=== PATIENT | male | born 1950 | race Caucasian/White ===

== ENCOUNTER 2017-06-20 15:04 | Inpatient (IN) | payer OTHER ==
[~2017-06-20] VITALS: Ht 175.3 cm; Wt 92.9 kg
[~2017-06-20 15:04] MED LIST: APR25 PO; COLC0.6T54 PO; LEVO50TA6 PO; MULT-589 PO; SLWMEC PO; WARF7.5T PO
[2017-06-20] MEDS ORDERED: ONDANSETRON INJ 2 MG/ML 2 ML VIAL IV STA (15:35)
[2017-06-20] MEDS ORDERED: SODIUM CHLORIDE 0.9% 1000ML 1,000 ML IV STA (15:35)
[2017-06-20] MEDS ORDERED: LORAZEPAM 2 MG/ML 1 ML VIAL IV STA ×3 (15:37→18:39)
[2017-06-20] MEDS ORDERED: THIAMINE HCL 100 MG/ML 2 ML VIAL IV STA (15:37)
[2017-06-20] MEDS ORDERED: APR25 PO (15:51)
[2017-06-20] MEDS ORDERED: MULT-845 PO (15:51)
[2017-06-20] MEDS ORDERED: WARF-246 PO ×2 (15:51)
[2017-06-20] MEDS ORDERED: LISI-461 PO (15:51)
[2017-06-20] MEDS ORDERED: LEVO75TA5 PO (15:51)
[2017-06-20] MEDS ORDERED: MAGN64TA4 PO (15:51)
[2017-06-20 15:53] LABS: BASO % 0.6 %; BASO ABS # 0.03 K/uL (0-0.2); COMPLETE YES; EOS % 0.2 %; HEMATOCRIT 43.1 % (42-52); IG% 0.2 %; LYMPH ABS # 1.63 K/uL (1.2-3.4); MEAN CELL VOLUME 97.3 fL (80-100); MEAN CORPUSCULAR HEMOGLOBIN 33.2 pg (25-34); MEAN CORPUSCULAR HGB CONC 34.1 g/dl (32-36); MEAN PLATELET VOLUME 10.3 fL (7.4-10.4); MONO % 14.4 %; NEUT % 50.6 %; PLATELET COUNT 156 K/uL (130-400); RED BLOOD COUNT 4.43 M/uL (4.7-6.1)
[2017-06-20 16:01] LABS: INR 2.4 (0.9-1.1); PARTIAL THROMBOPLASTIN RATIO 1.3; PROTHROMBIN TIME (PATIENT) 26.5 SECONDS (9.0-12.0)
[2017-06-20 16:09] LABS: BUN/CREATININE RATIO 6.9 (10-20); CALCIUM 9.5 mg/dl (8.5-10.1); CREATININE 1.6 mg/dl (0.60-1.40); POTASSIUM 3.2 mmol/L (3.5-5.1)
[2017-06-20 16:14] LABS: CKMB/CK RATIO 1.8 (0-3.0)
[2017-06-20] MEDS ORDERED: THIAMINE HCL INJ 100 MG in SYRINGE 9 ML IV ONE (16:15)
[2017-06-20] MEDS ORDERED: ATOR-26 PO (16:29)
[2017-06-20] MEDS ORDERED: THIA1TAB11 PO (16:29)
[2017-06-20] MEDS ORDERED: OMEG10007 PO (16:32)
[2017-06-20 17:33] LABS: MANUAL MICROSCOPIC REQUIRED? NO; REVIEW REQ? NO; URINE APPEARANCE CLEAR (CLEAR); URINE BILIRUBIN NEG (NEG); URINE COLOR YELLOW; URINE NITRITE NEG (NEG); URINE SPECIFIC GRAVITY 1.013 (1.000-1.030); UROBILINOGEN NEG (NEG)
--- NOTE | 2017-06-20 17:34 | DIAGNOSTIC IMAGING REPORT ---
ABDOMEN 2VIEW W/PA CHEST RTN CLINICAL HISTORY: ABDOMINAL PAIN/GI pain COMPARISON STUDY: 03/31/2016 FINDINGS: Lungs are clear. No evidence for cardiac enlargement. Diaphragms smooth. Mild nonobstructive ileus. No evidence of bowel distention. Aortic and iliac stents are in position. IMPRESSION: 1. Negative chest. 2. Mild nonobstructive ileus. The above report was generated using voice recognition software. It may contain grammatical, syntax or spelling errors. Electronically signed by: Garett Cabrera M.D. 06/20/2017 5:32 PM Dictated Date/Time: 06/20/2017 5:31 PM
[2017-06-20] MEDS ORDERED: PANT1TAB48 PO (17:39)
[2017-06-20] MEDS ORDERED: TADA20TA PO (18:08)
--- NOTE | 2017-06-20 18:14 | EMERGENCY ROOM VISIT NOTE ---
History Report prepared by Mireille: Krysten Shepard Under the Supervision of: Dr. Blayne Velasquez D.O. First contact with patient: 15:23 Chief Complaint: RESPIRATORY PROBLEMS Stated Complaint: HARD TIME BREATHING, ELEVATED BP Nursing Triage Summary: "Difficulty breathing x2 days. My blood pressure is quite high. I drink a quart of wine a day ". N/V/D yesterday. History of Present Illness The patient is a 66 year old male who presents to the Emergency Room with complaints of an episode of respiratory problems starting today. The patient states that yesterday afternoon he was vomiting. He report he went to bed early. He states he woke up today and was still nauseous and had diarrhea. He reports that he took a shower and then checked his blood pressure. He reports that it was very high. He states that he is having difficulty breathing. He reports that he went to his and asked her to come to the ED. The patient states that his blood pressure normally fluctuates and he takes his medication for it when he remembers. He complains of some hematochezia. The patient denies chest pain, abdominal pain, and being around anyone who is sick. He notes that he has had 2 PEs in the past and that he normally is a heavy drinker, but hasn' t had much to drink. Source of History: patient Onset: today Position: other (global) Quality: other (global) Timing: other (episode) Associated Symptoms: + SOB, + nausea, + vomiting, + hematochezia, + diarrhea , No chest pain, No abdominal pain Note: The patient denies being around anyone who is sick. Review of Systems See HPI for pertinent positives & negatives. A total of 10 systems reviewed and were otherwise negative. Past Medical & Surgical Medical Problems: (1) A-fib (2) ALEXIS (acute kidney injury) (3) Bradycardia (4) CAD (coronary artery disease) (5) CKD (chronic kidney disease) stage 3, GFR 30-59 ml/min (6) Dyslipidemia (7) GERD (gastroesophageal reflux disease) (8) History of cardioversion (9) HTN (hypertension) (10) Hypotension (11) Hypothyroidism (12) PE (pulmonary embolism) Surgical Problems: (1) History of inguinal hernia repair (2) Hx of CABG (3) S/P aneurysm repair (4) S/P femoral-popliteal bypass surgery Family History Diabetes mellitus FH: cancer FH: lung disease FHx: heart disease Hypertension Social History Smoking Status: Never Smoker Alcohol Use: heavy Drug Use: none Marital Status: Occupation Status: employed Current/Historical Medications Scheduled Allopurinol (Zyloprim), 200 MG PO QPM Atorvastatin (Lipitor), 80 MG PO DAILY Clopidogrel Bisulfate (Clopidogrel), 75 MG PO QAM Escitalopram (Lexapro), 10 MG PO QPM Fish Oil ([place]-3), 1 CAP PO BID Hydralazine Hcl (Apresoline), 25 MG PO TID Levothyroxine Sodium (Levothyroxine Sodium), 75 MCG PO DAILY Lisinopril (Zestril), 10 MG PO DAILY Magnesium Chloride (Mag64), 535 MG PO QPM Multiple Vitamins W/ Minerals (Centrum Silver Adult 50+), 1 TAB PO QPM Pantoprazole (Protonix), 40 MG PO DAILY Pregabalin (Lyrica), 75 MG PO BID Thiamine Mononitrate (Vitamin B1), 100 MG PO DAILY Warfarin Sodium (Warfarin Sodium), 5 MG PO 5XWK Warfarin Sodium (Warfarin Sodium), 7.5 MG PO 2XWK Scheduled PRN Fluticasone Propionate (Nasal) (Flonase Allergy Relief), 2 SPRAYS NIALL DAILY PRN for Allergy Symptoms Hydrocodone/Acetaminophen 5MG/325MG (Grant 5MG/325MG), 1 TAB PO BID PRN for Mild Pain Tadalafil (Cialis), 20 MG PO UD PRN for intercourse Allergies Coded Allergies: No Known Allergies (Unverified , 04/07/12) Physical Exam Vital Signs Date Time Temp Pulse Resp B/P (MAP) Pulse Ox O2 Delivery O2 Flow Rate FiO2 06/20/17 19:00 89 21 170/98 95 Room Air 06/20/17 19:00 87 16 187/106 96 Room Air 06/20/17 18:04 90 16 175/93 96 Room Air 06/20/17 17:19 84 16 193/121 95 Room Air 06/20/17 16:16 94 20 202/120 97 Room Air 06/20/17 15:52 83 16 198/126 97 Room Air 06/20/17 15:32 95 06/20/17 15:12 97 Room Air 06/20/17 15:12 36.9 93 24 187/91 97 Room Air Physical Exam GENERAL: Patient is awake, alert, and did not appear to be in pain, but appears to be mildly anxious. EYES: The conjunctivae are clear. The pupils are round and reactive. EARS, NOSE, MOUTH AND THROAT: The nose is without any evidence of any deformity. Mucous membranes are moist tongue is midline NECK: The neck is nontender and supple. RESPIRATORY: Normal respiratory effort is noted there is no evidence of wheezing rhonchi or rales CARDIOVASCULAR: Regular rate and rhythm noted there no murmurs rubs or gallops normal S1 normal S2 GASTROINTESTINAL: The abdomen is soft. Bowel sounds are present in all quadrants. Abdomen is nontender MUSCULOSKELETAL/EXTREMITIES: There is no evidence of gross deformity full range of motion is noted in the hips and shoulders SKIN: There is no obvious evidence of any rash. There are no petechiae, pallor or cyanosis noted. NEUROLOGIC: Patient is awake alert and oriented x3. Medical Decision & Procedures ER Provider Diagnostic Interpretation: Radiology results as stated below per my review and radiologist interpretation: ABDOMEN 2VIEW W/PA CHEST RTN CLINICAL HISTORY: ABDOMINAL PAIN/GI pain COMPARISON STUDY: 03/31/2016 FINDINGS: Lungs are clear. No evidence for cardiac enlargement. Diaphragms smooth. Mild nonobstructive ileus. No evidence of bowel distention. Aortic and iliac stents are in position. IMPRESSION: 1. Negative chest. 2. Mild nonobstructive ileus. The above report was generated using voice recognition software. It may contain grammatical, syntax or spelling errors. Electronically signed by: Garett Cabrera M.D. 06/20/2017 5:32 PM Dictated Date/Time: 06/20/2017 5:31 PM Laboratory Results 06/20/17 15:35 Red Blood Count 4.43, Mean Corpuscular Volume 97.3, Mean Corpuscular Hemoglobin 33.2, Mean Corpuscular Hemoglobin Concent 34.1, Mean Platelet Volume 10.3, Neutrophils (%) (Auto) 50.6, Lymphocytes (%) (Auto) 34.0, Monocytes (%) (Auto) 14.4, Eosinophils (%) (Auto) 0.2, Basophils (%) (Auto) 0.6, Neutrophils # (Auto ) 2.43, Lymphocytes # (Auto) 1.63, Monocytes # (Auto) 0.69, Eosinophils # (Auto ) 0.01, Basophils # (Auto) 0.03 06/20/17 15:35 Test 06/20/17 15:35 06/20/17 17:20 White Blood Count 4.80 K/uL (4.8-10.8) Red Blood Count 4.43 M/uL (4.7-6.1) Hemoglobin 14.7 g/dL (14.0-18.0) Hematocrit 43.1 % (42-52) Mean Corpuscular Volume 97.3 fL (80-100) Mean Corpuscular Hemoglobin 33.2 pg (25-34) Mean Corpuscular Hemoglobin Concent 34.1 g/dl (32-36) Platelet Count 156 K/uL (130-400) Mean Platelet Volume 10.3 fL (7.4-10.4) Neutrophils (%) (Auto) 50.6 % Lymphocytes (%) (Auto) 34.0 % Monocytes (%) (Auto) 14.4 % Eosinophils (%) (Auto) 0.2 % Basophils (%) (Auto) 0.6 % Neutrophils # (Auto) 2.43 K/uL (1.4-6.5) Lymphocytes # (Auto) 1.63 K/uL (1.2-3.4) Monocytes # (Auto) 0.69 K/uL (0.11-0.59) Eosinophils # (Auto) 0.01 K/uL (0-0.5) Basophils # (Auto) 0.03 K/uL (0-0.2) RDW Standard Deviation 48.7 fL (36.4-46.3) RDW Coefficient of Variation 13.6 % (11.5-14.5) Immature Granulocyte % (Auto) 0.2 % Immature Granulocyte # (Auto) 0.01 K/uL (0.00-0.02) Prothrombin Time 26.5 SECONDS (9.0-12.0) Prothromb Time International Ratio 2.4 (0.9-1.1) Activated Partial Thromboplast Time 33.4 SECONDS (21.0-31.0) Partial Thromboplastin Ratio 1.3 Anion Gap 12.0 mmol/L (3-11) Est Creatinine Clear Calc Drug Dose 58.4 ml/min Estimated GFR () 50.9 Estimated GFR (Non- 43.9 BUN/Creatinine Ratio 6.9 (10-20) Calcium Level 9.5 mg/dl (8.5-10.1) Total Bilirubin 1.3 mg/dl (0.2-1) Direct Bilirubin 0.4 mg/dl (0-0.2) Aspartate Amino Transf (AST/SGOT) 156 U/L (15-37) Alanine Aminotransferase (ALT/SGPT) 95 U/L (12-78) Alkaline Phosphatase 78 U/L (45-117) Total Creatine Kinase 687 U/L (39-308) Creatine Kinase MB 12.3 ng/ml (0.5-3.6) Creatine Kinase MB Ratio 1.8 (0-3.0) Troponin I 0.040 ng/ml (0-0.045) Total Protein 8.3 gm/dl (6.4-8.2) Albumin 3.9 gm/dl (3.4-5.0) Lipase 395 U/L (73-393) Urine Color YELLOW Urine Appearance CLEAR (CLEAR) Urine pH 7.0 (4.5-7.5) Urine Specific [place] 1.013 (1.000-1.030) Urine Protein 1+ (NEG) Urine Glucose (UA) NEG (NEG) Urine Ketones NEG (NEG) Urine Occult Blood NEG (NEG) Urine Nitrite NEG (NEG) Urine Bilirubin NEG (NEG) Urine Urobilinogen NEG (NEG) Urine Leukocyte Esterase NEG (NEG) Urine WBC (Auto) 1-5 /hpf (0-5) Urine RBC (Auto) 0-4 /hpf (0-4) Urine Hyaline Casts (Auto) 0 /lpf (0-5) Urine Epithelial Cells (Auto) 5-10 /lpf (0-5) Urine Bacteria (Auto) NEG (NEG) Laboratory results per my review. Medications Administered Medications (Trade) Dose Ordered Sig/Brooke Route Start Time Stop Time Status Last Admin Dose Admin Sodium Chloride 1,000 ml @ 999 mls/hr Q1H1M STAT IV 06/20/17 15:35 06/20/17 16:35 DC 06/20/17 15:49 999 MLS/HR Ondansetron HCl (Zofran Inj) 4 mg NOW STAT IV 06/20/17 15:35 06/20/17 15:37 DC 06/20/17 15:48 4 MG Lorazepam (Ativan Inj) 0.5 mg NOW STAT IV 06/20/17 15:37 06/20/17 15:38 DC 06/20/17 15:49 0.5 MG Thiamine HCl 100 mg/Syringe 10 ml @ 2 mls/min NOW ONCE IV 06/20/17 16:15 06/20/17 16:19 DC 06/20/17 16:13 2 MLS/MIN Lorazepam (Ativan Inj) 1 mg NOW STAT IV 06/20/17 17:26 06/20/17 17:27 DC 06/20/17 17:36 1 MG Lorazepam (Ativan Inj) 1 mg NOW STAT IV 06/20/17 18:39 06/20/17 18:40 DC 06/20/17 19:00 1 MG ECG Indication: vomiting Rate (beats per minute): 85 Rhythm: atrial fibrillation Findings: other (no acute ST abnormalities, LVH suggested by voltage criteria) ED Course 1533: The patient was evaluated in room B4B. A complete history and physical examination were performed. 1535: Ordered Zofran Inj 4 mg IV, NSS 1000 ml @ 999 mls/hr IV. 1537: Ordered Ativan Inj 0.5 mg IV. 1615: Ordered Thiamine HCl 100 mg/Syringe 10 ml @ 2 mls/min IV. 1726: Ordered Ativan 1 mg IV. 1803: I reevaluated the patient and he is feeling much better. 1810: I discussed the patient's case with Dr. [place]. He would like case management to see the patient before he admits. 1838: I discussed the patient's case with Dr. [place]. The patient will be evaluated for further management. 1839: Ordered Ativan Inj 1 mg IV. Medical Decision Etiologies such as gastroenteritis, food borne illness, infections, appendicitis , diverticulitis, inflammatory bowel disease, obstruction, GI bleed, biliary pathology, as well as others were entertained. Nursing notes reviewed. The patient is a 66-year-old male who presented to emergency department because he was not feeling well. The patient has a history of chronic alcohol use. His blood pressure was very elevated. It sounds as though he is not compliant with medications and he was drinking earlier today. He does have a history of alcohol withdrawal past. I'm very concerned the patient may have a, Grace did course at this time. I discussed the patient's laboratory and radiographic studies with him. Because of his symptoms I also discussed his case with the on- call [facility] hospitalist. They've agreed to evaluate the patient in the emergency apartment for further management and disposition. At this time the patient does want to go to rehabilitation. I'm very concerned because his history though. Medication Reconcilliation Current Medication List: was personally reviewed by me Blood Pressure Screening Patient's blood pressure: Elevated blood pressure Blood pressure disposition: Elevated BP felt to be situational Consults Time Called: 1806 Consulting Physician: Dr. Montana Returned Call: [phone] I discussed the patient's case with Dr. [place]. He would like case management to see the patient before he admits. Additional Consults: Time Called: 1834 Consulted Physician: Dr. Montana Returned Call: [phone] Additional Comments: I discussed the patient's case with Dr. [place]. The patient will be evaluated for further management. Impression Primary Impression: HTN (hypertension) Additional Impressions: Alcohol abuse Alcoholic hepatitis Alcohol withdrawal Scribe Attestation The scribe's documentation has been prepared under my direction and personally reviewed by me in its entirety. I confirm that the note above accurately reflects all work, treatment, procedures, and medical decision making performed by me. Departure Information Dispostion Being Evaluated By Hospitalist Referrals Emeka Piper, D.ODonovan (PCP) Patient Instructions My [facility] Problem Qualifiers Primary Impression: HTN (hypertension) Hypertension type: unspecified Qualified Codes: I10 - Essential (primary) hypertension Additional Impressions: Alcohol withdrawal Complication of substance-induced condition: with unspecified complication Qualified Codes: F10.239 - Alcohol dependence with withdrawal, unspecified
--- NOTE | 2017-06-20 19:23 | History and Physical ---
History & Physical Date & Time of Service: Jun 20, 2017 at 19:23 . Chief Complaint: nausea, vomiting, shortness of breath . Primary Care Physician: Emeka Piper D.ODonovan . History of Present Illness Source: patient, family, clinic records, hospital records 66 YO male followed by Dr. Emeka Piper for Family Medicine. History of coronary artery disease (s/p CABG), chronic atrial fibrillation, hypertension, recurrent pulmonary emboli, and other problems noted below. He has been drinking regularly for the past several years, typically 1 quart of wine and 4-5 mixed drinks / day. Last alcohol consumption was about 24 hours prior to admission. Experiencing nausea and vomiting for past few days. Symptoms worsened with consumption of alcohol. Denies abdominal pain or hematemesis. Stools have been loose. Noted some hematochezia this morning. (Has had intermittent hematochezia for some time. Colonoscopy 2010 did not show any pathology.) No sick contacts. Did not consume any alcohol this morning because of his GI symptoms. Alcohol consumption as noted above. Takes warfarin and clopidogrel. No aspirin, NSAID's. No known history of portal hypertension. This afternoon he felt dyspneic. No chest pain, palpitations, edema, fever, cough. He checked his blood pressure at home and found it to be 190/108. Came to ED for evaluation. BP's noted to be markedly elevated with systolic BP as high as 202 and diastolic BP as high as 126. Received IV lorazepam with improvement of his symptoms and BP. . Past Medical/Surgical History Chronic and Resolved Medical Problems: (1) Alcohol abuse Status: Chronic (2) Anticoagulated on warfarin Status: Chronic (3) Atrial fibrillation Status: Chronic (4) CAD (coronary artery disease) Status: Chronic (5) CKD (chronic kidney disease) stage 3, GFR 30-59 ml/min Status: Chronic (6) Diabetic neuropathy Status: Chronic (7) Dyslipidemia Status: Chronic (8) GERD (gastroesophageal reflux disease) Status: Chronic (9) History of bradycardia Permanent Comment: carvedilol discontinued Status: Chronic (10) History of cardioversion Status: Chronic (11) History of pulmonary embolism Permanent Comment: 2 episodes, chronic warfarin therapy Status: Chronic (12) History of ventricular tachycardia Status: Chronic (13) HTN (hypertension) Status: Chronic (14) Hypothyroidism Status: Chronic (15) Sleep apnea Status: Chronic Surgical Problems: (1) History of inguinal hernia repair Status: Chronic (2) Hx of CABG Status: Chronic (3) S/P aneurysm repair Permanent Comment: AAA Status: Chronic (4) S/P femoral-popliteal bypass surgery Status: Chronic . Family History FATHER Cancer MOTHER Coronary artery disease SISTER Hypertension Social History Smoking Status: Never Smoker Alcohol Use: heavy (1 quart wine / day + 4-5 mixed drinks / day) Drug Use: none Marital Status: Housing status: lives with family Occupational Status: employed Immunizations History of Influenza Vaccine: Yes History of Tetanus Vaccine?: Unknown History of Pneumococcal: Yes History of Hepatitis B Vaccine: Unknown Allergies Coded Allergies: No Known Allergies (Unverified , 04/07/12) Home Medications Scheduled Allopurinol (Zyloprim), 200 MG PO QPM Atorvastatin (Lipitor), 80 MG PO DAILY Clopidogrel Bisulfate (Clopidogrel), 75 MG PO QAM Escitalopram Oxalate (Lexapro), 20 MG PO HS Fish Oil ([place]-3), 1 CAP PO BID Hydralazine Hcl (Apresoline), 25 MG PO TID Levothyroxine Sodium (Levothyroxine Sodium), 75 MCG PO DAILY Lisinopril (Zestril), 10 MG PO DAILY Magnesium Chloride (Mag64), 535 MG PO QPM Multiple Vitamins W/ Minerals (Centrum Silver Adult 50+), 1 TAB PO QPM Pantoprazole (Protonix), 40 MG PO DAILY Pregabalin (Lyrica), 75 MG PO BID Thiamine Mononitrate (Vitamin B1), 100 MG PO DAILY Warfarin Sodium (Warfarin Sodium), 5 MG PO 5XWK Warfarin Sodium (Warfarin Sodium), 7.5 MG PO 2XWK Scheduled PRN Fluticasone Propionate (Nasal) (Flonase Allergy Relief), 2 SPRAYS [place] DAILY PRN for Allergy Symptoms Hydrocodone/Acetaminophen 5MG/325MG ([place] 5MG/325MG), 1 TAB PO BID PRN for Mild Pain Tadalafil (Cialis), 20 MG PO UD PRN for intercourse Review of Systems Constitutional: No fever, No weight loss Eyes: No worsening of vision, No diplopia ENT: + nasal symptoms, No sore throat Respiratory: + problem reported (as noted above in HPI) Cardiovascular: + problem reported (as noted above in HPI) Abdomen: + problem reported (as noted above in HPI) Musculoskeletal: + joint pain Genitourinary - Male: No hematuria, No dysuria Neurologic: + numbness/tingling (lower extremities) Psychiatric: + depression symptoms, + anxiety Endocrine: No excessive thirst, No excessive urination Hematologic / Lymphatic: + abnormal bleeding/bruising, No swollen lymph nodes Integumentary: No rash, No new/changing skin lesions Physical Exam Vital Signs Date Time Temp Pulse Resp B/P (MAP) Pulse Ox O2 Delivery O2 Flow Rate FiO2 06/20/17 19:00 89 21 170/98 95 Room Air 06/20/17 19:00 87 16 187/106 96 Room Air 06/20/17 18:04 90 16 175/93 96 Room Air 06/20/17 17:19 84 16 193/121 95 Room Air 06/20/17 16:16 94 20 202/120 97 Room Air 06/20/17 15:52 83 16 198/126 97 Room Air 06/20/17 15:32 95 06/20/17 15:12 97 Room Air 06/20/17 15:12 36.9 93 24 187/91 97 Room Air General Appearance: WD/WN, + mild distress Head: normocephalic, atraumatic Eyes: normal inspection, PERRL, EOMI, sclerae normal (conjunctivae pink) ENT: normal ENT inspection, hearing grossly normal, pharynx normal Neck: supple, no adenopathy, thyroid normal, no JVD, trachea midline Respiratory/Chest: lungs clear, no respiratory distress, no accessory muscle use Cardiovascular: no edema, no gallop, no JVD, no murmur, normal peripheral pulses, + irregularly irregular Abdomen/GI: normal bowel sounds, non tender, soft, no organomegaly (exam limited due to obesity), no pulsatile mass Extremities/Musculoskelatal: normal inspection, no calf tenderness, normal capillary refill, no pedal edema 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 (PERRL, EOMI, no facial palsy, no dysarthria), oriented x 3, + pertinent finding (motor upper and lower extremities 5/5 bilat; decreased sensation both feet; patellar DTR's 1/2 bilat; plantar reflexes downgoing; resting tremor of hands) Skin: normal color, warm/dry, no rash Lymphatic: no adenopathy (cervical / axillary) Diagnostics Laboratory Results Results Past 24 Hours Test 06/20/17 15:35 06/20/17 17:20 Range/Units White Blood Count 4.80 4.8-10.8 K/uL Red Blood Count 4.43 4.7-6.1 M/uL Hemoglobin 14.7 14.0-18.0 g/dL Hematocrit 43.1 42-52 % Mean Corpuscular Volume 97.3 80-100 fL Mean Corpuscular Hemoglobin 33.2 25-34 pg Mean Corpuscular Hemoglobin Concent 34.1 32-36 g/dl Platelet Count 156 130-400 K/uL Mean Platelet Volume 10.3 7.4-10.4 fL Neutrophils (%) (Auto) 50.6 % Lymphocytes (%) (Auto) 34.0 % Monocytes (%) (Auto) 14.4 % Eosinophils (%) (Auto) 0.2 % Basophils (%) (Auto) 0.6 % Neutrophils # (Auto) 2.43 1.4-6.5 K/uL Lymphocytes # (Auto) 1.63 1.2-3.4 K/uL Monocytes # (Auto) 0.69 0.11-0.59 K/uL Eosinophils # (Auto) 0.01 0-0.5 K/uL Basophils # (Auto) 0.03 0-0.2 K/uL RDW Standard Deviation 48.7 36.4-46.3 fL RDW Coefficient of Variation 13.6 11.5-14.5 % Immature Granulocyte % (Auto) 0.2 % Immature Granulocyte # (Auto) 0.01 0.00-0.02 K/uL Prothrombin Time 26.5 9.0-12.0 SECONDS Prothromb Time International Ratio 2.4 0.9-1.1 Activated Partial Thromboplast Time 33.4 21.0-31.0 SECONDS Partial Thromboplastin Ratio 1.3 Sodium Level 136 136-145 mmol/L Potassium Level 3.2 3.5-5.1 mmol/L Chloride Level 102 98-107 mmol/L Carbon Dioxide Level 22 21-32 mmol/L Anion Gap 12.0 3-11 mmol/L Blood Urea Nitrogen 11 7-18 mg/dl Creatinine 1.60 0.60-1.40 mg/dl Est Creatinine Clear Calc Drug Dose 58.4 ml/min Estimated GFR () 50.9 Estimated GFR (Non- 43.9 BUN/Creatinine Ratio 6.9 10-20 Random Glucose 113 70-99 mg/dl Calcium Level 9.5 8.5-10.1 mg/dl Total Bilirubin 1.3 0.2-1 mg/dl Direct Bilirubin 0.4 0-0.2 mg/dl Aspartate Amino Transf (AST/SGOT) 156 15-37 U/L Alanine Aminotransferase (ALT/SGPT) 95 12-78 U/L Alkaline Phosphatase 78 45-117 U/L Total Creatine Kinase 687 39-308 U/L Creatine Kinase MB 12.3 0.5-3.6 ng/ml Creatine Kinase MB Ratio 1.8 0-3.0 Troponin I 0.040 0-0.045 ng/ml Total Protein 8.3 6.4-8.2 gm/dl Albumin 3.9 3.4-5.0 gm/dl Lipase 395 73-393 U/L Urine Color YELLOW Urine Appearance CLEAR CLEAR Urine pH 7.0 4.5-7.5 Urine Specific [place] 1.013 1.000-1.030 Urine Protein 1+ NEG Urine Glucose (UA) NEG NEG Urine Ketones NEG NEG Urine Occult Blood NEG NEG Urine Nitrite NEG NEG Urine Bilirubin NEG NEG Urine Urobilinogen NEG NEG Urine Leukocyte Esterase NEG NEG Urine WBC (Auto) 1-5 0-5 /hpf Urine RBC (Auto) 0-4 0-4 /hpf Urine Hyaline Casts (Auto) 0 0-5 /lpf Urine Epithelial Cells (Auto) 5-10 0-5 /lpf Urine Bacteria (Auto) NEG NEG Diagnostic Radiology ABDOMEN 2VIEW W/PA CHEST RTN FINDINGS: Lungs are clear. No evidence for cardiac enlargement. Diaphragms smooth. Mild nonobstructive ileus. No evidence of bowel distention. Aortic and iliac stents are in position. IMPRESSION: 1. Negative chest. 2. Mild nonobstructive ileus. The above report was generated using voice recognition software. It may contain grammatical, syntax or spelling errors. Electronically signed by: Garett Cabrera M.D. 06/20/2017 5:32 PM Dictated Date/Time: 06/20/2017 5:31 PM . Impression Assessment and Plan HYPERTENSIVE URGENCY Systolic BP as high as 202, diastolic BP as high as 126 in ED. Hypertensive urgency probably primarily due to alcohol withdrawal. BP's improved with administration of lorazepam in ED. History of bradycardia in the past on beta jerald. Increase hydralazine to 50 mg TID. Increase lisinopril to 10 mg BID. IV enalapril PRN for elevated BP's. Management of alcohol withdrawal as discussed below. Follow and titrate Rx. DYSPNEA Patient complains of dyspnea. RR in ED 16-24. O2 sats 95-97% on RA. Lung exam clear. No infiltrates, effusions, CHF on chest x-ray. History of pulmonary emboli, but INR therapeutic at 2.5. Dyspnea could be secondary to hypertensive urgency or perhaps secondary to anxiety from alcohol withdrawal. Follow symptoms, exam, O2 sats. ALCOHOL WITHDRAWAL / ALCOHOLISM Has been drinking heavily / regularly for last 6 years. Heavy drinking triggered by financial difficulties at that time. Continues to drink because he enjoys it and it helps control his neuropathic pain. Currently drinking a quart of wine a day and 4-5 mixed drinks a day. Last alcohol consumption about 24 hours prior to admission. Experiencing elevated blood pressures, tremors, anxiety. Patient willing to try abstention. Gabapentin-based alcohol withdrawal protocol ordered. Thiamine / folate / MVI. NAUSEA / VOMITING Probably related to alcohol consumption. Could have gastritis / PUD. LFT's elevated as noted below, lipase slightly elevated. Avoid gastric irritants. Increase pantoprazole to BID (IV x 2 doses, then PO if better). Consult GI. ELEVATED LFT'S LFT's - total bilirubin 1.3, direct bilirubin 0.4, AST 156, ALT 95, alk phos 78. Probable due to alcohol abuse. Check liver US. Follow LFT's. Consult GI. HEMATOCHEZIA Patient reports intermittent mild rectal bleeding, last occurrence this morning. H/H stable. Hemodynamically stable. Taking warfarin for chronic AF and history recurrent pulmonary emboli. Taking clopidogrel for CAD, s/p CABG. Also using fish oil supplements. Colonoscopy performed 04/08/11 for routine screening was unremarkable; f/u in 10 years recommended. Follow H/H. Continue warfarin and clopidogrel with caution. Degree of antiplatelet effects of omega-3 fatty acids debatable, but prudent to stop fish oil. Consult GI. CORONARY ARTERY DISEASE History of coronary artery disease, s/p CABG. No anginal symptoms. EKG pending. Total CPK 687, CPK-MB 12, troponin 0.040. Check serial cardiac markers. Beta jerald stopped in past due to bradycardia. Hold statin due to elevated LFT's. Continue antiplatelet therapy with clopidogrel with caution. CHRONIC ATRIAL FIBRILLATION Rate controlled. Continue warfarin with caution. Warfarin preferred over DOAC's in this case due to potential need for reversal. HISTORY PULMONARY EMBOLISM History of pulmonary embolism x 2. Continue warfarin with caution. Warfarin preferred over DOAC's in this case due to potential need for reversal. CKD III Baseline creatinine around 1.5. Creatinine today 1.6. Maintain adequate volume status. Avoid potential nephrotoxins when able. Follow. HYPOKALEMIA Serum K = 3.2. IV repletion. Follow. HYPOMAGNESEMIA History of hypomagnesemia on magnesium chloride. Check Mg with next labs. Continue replacement. Follow. GOUT Quiescent. Continue allopurinol. HYPOTHYROIDISM Check TSH. Continue levothyroxine. PERIPHERAL NEUROPATHY Very symptomatic pain and paresthesiae of lower extremities. Evaluated in the past, details not available. Hold pregabalin while receiving gabapentin for alcohol withdrawal, then resume and titrate Rx. Continue analgesics PRN with caution- will change from hydrocodone / acetaminophen to oxycodone in light of hepatic disease. DEPRESSION Continue escitalopram. VTE PROPHYLAXIS Continue warfarin with caution. RESUSCITATION STATUS Discussed with patient and his . He has a living will. He would like resuscitation attempted in the event of a cardiopulmonary arrest if there is a reasonable chance of a meaningful recovery, but does not want prolonged extraordinary measures if prognosis is poor. Therefore, code status = "Level 1" (full resuscitation). DISPOSITION Admit to Telemetry Unit. Discharge disposition to be determined. Family Medicine follow-up with Dr. Emeka Piper. . VTE Prophylaxis VTE Risk Assessment Done? Y/N: Yes Risk Level: Moderate Given or contraindicated: Warfarin (Coumadin)
[2017-06-20 19:36] VITALS: BMI 30.0
[2017-06-20 19:42] VITALS: Ht 175.3 cm; Wt 92.9 kg
[2017-06-20] MEDS ORDERED: ESCI10TA17 PO (19:50)
[2017-06-20] MEDS ORDERED: FLUT0.15 NAE (19:50)
[2017-06-20] MEDS ORDERED: HYDR-5688 PO (19:50)
[2017-06-20] MEDS ORDERED: PREG1CAP28 PO (19:50)
[2017-06-20] MEDS ORDERED: ALLO100T PO (20:03)
[2017-06-20] MEDS ORDERED: PLV75 PO (20:04)
[2017-06-20] MEDS ORDERED: ESCI1TAB10 PO (20:16)
[2017-06-20] MEDS ORDERED: HYDROmorphone INJ 1 MG/ML SYR IV PRN (20:30)
[2017-06-20] MEDS ORDERED: HydrALAZINE HCL 20 MG/ML VIAL IV. PRN (20:30)
[2017-06-20] MEDS ORDERED: CLONIDINE HCL 0.1 MG TAB PO PRN (20:30)
[2017-06-20] MEDS ORDERED: MULTI-VITAMIN INFUSION INJ 10 ML, THIAMINE HCL INJ 100 MG, FoLIC ACID INJ 1 MG, POTASSI... IV ONE ×5 (20:33)
[2017-06-20 20:34] VITALS: BP 179/95; PULSE 82; TEMP 37; O2SAT 94
[2017-06-20] MEDS ORDERED: LORAZEPAM 1 MG TAB PO PRN (20:45)
[2017-06-20] MEDS ORDERED: GABAPENTIN 600 MG TAB PO STA (21:10)
[2017-06-20] MEDS ORDERED: LISINOPRIL 10 MG TAB PO ONE (21:55)
[2017-06-20] MEDS ORDERED: PANTOprazole INJ 40 MG in SYRINGE 0 ML IV ONE (22:00)
[2017-06-20] MEDS ORDERED: ENALAPRILAT IV 1.25 MG in DEXTROSE 5% 25ML 25 ML IV PRN (22:00)
[2017-06-20] MEDS: ALLOPURINOL 100 MG TAB PO SCH (22:20)
[2017-06-20] MEDS: ESCITALOPRAM OXALATE 20 MG TAB PO SCH (22:21)
[2017-06-20] MEDS: CEROVITE ADV FORMULA TAB PO SCH (22:21)
[2017-06-20] MEDS: MAGNESIUM CHLORIDE 64MG DELAYED REL TAB PO SCH (22:21)
[2017-06-20 23:00] VITALS: BP 188/106; PULSE 92; TEMP 37; O2SAT 94
[2017-06-20] MEDS: LORAZEPAM 2 MG/ML 1 ML VIAL IV PRN (23:48)
[2017-06-21] VITALS (10 sets, daily range): BP systolic 125–174; BP diastolic 62–96; PULSE 68–106; TEMP 36.8–37.3; O2SAT 95–97
[2017-06-21 00:09] LABS: CKMB/CK RATIO 1.8 (0-3.0); MAGNESIUM 1.7 mg/dl (1.8-2.4)
[2017-06-21] MEDS ORDERED: INFLUENZA ADMINISTRATION CHARGE ONE (00:45)
[2017-06-21] MEDS ORDERED: INFLUENZA VACCINE HIGH DOSE 65+ 0.5 ML SYR IM. ONE (00:45)
[2017-06-21] MEDS: GABAPENTIN 600MG Q6H DOSE PO SCH ×2 (04:27→08:01)
[2017-06-21] MEDS: LEVOTHYROXINE 75 MCG TAB PO SCH (04:27)
[2017-06-21 07:03] LABS: HEMATOCRIT 36.6 % (42-52); MEAN CELL VOLUME 101.1 fL (80-100); MEAN CORPUSCULAR HEMOGLOBIN 33.7 pg (25-34); MEAN CORPUSCULAR HGB CONC 33.3 g/dl (32-36); MEAN PLATELET VOLUME 9.8 fL (7.4-10.4); PLATELET COUNT 108 K/uL (130-400); RED BLOOD COUNT 3.62 M/uL (4.7-6.1); WHITE BLOOD COUNT 3.19 K/uL (4.8-10.8)
[2017-06-21 07:13] LABS: PROTHROMBIN TIME (PATIENT) 22.4 SECONDS (9.0-12.0)
[2017-06-21 07:36] LABS: BUN/CREATININE RATIO 7.9 (10-20); CALCIUM 8.2 mg/dl (8.5-10.1); CREATININE 1.4 mg/dl (0.60-1.40); MAGNESIUM 1.8 mg/dl (1.8-2.4); POTASSIUM 4.1 mmol/L (3.5-5.1)
[2017-06-21 07:43] LABS: ALB/GLOB RATIO 0.9 (0.9-2); CHOLESTEROL/HDL RATIO 5.2; CKMB/CK RATIO 1.8 (0-3.0); THYROID STIMULATING HORMONE 3.03 uIu/ml (0.300-4.500)
[2017-06-21] MEDS: THIAMINE HCL INJ 100 MG in SYRINGE 9 ML IV SCH (08:01)
[2017-06-21] MEDS: LISINOPRIL 10 MG TAB PO SCH ×2 (08:02→20:41)
[2017-06-21] MEDS: OXYCODONE HCL IR 5 MG TAB (IMMEDIATE RELEASE) PO PRN ×2 (08:21→17:41)
--- NOTE | 2017-06-21 08:53 | Cardiology Consultation ---
Cardiology Consultation Date of Consultation: Jun 21, 2017 Requesting Physician: Dr. Pollock Attending Manager System: Dr. Cardozo (Carmina Iniguez PA-C) History of Present Illness Patient is a 66 year old male who follows with [facility], Dr. Uribe, for history of paroxysmal atrial fibrillation/flutter last cardioversion in 2013, on chronic anticoagulation, history of PE and pulmonary hypertension with underlying lung disease, EFRAÍN, history of non obstructive CAD in 2010 and 2013, history of peripheral vascular disease, history of bradycardia not on beta jerald or antiarrhythmic therapy, hypertension with history of medication non compliance, and long history of alcohol abuse. Patient admitted to [facility] for nausea, vomiting, and hypertensive urgency in the setting of chronic alcohol abuse. Reports drinking heavily over the last few weeks/months including at least wine, and 4-5 drinks daily. He denies recent or recurrent chest pain. He admits to chronic dyspnea, unchanged. He had some mild SOB upon admission, but this resolved. One troponin reading at 0.07 on admission and cardiology consult requested. EKG without ischemic changes. Mild ALEXIS also noted. Elevated LFT's noted. Statin on hold. Hydralazine and lisinopril doses were increased on admission as well. GI consulted due to questionable GI bleed and elevated LFT's. At time of consult, patient resting comfortably. BP trending down. No headaches or vision changes. No chest pain. SOB resolved and at baseline. Notes chronic LE pain, unchanged. No orthopnea, PND or edema. No palpitations or dizziness. No overt tremors noted. (Carmina Iniguez, CANDE) Past Medical/Surgical History Problem List: Medical Problems: (1) Alcohol abuse (2) Anticoagulated on warfarin (3) Atrial fibrillation (4) CAD (coronary artery disease) (5) CKD (chronic kidney disease) stage 3, GFR 30-59 ml/min (6) Diabetic neuropathy (7) Dyslipidemia (8) GERD (gastroesophageal reflux disease) (9) History of bradycardia (10) History of cardioversion (11) History of pulmonary embolism (12) History of ventricular tachycardia (13) HTN (hypertension) (14) Hypothyroidism (15) Sleep apnea Surgical Problems: (1) History of inguinal hernia repair (2) Hx of CABG (3) S/P aneurysm repair (4) S/P femoral-popliteal bypass surgery Detailed problem list: as reviewed by outpatient cardiology office notes with Dr. Uribe, dated 02/19/17: 1. Multifactorial shortness of breath, Perhaps in part related to mild pulmonary hypertension with possible substrate 's including chronic thromboembolic pulmonary hypertension, hypoxemia from underlying lung disease, left ventricular diastolic dysfunction- improved on low-dose diuretic 2. CAD, negative nuclear stress test, 12/29/11,01/2014, cardiac catheterization , 02/2014 non obstructive CAD 3. Atrial flutter, back in sinus rhythm since direct current cardioversion January 4. Pulmonary embolism x 2 in 2006 and 2011 5. s/p transcatheter embolization of the right internal iliac artery (12 mm Amplatzer II vascular plug x2) and repair of ectatic abdominal aorta and right common iliac artery aneurysm with [employer] Zenith aortic stent graft 10/2012, Dr Ritter 6. S/P [id number] femoral artery to femoral artery bypass graft with 8 mm externally supported ePTFE by Dr. Ritter on 11/13/2013 for management of occluded right endograft limb with acute onset of RLE claudication in late 03/2013. Reporting marked improvement in RLE claudication. 7. Stable seromas present to bilateral groins, L>R, no s/s of infection. 8. Dyslipidemia, elevated triglycerides, improved 9. liver disease, hepatic cirrhosis dx 11/2014. 10. Hospitalization 2016 , transient bradycardia, acute kidney insufficiency (Carmina Iniguez PA-C) Family History Cancer FATHER Coronary artery disease MOTHER Hypertension SISTER (Carmina Iniguez PA-C) Cancer FATHER Coronary artery disease MOTHER Hypertension SISTER (Cullen Cardozo DO) Social History Smoking Status: Never Smoker Alcohol Use: heavy (1 quart wine / day + 4-5 mixed drinks / day) Drug Use: none Marital Status: Housing Status: lives with family Occupation: employed (Carmina Iniguez PA-C) Review Of Systems General: The patient denies weight change, night sweats, fever, chills. Head: The patient denies headache and prior head trauma. Cardiovascular: The patient denies chest pain or chest discomfort, dyspnea on exertion, palpitations, PND, orthopnea, edema, spontaneous shortness of breath, syncope and near syncope. Pulmonary: The patient denies cough, wheeze, pleurisy, hemoptysis, sputum, and excessive snoring. Gastrointestinal: The patient denies nausea, vomiting, diarrhea, constipation, bloating, hematemesis, hematochezia, and abdominal pain. Skin: The patient denies diaphoresis and rash. Musculoskeletal: The patient denies joint pain, joint swelling, myalgia, back pain, neck pain and prior injuries. Neurological: The patient denies prior stroke and seizures (Carmina Iniguez PA-C) Allergies Coded Allergies: No Known Allergies (Unverified , 04/07/12) Medications Reported Home Medications Medications Dose Route/Sig Max Daily Dose Days Date Category Dose Instructions Lexapro (Escitalopram Oxalate) 20 Mg Tab 20 Mg PO HS 06/20/17 Reported Centrum Silver Adult 50+ (Multiple Vitamins W/ Minerals) 1 Tab Tab 1 Tab PO QPM 06/20/17 Reported Mag64 (Magnesium Chloride) 535 Mg Tab 535 Mg PO QPM 06/20/17 Reported Apresoline (Hydralazine Hcl) 25 Mg Tab 25 Mg PO TID 06/20/17 Reported Zestril (Lisinopril) 10 Mg Tab 10 Mg PO DAILY 06/20/17 Reported Warfarin Sodium 5 Mg Tab 7.5 Mg PO 2XWK 06/20/17 Reported TAKE 7.5 MG EVERY WEDNESDAY AND WEDNESDAY OR OTHERWISE DIRECTED TO TAKE BY ANTICOAGULATION CLINIC/MD Warfarin Sodium 5 Mg Tab 5 Mg PO 5XWK 06/20/17 Reported TAKE 5 MG EVERY WEDNESDAY,WEDNESDAY,WEDNESDAY,WEDNESDAY AND WEDNESDAY OR OTHERWISE DIRECTED TO TAKE BY ANTICOAGULATION CLINIC/MD Levothyroxine Sodium 75 Mcg Tab 75 Mcg PO DAILY 06/20/17 Reported TAKE THIS MEDICATION 30 MINUTES BEFORE BREAKFAST OR ANY OTHER MEDICATIONS Cialis (Tadalafil) 20 Mg Tab 20 Mg PO UD PRN 03/31/16 Reported Anthon-3 (Fish Oil) 1 Ea Cap 1 Cap PO BID 03/31/16 Reported Vitamin B1 (Thiamine Mononitrate) 100 Mg Tab 100 Mg PO DAILY 03/31/16 Reported Lipitor (Atorvastatin Calcium) 80 Mg Tab 80 Mg PO DAILY 03/31/16 Reported Zyloprim (Allopurinol) 100 Mg Tab 200 Mg PO QPM 02/26/16 Reported Flonase Allergy Relief (Fluticasone Propionate (Nasal)) 50 Mcg/Act Spr 2 Sprays NIALL DAILY PRN 02/26/16 Reported Lyrica (Pregabalin) 75 Mg Cap 75 Mg PO BID 02/26/16 Reported [place] 5MG/325MG (Acetaminophen/Hydrocodone Bitart) Tab 1 Tab PO BID PRN 02/26/16 Reported Clopidogrel (Clopidogrel Bisulfate) 75 Mg Tab 75 Mg PO QAM 11/30/14 Reported Protonix (Pantoprazole) 40 Mg Tab 40 Mg PO DAILY 02/05/14 Reported (Carmina Iniguez PA-C) Physical Exam Vital Signs (Last 8hrs): Last 8 Hrs Date Time Temp Pulse Resp B/P (MAP) Pulse Ox O2 Delivery O2 Flow Rate FiO2 06/21/17 07:31 36.8 81 19 167/91 (116) 96 Room Air 06/21/17 04:00 Room Air 06/21/17 04:00 36.8 72 16 149/84 (105) 97 Room Air 06/21/17 02:00 106 125/62 (83) General Appearance: Alert and Oriented x3. NAD. Head: Normocephalic Atraumatic. Eyes: PERRLA, EOMI, conjunctiva and sclera clear Neck: Supple. No carotid bruits noted. No JVD. No HJD. Respiratory: Breath sounds clear to auscultation bilaterally. No w/r/r. Cardiovascular: Reg rate and rhythm. S1 and S2 noted. No murmurs, rubs, gallops. PMI non displace. Abdomen: Normal bowel sounds, soft nontender. no abdominal bruits. Extremities: No edema, no clubbing or cyanosis. distal pulses 2/4 bilaterally. Neuro: No focal deficits. Psychiatric: Normal affect. (Carmina Iniguez PA-C) Data Last 24 Hours Test 06/20/17 15:32 06/20/17 15:35 06/20/17 17:20 06/20/17 23:25 Hepatitis C Antibody Screen NEG White Blood Count 4.80 K/uL Red Blood Count 4.43 M/uL Hemoglobin 14.7 g/dL Hematocrit 43.1 % Mean Corpuscular Volume 97.3 fL Mean Corpuscular Hemoglobin 33.2 pg Mean Corpuscular Hemoglobin Concent 34.1 g/dl Platelet Count 156 K/uL Mean Platelet Volume 10.3 fL Neutrophils (%) (Auto) 50.6 % Lymphocytes (%) (Auto) 34.0 % Monocytes (%) (Auto) 14.4 % Eosinophils (%) (Auto) 0.2 % Basophils (%) (Auto) 0.6 % Neutrophils # (Auto) 2.43 K/uL Lymphocytes # (Auto) 1.63 K/uL Monocytes # (Auto) 0.69 K/uL Eosinophils # (Auto) 0.01 K/uL Basophils # (Auto) 0.03 K/uL RDW Standard Deviation 48.7 fL RDW Coefficient of Variation 13.6 % Immature Granulocyte % (Auto) 0.2 % Immature Granulocyte # (Auto) 0.01 K/uL Prothrombin Time 26.5 SECONDS Prothromb Time International Ratio 2.4 Activated Partial Thromboplast Time 33.4 SECONDS Partial Thromboplastin Ratio 1.3 Sodium Level 136 mmol/L Potassium Level 3.2 mmol/L Chloride Level 102 mmol/L Carbon Dioxide Level 22 mmol/L Anion Gap 12.0 mmol/L Blood Urea Nitrogen 11 mg/dl Creatinine 1.60 mg/dl Est Creatinine Clear Calc Drug Dose 58.4 ml/min Estimated GFR () 50.9 Estimated GFR (Non- 43.9 BUN/Creatinine Ratio 6.9 Random Glucose 113 mg/dl Calcium Level 9.5 mg/dl Total Bilirubin 1.3 mg/dl Direct Bilirubin 0.4 mg/dl Aspartate Amino Transf (AST/SGOT) 156 U/L Alanine Aminotransferase (ALT/SGPT) 95 U/L Alkaline Phosphatase 78 U/L Total Creatine Kinase 687 U/L 521 U/L Creatine Kinase MB 12.3 ng/ml 9.5 ng/ml Creatine Kinase MB Ratio 1.8 1.8 Troponin I 0.040 ng/ml 0.070 ng/ml Total Protein 8.3 gm/dl Albumin 3.9 gm/dl Lipase 395 U/L Urine Color YELLOW Urine Appearance CLEAR Urine pH 7.0 Urine Specific [place] 1.013 Urine Protein 1+ Urine Glucose (UA) NEG Urine Ketones NEG Urine Occult Blood NEG Urine Nitrite NEG Urine Bilirubin NEG Urine Urobilinogen NEG Urine Leukocyte Esterase NEG Urine WBC (Auto) 1-5 /hpf Urine RBC (Auto) 0-4 /hpf Urine Hyaline Casts (Auto) 0 /lpf Urine Epithelial Cells (Auto) 5-10 /lpf Urine Bacteria (Auto) NEG Magnesium Level 1.7 mg/dl Test 06/21/17 06:47 White Blood Count 3.19 K/uL Red Blood Count 3.62 M/uL Hemoglobin 12.2 g/dL Hematocrit 36.6 % Mean Corpuscular Volume 101.1 fL Mean Corpuscular Hemoglobin 33.7 pg Mean Corpuscular Hemoglobin Concent 33.3 g/dl RDW Standard Deviation 51.7 fL RDW Coefficient of Variation 14.0 % Platelet Count 108 K/uL Mean Platelet Volume 9.8 fL Prothrombin Time 22.4 SECONDS Prothromb Time International Ratio 2.0 Sodium Level 142 mmol/L Potassium Level 4.1 mmol/L Chloride Level 111 mmol/L Carbon Dioxide Level 26 mmol/L Anion Gap 5.0 mmol/L Blood Urea Nitrogen 11 mg/dl Creatinine 1.40 mg/dl Est Creatinine Clear Calc Drug Dose 57.5 ml/min Estimated GFR () 59.8 Estimated GFR (Non- 51.6 BUN/Creatinine Ratio 7.9 Random Glucose 105 mg/dl Calcium Level 8.2 mg/dl Magnesium Level 1.8 mg/dl Total Bilirubin 1.1 mg/dl Aspartate Amino Transf (AST/SGOT) 115 U/L Alanine Aminotransferase (ALT/SGPT) 69 U/L Alkaline Phosphatase 59 U/L Total Creatine Kinase 460 U/L Creatine Kinase MB 8.5 ng/ml Creatine Kinase MB Ratio 1.8 Troponin I 0.044 ng/ml Total Protein 6.4 gm/dl Albumin 3.1 gm/dl Globulin 3.3 gm/dl Albumin/Globulin Ratio 0.9 Triglycerides Level 408 mg/dl Cholesterol Level 198 mg/dl HDL Cholesterol 38 mg/dl LDL Cholesterol, Calculated mg/dl VLDL Cholesterol, Calculated mg/dl Cholesterol/HDL Ratio 5.2 Lipase 260 U/L Thyroid Stimulating Hormone (TSH) 3.030 uIu/ml Imaging: chest/abdominal xray - 1. Negative chest. 2. Mild nonobstructive ileus EKG: NSR with 1st degree AV block No significant changes from prior. Telemetry reviewed: NSR with [facility] PAC. Possible episode of paroxysmal afib, last evening, rate controlled. Prior data: Echocardiogram reviewed from March 2016 at [facility]: Normal LV function, borderline LVH, EF 55-60% moderate aortic sclerosis without stenosis, moderate TR Elevated RV systolic pressures 40-50mmHG (Carmina Iniguez, JINAC) Assessment & Plan 1. Hypertensive urgency, in setting of acute alcohol withdrawal. -Lisinopril and hydralazine doses increased on admission -BP trending down -monitor and titrate as needed. -not currently on beta jerald due to chart history of bradycardia. 2. Minimal troponin elevation, multifactorial in setting of hypertensive urgency , ALEXIS -not indicative of ACS -EKG without ischemic changes -update 2D echo 3. History of paroxysmal atrial fibrillation, currently in NSR -on chronic anticoagulation therapy for afib as well as history of PE 4. History of peripheral vascular disease s/p fem pop bypass -on Plavix, ASA, statin (held on admission due to elevated LFT's) 5. Elevated LFT's in the setting of chronic alcohol -statin now on hold 6. Questionable GI bleed -stable Hbg -continue Coumadin and Plavix for now, unless gross bleeding noted -GI consulted Case to be discussed with Dr. Cardozo. Will follow. (Carmina Iniguez, CANDE) Cardiology attending physician: Patient seen and examined at the bedside. He appears comfortable. No tremor noted. Denies chest pain or shortness of breath. Reports coming to the hospital due to nausea as well as dyspnea. He was found to be hypertensive and treated with intravenous lorazepam for alcohol withdrawal. Complex cardio vascular history listed above. Patient admits to heavy alcohol use over the past few weeks. States he has been an alcoholic for the majority of his adult life. Notes a period of sobriety lasting almost 15 years, however, when he moved to [place] he suffered a nervous breakdown and began drinking again. This was approximate 7 years ago. Lisinopril titrated to 10 mg twice daily and hydralazine increased to 50 mg 3 times daily today. Blood pressure has improved. Denies dyspnea or chest pain currently. No dysrhythmias on telemetry which demonstrates sinus rhythm and occasional PACs. PE: hypertensive, otherwise VSS. GEN: NAD, AAO x3. Heart: Regular with occasional ectopy. Normal S1S2. no murmur. Lungs: Clear bilateral without rales , rhonchi, or wheeze. Ext: No edema. A/P: Agree with above CANDE history, physical exam, assessment and plan. Oral antihypertensive medications have been titrated. Blood pressure improving. I will review repeat resting 2-D transthoracic echo when available. Treatment of alcohol withdrawal as per internal medicine. Mildly elevated troponins do not represent acute coronary syndrome. Await GI evaluation for reported history of hematochezia. Patient hemoglobin remains stable with no signs/symptoms of ongoing blood loss currently. Other cardiovascular medications will be continued as listed above. We will continue to follow during hospitalization. Henry Cardozo DO, FACC (Cullen Cardozo, DO)
[2017-06-21] MEDS ORDERED: PANTOprazole INJ 40 MG in SYRINGE 0 ML IV ONE (09:00)
[2017-06-21] MEDS ORDERED: LISINOPRIL 10 MG TAB PO SCH (09:00)
[2017-06-21] MEDS ORDERED: CLOPIDOGREL BISULFATE 75 MG TAB PO SCH (09:00)
--- NOTE | 2017-06-21 12:26 | Gastrointestinal Consultation ---
Gastrointestinal Consultation Date of Consultation: Jun 21, 2017 Attending Physician: Gonzalo Huntley Consulting Physician: Nupur Alston Reason for Consultation: ETOH liver disease, rectal bleeding History of Present Illness Patient is a 66 year old male who presented to ED w c/o n/v, SOB. He has PMHx of CAD, s/p CABG, Afib, HTN, PEs, also heavy ETOH use of 1 quart of wine w 4 mixed drinks a day. He had previously quit ETOH for 20 yrs, attended AA meetings , counseling. However recently had financial problems, second time going to file [employer] and he started drinking again. Admitted that n/v, worse w ETOH consumption. He denies any abd pain. He noticed bright red rectal bleeding for a few months now - 3x a week, not with every BM. Denies any constipation or straining though feels he may have hemorrhoids. He is on Warfarin and Plavix for hx of PEs. Upon evaluation, he was noted to be hypertensive: 200s/120s. Last ETOH consumption 24 hr prior to admission. Given IVF w multivitamins, Lorazepam, Lisinopril, now BP 150s/70s. Labs showed H/H / though may be diluted since IVFs yesterday. PT/INR 22/2. CMP showed elevated LFTs: Tbili 1.3, AST 156, ALT 95, AP 78, Lipase 395. CK 600s. Chest and abd u/s showed negative chest but mild non obstructing ileus. Past Medical/Surgical History Medical Problems: (1) Alcohol abuse Status: Chronic (2) Alcohol withdrawal Status: Acute (3) Alcoholic hepatitis Status: Acute (4) HTN (hypertension) Status: Chronic (5) Symptomatic bradycardia Status: Acute Past Medical History: See above Past Surgical History: CABG, inguinal hernia repair, Aneurysm repair, femoral/popliteal bypass Family History Cancer FATHER Coronary artery disease MOTHER Hypertension SISTER Social History Smoking Status: Never Smoker Alcohol Use: heavy Drug Use: none Marital Status: Occupation Status: employed Allergies Coded Allergies: No Known Allergies (Unverified , 04/07/12) Current Medications Home Meds and Scripts Medications Dose Route/Sig Max Daily Dose Days Date Category Dose Instructions Lexapro (Escitalopram Oxalate) 20 Mg Tab 20 Mg PO HS 06/20/17 Reported Centrum Silver Adult 50+ (Multiple Vitamins W/ Minerals) 1 Tab Tab 1 Tab PO QPM 06/20/17 Reported Mag64 (Magnesium Chloride) 535 Mg Tab 535 Mg PO QPM 06/20/17 Reported Apresoline (Hydralazine Hcl) 25 Mg Tab 25 Mg PO TID 06/20/17 Reported Zestril (Lisinopril) 10 Mg Tab 10 Mg PO DAILY 06/20/17 Reported Warfarin Sodium 5 Mg Tab 7.5 Mg PO 2XWK 06/20/17 Reported TAKE 7.5 MG EVERY WEDNESDAY AND WEDNESDAY OR OTHERWISE DIRECTED TO TAKE BY ANTICOAGULATION CLINIC/MD Warfarin Sodium 5 Mg Tab 5 Mg PO 5XWK 06/20/17 Reported TAKE 5 MG EVERY WEDNESDAY,WEDNESDAY,WEDNESDAY,WEDNESDAY AND WEDNESDAY OR OTHERWISE DIRECTED TO TAKE BY ANTICOAGULATION CLINIC/MD Levothyroxine Sodium 75 Mcg Tab 75 Mcg PO DAILY 06/20/17 Reported TAKE THIS MEDICATION 30 MINUTES BEFORE BREAKFAST OR ANY OTHER MEDICATIONS Cialis (Tadalafil) 20 Mg Tab 20 Mg PO UD PRN 03/31/16 Reported [place]-3 (Fish Oil) 1 Ea Cap 1 Cap PO BID 03/31/16 Reported Vitamin B1 (Thiamine Mononitrate) 100 Mg Tab 100 Mg PO DAILY 03/31/16 Reported Lipitor (Atorvastatin Calcium) 80 Mg Tab 80 Mg PO DAILY 03/31/16 Reported Zyloprim (Allopurinol) 100 Mg Tab 200 Mg PO QPM 02/26/16 Reported Flonase Allergy Relief (Fluticasone Propionate (Nasal)) 50 Mcg/Act Spr 2 Sprays NIALL DAILY PRN 02/26/16 Reported Lyrica (Pregabalin) 75 Mg Cap 75 Mg PO BID 02/26/16 Reported [place] 5MG/325MG (Acetaminophen/Hydrocodone Bitart) Tab 1 Tab PO BID PRN 02/26/16 Reported Clopidogrel (Clopidogrel Bisulfate) 75 Mg Tab 75 Mg PO QAM 11/30/14 Reported Protonix (Pantoprazole) 40 Mg Tab 40 Mg PO DAILY 02/05/14 Reported Review of Systems Constitutional: No fever, No chills Respiratory: No cough, No shortness of breath Cardiac: No chest pain Abdomen: + see HPI, + nausea, + vomiting, + GI bleeding, No pain Skin: No rash, No itch, No jaundice Physical Exam Date Time Temp Pulse Resp B/P (MAP) Pulse Ox O2 Delivery O2 Flow Rate FiO2 06/21/17 11:22 36.8 68 18 158/79 (105) 96 Room Air 06/21/17 08:00 Room Air 06/21/17 07:31 36.8 81 19 167/91 (116) 96 Room Air 06/21/17 04:00 Room Air 06/21/17 04:00 36.8 72 16 149/84 (105) 97 Room Air 06/21/17 02:00 106 125/62 (83) 06/21/17 00:03 174/96 (122) 06/21/17 00:03 Room Air 06/20/17 23:00 37.0 92 18 188/106 (133) 94 Room Air 06/20/17 20:34 37.0 82 18 179/95 (123) 94 Room Air 06/20/17 20:02 89 20 169/95 96 Room Air 06/20/17 19:42 Room Air 06/20/17 19:31 98 06/20/17 19:00 89 21 170/98 95 Room Air 06/20/17 19:00 87 16 187/106 96 Room Air 06/20/17 18:04 90 16 175/93 96 Room Air 06/20/17 17:19 84 16 193/121 95 Room Air 06/20/17 16:16 94 20 202/120 97 Room Air 06/20/17 15:52 83 16 198/126 97 Room Air 06/20/17 15:32 95 06/20/17 15:12 97 Room Air 06/20/17 15:12 36.9 93 24 187/91 97 Room Air General Appearance: WD/WN, no apparent distress, + obese Eyes: normal inspection, PERRL, EOMI Neck: supple, no JVD, trachea midline Respiratory/Chest: normal breath sounds, no respiratory distress, no accessory muscle use Cardiovascular: regular rate, rhythm, no gallop, no murmur Abdomen: normal bowel sounds, non tender, soft Extremities: normal inspection, no pedal edema, no calf tenderness Neurologic/Psych: alert, normal mood/affect, oriented x 3, + pertinent finding (hand tremors, no asterixis) Skin: normal color, no jaundice, no rash Laboratory Results Last 24 Hours Test 06/20/17 15:32 06/20/17 15:35 06/20/17 17:20 06/20/17 23:25 Hepatitis C Antibody Screen NEG White Blood Count 4.80 K/uL Red Blood Count 4.43 M/uL Hemoglobin 14.7 g/dL Hematocrit 43.1 % Mean Corpuscular Volume 97.3 fL Mean Corpuscular Hemoglobin 33.2 pg Mean Corpuscular Hemoglobin Concent 34.1 g/dl Platelet Count 156 K/uL Mean Platelet Volume 10.3 fL Neutrophils (%) (Auto) 50.6 % Lymphocytes (%) (Auto) 34.0 % Monocytes (%) (Auto) 14.4 % Eosinophils (%) (Auto) 0.2 % Basophils (%) (Auto) 0.6 % Neutrophils # (Auto) 2.43 K/uL Lymphocytes # (Auto) 1.63 K/uL Monocytes # (Auto) 0.69 K/uL Eosinophils # (Auto) 0.01 K/uL Basophils # (Auto) 0.03 K/uL RDW Standard Deviation 48.7 fL RDW Coefficient of Variation 13.6 % Immature Granulocyte % (Auto) 0.2 % Immature Granulocyte # (Auto) 0.01 K/uL Prothrombin Time 26.5 SECONDS Prothromb Time International Ratio 2.4 Activated Partial Thromboplast Time 33.4 SECONDS Partial Thromboplastin Ratio 1.3 Sodium Level 136 mmol/L Potassium Level 3.2 mmol/L Chloride Level 102 mmol/L Carbon Dioxide Level 22 mmol/L Anion Gap 12.0 mmol/L Blood Urea Nitrogen 11 mg/dl Creatinine 1.60 mg/dl Est Creatinine Clear Calc Drug Dose 58.4 ml/min Estimated GFR () 50.9 Estimated GFR (Non- 43.9 BUN/Creatinine Ratio 6.9 Random Glucose 113 mg/dl Calcium Level 9.5 mg/dl Total Bilirubin 1.3 mg/dl Direct Bilirubin 0.4 mg/dl Aspartate Amino Transf (AST/SGOT) 156 U/L Alanine Aminotransferase (ALT/SGPT) 95 U/L Alkaline Phosphatase 78 U/L Total Creatine Kinase 687 U/L 521 U/L Creatine Kinase MB 12.3 ng/ml 9.5 ng/ml Creatine Kinase MB Ratio 1.8 1.8 Troponin I 0.040 ng/ml 0.070 ng/ml Total Protein 8.3 gm/dl Albumin 3.9 gm/dl Lipase 395 U/L Urine Color YELLOW Urine Appearance CLEAR Urine pH 7.0 Urine Specific [place] 1.013 Urine Protein 1+ Urine Glucose (UA) NEG Urine Ketones NEG Urine Occult Blood NEG Urine Nitrite NEG Urine Bilirubin NEG Urine Urobilinogen NEG Urine Leukocyte Esterase NEG Urine WBC (Auto) 1-5 /hpf Urine RBC (Auto) 0-4 /hpf Urine Hyaline Casts (Auto) 0 /lpf Urine Epithelial Cells (Auto) 5-10 /lpf Urine Bacteria (Auto) NEG Magnesium Level 1.7 mg/dl Test 06/21/17 06:47 White Blood Count 3.19 K/uL Red Blood Count 3.62 M/uL Hemoglobin 12.2 g/dL Hematocrit 36.6 % Mean Corpuscular Volume 101.1 fL Mean Corpuscular Hemoglobin 33.7 pg Mean Corpuscular Hemoglobin Concent 33.3 g/dl RDW Standard Deviation 51.7 fL RDW Coefficient of Variation 14.0 % Platelet Count 108 K/uL Mean Platelet Volume 9.8 fL Prothrombin Time 22.4 SECONDS Prothromb Time International Ratio 2.0 Sodium Level 142 mmol/L Potassium Level 4.1 mmol/L Chloride Level 111 mmol/L Carbon Dioxide Level 26 mmol/L Anion Gap 5.0 mmol/L Blood Urea Nitrogen 11 mg/dl Creatinine 1.40 mg/dl Est Creatinine Clear Calc Drug Dose 57.5 ml/min Estimated GFR () 59.8 Estimated GFR (Non- 51.6 BUN/Creatinine Ratio 7.9 Random Glucose 105 mg/dl Calcium Level 8.2 mg/dl Magnesium Level 1.8 mg/dl Total Bilirubin 1.1 mg/dl Aspartate Amino Transf (AST/SGOT) 115 U/L Alanine Aminotransferase (ALT/SGPT) 69 U/L Alkaline Phosphatase 59 U/L Total Creatine Kinase 460 U/L Creatine Kinase MB 8.5 ng/ml Creatine Kinase MB Ratio 1.8 Troponin I 0.044 ng/ml Total Protein 6.4 gm/dl Albumin 3.1 gm/dl Globulin 3.3 gm/dl Albumin/Globulin Ratio 0.9 Triglycerides Level 408 mg/dl Cholesterol Level 198 mg/dl HDL Cholesterol 38 mg/dl LDL Cholesterol, Calculated mg/dl VLDL Cholesterol, Calculated mg/dl Cholesterol/HDL Ratio 5.2 Lipase 260 U/L Thyroid Stimulating Hormone (TSH) 3.030 uIu/ml Impression Patient is a 66 year old male w ETOH abuse, presented w Hypertensive emergency, likely ETOH withdrawal; also n/v, rectal bleeding, LFTs noted to be elevated. Plan - DT protocol - Monitor H/H, coags, renal function, LFTs - Protonix 40mg BID - Liver u/s - Was going to perform rectal exam to r/o hemorrhoids; pt was about to have BM, will examine later. 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 - ETOH cessation, recommend patient case coordinator to provide ETOH cessation programs/ information. Attg addendum: I interviewed and examined pt, reviewed chart and labs. Pt is 66 yo alcoholic male admit with n/v, also abnl LFT's with AST > ALT His last prior LFT's last year were normal. He has mild chronic thrombocytopenia. Outpt CT in January did not show any evidence of cirrhosis. Assume that n/v is related to alcohol use. His bili is only mildly increased - defer steroids. Counselled pt regarding need for EtoH cessation. No need EGD - would consider two weeks of empiric oral PPI. Would ask primary service to consider liver uls. He has a mild ileus on exam and imaging - recheck KUB today , dulcolax suppository, full liquids today and adv as tolerated. Will sign off, but Please reconsult if needed.
[2017-06-21] MEDS ORDERED: SODIUM CHLORIDE 0.9% 1000ML 250 ML IV PRN (13:53)
[2017-06-21] MEDS ORDERED: ATROPINE SULFATE 0.1 MG/ML 5ML SYR IV PRN (14:00)
[2017-06-21] MEDS ORDERED: BISACODYL 10 MG SUPP PR ONE (14:00)
[2017-06-21] MEDS ORDERED: ACETAMINOPHEN 325 MG TAB PO PRN (14:00)
[2017-06-21] MEDS ORDERED: ONDANSETRON INJ 2 MG/ML 2 ML VIAL IV PRN (14:00)
[2017-06-21] MEDS ORDERED: NURSING VERBAL MED ORDER ONE ×2 (14:30→21:45)
[2017-06-21] MEDS: WARFARIN SOD 5 MG TAB PO SCH (15:57)
--- NOTE | 2017-06-21 16:21 | ECHOCARDIOGRAM REPORT ---
*NOTICE TO RECEIVING [employer] AGENCY This information is strictly Confidential and protected under [place] law. [place] law prohibits you from making any further disclosure of this information unless further disclosure is expressly permitted by the written consent of the person to whom it pertains or is authorized by law. A general authorization for the release of medical or other information is not sufficient for this purpose. Hospital accepts no responsibility if the information is made available to any other person, INCLUDING THE PATIENT. Interpretation Summary * Name: MICHELLE SHAY Study Date: 06/21/2017 02:30 PM BP: 158/79 mmHg * Patient Location: C.2T\S\S240\S\2 HR: 68 * : 1950 (M/d/yyy) Gender: Male Height: 69 in * Age: 66 yrs Ethnicity: [place] Weight: 203 lb * Ordering Physician: Carmina Iniguez * Referring Physician: Self, Referred * Performed By: Vangie Morrow RDCS * * Reason For Study: HTN URGENCY, HX OF CAD * BSA: 2.1 m2 * The study was technically adequate. * Compared to prior study, changes are noted. * -- Conclusions -- * Ejection Fraction = 60-65%. * There is normal left ventricular wall thickness. * The left ventricular wall motion is normal. * There is trace mitral regurgitation. * There is mild tricuspid regurgitation. * Doppler findings do not suggest pulmonary hypertension. * Aortic valve sclerosis mild, without significant aortic valvular stenosis. Procedure Details * A complete two-dimensional transthoracic echocardiogram was performed (2D, M-mode, Doppler and color flow Doppler). Left Ventricle * The left ventricle is normal in size. * There is no thrombus. * There is normal left ventricular wall thickness. * Ejection Fraction = 60-65%. * Left ventricular systolic function is normal. * The left ventricular wall motion is normal. Right Ventricle * The right ventricle is normal size. * The right ventricular systolic function is normal as assessed by tricuspid annular plane systolic excursion (TAPSE) (normal >1.5 cm). Atria * The left atrial size is normal. * Right atrial size is normal. * There is no evidence of atrial septal defect, but resolution does not allow assessment for a patent foramen ovale. Mitral Valve * The mitral valve is normal. * There is no mitral valve stenosis. * There is trace mitral regurgitation. Tricuspid Valve * The tricuspid valve is normal. * There is no tricuspid stenosis. * There is mild tricuspid regurgitation. * Doppler findings do not suggest pulmonary hypertension. Aortic Valve * The aortic valve is trileaflet. * Aortic valve sclerosis mild, without significant aortic valvular stenosis. * Aortic stenosis is absent. * There is no significant aortic regurgitation. Pulmonic Valve * The pulmonary valve is inadequately visualized, but the Doppler data is adequate for interpretation. * There is no pulmonic valvular stenosis. * Trace pulmonic valvular regurgitation. Great Vessels * The aortic root and proximal ascending aorta are normal sized. Pericardium/Pleural * There is no pericardial effusion. Great Vessels * IVC poorly visualized. Left Ventricular Diastolic Function * Grade I diastolic dysfunction, (abnormal relaxation pattern). MMode 2D Measurements and Calculations IVSd 1.2 cm IVSs 1.5 cm LVIDd 4.3 cm LVIDs 2.6 cm LVPWd 1.0 cm LVPWs 1.6 cm IVS/LVPW 1.2 FS 38.4 % EDV(Teich) 82.6 ml ESV(Teich) 25.6 ml EF(Teich) 69.0 % EDV(cubed) 79.0 ml ESV(cubed) 18.4 ml EF(cubed) 76.7 % % IVS thick 24.5 % % LVPW thick 51.7 % LV mass(C)d 162.9 grams LV mass(C)dI 78.4 grams/m\S\2 LV mass(C)s 136.5 grams LV mass(C)sI 65.7 grams/m\S\2 SV(Teich) 57.0 ml SI(Teich) 27.4 ml/m\S\2 SV(cubed) 60.5 ml SI(cubed) 29.1 ml/m\S\2 Ao root diam 3.5 cm Ao root area 9.5 cm\S\2 LA dimension 3.4 cm LA/Ao 0.97 LVAd ap4 33.4 cm\S\2 LVLd ap4 8.1 cm EDV(MOD-sp4) 113.0 ml EDV(sp4-el) 116.7 ml LVAs ap4 19.3 cm\S\2 LVLs ap4 7.1 cm ESV(MOD-sp4) 47.7 ml ESV(sp4-el) 44.8 ml EF(MOD-sp4) 57.8 % EF(sp4-el) 61.6 % LVAd ap2 30.1 cm\S\2 LVLd ap2 8.5 cm EDV(MOD-sp2) 90.2 ml EDV(sp2-el) 91.0 ml LVAs ap2 17.5 cm\S\2 LVLs ap2 7.6 cm ESV(MOD-sp2) 38.4 ml ESV(sp2-el) 34.2 ml EF(MOD-sp2) 57.4 % EF(sp2-el) 62.4 % LVLd %diff 4.1 % EDV(MOD-bp) 100.9 ml LVLs %diff 6.5 % ESV(MOD-bp) 44.1 ml EF(MOD-bp) 56.3 % SV(MOD-sp4) 65.3 ml SI(MOD-sp4) 31.4 ml/m\S\2 SV(MOD-sp2) 51.8 ml SI(MOD-sp2) 24.9 ml/m\S\2 SV(MOD-bp) 56.8 ml SI(MOD-bp) 27.3 ml/m\S\2 SV(sp4-el) 71.9 ml SI(sp4-el) 34.6 ml/m\S\2 SV(sp2-el) 56.8 ml SI(sp2-el) 27.3 ml/m\S\2 Doppler Measurements and Calculations MV E max alexey 87.8 cm/sec MV A max alexey 85.4 cm/sec MV E/A 1.0 MV dec time 0.24 sec Ao V2 max 143.9 cm/sec Ao max PG 8.3 mmHg Ao max PG (full) 3.2 mmHg LV V1 max PG 5.1 mmHg LV V1 max 113.0 cm/sec TR max alexey 232.6 cm/sec
--- NOTE | 2017-06-21 16:21 | DIAGNOSTIC IMAGING REPORT ---
KUB CLINICAL HISTORY: abd distension COMPARISON STUDY: 06/20/2017 FINDINGS: There is an aortoiliac stent graft similar in appearance to the preceding study. There are no transition zones to indicate bowel obstruction. There is gas in the colon measuring a maximum of 8 cm uncorrected for magnification of the transverse level. Several vertebral body compression deformities are visualized. These were present on the preceding study. IMPRESSION: No conventional radiographic evidence of bowel obstruction. Electronically signed by: Marvin Puentes M.D. 06/21/2017 4:20 PM Dictated Date/Time: 06/21/2017 4:18 PM
--- NOTE | 2017-06-21 16:37 | DIAGNOSTIC IMAGING REPORT ---
(LIVER) ABDOMEN LIMITED CLINICAL HISTORY: elevated LFTs, hx of ETOH abuse abnormal liver function TECHNIQUE: Ultrasound COMPARISON STUDY: None FINDINGS: Fatty infiltration of the liver. Normal caliber bile ducts. Common bile duct 6 mm. Normal gallbladder. Pancreas and right kidney unremarkable. Right kidney is negative for hydronephrosis. IMPRESSION: Fatty infiltration of liver. Otherwise negative study The above report was generated using voice recognition software. It may contain grammatical, syntax or spelling errors. Electronically signed by: Garett Cabrera M.D. 06/21/2017 4:35 PM Dictated Date/Time: 06/21/2017 4:34 PM
[2017-06-21] MEDS: GABAPENTIN 600MG Q8H DOSE PO SCH (18:22)
[2017-06-21] MEDS: CEROVITE ADV FORMULA TAB PO SCH (20:40)
[2017-06-21] MEDS: PANTOprazole SOD 40 MG TAB PO SCH (20:40)
[2017-06-21] MEDS: ESCITALOPRAM OXALATE 20 MG TAB PO SCH (20:40)
[2017-06-21] MEDS: ALLOPURINOL 100 MG TAB PO SCH (20:42)
[2017-06-21] MEDS: MAGNESIUM CHLORIDE 64MG DELAYED REL TAB PO SCH (20:42)
[2017-06-21] MEDS: LORAZEPAM 2 MG TAB PO PRN (20:45)
--- NOTE | 2017-06-21 21:01 | Progress Note ---
Internal Med Progress Note Date of Service: Jun 21, 2017. Provider Documentation: SUBJECTIVE: patient denies shortness of breath or chest pain or abdominal pain. continues to have chronic lower extremity neuropathy pain but no acute discomfort OBJECTIVE: General Appearance: NAD Head: normocephalic, atraumatic Eyes: normal inspection, EOMI, sclerae normal ENT: normal ENT inspection, hearing grossly normal, pharynx normal Neck: supple, no adenopathy, thyroid normal, no JVD, trachea midline Respiratory/Chest: lungs clear, no respiratory distress, no accessory muscle use Cardiovascular: no edema, no gallop, no JVD, no murmur, normal peripheral pulses, + irregularly irregular Abdomen/GI: normal bowel sounds, non tender, soft Extremities/Musculoskelatal: normal inspection, no calf tenderness, normal capillary refill, no pedal edema Neurologic/Psych: alert and oriented, no hand tremors, no tongue fasciculations Skin: normal color, warm/dry, no rash ASSESSMENT & PLAN: Assessment and Plan HYPERTENSIVE URGENCY Systolic BP as high as 202, diastolic BP as high as 126 in ED; Hypertensive urgency probably primarily due to alcohol withdrawal. BP's improved with administration of lorazepam in ED. HTN improving, continue with lisinopril, hydralazine History of bradycardia in the past on beta jerald. Left Ventricular Diastolic Function * Grade I diastolic dysfunction, (abnormal relaxation pattern). ALCOHOL WITHDRAWAL / ALCOHOLISM Has been drinking heavily / regularly for last 6 years. Heavy drinking triggered by financial difficulties at that time. Continues to drink because he enjoys it and it helps control his neuropathic pain. Currently drinking a quart of wine a day and 4-5 mixed drinks a day. Last alcohol consumption about 24 hours prior to admission. Experiencing elevated blood pressures, tremors, anxiety. Patient willing to try abstention. Gabapentin-based alcohol withdrawal protocol ordered. Thiamine / folate / MVI. DYSPNEA resolving NAUSEA / VOMITING Probably related to alcohol consumption. GI consulted: no acute interventions ELEVATED LFT'S trend LFTs Probable due to alcohol abuse. Fatty infiltration of liver. Otherwise negative study GI consulted: no acute interventions HEMATOCHEZIA Patient reports intermittent mild rectal bleeding, last occurrence this morning. H/H stable. Hemodynamically stable. Taking warfarin for chronic AF and history recurrent pulmonary emboli. Taking clopidogrel for CAD, s/p CABG. Continue warfarin and clopidogrel with caution. Also using fish oil supplements. Degree of antiplatelet effects of omega-3 fatty acids debatable, but prudent to stop fish oil. Colonoscopy performed 04/08/11 for routine screening was unremarkable; f/u in 10 years recommended. Follow H/H. GI consulted: no acute interventions CORONARY ARTERY DISEASE History of coronary artery disease, s/p CABG. No anginal symptoms. Troponins downtrending Beta jerald stopped in past due to bradycardia. Hold statin due to elevated LFT's. Continue antiplatelet therapy with clopidogrel with caution. CHRONIC ATRIAL FIBRILLATION Rate controlled. Continue warfarin with caution. Warfarin preferred over DOAC's in this case due to potential need for reversal. HISTORY PULMONARY EMBOLISM History of pulmonary embolism x 2. Continue warfarin with caution. Warfarin preferred over DOAC's in this case due to potential need for reversal. CKD III Baseline creatinine around 1.5. Maintain adequate volume status. Avoid potential nephrotoxins when able. HYPOKALEMIA resolved HYPOMAGNESEMIA History of hypomagnesemia on magnesium chloride, replete GOUT Continue allopurinol. HYPOTHYROIDISM Continue levothyroxine. PERIPHERAL NEUROPATHY Very symptomatic pain and paresthesiae of lower extremities. Evaluated in the past, details not available. Hold pregabalin while receiving gabapentin for alcohol withdrawal, then resume and titrate Rx. Continue analgesics PRN with caution- will change from hydrocodone / acetaminophen to oxycodone in light of hepatic disease. DEPRESSION Continue escitalopram. VTE PROPHYLAXIS Continue warfarin with caution. RESUSCITATION STATUS as per patient's admitting attending physician patient has a living will and would like resuscitation attempted in the event of a cardiopulmonary arrest if there is a reasonable chance of a meaningful recovery, but does not want prolonged extraordinary measures if prognosis is poor. Therefore, code status = "Level 1" (full resuscitation). DISPOSITION on Telemetry Unit. discharge likely when blood pressure stable and when low risk for withdrawals from ETOH Family Medicine follow-up with Dr. Emeka Piper. . Vital Signs: Date Time Temp Pulse Resp B/P (MAP) Pulse Ox O2 Delivery O2 Flow Rate FiO2 06/21/17 20:00 96 Room Air 06/21/17 19:08 37.3 93 18 156/79 (104) 95 Room Air 06/21/17 16:00 96 Room Air 06/21/17 15:12 36.8 83 19 131/77 (95) 96 Room Air 06/21/17 12:00 Room Air 06/21/17 11:22 36.8 68 18 158/79 (105) 96 Room Air 06/21/17 08:00 Room Air 06/21/17 07:31 36.8 81 19 167/91 (116) 96 Room Air 06/21/17 04:00 Room Air 06/21/17 04:00 36.8 72 16 149/84 (105) 97 Room Air 06/21/17 02:00 106 125/62 (83) 06/21/17 00:03 174/96 (122) 06/21/17 00:03 Room Air 06/20/17 23:00 37.0 92 18 188/106 (133) 94 Room Air Lab Results: Results Past 24 Hours Test 06/20/17 23:25 06/21/17 06:47 Range/Units Magnesium Level 1.7 1.8 1.8-2.4 mg/dl Total Creatine Kinase 521 460 39-308 U/L Creatine Kinase MB 9.5 8.5 0.5-3.6 ng/ml Creatine Kinase MB Ratio 1.8 1.8 0-3.0 Troponin I 0.070 0.044 0-0.045 ng/ml White Blood Count 3.19 4.8-10.8 K/uL Red Blood Count 3.62 4.7-6.1 M/uL Hemoglobin 12.2 14.0-18.0 g/dL Hematocrit 36.6 42-52 % Mean Corpuscular Volume 101.1 80-100 fL Mean Corpuscular Hemoglobin 33.7 25-34 pg Mean Corpuscular Hemoglobin Concent 33.3 32-36 g/dl RDW Standard Deviation 51.7 36.4-46.3 fL RDW Coefficient of Variation 14.0 11.5-14.5 % Platelet Count 108 130-400 K/uL Mean Platelet Volume 9.8 7.4-10.4 fL Prothrombin Time 22.4 9.0-12.0 SECONDS Prothromb Time International Ratio 2.0 0.9-1.1 Sodium Level 142 136-145 mmol/L Potassium Level 4.1 3.5-5.1 mmol/L Chloride Level 111 98-107 mmol/L Carbon Dioxide Level 26 21-32 mmol/L Anion Gap 5.0 3-11 mmol/L Blood Urea Nitrogen 11 7-18 mg/dl Creatinine 1.40 0.60-1.40 mg/dl Est Creatinine Clear Calc Drug Dose 57.5 ml/min Estimated GFR () 59.8 Estimated GFR (Non- 51.6 BUN/Creatinine Ratio 7.9 10-20 Random Glucose 105 70-99 mg/dl Calcium Level 8.2 8.5-10.1 mg/dl Total Bilirubin 1.1 0.2-1 mg/dl Aspartate Amino Transf (AST/SGOT) 115 15-37 U/L Alanine Aminotransferase (ALT/SGPT) 69 12-78 U/L Alkaline Phosphatase 59 45-117 U/L C-Reactive Protein < 0.29 0-0.29 mg/dl Total Protein 6.4 6.4-8.2 gm/dl Albumin 3.1 3.4-5.0 gm/dl Globulin 3.3 2.5-4.0 gm/dl Albumin/Globulin Ratio 0.9 0.9-2 Triglycerides Level 408 0-150 mg/dl Cholesterol Level 198 0-200 mg/dl HDL Cholesterol 38 mg/dl LDL Cholesterol, Calculated mg/dl VLDL Cholesterol, Calculated mg/dl Cholesterol/HDL Ratio 5.2 Lipase 260 73-393 U/L Thyroid Stimulating Hormone (TSH) 3.030 0.300-4.500 uIu/ml
[2017-06-21] MEDS: MAGNESIUM SULFATE 1GM / D5W 1 GM in PREMIXED IN D5W 100 ML IV SCH ×2 (21:30→21:36)
[2017-06-22] VITALS (10 sets, daily range): BP systolic 129–179; BP diastolic 75–98; PULSE 72–100; TEMP 36.5–37; O2SAT 94–97
[2017-06-22] MEDS: OXYCODONE HCL IR 5 MG TAB (IMMEDIATE RELEASE) PO PRN ×3 (00:01→21:15)
[2017-06-22] MEDS: GABAPENTIN 600MG Q8H DOSE PO SCH ×2 (02:09→13:48)
[2017-06-22] MEDS: LEVOTHYROXINE 75 MCG TAB PO SCH (05:42)
[2017-06-22 07:41] LABS: BASO % 0.3 %; BASO ABS # 0.01 K/uL (0-0.2); COMPLETE YES; EOS % 2.8 %; HEMATOCRIT 36.4 % (42-52); IG% 0.3 %; LYMPH % 30.2 %; LYMPH ABS # 1.09 K/uL (1.2-3.4); MEAN CELL VOLUME 103.4 fL (80-100); MEAN CORPUSCULAR HEMOGLOBIN 33.5 pg (25-34); MEAN CORPUSCULAR HGB CONC 32.4 g/dl (32-36); MEAN PLATELET VOLUME 10.2 fL (7.4-10.4); MONO % 12.5 %; NEUT % 53.9 %; PLATELET COUNT 105 K/uL (130-400); RED BLOOD COUNT 3.52 M/uL (4.7-6.1); WHITE BLOOD COUNT 3.61 K/uL (4.8-10.8)
[2017-06-22] MEDS: CLOPIDOGREL BISULFATE 75 MG TAB PO SCH (07:43)
[2017-06-22] MEDS: THIAMINE HCL INJ 100 MG in SYRINGE 9 ML IV SCH (07:43)
[2017-06-22] MEDS: PANTOprazole SOD 40 MG TAB PO SCH ×2 (07:43→21:17)
[2017-06-22] MEDS: LISINOPRIL 10 MG TAB PO SCH ×2 (07:44→21:15)
[2017-06-22 07:47] LABS: INR 1.7 (0.9-1.1); PROTHROMBIN TIME (PATIENT) 18.7 SECONDS (9.0-12.0)
[2017-06-22 08:14] LABS: BUN/CREATININE RATIO 7.2 (10-20); CALCIUM 8.7 mg/dl (8.5-10.1); CREATININE 1.4 mg/dl (0.60-1.40); MAGNESIUM 2.2 mg/dl (1.8-2.4); POTASSIUM 3.8 mmol/L (3.5-5.1)
[2017-06-22 08:16] LABS: ALB/GLOB RATIO 0.9 (0.9-2)
[2017-06-22] MEDS: LORAZEPAM 2 MG/ML 1 ML VIAL IV PRN (08:51)
--- NOTE | 2017-06-22 10:15 | Cardiology Follow-Up ---
Subjective General Date of Service: Jun 22, 2017. Chief Complaint: HTN; Alcohol withdrawal Pt evaluation today including: conversation w/ patient, physical exam, chart review, lab review, review of studies, review of inpatient medication list History of Present Illness Patient feeling ok this AM. Primary complaint is "pins and needles" in feet, which is chronic issue. Denies chest pain or SOB. No headaches. Tremors noted. No palpitations or dizziness Allergies Coded Allergies: No Known Allergies (Unverified , 04/07/12) Social History Smoking Status: Never Smoker Hx Tobacco Use In Past Year?: No Hx Alcohol Use - Type And Amou: Yes ("a quart of wine a day") Hx Substance Use - Type And Am: No Problem List Medical Problems: (1) Alcohol abuse Status: Chronic (2) Alcohol withdrawal Status: Acute (3) Alcoholic hepatitis Status: Acute (4) HTN (hypertension) Status: Chronic (5) Symptomatic bradycardia Status: Acute Review of Systems Respiratory: No cough, No sputum, No wheezing, No shortness of breath, No dyspnea at rest, No hemoptysis Cardiac: No chest pain, No orthopnea, No PND, No edema, No palpitations Physical Exam Vital Signs Last Vital Signs Documentation Date Time Temp Pulse Resp B/P (MAP) Pulse Ox O2 Delivery O2 Flow Rate FiO2 06/22/17 08:00 96 Room Air 06/22/17 07:44 36.8 72 19 179/98 (125) Physical Exam Constitutional: General Apperance: overweight Level of Distress: NAD, chronically ill Ambulation: ambulating normally Psychiatric: Mental Status: active & alert Orientation: to time, to place, to person Head: normocephalic Eyes: Pupils: PERRLA Neck: supple Lungs: Respiratory effort: no dyspnea Auscultation: no wheezing, no rales/crackles Cardiovascular: Heart Auscultation: RRR, normal S1, normal S2, II/ ELI Abdomen: Bowel Sounds: normal Inspection & Palpation: soft, non-distended Extremities: no edema Additional Comments: Resting tremors noted b/l hands Assessment and Plan Assessment and Plan 1. Hypertensive urgency, in setting of acute alcohol withdrawal. -Lisinopril and hydralazine doses increased on admission -BP still elevated overnight and this AM. Likely related to withdrawal symptoms. -not currently on beta jerald due to chart history of bradycardia. -consider titration of lisinopril further if remains elevated after AM meds 2. Minimal troponin elevation, multifactorial in setting of hypertensive urgency , ALEXIS -not indicative of ACS -EKG without ischemic changes -echo reviewed: Normal LV function -- Conclusions -- Ejection Fraction = 60-65%. There is normal left ventricular wall thickness. The left ventricular wall motion is normal. There is trace mitral regurgitation. There is mild tricuspid regurgitation. Doppler findings do not suggest pulmonary hypertension. Aortic valve sclerosis mild, without significant aortic valvular stenosis. 3. History of paroxysmal atrial fibrillation, currently in NSR -on chronic anticoagulation therapy for afib as well as history of PE -no beta jerald given history of bradycardia on beta jerald 4. History of peripheral vascular disease s/p fem pop bypass -on Plavix, ASA, statin (held on admission due to elevated LFT's) 5. Elevated LFT's in the setting of chronic alcohol -statin now on hold 6. Questionable GI bleed -stable Hbg -continue Coumadin and Plavix for now, unless gross bleeding noted -GI consulted 7. history of Moderate non obstructive CAD. (PLEASE NOTE - PATIENT HAS NO HISTORY OF CABG - THIS WAS REMOVED OFF HIS PROBLEM LIST. Admission H/P is incorrect) -on plavix (due to history of PVD) -statin on hold due to elevated LFTs -no beta jerald due to bradycardia Case discussed with Dr. Cardozo. Cardiology attending physician: Patient seen and examined at the bedside. Patient notes mild upper extremity tremor today. Blood pressures improved however remain elevated. Denies chest discomfort or shortness of breath. No events on telemetry. Offers no complaints this time. PE: hypertensive, otherwise VSS. GEN: NAD, AAO x3. Heart: Regular with occasional ectopy. Normal S1S2. no murmur. Lungs: Clear bilateral without rales , rhonchi, or wheeze. Ext: No edema. A/P: Agree with above PA-C history, physical exam, assessment and plan. Elevated blood pressure likely related to ETOH withdrawal. Will continue to monitor blood pressure. Consider titration of lisinopril prior to discharge if BP remains elevated. Henry Cardozo DO, [facility] Laboratory Results Last 24 Hours Test 06/22/17 07:10 White Blood Count 3.61 K/uL Red Blood Count 3.52 M/uL Hemoglobin 11.8 g/dL Hematocrit 36.4 % Mean Corpuscular Volume 103.4 fL Mean Corpuscular Hemoglobin 33.5 pg Mean Corpuscular Hemoglobin Concent 32.4 g/dl Platelet Count 105 K/uL Mean Platelet Volume 10.2 fL Neutrophils (%) (Auto) 53.9 % Lymphocytes (%) (Auto) 30.2 % Monocytes (%) (Auto) 12.5 % Eosinophils (%) (Auto) 2.8 % Basophils (%) (Auto) 0.3 % Neutrophils # (Auto) 1.95 K/uL Lymphocytes # (Auto) 1.09 K/uL Monocytes # (Auto) 0.45 K/uL Eosinophils # (Auto) 0.10 K/uL Basophils # (Auto) 0.01 K/uL RDW Standard Deviation 53.5 fL RDW Coefficient of Variation 14.2 % Immature Granulocyte % (Auto) 0.3 % Immature Granulocyte # (Auto) 0.01 K/uL Prothrombin Time 18.7 SECONDS Prothromb Time International Ratio 1.7 Sodium Level 142 mmol/L Potassium Level 3.8 mmol/L Chloride Level 110 mmol/L Carbon Dioxide Level 25 mmol/L Anion Gap 7.0 mmol/L Blood Urea Nitrogen 10 mg/dl Creatinine 1.40 mg/dl Est Creatinine Clear Calc Drug Dose 58.1 ml/min Estimated GFR () 59.8 Estimated GFR (Non- 51.6 BUN/Creatinine Ratio 7.2 Random Glucose 99 mg/dl Calcium Level 8.7 mg/dl Magnesium Level 2.2 mg/dl Total Bilirubin 1.0 mg/dl Aspartate Amino Transf (AST/SGOT) 105 U/L Alanine Aminotransferase (ALT/SGPT) 68 U/L Alkaline Phosphatase 56 U/L Total Protein 6.8 gm/dl Albumin 3.3 gm/dl Globulin 3.5 gm/dl Albumin/Globulin Ratio 0.9
[2017-06-22] MEDS ORDERED: ANUSOL SUPP 1 EA PR PRN (10:30)
--- NOTE | 2017-06-22 14:37 | Progress Note ---
Medicine Progress Note Date & Time of Visit: Jun 22, 2017 at 14:05. Subjective Pt was seen and examined Sitting in chair comfortable with no distress Pt said that he feels fine Denies any hallucination and psychosis Pt said that he quits drinking for 20 yrs He said that he is going to a lot now that is the reason he is drinking a lot of alcohol Denies any chest pain, palpitation, dizziness and SOB Objective Last 8 Hrs Date Time Temp Pulse Resp B/P (MAP) Pulse Ox O2 Delivery O2 Flow Rate FiO2 06/22/17 12:00 100 06/22/17 12:00 96 Room Air 06/22/17 10:58 36.7 73 20 152/87 (108) 94 Room Air 06/22/17 08:00 96 Room Air 06/22/17 07:44 36.8 72 19 179/98 (125) 96 Room Air Physical Exam: General- No acute distress Head- atraumatic Eyes- PERRL, EOMI ENT- oropharynx clear Neck- no JVD Lungs- clear to auscultation Heart- regular rhythm; no murmur Abdomen- normal bowel sounds, soft Extremities-no calf tenderness; + mild tremors Neuro- alert, oriented x 3; PERRL, EOMI; no facial palsy; Skin- warm & dry Laboratory Results: Last 24 Hours Test 06/22/17 07:10 White Blood Count 3.61 K/uL Red Blood Count 3.52 M/uL Hemoglobin 11.8 g/dL Hematocrit 36.4 % Mean Corpuscular Volume 103.4 fL Mean Corpuscular Hemoglobin 33.5 pg Mean Corpuscular Hemoglobin Concent 32.4 g/dl Platelet Count 105 K/uL Mean Platelet Volume 10.2 fL Neutrophils (%) (Auto) 53.9 % Lymphocytes (%) (Auto) 30.2 % Monocytes (%) (Auto) 12.5 % Eosinophils (%) (Auto) 2.8 % Basophils (%) (Auto) 0.3 % Neutrophils # (Auto) 1.95 K/uL Lymphocytes # (Auto) 1.09 K/uL Monocytes # (Auto) 0.45 K/uL Eosinophils # (Auto) 0.10 K/uL Basophils # (Auto) 0.01 K/uL RDW Standard Deviation 53.5 fL RDW Coefficient of Variation 14.2 % Immature Granulocyte % (Auto) 0.3 % Immature Granulocyte # (Auto) 0.01 K/uL Prothrombin Time 18.7 SECONDS Prothromb Time International Ratio 1.7 Sodium Level 142 mmol/L Potassium Level 3.8 mmol/L Chloride Level 110 mmol/L Carbon Dioxide Level 25 mmol/L Anion Gap 7.0 mmol/L Blood Urea Nitrogen 10 mg/dl Creatinine 1.40 mg/dl Est Creatinine Clear Calc Drug Dose 58.1 ml/min Estimated GFR () 59.8 Estimated GFR (Non- 51.6 BUN/Creatinine Ratio 7.2 Random Glucose 99 mg/dl Calcium Level 8.7 mg/dl Magnesium Level 2.2 mg/dl Total Bilirubin 1.0 mg/dl Aspartate Amino Transf (AST/SGOT) 105 U/L Alanine Aminotransferase (ALT/SGPT) 68 U/L Alkaline Phosphatase 56 U/L Total Protein 6.8 gm/dl Albumin 3.3 gm/dl Globulin 3.5 gm/dl Albumin/Globulin Ratio 0.9 Assessment & Plan HYPERTENSIVE URGENCY BP on admission was 202/126 in the ED Probably primarily due to alcohol withdrawal. BP improving continue with lisinopril, hydralazine Will increase lisinopril. ALCOHOL ABUSE ALCOHOL WITHDRAWAL Heavy drinking due to financial problems Currently drinking a quart of wine a day and 4-5 mixed drinks a day. Last alcohol consumption about 2 days ago Patient is willing to try abstention because it is affected his marriage Gabapentin-based alcohol withdrawal protocol ordered. Thiamine / folate / MVI. DYSPNEA resolving NAUSEA / VOMITING Probably related to alcohol consumption. GI consulted: no acute interventions No need EGD - would consider two weeks of empiric oral PPI as per GI Tolerated clear liquid diet will advanced as tolerated ELEVATED LFT'S Probable due to alcohol abuse. U/S liver showed Fatty infiltration of liver. Liver enzymes trending down GI consulted on board HEMATOCHEZIA Patient reports intermittent mild rectal bleeding Last Colonoscopy performed 04/08/11 for routine screening was unremarkable; f/u in 10 years recommended. hgb stable On warfarin, clopidogrel Also using fish oil supplements. Degree of antiplatelet effects of omega-3 fatty acids debatable, but prudent to stop fish oil. Continue monitor H/H. CORONARY ARTERY DISEASE History of coronary artery disease, s/p CABG. No anginal symptoms. Continue plavix statin on hold due to elevated LFT Elevated Troponin Statin on hold due to elevated LFT's. Continue antiplatelet therapy with clopidogrel with caution. Echo showed * Ejection Fraction = 60-65%. * There is normal left ventricular wall thickness. * The left ventricular wall motion is normal. * There is trace mitral regurgitation. * There is mild tricuspid regurgitation. * Doppler findings do not suggest pulmonary hypertension. * Aortic valve sclerosis mild, without significant aortic valvular stenosis. CHRONIC ATRIAL FIBRILLATION Rate controlled. Continue warfarin Will monitor closely for GI bleed HISTORY PULMONARY EMBOLISM History of pulmonary embolism x 2. On coumadin CKD III Baseline creatinine around 1.5. Maintain adequate volume status. Avoid potential nephrotoxins when able. HYPOKALEMIA resolved HYPOMAGNESEMIA Stable GOUT Continue allopurinol. HYPOTHYROIDISM Continue levothyroxine. PERIPHERAL NEUROPATHY Very symptomatic pain and paresthesiae of lower extremities. Evaluated in the past, details not available. Hold pregabalin while receiving gabapentin for alcohol withdrawal, then resume and titrate Rx. Continue analgesics PRN with caution- will change from hydrocodone / acetaminophen to oxycodone in light of hepatic disease. DEPRESSION Continue escitalopram. DVT PROPHYLAXIS Continue warfarin with caution. RESUSCITATION STATUS FULL CODE. DISPOSITION on Telemetry Unit. Possible discharge tomorrow if BP control and show no signs of withdraw. Current Inpatient Medications: Current Inpatient Medications Medications (Trade) Dose Ordered Sig/Brooke Route Start Time Stop Time Status Last Admin Dose Admin Allopurinol (Zyloprim Tab) 200 mg QPM PO 06/20/17 21:00 07/20/17 20:59 06/21/17 20:42 200 MG Escitalopram Oxalate (Lexapro Tab) 20 mg HS PO 06/20/17 21:00 07/20/17 20:59 06/21/17 20:40 20 MG Levothyroxine Sodium (Synthroid Tab) 75 mcg DAILYBB PO 06/21/17 06:00 07/21/17 05:59 06/22/17 05:42 75 MCG Magnesium Chloride (Slow-Mag Tab) 512 mg QPM PO 06/20/17 21:00 07/20/17 20:59 06/21/17 20:42 512 MG Multivitamins/ Minerals (Multivitamin W/ Minerals Tab) 1 tab QPM PO 06/20/17 21:00 07/20/17 20:59 06/21/17 20:40 1 TAB Warfarin Sodium (Coumadin Tab) 5 mg DAILY@1600 PO 06/21/17 16:00 07/21/17 15:59 06/21/17 15:57 5 MG Pantoprazole Sodium (Protonix Tab) 40 mg BID PO 06/21/17 21:00 07/21/17 20:59 06/22/17 07:43 40 MG Hydralazine HCl (Apresoline Tab) 50 mg TID PO 06/20/17 21:00 07/20/17 20:59 06/22/17 13:49 50 MG Oxycodone HCl (Roxicodone Immediate Rel Tab) 5 mg Q4H PRN PO 06/20/17 20:30 07/04/17 20:29 06/22/17 07:47 5 MG Hydromorphone HCl (Dilaudid Inj) 1 mg Q4H PRN IV 06/20/17 20:30 07/04/17 20:29 06/20/17 22:35 1 MG Lorazepam (Ativan Tab) 2 mg HS PRN PO 06/20/17 20:45 07/20/17 20:44 06/21/17 20:45 2 MG Lorazepam (Ativan Tab) PRN Dosing -Active Protocol UD PRN PO 06/20/17 20:45 07/20/17 20:44 Lorazepam (Ativan Inj) PRN Dosing -Active Protocol Q1H PRN IV 06/20/17 20:45 07/20/17 20:44 06/22/17 08:51 2 MG Gabapentin (Neurontin Tab) 600 mg Q12H PO 06/22/17 22:00 06/23/17 10:01 Gabapentin (Neurontin Tab) 600 mg Q24H PO 06/24/17 10:00 06/24/17 10:01 Enalaprilat 1.25 mg/Dextrose 26 ml @ 100 mls/hr Q6H PRN IV 06/20/17 22:00 07/20/17 21:59 06/20/17 23:59 100 MLS/HR Lisinopril (Zestril Tab) 10 mg BID PO 06/21/17 09:00 07/21/17 08:59 06/22/17 07:44 10 MG Thiamine HCl 100 mg/Syringe 10 ml @ 2 mls/min QAM IV 06/21/17 09:00 07/21/17 08:59 06/22/17 07:43 2 MLS/MIN Folic Acid (Folvite Tab) 1 mg QAM PO 06/21/17 09:00 07/21/17 08:59 06/22/17 07:44 1 MG Clopidogrel Bisulfate (plAVix TAB) 75 mg QAM PO 06/22/17 09:00 07/22/17 08:59 06/22/17 07:43 75 MG Hard Fat/ Phenylephrine (Anusol Supp) 1 ea HS PRN [place] 06/22/17 10:30 07/22/17 10:29
[2017-06-22] MEDS: WARFARIN SOD 5 MG TAB PO SCH (15:41)
[2017-06-22] MEDS: MAGNESIUM CHLORIDE 64MG DELAYED REL TAB PO SCH (21:15)
[2017-06-22] MEDS: GABAPENTIN 600MG Q12H DOSE PO SCH (21:16)
[2017-06-22] MEDS: CEROVITE ADV FORMULA TAB PO SCH (21:16)
[2017-06-22] MEDS: ALLOPURINOL 100 MG TAB PO SCH (21:16)
[2017-06-22] MEDS: ESCITALOPRAM OXALATE 20 MG TAB PO SCH (21:16)
[2017-06-23] VITALS (8 sets, daily range): BP systolic 114–175; BP diastolic 72–105; PULSE 74–107; TEMP 36.8–37.3; O2SAT 94–97
[2017-06-23] MEDS: OXYCODONE HCL IR 5 MG TAB (IMMEDIATE RELEASE) PO PRN ×2 (01:38→05:47)
[2017-06-23] MEDS: LORAZEPAM 2 MG TAB PO PRN ×2 (01:38→20:43)
[2017-06-23] MEDS: LEVOTHYROXINE 75 MCG TAB PO SCH (05:44)
[2017-06-23] MEDS: PANTOprazole SOD 40 MG TAB PO SCH ×2 (07:46→20:44)
[2017-06-23] MEDS: GABAPENTIN 600MG Q12H DOSE PO SCH (07:47)
[2017-06-23] MEDS: LISINOPRIL 10 MG TAB PO SCH (07:47)
[2017-06-23] MEDS: CLOPIDOGREL BISULFATE 75 MG TAB PO SCH (07:47)
[2017-06-23] MEDS: LORAZEPAM 2 MG/ML 1 ML VIAL IV PRN ×3 (07:50→17:58)
[2017-06-23 08:12] LABS: HEMATOCRIT 35.9 % (42-52); MEAN CORPUSCULAR HEMOGLOBIN 34.1 pg (25-34); MEAN CORPUSCULAR HGB CONC 33.4 g/dl (32-36); RED BLOOD COUNT 3.52 M/uL (4.7-6.1); WHITE BLOOD COUNT 3.13 K/uL (4.8-10.8)
[2017-06-23 08:21] LABS: INR 1.5 (0.9-1.1); PROTHROMBIN TIME (PATIENT) 15.9 SECONDS (9.0-12.0)
[2017-06-23 08:33] LABS: MEAN PLATELET VOLUME 10.7 fL (7.4-10.4); PLATELET COUNT 97 K/uL (130-400)
[2017-06-23 08:34] LABS: PLT ESTIMATE DECREASED
[2017-06-23 08:39] LABS: BUN/CREATININE RATIO 7.9 (10-20); CREATININE 1.4 mg/dl (0.60-1.40); POTASSIUM 3.9 mmol/L (3.5-5.1)
[2017-06-23 08:42] LABS: ALB/GLOB RATIO 0.9 (0.9-2)
[2017-06-23] MEDS: THIAMINE HCL INJ 100 MG in SYRINGE 9 ML IV SCH (09:13)
[2017-06-23] MEDS ORDERED: LISINOPRIL 10 MG TAB PO SCH ×2 (10:15→21:00)
--- NOTE | 2017-06-23 13:08 | Cardiology Follow-Up ---
Subjective General Date of Service: Jun 23, 2017. Chief Complaint: HTN; Alcohol withdrawal Pt evaluation today including: conversation w/ patient, physical exam, chart review, lab review, review of studies, review of inpatient medication list History of Present Illness The patient is a 66 year old male seen in follow-up. Repeat blood pressure readings improved after titration of lisinopril. Patient reports lower extremity weakness and feeling unsteady on his feet. States he has experienced similar symptoms when quitting alcohol in the past. Brief periods of tachycardia noted on telemetry which may represent sinus rhythm with frequent PACs versus short runs of atrial fibrillation. Patient denies chest pain or shortness of breath. Offers no other complaints this time. Allergies Coded Allergies: No Known Allergies (Unverified , 04/07/12) Social History Smoking Status: Never Smoker Hx Tobacco Use In Past Year?: No Hx Alcohol Use - Type And Amou: Yes ("a quart of wine a day") Hx Substance Use - Type And Am: No Problem List Medical Problems: (1) Alcohol abuse Status: Chronic (2) Alcohol withdrawal Status: Acute (3) Alcoholic hepatitis Status: Acute (4) HTN (hypertension) Status: Chronic (5) Symptomatic bradycardia Status: Acute Review of Systems Respiratory: No cough, No sputum, No wheezing, No shortness of breath, No dyspnea on exertion, No dyspnea at rest, No hemoptysis Cardiac: No chest pain, No orthopnea, No PND, No edema, No claudication, No palpitations Physical Exam Vital Signs Last Vital Signs Documentation Date Time Temp Pulse Resp B/P (MAP) Pulse Ox O2 Delivery O2 Flow Rate FiO2 06/23/17 12:00 96 Room Air 06/23/17 11:39 37.3 107 18 114/76 (89) Physical Exam Constitutional: General Apperance: overweight Level of Distress: NAD, chronically ill Ambulation: ambulating normally Psychiatric: Mental Status: active & alert Orientation: to time, to place, to person Head: normocephalic Eyes: Pupils: PERRLA Neck: supple Lungs: Respiratory effort: no dyspnea Auscultation: no wheezing, no rales/crackles Cardiovascular: Heart Auscultation: RRR, normal S1, normal S2, II/ ELI Abdomen: Bowel Sounds: normal Inspection & Palpation: soft, non-distended Extremities: no edema Neurologic: Gait & Station: pertinent finding (fine resting tremor) Cranial Nerves: grossly intact Assessment and Plan Assessment and Plan 1. 66-year-old patient admitted with hypertensive urgency in the setting of alcohol withdrawal. -Blood pressure improving with titration of lisinopril and hydralazine 2. Minimal troponin elevation not indicative of ACS -Secondary to acute kidney injury and hypertensive urgency 3. History of paroxysmal atrial fibrillation, currently in NSR / ST with PAC's -Chronically anticoagulated for history of atrial fibrillation and PE -Possible brief recurrent salvos of paroxysmal atrial fibrillation versus sinus rhythm with frequent PACs noted on telemetry -Patient has not been treated with beta jerald in the past due to history of bradycardia 4. History of peripheral vascular disease s/p fem pop bypass -on Plavix, ASA, statin (held on admission due to elevated LFT's) 5. History of moderate nonobstructive coronary artery -statin on hold due to elevated LFTs Plan/recommendations: Repeat 12-lead ECG. Continue current cardiovascular medications as listed above. Restart statin therapy prior to discharge. Coumadin will be dosed for goal INR of 2.0-3.0. Lisinopril titrated to 20 mg in AM and 10mg in the evening. Cautiously add low dose metoprolol 12.5mg BID. Will continue to follow blood pressure closely. Consider physical therapy evaluation for gait instability. Laboratory Results Last 24 Hours Test 06/23/17 07:39 White Blood Count 3.13 K/uL Red Blood Count 3.52 M/uL Hemoglobin 12.0 g/dL Hematocrit 35.9 % Mean Corpuscular Volume 102.0 fL Mean Corpuscular Hemoglobin 34.1 pg Mean Corpuscular Hemoglobin Concent 33.4 g/dl RDW Standard Deviation 52.3 fL RDW Coefficient of Variation 14.1 % Platelet Count 97 K/uL Mean Platelet Volume 10.7 fL Platelet Estimate DECREASED Prothrombin Time 15.9 SECONDS Prothromb Time International Ratio 1.5 Sodium Level 141 mmol/L Potassium Level 3.9 mmol/L Chloride Level 110 mmol/L Carbon Dioxide Level 23 mmol/L Anion Gap 8.0 mmol/L Blood Urea Nitrogen 11 mg/dl Creatinine 1.40 mg/dl Est Creatinine Clear Calc Drug Dose 58.0 ml/min Estimated GFR () 59.8 Estimated GFR (Non- 51.6 BUN/Creatinine Ratio 7.9 Random Glucose 95 mg/dl Calcium Level 9.0 mg/dl Magnesium Level 2.0 mg/dl Total Bilirubin 0.8 mg/dl Aspartate Amino Transf (AST/SGOT) 99 U/L Alanine Aminotransferase (ALT/SGPT) 67 U/L Alkaline Phosphatase 56 U/L Total Protein 7.0 gm/dl Albumin 3.3 gm/dl Globulin 3.7 gm/dl Albumin/Globulin Ratio 0.9
--- NOTE | 2017-06-23 13:40 | Progress Note ---
Medicine Progress Note Date & Time of Visit: Jun 23, 2017 at 13:26. Subjective Pt was seen and examined Lying in bed with no distress Pt said that he feels fine He had an accident today with his bowel Denies any chest pain, palpitation, dizziness and SOB Objective Last 8 Hrs Date Time Temp Pulse Resp B/P (MAP) Pulse Ox O2 Delivery O2 Flow Rate FiO2 06/23/17 12:00 96 Room Air 06/23/17 11:39 37.3 107 18 114/76 (89) 96 Room Air 06/23/17 08:00 96 Room Air 06/23/17 07:52 36.9 86 18 175/105 (128) 94 Room Air Physical Exam: General- No acute distress Head- atraumatic Eyes- PERRL, EOMI, +mild nystagmus ENT- oropharynx clear Neck- no JVD Lungs- clear to auscultation Heart- regular rhythm; no murmur Abdomen- normal bowel sounds, soft Extremities-no calf tenderness; + mild tremors Neuro- alert, oriented x 3; PERRL, EOMI; no facial palsy; Skin- warm & dry Laboratory Results: Last 24 Hours Test 06/23/17 07:39 White Blood Count 3.13 K/uL Red Blood Count 3.52 M/uL Hemoglobin 12.0 g/dL Hematocrit 35.9 % Mean Corpuscular Volume 102.0 fL Mean Corpuscular Hemoglobin 34.1 pg Mean Corpuscular Hemoglobin Concent 33.4 g/dl RDW Standard Deviation 52.3 fL RDW Coefficient of Variation 14.1 % Platelet Count 97 K/uL Mean Platelet Volume 10.7 fL Platelet Estimate DECREASED Prothrombin Time 15.9 SECONDS Prothromb Time International Ratio 1.5 Sodium Level 141 mmol/L Potassium Level 3.9 mmol/L Chloride Level 110 mmol/L Carbon Dioxide Level 23 mmol/L Anion Gap 8.0 mmol/L Blood Urea Nitrogen 11 mg/dl Creatinine 1.40 mg/dl Est Creatinine Clear Calc Drug Dose 58.0 ml/min Estimated GFR () 59.8 Estimated GFR (Non- 51.6 BUN/Creatinine Ratio 7.9 Random Glucose 95 mg/dl Calcium Level 9.0 mg/dl Magnesium Level 2.0 mg/dl Total Bilirubin 0.8 mg/dl Aspartate Amino Transf (AST/SGOT) 99 U/L Alanine Aminotransferase (ALT/SGPT) 67 U/L Alkaline Phosphatase 56 U/L Total Protein 7.0 gm/dl Albumin 3.3 gm/dl Globulin 3.7 gm/dl Albumin/Globulin Ratio 0.9 Assessment & Plan HYPERTENSIVE URGENCY BP on admission was 202/126 in the ED Probably primarily due to alcohol withdrawal. continue hydralazine Lisinopril titrate to 20mg BID Continue monitor BP ALCOHOL ABUSE ALCOHOL WITHDRAWAL Heavy drinking due to financial problems Currently drinking a quart of wine a day and 4-5 mixed drinks a day. Last alcohol consumption about 3 days ago Patient is willing to try abstention because it is affected his marriage He does not want to go to rehab H went to rehab in the past and do not think it helped him much Gabapentin-based alcohol withdrawal protocol ordered. Thiamine / folate / MVI. PT/OT eval DYSPNEA resolving NAUSEA / VOMITING Probably related to alcohol consumption. GI consulted: no acute interventions No need EGD - would consider two weeks of empiric oral PPI as per GI Tolerated clear liquid diet Resolved ELEVATED LFT'S Probable due to alcohol abuse. U/S liver showed Fatty infiltration of liver. Liver enzymes trending down GI consulted on board Stable HEMATOCHEZIA Patient reports intermittent mild rectal bleeding Last Colonoscopy performed 04/08/11 for routine screening was unremarkable; f/u in 10 years recommended. hgb stable On warfarin, clopidogrel Also using fish oil supplements. Degree of antiplatelet effects of omega-3 fatty acids debatable, but prudent to stop fish oil. Continue monitor H/H. CORONARY ARTERY DISEASE History of coronary artery disease, s/p CABG. No anginal symptoms. Continue plavix statin on hold due to elevated LFT Will restart statin on discharge Elevated Troponin Statin on hold due to elevated LFT's. Continue antiplatelet therapy with clopidogrel with caution. Cardiology on board Echo showed * Ejection Fraction = 60-65%. * There is normal left ventricular wall thickness. * The left ventricular wall motion is normal. * There is trace mitral regurgitation. * There is mild tricuspid regurgitation. * Doppler findings do not suggest pulmonary hypertension. * Aortic valve sclerosis mild, without significant aortic valvular stenosis. CHRONIC ATRIAL FIBRILLATION Rate controlled. Continue warfarin INR 1.5 continue monitor PT/INR Will monitor closely for GI bleed HISTORY PULMONARY EMBOLISM History of pulmonary embolism x 2. On coumadin CKD III Baseline creatinine around 1.5. Creatine 1.4 Maintain adequate volume status. Avoid potential nephrotoxins when able. stable HYPOKALEMIA resolved HYPOMAGNESEMIA Stable GOUT Continue allopurinol. HYPOTHYROIDISM Continue levothyroxine. PERIPHERAL NEUROPATHY Very symptomatic pain and paresthesiae of lower extremities. Evaluated in the past, details not available. Hold pregabalin while receiving gabapentin for alcohol withdrawal, then resume and titrate Rx. Continue analgesics PRN with caution- will change from hydrocodone / acetaminophen to oxycodone in light of hepatic disease. DEPRESSION Continue escitalopram. DVT PROPHYLAXIS Continue warfarin with caution. RESUSCITATION STATUS DNR ( pt brought his living will. Pt wants his code status to change to DNR) DISPOSITION on Telemetry Unit. Possible discharge tomorrow if BP control and show no signs of withdraw. Consultants: Cardio Gastro Current Inpatient Medications: Current Inpatient Medications Medications (Trade) Dose Ordered Sig/Brooke Route Start Time Stop Time Status Last Admin Dose Admin Allopurinol (Zyloprim Tab) 200 mg QPM PO 06/20/17 21:00 07/20/17 20:59 06/22/17 21:16 200 MG Escitalopram Oxalate (Lexapro Tab) 20 mg HS PO 06/20/17 21:00 07/20/17 20:59 06/22/17 21:16 20 MG Levothyroxine Sodium (Synthroid Tab) 75 mcg DAILYBB PO 06/21/17 06:00 07/21/17 05:59 06/23/17 05:44 75 MCG Magnesium Chloride (Slow-Mag Tab) 512 mg QPM PO 06/20/17 21:00 07/20/17 20:59 06/22/17 21:15 512 MG Multivitamins/ Minerals (Multivitamin W/ Minerals Tab) 1 tab QPM PO 06/20/17 21:00 07/20/17 20:59 06/22/17 21:16 1 TAB Warfarin Sodium (Coumadin Tab) 5 mg DAILY@1600 PO 06/21/17 16:00 07/21/17 15:59 06/22/17 15:41 5 MG Pantoprazole Sodium (Protonix Tab) 40 mg BID PO 06/21/17 21:00 07/21/17 20:59 06/23/17 07:46 40 MG Hydralazine HCl (Apresoline Tab) 50 mg TID PO 06/20/17 21:00 07/20/17 20:59 06/23/17 07:46 50 MG Oxycodone HCl (Roxicodone Immediate Rel Tab) 5 mg Q4H PRN PO 06/20/17 20:30 07/04/17 20:29 06/23/17 05:47 5 MG Hydromorphone HCl (Dilaudid Inj) 1 mg Q4H PRN IV 06/20/17 20:30 07/04/17 20:29 06/20/17 22:35 1 MG Lorazepam (Ativan Tab) 2 mg HS PRN PO 06/20/17 20:45 07/20/17 20:44 06/23/17 01:38 2 MG Lorazepam (Ativan Tab) PRN Dosing -Active Protocol UD PRN PO 06/20/17 20:45 07/20/17 20:44 Lorazepam (Ativan Inj) PRN Dosing -Active Protocol Q1H PRN IV 06/20/17 20:45 07/20/17 20:44 06/23/17 10:55 2 MG Gabapentin (Neurontin Tab) 600 mg Q24H PO 06/24/17 10:00 06/24/17 10:01 Enalaprilat 1.25 mg/Dextrose 26 ml @ 100 mls/hr Q6H PRN IV 06/20/17 22:00 07/20/17 21:59 06/20/17 23:59 100 MLS/HR Thiamine HCl 100 mg/Syringe 10 ml @ 2 mls/min QAM IV 06/21/17 09:00 07/21/17 08:59 06/23/17 09:13 2 MLS/MIN Folic Acid (Folvite Tab) 1 mg QAM PO 06/21/17 09:00 07/21/17 08:59 06/23/17 07:47 1 MG Clopidogrel Bisulfate (plAVix TAB) 75 mg QAM PO 06/22/17 09:00 07/22/17 08:59 06/23/17 07:47 75 MG Hard Fat/ Phenylephrine (Anusol Supp) 1 ea HS PRN [place] 06/22/17 10:30 07/22/17 10:29 Lisinopril (Zestril Tab) 20 mg BID PO 06/23/17 21:00 07/23/17 20:59
[2017-06-23] MEDS: WARFARIN SOD 5 MG TAB PO SCH (16:09)
[2017-06-23] MEDS: CEROVITE ADV FORMULA TAB PO SCH (20:43)
[2017-06-23] MEDS: ALLOPURINOL 100 MG TAB PO SCH (20:44)
[2017-06-23] MEDS: ESCITALOPRAM OXALATE 20 MG TAB PO SCH (20:44)
[2017-06-23] MEDS: MAGNESIUM CHLORIDE 64MG DELAYED REL TAB PO SCH (20:45)
[2017-06-23] MEDS: METOPROLOL TARTRATE 25 MG TAB PO SCH (20:46)
[2017-06-23] MEDS ORDERED: LISINOPRIL 20 MG TAB PO SCH (21:00)
[2017-06-24] VITALS (9 sets, daily range): BP systolic 150–183; BP diastolic 82–111; PULSE 64–77; TEMP 36.5–37.1; O2SAT 95–97
[2017-06-24] MEDS: LEVOTHYROXINE 75 MCG TAB PO SCH (05:25)
[2017-06-24 07:18] LABS: HEMATOCRIT 35.4 % (42-52); MEAN CELL VOLUME 101.7 fL (80-100); MEAN CORPUSCULAR HEMOGLOBIN 34.8 pg (25-34); MEAN CORPUSCULAR HGB CONC 34.2 g/dl (32-36); RED BLOOD COUNT 3.48 M/uL (4.7-6.1); WHITE BLOOD COUNT 3.98 K/uL (4.8-10.8)
[2017-06-24 07:20] LABS: MEAN PLATELET VOLUME 10.6 fL (7.4-10.4); PLATELET COUNT 96 K/uL (130-400)
[2017-06-24 07:31] LABS: INR 1.3 (0.9-1.1); PROTHROMBIN TIME (PATIENT) 13.6 SECONDS (9.0-12.0)
[2017-06-24 07:49] LABS: BUN/CREATININE RATIO 9.6 (10-20); CALCIUM 9.1 mg/dl (8.5-10.1); CREATININE 1.4 mg/dl (0.60-1.40); MAGNESIUM 1.9 mg/dl (1.8-2.4); POTASSIUM 3.9 mmol/L (3.5-5.1)
[2017-06-24 07:52] LABS: ALB/GLOB RATIO 0.9 (0.9-2)
[2017-06-24] MEDS ORDERED: LISINOPRIL 20 MG TAB PO SCH ×2 (09:00→21:00)
[2017-06-24] MEDS: THIAMINE HCL INJ 100 MG in SYRINGE 9 ML IV SCH (09:11)
[2017-06-24] MEDS: METOPROLOL TARTRATE 25 MG TAB PO SCH ×2 (09:11→18:24)
[2017-06-24] MEDS: CLOPIDOGREL BISULFATE 75 MG TAB PO SCH (09:13)
[2017-06-24] MEDS: PANTOprazole SOD 40 MG TAB PO SCH (09:13)
[2017-06-24] MEDS ORDERED: GABAPENTIN 600MG Q24H DOSE PO SCH (10:00)
--- NOTE | 2017-06-24 11:00 | Progress Note ---
Medicine Progress Note Date & Time of Visit: Jun 24, 2017 at 10:46. Subjective Pt was seen and examined Sitting in chair with no distress Pt said that he feels fine He denies any hallucination and psychosis Pt refuses to go to rehab for alcohol abuse Yesterday i had a quick meeting with patient and his OK to let him come back home if he agrees to go to counseling for his alcohol problem Pt said that he will go to counseling and he will quit drinking in other to save his marriage denies any chest pain, palpitation, dizziness and sob Objective Last 8 Hrs Date Time Temp Pulse Resp B/P (MAP) Pulse Ox O2 Delivery O2 Flow Rate FiO2 06/24/17 08:00 Room Air 06/24/17 08:00 37.1 74 18 162/86 (111) 95 Room Air 06/24/17 05:26 150/87 (108) 06/24/17 04:20 36.9 73 18 174/109 (130) 97 Room Air 06/24/17 04:00 Room Air 06/24/17 03:55 36.9 71 20 181/111 (134) 97 Room Air 174/109 (130) Physical Exam: General- No acute distress Head- atraumatic Eyes- PERRL, EOMI, +mild nystagmus ENT- oropharynx clear Neck- no JVD Lungs- clear to auscultation Heart- regular rhythm; Abdomen- normal bowel sounds, soft Extremities-no calf tenderness; + mild tremors Neuro- alert, oriented x 3; PERRL, EOMI; no facial palsy; Skin- warm & dry Laboratory Results: Last 24 Hours Test 06/24/17 06:46 White Blood Count 3.98 K/uL Red Blood Count 3.48 M/uL Hemoglobin 12.1 g/dL Hematocrit 35.4 % Mean Corpuscular Volume 101.7 fL Mean Corpuscular Hemoglobin 34.8 pg Mean Corpuscular Hemoglobin Concent 34.2 g/dl RDW Standard Deviation 52.3 fL RDW Coefficient of Variation 14.1 % Platelet Count 96 K/uL Mean Platelet Volume 10.6 fL Nucleated RBC Absolute Count (auto) 0.03 K/uL Nucleated Red Blood Cells % 0.7 % Prothrombin Time 13.6 SECONDS Prothromb Time International Ratio 1.3 Sodium Level 141 mmol/L Potassium Level 3.9 mmol/L Chloride Level 109 mmol/L Carbon Dioxide Level 24 mmol/L Anion Gap 8.0 mmol/L Blood Urea Nitrogen 14 mg/dl Creatinine 1.40 mg/dl Est Creatinine Clear Calc Drug Dose 57.6 ml/min Estimated GFR () 59.8 Estimated GFR (Non- 51.6 BUN/Creatinine Ratio 9.6 Random Glucose 90 mg/dl Calcium Level 9.1 mg/dl Magnesium Level 1.9 mg/dl Total Bilirubin 0.9 mg/dl Aspartate Amino Transf (AST/SGOT) 73 U/L Alanine Aminotransferase (ALT/SGPT) 60 U/L Alkaline Phosphatase 52 U/L Total Protein 7.0 gm/dl Albumin 3.3 gm/dl Globulin 3.7 gm/dl Albumin/Globulin Ratio 0.9 Assessment & Plan HYPERTENSIVE URGENCY BP on admission was 202/126 in the ED Probably primarily due to alcohol withdrawal. continue hydralazine Continue lisinopril 20mg BID Continue monitor BP ALCOHOL ABUSE ALCOHOL WITHDRAWAL Heavy drinking due to financial problems Currently drinking a quart of wine a day and 4-5 mixed drinks a day. Last alcohol consumption about 3 days ago Patient is willing to try abstention because it is affected his marriage He does not want to go to rehab H went to rehab in the past and do not think it helped him much Gabapentin-based alcohol withdrawal protocol ordered. Thiamine / folate / MVI. PT/OT eval No signs of DT Refused to go to rehab for inpatient or outpatient treatment for alcohol Agreed to quit drinking and planning to do counseling to help him with his alcohol problems DYSPNEA resolving NAUSEA / VOMITING Probably related to alcohol consumption. GI consulted: no acute interventions No need EGD - would consider two weeks of empiric oral PPI as per GI Tolerated clear liquid diet Resolved ELEVATED LFT'S Probable due to alcohol abuse. U/S liver showed Fatty infiltration of liver. Liver enzymes continue trending down GI consulted on board Stable HEMATOCHEZIA Patient reports intermittent mild rectal bleeding Last Colonoscopy performed 04/08/11 for routine screening was unremarkable; f/u in 10 years recommended. hgb stable On warfarin, clopidogrel Also using fish oil supplements. Degree of antiplatelet effects of omega-3 fatty acids debatable, but prudent to stop fish oil. Continue monitor H/H. CORONARY ARTERY DISEASE History of coronary artery disease, s/p CABG. No anginal symptoms. Continue plavix statin on hold due to elevated LFT Will restart statin on discharge Elevated Troponin Statin on hold due to elevated LFT's. Continue antiplatelet therapy with clopidogrel with caution. Asymptomatic Cardiology on board Echo showed * Ejection Fraction = 60-65%. * There is normal left ventricular wall thickness. * The left ventricular wall motion is normal. * There is trace mitral regurgitation. * There is mild tricuspid regurgitation. * Doppler findings do not suggest pulmonary hypertension. * Aortic valve sclerosis mild, without significant aortic valvular stenosis. CHRONIC ATRIAL FIBRILLATION Rate controlled. INR 1.3 today Will give coumadin 7.5 mg today continue monitor PT/INR Will monitor closely for GI bleed HISTORY PULMONARY EMBOLISM History of pulmonary embolism x 2. On coumadin CKD III Baseline creatinine around 1.5. Creatine 1.4 Maintain adequate volume status. Avoid potential nephrotoxins when able. stable HYPOKALEMIA resolved HYPOMAGNESEMIA Stable GOUT Continue allopurinol. HYPOTHYROIDISM Continue levothyroxine. PERIPHERAL NEUROPATHY Very symptomatic pain and paresthesiae of lower extremities. Evaluated in the past, details not available. Hold pregabalin while receiving gabapentin for alcohol withdrawal, then resume and titrate Rx. Continue analgesics PRN with caution- will change from hydrocodone / acetaminophen to oxycodone in light of hepatic disease. DEPRESSION Continue escitalopram. DVT PROPHYLAXIS Continue warfarin with caution. RESUSCITATION STATUS DNR ( pt brought his living will. Pt wants his code status to change to DNR) DISPOSITION on Telemetry Unit. Will discharge home today Consultants: Cardio Gastro Current Inpatient Medications: Current Inpatient Medications Medications (Trade) Dose Ordered Sig/Brooke Route Start Time Stop Time Status Last Admin Dose Admin Allopurinol (Zyloprim Tab) 200 mg QPM PO 06/20/17 21:00 07/20/17 20:59 06/23/17 20:44 200 MG Escitalopram Oxalate (Lexapro Tab) 20 mg HS PO 06/20/17 21:00 07/20/17 20:59 06/23/17 20:44 20 MG Levothyroxine Sodium (Synthroid Tab) 75 mcg DAILYBB PO 06/21/17 06:00 07/21/17 05:59 06/23/17 05:44 75 MCG Magnesium Chloride (Slow-Mag Tab) 512 mg QPM PO 06/20/17 21:00 07/20/17 20:59 06/23/17 20:45 512 MG Multivitamins/ Minerals (Multivitamin W/ Minerals Tab) 1 tab QPM PO 06/20/17 21:00 07/20/17 20:59 06/23/17 20:43 1 TAB Pantoprazole Sodium (Protonix Tab) 40 mg BID PO 06/21/17 21:00 07/21/17 20:59 06/24/17 09:13 40 MG Hydralazine HCl (Apresoline Tab) 50 mg TID PO 06/20/17 21:00 07/20/17 20:59 06/24/17 09:13 50 MG Oxycodone HCl (Roxicodone Immediate Rel Tab) 5 mg Q4H PRN PO 06/20/17 20:30 07/04/17 20:29 06/23/17 05:47 5 MG Hydromorphone HCl (Dilaudid Inj) 1 mg Q4H PRN IV 06/20/17 20:30 07/04/17 20:29 06/20/17 22:35 1 MG Lorazepam (Ativan Tab) 2 mg HS PRN PO 06/20/17 20:45 07/20/17 20:44 06/23/17 20:43 2 MG Lorazepam (Ativan Tab) PRN Dosing -Active Protocol UD PRN PO 06/20/17 20:45 07/20/17 20:44 Lorazepam (Ativan Inj) PRN Dosing -Active Protocol Q1H PRN IV 06/20/17 20:45 07/20/17 20:44 06/23/17 17:58 2 MG Enalaprilat 1.25 mg/Dextrose 26 ml @ 100 mls/hr Q6H PRN IV 06/20/17 22:00 07/20/17 21:59 06/20/17 23:59 100 MLS/HR Thiamine HCl 100 mg/Syringe 10 ml @ 2 mls/min QAM IV 06/21/17 09:00 07/21/17 08:59 06/24/17 09:11 2 MLS/MIN Folic Acid (Folvite Tab) 1 mg QAM PO 06/21/17 09:00 07/21/17 08:59 06/24/17 09:13 1 MG Clopidogrel Bisulfate (plAVix TAB) 75 mg QAM PO 06/22/17 09:00 07/22/17 08:59 06/24/17 09:13 75 MG Hard Fat/ Phenylephrine (Anusol Supp) 1 ea HS PRN [place] 06/22/17 10:30 07/22/17 10:29 Lisinopril (Zestril Tab) 20 mg QAM PO 06/24/17 09:00 07/24/17 08:59 06/24/17 09:13 20 MG Lisinopril (Zestril Tab) 10 mg QPM PO 06/23/17 21:00 07/23/17 20:59 06/23/17 20:44 10 MG Metoprolol Tartrate (Lopressor Tab) 12.5 mg BID PO 06/23/17 21:00 07/23/17 20:59 06/24/17 09:11 12.5 MG Warfarin Sodium (Coumadin Tab) 7.5 mg DAILY@1600 PO 06/24/17 16:00 07/21/17 15:59
[2017-06-24] MEDS: LORAZEPAM 2 MG/ML 1 ML VIAL IV PRN (13:19)
[2017-06-24] MEDS ORDERED: HydrALAZINE HCL 20 MG/ML VIAL IV. ONE (16:00)
[2017-06-24] MEDS ORDERED: WARFARIN SOD 5 MG TAB PO SCH (16:00)
[2017-06-24] MEDS ORDERED: LPR25 PO (16:04)
[2017-06-24] MEDS ORDERED: LSN20 PO (16:04)
[2017-06-24] MEDS ORDERED: APR50 PO (16:04)
--- NOTE | 2017-06-24 16:19 | Discharge Instructions ---
Discharge Instructions Date of Service Jun 24, 2017. Admission Reason for Admission: Hypertensive Urgency Discharge Discharge Diagnosis / Problem: Hypertensive urgency, Alcohol abuse, Elevated liver enzymes Discharge Goals Goal(s): Decrease discomfort, Improve function, Improve disease control Activity Recommendations Activity Limitations: resume your previous activity (as tolerated) . Instructions / Follow-Up Instructions / Follow-Up Follow up with your primary care provider Dr. Piper on 06/30 @ 10:55 Follow up with the Coumadin clinic (Coumadin clinic will call you) take your next dose Coumadin tomorrow Monitor Blood pressure and your heart rate Bring blood pressure log to your next appointment with your physician Follow a low salt diet Follow with counseling for the alcohol cessation fall precaution Current Hospital Diet Patient's current hospital diet: AHA Diet (Heart Healthy), Low Sodium Diet (2gm Na) Discharge Diet Recommended Diet: AHA Diet (Heart Healthy), Low Sodium Diet (2gm Na) Pending Studies Studies pending at discharge: no Laboratory Results Lipid Panel Test 06/21/17 06:47 Range/Units Triglycerides Level 408 H 0-150 mg/dl Cholesterol Level 198 0-200 mg/dl HDL Cholesterol 38 mg/dl Cholesterol/HDL Ratio 5.2 LDL Cholesterol, Calculated mg/dl Medical Emergencies . Who to Call and When: Medical Emergencies: If at any time you feel your situation is an emergency, please call 911 immediately. . Non-Emergent Contact Non-Emergency issues call your: Primary Care Provider Call Non-Emergent contact if: you have any medication questions . . "Provider Documentation" section prepared by Alexis Vieyra. . VTE Core Measure Inpt VTE Proph given/why not?: Warfarin (Coumadin)
--- NOTE | 2017-06-29 00:26 | Discharge Summary ---
Discharge Summary Date of Service Jun 28, 2017. Discharge Summary Admission Date: Jun 20, 2017 at 19:22 Discharge Date: Jun 24, 2017 Discharge Disposition: Home Principal Diagnosis: HYPERTENSIVE URGENCY Secondary Diagnoses/Problems: ALCOHOL ABUSE ALCOHOL WITHDRAWAL DYSPNEA NAUSEA / VOMITING Elevated LFT HEMATOCHEZIA CAD Elevated troponin CKD III Hypothyroidism Hypokalemia Hypomagnesemia HISTORY PULMONARY EMBOLISM Depression Gout Peripheral Neuropathy CHRONIC ATRIAL FIBRILLATION Procedures: KUB CLINICAL HISTORY: abd distension COMPARISON STUDY: 06/20/2017 FINDINGS: There is an aortoiliac stent graft similar in appearance to the preceding study. There are no transition zones to indicate bowel obstruction. There is gas in the colon measuring a maximum of 8 cm uncorrected for magnification of the transverse level. Several vertebral body compression deformities are visualized. These were present on the preceding study. IMPRESSION: No conventional radiographic evidence of bowel obstruction. Electronically signed by: Marvin Puentes M.D. 06/21/2017 4:20 PM Dictated Date/Time: 06/21/2017 4:18 PM (LIVER) ABDOMEN LIMITED CLINICAL HISTORY: elevated LFTs, hx of ETOH abuse abnormal liver function TECHNIQUE: Ultrasound COMPARISON STUDY: None FINDINGS: Fatty infiltration of the liver. Normal caliber bile ducts. Common bile duct 6 mm. Normal gallbladder. Pancreas and right kidney unremarkable. Right kidney is negative for hydronephrosis. IMPRESSION: Fatty infiltration of liver. Otherwise negative study The above report was generated using voice recognition software. It may contain grammatical, syntax or spelling errors. Electronically signed by: Garett Cabrera M.D. 06/21/2017 4:35 PM Dictated Date/Time: 06/21/2017 4:34 PM (LIVER) ABDOMEN LIMITED CLINICAL HISTORY: elevated LFTs, hx of ETOH abuse abnormal liver function TECHNIQUE: Ultrasound COMPARISON STUDY: None FINDINGS: Fatty infiltration of the liver. Normal caliber bile ducts. Common bile duct 6 mm. Normal gallbladder. Pancreas and right kidney unremarkable. Right kidney is negative for hydronephrosis. IMPRESSION: Fatty infiltration of liver. Otherwise negative study The above report was generated using voice recognition software. It may contain grammatical, syntax or spelling errors. Electronically signed by: Garett Cabrera M.D. 06/21/2017 4:35 PM Dictated Date/Time: 06/21/2017 4:34 PM [~ rep ct add3]] ABDOMEN 2VIEW W/PA CHEST RTN CLINICAL HISTORY: ABDOMINAL PAIN/GI pain COMPARISON STUDY: 03/31/2016 FINDINGS: Lungs are clear. No evidence for cardiac enlargement. Diaphragms smooth. Mild nonobstructive ileus. No evidence of bowel distention. Aortic and iliac stents are in position. IMPRESSION: 1. Negative chest. 2. Mild nonobstructive ileus. The above report was generated using voice recognition software. It may contain grammatical, syntax or spelling errors. Electronically signed by: Garett Cabrera M.D. 06/20/2017 5:32 PM Dictated Date/Time: 06/20/2017 5:31 PM ECHO Interpretation Summary * Name: MICHELLE SHAY Study Date: 06/21/2017 02:30 PM BP: 158/79 mmHg * Patient Location: .2T\\S\\S240\\S\\2 HR: 68 * : 1950 (M/d/yyyy) Gender: Male Height: 69 in * Age: 66 yrs Ethnicity: MD Weight: 203 lb * Ordering Physician: Carmina Iniguez * Referring Physician: Self, Referred * Performed By: Vangie Morrow RDCS * * Reason For Study: HTN URGENCY, HX OF CAD * BSA: 2.1 m2 * The study was technically adequate. * Compared to prior study, changes are noted. * -- Conclusions -- * Ejection Fraction = 60-65%. * There is normal left ventricular wall thickness. * The left ventricular wall motion is normal. * There is trace mitral regurgitation. * There is mild tricuspid regurgitation. * Doppler findings do not suggest pulmonary hypertension. * Aortic valve sclerosis mild, without significant aortic valvular stenosis. Procedure Details * A complete two-dimensional transthoracic echocardiogram was performed (2D, M- mode, Doppler and color flow Doppler). Left Ventricle * The left ventricle is normal in size. * There is no thrombus. * There is normal left ventricular wall thickness. * Ejection Fraction = 60-65%. * Left ventricular systolic function is normal. * The left ventricular wall motion is normal. Right Ventricle * The right ventricle is normal size. * The right ventricular systolic function is normal as assessed by tricuspid annular plane systolic excursion (TAPSE) (normal >1.5 cm). Atria * The left atrial size is normal. * Right atrial size is normal. * There is no evidence of atrial septal defect, but resolution does not allow assessment for a patent foramen ovale. Mitral Valve * The mitral valve is normal. * There is no mitral valve stenosis. * There is trace mitral regurgitation. Tricuspid Valve * The tricuspid valve is normal. * There is no tricuspid stenosis. * There is mild tricuspid regurgitation. * Doppler findings do not suggest pulmonary hypertension. Aortic Valve * The aortic valve is trileaflet. * Aortic valve sclerosis mild, without significant aortic valvular stenosis. * Aortic stenosis is absent. * There is no significant aortic regurgitation. Pulmonic Valve * The pulmonary valve is inadequately visualized, but the Doppler data is adequate for interpretation. * There is no pulmonic valvular stenosis. * Trace pulmonic valvular regurgitation. Great Vessels * The aortic root and proximal ascending aorta are normal sized. Pericardium/Pleural * There is no pericardial effusion. Great Vessels * IVC poorly visualized. Left Ventricular Diastolic Function * Grade I diastolic dysfunction, (abnormal relaxation pattern). Consultations: Cardio Gastro Medication Reconciliation New Medications: Hydralazine HCl (Hydralazine HCl) 50 Mg Tab 50 MG PO TID for 30 Days, #90 TAB Lisinopril (Lisinopril) 20 Mg Tab 20 MG PO BID for 30 Days, #60 TAB Metoprolol Tartrate (Lopressor) 25 Mg Tab 12.5 MG PO BID for 30 Days, #30 TAB Continued Medications: Allopurinol (Zyloprim) 100 Mg Tab 200 MG PO QPM Atorvastatin (Lipitor) 80 Mg Tab 80 MG PO DAILY, TAB Clopidogrel Bisulfate (Clopidogrel) 75 Mg Tab 75 MG PO QAM Escitalopram Oxalate (Lexapro) 20 Mg Tab 20 MG PO HS, TAB Fish Oil (Excello-3) 1 Ea Cap 1 CAP PO BID Fluticasone Propionate (Nasal) (Flonase Allergy Relief) 50 Mcg/Act Spr 2 SPRAYS NIALL DAILY PRN for Allergy Symptoms Hydrocodone/Acetaminophen 5MG/325MG ([place] 5MG/325MG) Tab 1 TAB PO BID PRN for Mild Pain Levothyroxine Sodium (Levothyroxine Sodium) 75 Mcg Tab 75 MCG PO DAILY, TAB TAKE THIS MEDICATION 30 MINUTES BEFORE BREAKFAST OR ANY OTHER MEDICATIONS Magnesium Chloride (Mag64) 535 Mg Tab 535 MG PO QPM Multiple Vitamins W/ Minerals (Centrum Silver Adult 50+) 1 Tab Tab 1 TAB PO QPM Pantoprazole (Protonix) 40 Mg Tab 40 MG PO DAILY Pregabalin (Lyrica) 75 Mg Cap 75 MG PO BID Tadalafil (Cialis) 20 Mg Tab 20 MG PO UD PRN for intercourse, TAB Thiamine Mononitrate (Vitamin B1) 100 Mg Tab 100 MG PO DAILY Warfarin Sodium (Warfarin Sodium) 5 Mg Tab 5 MG PO 5XWK, TAB TAKE 5 MG EVERY WEDNESDAY,WEDNESDAY,WEDNESDAY,WEDNESDAY AND WEDNESDAY OR OTHERWISE DIRECTED TO TAKE BY ANTICOAGULATION CLINIC/MD Warfarin Sodium (Warfarin Sodium) 5 Mg Tab 7.5 MG PO 2XWK, TAB TAKE 7.5 MG EVERY WEDNESDAY AND WEDNESDAY OR OTHERWISE DIRECTED TO TAKE BY ANTICOAGULATION CLINIC/MD Discontinued Medications: Hydralazine Hcl (Apresoline) 25 Mg Tab 25 MG PO TID, TAB Lisinopril (Zestril) 10 Mg Tab 10 MG PO DAILY, TAB Admission Information HPI (per Admitting provider): 66 YO male followed by Dr. Emeka Piper for Family Medicine. History of coronary artery disease (s/p CABG), chronic atrial fibrillation, hypertension, recurrent pulmonary emboli, and other problems noted below. He has been drinking regularly for the past several years, typically 1 quart of wine and 4-5 mixed drinks / day. Last alcohol consumption was about 24 hours prior to admission. Experiencing nausea and vomiting for past few days. Symptoms worsened with consumption of alcohol. Denies abdominal pain or hematemesis. Stools have been loose. Noted some hematochezia this morning. (Has had intermittent hematochezia for some time. Colonoscopy 2010 did not show any pathology.) No sick contacts. Did not consume any alcohol this morning because of his GI symptoms. Alcohol consumption as noted above. Takes warfarin and clopidogrel. No aspirin, NSAID's. No known history of portal hypertension. This afternoon he felt dyspneic. No chest pain, palpitations, edema, fever, cough. He checked his blood pressure at home and found it to be 190/108. Came to ED for evaluation. BP's noted to be markedly elevated with systolic BP as high as 202 and diastolic BP as high as 126. Received IV lorazepam with improvement of his symptoms and BP. . Physical Exam (per Admitting): General Appearance: WD/WN, + mild distress Head: normocephalic, atraumatic Eyes: normal inspection, PERRL, EOMI, sclerae normal (conjunctivae pink) ENT: normal ENT inspection, hearing grossly normal, pharynx normal Neck: supple, no adenopathy, thyroid normal, no JVD, trachea midline Respiratory/Chest: lungs clear, no respiratory distress, no accessory muscle use Cardiovascular: no edema, no gallop, no JVD, no murmur, normal peripheral pulses, + irregularly irregular Abdomen/GI: normal bowel sounds, non tender, soft, no organomegaly (exam limited due to obesity), no pulsatile mass Extremities/Musculoskelatal: normal inspection, no calf tenderness, normal capillary refill, no pedal edema Neurologic/Psych: rice drier II-XII nml as tested (PERRL, EOMI, no facial palsy, no dysarthria), oriented x 3, + pertinent finding (motor upper and lower extremities 5/5 bilat; decreased sensation both feet; patellar DTR's 1/2 bilat; plantar reflexes downgoing; resting tremor of hands) Skin: normal color, warm/dry, no rash Lymphatic: no adenopathy (cervical / axillary) Hospital Course HYPERTENSIVE URGENCY BP on admission was 202/126 in the ED Probably primarily due to alcohol withdrawal. continue hydralazine Continue lisinopril 20mg BID Continue monitor BP ALCOHOL ABUSE ALCOHOL WITHDRAWAL Heavy drinking due to financial problems Currently drinking a quart of wine a day and 4-5 mixed drinks a day. Last alcohol consumption about 3 days ago Patient is willing to try abstention because it is affected his marriage He does not want to go to rehab H went to rehab in the past and do not think it helped him much Gabapentin-based alcohol withdrawal protocol ordered. Thiamine / folate / MVI. PT/OT eval No signs of DT Refused to go to rehab for inpatient or outpatient treatment for alcohol Agreed to quit drinking and planning to do counseling to help him with his alcohol problems DYSPNEA resolving NAUSEA / VOMITING Probably related to alcohol consumption. GI consulted: no acute interventions No need EGD - would consider two weeks of empiric oral PPI as per GI Tolerated clear liquid diet Resolved ELEVATED LFT'S Probable due to alcohol abuse. U/S liver showed Fatty infiltration of liver. Liver enzymes continue trending down GI consulted on board Stable HEMATOCHEZIA Patient reports intermittent mild rectal bleeding Last Colonoscopy performed 04/08/11 for routine screening was unremarkable; f/u in 10 years recommended. hgb stable On warfarin, clopidogrel Also using fish oil supplements. Degree of antiplatelet effects of omega-3 fatty acids debatable, but prudent to stop fish oil. Continue monitor H/H. CORONARY ARTERY DISEASE History of coronary artery disease, s/p CABG. No anginal symptoms. Continue plavix statin on hold due to elevated LFT Will restart statin on discharge Elevated Troponin Statin on hold due to elevated LFT's. Continue antiplatelet therapy with clopidogrel with caution. Asymptomatic Cardiology on board Echo showed * Ejection Fraction = 60-65%. * There is normal left ventricular wall thickness. * The left ventricular wall motion is normal. * There is trace mitral regurgitation. * There is mild tricuspid regurgitation. * Doppler findings do not suggest pulmonary hypertension. * Aortic valve sclerosis mild, without significant aortic valvular stenosis. CHRONIC ATRIAL FIBRILLATION Rate controlled. INR 1.3 today Will give coumadin 7.5 mg today continue monitor PT/INR Will monitor closely for GI bleed HISTORY PULMONARY EMBOLISM History of pulmonary embolism x 2. On coumadin CKD III Baseline creatinine around 1.5. Creatine 1.4 Maintain adequate volume status. Avoid potential nephrotoxins when able. stable HYPOKALEMIA resolved HYPOMAGNESEMIA Stable GOUT Continue allopurinol. HYPOTHYROIDISM Continue levothyroxine. PERIPHERAL NEUROPATHY Very symptomatic pain and paresthesiae of lower extremities. Evaluated in the past, details not available. Hold pregabalin while receiving gabapentin for alcohol withdrawal, then resume and titrate Rx. Continue analgesics PRN with caution- will change from hydrocodone / acetaminophen to oxycodone in light of hepatic disease. DEPRESSION Continue escitalopram. DVT PROPHYLAXIS Continue warfarin with caution. RESUSCITATION STATUS DNR ( pt brought his living will. Pt wants his code status to change to DNR) DISPOSITION on Telemetry Unit. Will discharge home today Total time spent on discharge = 35 minutes This includes examination of the patient, discharge planning, medication reconciliation, and communication with other providers. Discharge Instructions Discharge Instructions Date of Service Jun 24, 2017. Admission Reason for Admission: Hypertensive Urgency Discharge Discharge Diagnosis / Problem: Hypertensive urgency, Alcohol abuse, Elevated liver enzymes Discharge Goals Goal(s): Decrease discomfort, Improve function, Improve disease control Activity Recommendations Activity Limitations: resume your previous activity (as tolerated) . Instructions / Follow-Up Instructions / Follow-Up Follow up with your primary care provider Dr. Piper on 06/30 @ 10:55 Follow up with the Coumadin clinic (Coumadin clinic will call you) take your next dose Coumadin tomorrow Monitor Blood pressure and your heart rate Bring blood pressure log to your next appointment with your physician Follow a low salt diet Follow with counseling for the alcohol cessation fall precaution Current Hospital Diet Patient's current hospital diet: AHA Diet (Heart Healthy), Low Sodium Diet (2gm Na) Discharge Diet Recommended Diet: AHA Diet (Heart Healthy), Low Sodium Diet (2gm Na) Pending Studies Studies pending at discharge: no Laboratory Results Lipid Panel Test 06/21/17 06:47 Range/Units Triglycerides Level 408 H 0-150 mg/dl Cholesterol Level 198 0-200 mg/dl HDL Cholesterol 38 mg/dl Cholesterol/HDL Ratio 5.2 LDL Cholesterol, Calculated mg/dl Medical Emergencies . Who to Call and When: Medical Emergencies: If at any time you feel your situation is an emergency, please call 911 immediately. . Non-Emergent Contact Non-Emergency issues call your: Primary Care Provider Call Non-Emergent contact if: you have any medication questions . . "Provider Documentation" section prepared by Alexis Vieyra. . VTE Core Measure Inpt VTE Proph given/why not?: Warfarin (Coumadin) Additional Copies To Emeka Piper D.O.
== END 2017-06-24 18:30 | disposition home or self-care (01) | DRG 305 ==
LOC: C.EDB 15:07 → C.2T 19:22 → ENRESERV 19:39
PROVIDERS: ADMIT Hospitalist; ATTEND Internal Medicine
DX: I16.0 Hypertensive urgency (principal); F10.239 Alcohol dependence with withdrawal, unspecified; K92.1 Melena; N17.9 Acute kidney failure, unspecified; I12.9 Hypertensive chronic kidney disease with stage 1 through stage 4 chronic kidney disease, or unspecified chronic kidney disease; K70.10 Alcoholic hepatitis without ascites; I25.10 Atherosclerotic heart disease of native coronary artery without angina pectoris; I48.2 Chronic atrial fibrillation; F10.20 Alcohol dependence, uncomplicated; R94.5 Abnormal results of liver function studies; N18.3 Chronic kidney disease, stage 3 (moderate); E87.6 Hypokalemia; E83.42 Hypomagnesemia; M10.9 Gout, unspecified; E03.9 Hypothyroidism, unspecified; G62.9 Polyneuropathy, unspecified; F32.9 Major depressive disorder, single episode, unspecified; Z83.3 Family history of diabetes mellitus; Z86.711 Personal history of pulmonary embolism; Z79.01 Long term (current) use of anticoagulants

== ENCOUNTER → 2017-11-08 | Day surgery (SDC) | payer OTHER ==
[2017-11-03 11:23] VITALS: Ht 175.3 cm; Wt 100.0 kg
[~2017-11-08] VITALS: Ht 175.3 cm; Wt 100.0 kg
[~2017-11-08] MED LIST changes: +500ML BSS 0.3ML EPI 1:1000PF IRRIG ONE; +ACETAMINOPHEN 325 MG TAB PO PRN; +ALLO100T PO; +AMVISC PLUS 0.8ML SYRINGE INT OCU ONE; -APR25 PO; +ATOR-26 PO; +ATROPINE SULFATE 0.1 MG/ML 5ML SYR IV PRN; +BRIMONIDINE TART 0.2% OP SOLN PER DROP CHARGE ONE; +BSS FLUSH ONE; -COLC0.6T54 PO; +ENDOCOAT 0.85ML SYRINGE INT OCU ONE; +ESCI1TAB10 PO; +EpHEDrine SULFATE INJ 50 MG/ML AMP IV PRN; +EpINEphrine INJ 1MG/ML AMP 1 MG/ML AMP ONE; +FURO-85 PO; +HYDR-4717 PO; +LACTATED RINGER'S 1000ML 500 ML IV SCH; -LEVO50TA6 PO; +LEVO75TA5 PO; +LIDOCAINE 4% OP SOLN DROP CHARGE ONE; +LIDOCAINE 4% OP SOLN DROP CHARGE OPL SCH; +LIDOCAINE HCL 1% MPF 2 ML VIAL ONE; +LISI20TA3 PO; +MAGN64TA4 PO; +METO25TA56 PO; +MIDAZOLAM HCL 1 MG/ML 2ML VIAL ONE; +MIX: 3ML BSS AND 1ML EPI(PF) TOP ONE; +MOXIFLOXACIN OPH SOLN PER DROP CHARGE ONE; -MULT-589 PO; +MULT-845 PO; +OMEG10007 PO; +OXYC1TAB3 PO; +PANT1TAB3 PO; +PLV75 PO; +POVIDONE-IODINE OP SOLN 30 ML BTL ONE; +PREG1CAP28 PO; +PROPARACAINE 0.5% OP SOLN PER DROP CHARGE OPL SCH; -SLWMEC PO; +TADA20TA PO; +THIA1TAB11 PO; +TOBRAMYCIN/DEXAMETHASONE OPH OINT PER APPLN CHARGE ONE; +WARF-284 PO; -WARF7.5T PO
[2017-11-08] MEDS: PHENYLEPHRINE HCL 2.5% OP SOLN PER DROP CHARGE OPL SCH ×2 (09:18→09:23)
[2017-11-08] MEDS: TROPICAMIDE 1% OP SOLN PER DROP CHARGE OPL SCH ×2 (09:19→09:24)
[2017-11-08] MEDS: CYCLOPENTOLATE HCL 1% OP SOLN PER DROP CHARGE OPL SCH ×2 (09:20→09:25)
[2017-11-08] MEDS: KETOROLAC 0.5% OP SOLN PER DROP CHARGE OPL SCH ×2 (09:21→09:26)
--- NOTE | 2017-11-08 09:21 | History & Physical Bridge - SC ---
H&P Re-Evaluation Bridge Note: I have examined the patient, reviewed the History & Physical and in the interval since the performance of the History & Physical I have noted the following changes of clinical significance: No changes noted
[2017-11-08] MEDS: MOXIFLOXACIN OPH SOLN PER DROP CHARGE OPL SCH ×2 (09:22→09:34)
--- NOTE | 2017-11-08 10:17 | [facility] Operative Report ---
Operative Report Operative Date Nov 08, 2017. Pre-Operative Diagnosis Left eye cataract Post-Operative Diagnosis Same as preop Procedure(s) Performed Left Cataract Phacoemulsification With Intraocular Lens Implant Surgeon Dr. Lowe Track Car Operator Surgeon(s) None Estimated Blood Loss 0 mL Findings cataract left eye Fluids see anesthesia record Specimens None Drains None Anesthesia Type MAC Complication(s) none Disposition no Recovery Room / PACU Indications decreased vision left eye Description of Procedure After informed consent was obtained in the holding area the patient was wheeled back to the operating room where cardiac monitoring leads and oxygen by nasal cannula was administered by Anesthesia. Gentle IV sedation was given, and the patient's left eye was prepped and draped in usual sterile fashion. A wire lid speculum was placed into the left eye and the operating microscope was swung into position. Using 0.12 forceps and a Supersharp blade a paracentesis port was made 2 o'clock hours away from the 3 o'clock position of the patient's left eye. 1% non-preserved Lidocaine was then injected into the anterior chamber for anesthesia. Flomax mix was injected into the eye to aid with pupillary dilation. A 2.0 mm keratotome blade was then used to make a shelved clear corneal incision at the 3 o'clock position of the left eye. Amvisc was injected into the anterior chamber and a cystotome and Utrata forceps were used to perform a curvilinear capsulorrhexis. BSS on a hydrodissection cannula was used to hydrodissect the lens nucleus away from the capsular bag. The phacoemulsification handpiece was then used in a stop and chop fashion to remove the lens nucleus. The irrigation and aspiration handpiece was then used to remove the residual cortical material. Amvisc was injected into the capsular bag and anterior chamber and a [employer]ch [employer] Lomb MX60 16.5 Diopter intraocular lens was injected into the capsular bag. Irrigation and aspiration handpiece was used to remove the residual viscoelastic material. The wounds were hydrated and noted to be watertight. The wire lid speculum was removed from the eye. Vigamox, Brimonidine, and TobraDex ointment were placed on the eye and it was shielded. It should be noted that EndoCoat was used extensively during the case to protect the cornea endothelium. DISPOSITION: The patient tolerated the procedure well and was wheeled to the post anesthesia care unit in stable condition. I attest to the content of the Intraoperative Record and any orders documented therein. Any exceptions are noted below. I attest to the content of the Intraoperative Record and any orders documented therein. Any exceptions are noted below.
--- NOTE | 2017-11-08 10:18 | Discharge Instructions-SurgCtr ---
Discharge Instructions Date of Service Nov 08, 2017. Visit Reason for Visit: Cataract Left Eye Discharge Discharge Diagnosis / Problem: cataract left eye Discharge Goals Goal(s): Improve function Activity Recommendations Activity Limitations: per Instructions/Follow-up section Lifting Limitations: no more than 5 pounds Anesthesia . Post Anesthesia Instructions: If you have had General Anesthesia or IV Sedation: * Do not drive today. * Resume driving when surgeon permits. * Do not make important decisions or sign legal documents today. * Call surgeon for: 1. Temperature elevations greater than 101 degrees F. 2. Uncontrollable pain. 3. Excessive bleeding. 4. Persistent nausea and vomiting. 5. Medication intolerance (nausea, vomiting or rash). * For nausea and vomiting use only clear liquids such as: tea, soda, bouillon until nausea subsides, then gradually increase diet as tolerated. * If you have any concerns or questions, call your surgeon's office. If physician is unavailable and it is an emergency, call 911 or go to the nearest emergency room. . Instructions / Follow-Up Instructions / Follow-Up ACTIVITY RECOMMENDATIONS: * Light activities * You may walk outside, read, watch television. * Mild irritation and blurred vision are common for the first few days, redness around the white part of the eye is common. MEDICATIONS: Resume previous medications unless instructed otherwise by your surgeon. Eye drops (today and tomorrow): Gatifloxacin - one drop in operative eye every 2 hours while awake Prednisolone 1% - one drop in operative eye every 2 hours while awake Ketorolac - one drop in operative eye every 2 hours while awake SPECIAL CARE INSTRUCTIONS: * If any problems or concerns, please call Dr. Lowe's office at . * Keep plastic shield taped over eye to sleep at night. * Keep plastic shield taped over eye except to administer eye drops. * Keep plastic shield on until office visit the following day. FOLLOW UP VISIT: Follow-up with Dr. Lowe in the [place] office as scheduled. If not already scheduled, please call the office at . Diet Recommendations Home Diet: resume previous diet Procedures Procedures Performed: Left Cataract Phacoemulsification With Intraocular Lens Implant Pending Studies Studies pending at discharge: no Medical Emergencies . Who to Call and When: Medical Emergencies: If at any time you feel your situation is an emergency, please call 911 immediately. . Non-Emergent Contact Non-Emergency issues call your: Card Brusher . . "Provider Documentation" section prepared by Castro Lowe. .
[2017-11-08 10:19] VITALS: TEMP 36.4
--- NOTE | 2017-11-08 10:43 | Anesthesia Progress Nt - [facility] ---
Anesthesia Post Op Note Date & Time Nov 08, 2017 at 10:43 Vital Signs Pain Intensity: 0 Vital Signs Past 12 Hours Date Time Temp Pulse Resp B/P (MAP) Pulse Ox O2 Delivery O2 Flow Rate FiO2 11/08/17 10:19 36.4 56 16 127/76 (93) 97 Room Air 11/08/17 09:10 36.4 55 18 127/76 (93) 98 Room Air Notes Mental Status: alert / awake / arousable, participated in evaluation Pt Amnestic to Procedure: Yes Nausea / Vomiting: adequately controlled Pain: adequately controlled Airway Patency, RR, SpO2: stable & adequate BP & HR: stable & adequate Hydration State: stable & adequate Anesthetic Complications: no major complications apparent
[2017-11-08 10:45] VITALS: BP 111/75; PULSE 51; O2SAT 100
== END | disposition home or self-care (01) ==
LOC: X.SURG 08:29
PROVIDERS: ATTEND Ophthalmology
DX: H26.9 Unspecified cataract (principal); I10 Essential (primary) hypertension; I48.91 Unspecified atrial fibrillation; M10.9 Gout, unspecified; Z79.01 Long term (current) use of anticoagulants; Z98.890 Other specified postprocedural states; Z86.711 Personal history of pulmonary embolism

== ENCOUNTER 2018-04-21 07:10 | Emergency (ER) | payer OTHER ==
[~2018-04-21] VITALS: Ht 175.3 cm; Wt 100.8 kg
[~2018-04-21 07:10] MED LIST changes: -500ML BSS 0.3ML EPI 1:1000PF IRRIG ONE; -ACETAMINOPHEN 325 MG TAB PO PRN; -ALLO100T PO; -AMVISC PLUS 0.8ML SYRINGE INT OCU ONE; -ATOR-26 PO; -ATROPINE SULFATE 0.1 MG/ML 5ML SYR IV PRN; -BRIMONIDINE TART 0.2% OP SOLN PER DROP CHARGE ONE; -BSS FLUSH ONE; -ENDOCOAT 0.85ML SYRINGE INT OCU ONE; -ESCI1TAB10 PO; -EpHEDrine SULFATE INJ 50 MG/ML AMP IV PRN; -EpINEphrine INJ 1MG/ML AMP 1 MG/ML AMP ONE; -FURO-85 PO; -HYDR-4717 PO; -LACTATED RINGER'S 1000ML 500 ML IV SCH; -LEVO75TA5 PO; -LIDOCAINE 4% OP SOLN DROP CHARGE ONE; -LIDOCAINE 4% OP SOLN DROP CHARGE OPL SCH; -LIDOCAINE HCL 1% MPF 2 ML VIAL ONE; -LISI20TA3 PO; -METO25TA56 PO; -MIDAZOLAM HCL 1 MG/ML 2ML VIAL ONE; -MIX: 3ML BSS AND 1ML EPI(PF) TOP ONE; -MOXIFLOXACIN OPH SOLN PER DROP CHARGE ONE; -MULT-845 PO; +OXYC-737 PO; -OXYC1TAB3 PO; -PANT1TAB3 PO; -PLV75 PO; -POVIDONE-IODINE OP SOLN 30 ML BTL ONE; -PROPARACAINE 0.5% OP SOLN PER DROP CHARGE OPL SCH; -THIA1TAB11 PO; -TOBRAMYCIN/DEXAMETHASONE OPH OINT PER APPLN CHARGE ONE; -WARF-284 PO
[2018-04-21 07:16] VITALS: TEMP 36.8; Ht 175.3 cm; Wt 100.8 kg
[2018-04-21] MEDS ORDERED: TRANEXAMIC ACID INJ 1,000 MG in SODIUM CHLORIDE 0.9% 100ML 100 ML TOP STA (07:36)
[2018-04-21 07:53] LABS: INR 2.7 (0.9-1.1)
[2018-04-21] MEDS ORDERED: SENN1TAB77 PO (08:01)
[2018-04-21] MEDS ORDERED: DOCU-94 PO (08:01)
[2018-04-21] MEDS ORDERED: OMEG-128 PO (08:35)
[2018-04-21] MEDS ORDERED: MAGNTAB PO (08:35)
[2018-04-21] MEDS ORDERED: OXYC1CAP5 PO (08:35)
[2018-04-21] MEDS ORDERED: WARF5TAB7 PO (08:35)
[2018-04-21] MEDS ORDERED: PREG100C PO (08:35)
--- NOTE | 2018-04-21 09:33 | DIAGNOSTIC IMAGING REPORT ---
L VENOUS DOPPLER UPR EXT UNIL HISTORY: Pain. Edema. Pt has swelling to left forearm COMPARISON STUDY: None. FINDINGS: The internal jugular vein is patent. There is normal flow within the subclavian vein. There is normal flow and compressibility within the left axillary, basilic, brachial, radial, ulnar, and visualized cephalic veins. Soft tissue evaluation of the nodular density of the left forearm shows a nonspecific complex subcutaneous nodule measuring 3 x 2 x 1 cm. This potentially is a hematoma although follow-up to resolution is suggested. IMPRESSION: 1. No evidence for deep venous thrombosis. 2. Complex subcutaneous nodular density left forearm possibly related to a simple hematoma. 3. Follow-up at a later date is recommended to ensure complete resolution. The above report was generated using voice recognition software. It may contain grammatical, syntax or spelling errors. Electronically signed by: Garett Cabrera M.D. 04/21/2018 9:31 AM Dictated Date/Time: 04/21/2018 9:29 AM
[2018-04-21 09:47] VITALS: BP 177/96; PULSE 62; O2SAT 96
--- NOTE | 2018-04-21 10:37 | EMERGENCY ROOM VISIT NOTE ---
History Report prepared by Mireille: Kayla Nunez Under the Supervision of: Dr. Felton Anders M.D. First contact with patient: 07:22 Chief Complaint: OTHER COMPLAINT Stated Complaint: BLEEDING FROM SURGICAL SITE-COUMADIN USER History of Present Illness The patient is a 67 year old male who presents to the Emergency Room with complaints of persistent bleeding starting earlier today. The patient was straining to have a bowel movement when he started bleeding from his surgery site. He did not bleed a large amount, but is having persistent bleeding. He is not having any pain. He had Mohs surgery 1 week ago. He is on Coumadin. His INR was checked prior to the surgery and found to be normal. Source of History: patient Onset: earlier today Position: other (face) Quality: other (bleeding) Timing: other (persistent) Note: Patient denies having pain. Review of Systems See HPI for pertinent positives & negatives. A total of 10 systems reviewed and were otherwise negative. Past Medical & Surgical Medical Problems: (1) Alcohol abuse (2) Anticoagulated on warfarin (3) Atrial fibrillation (4) CAD (coronary artery disease) (5) CKD (chronic kidney disease) stage 3, GFR 30-59 ml/min (6) Diabetic neuropathy (7) Dyslipidemia (8) GERD (gastroesophageal reflux disease) (9) History of bradycardia (10) History of cardioversion (11) History of pulmonary embolism (12) History of ventricular tachycardia (13) HTN (hypertension) (14) Hypothyroidism (15) Sleep apnea Surgical Problems: (1) History of inguinal hernia repair (2) S/P aneurysm repair (3) S/P femoral-popliteal bypass surgery Family History Cancer FATHER Coronary artery disease MOTHER Hypertension SISTER Social History Smoking Status: Never Smoker Alcohol Use: heavy Drug Use: none Marital Status: Housing Status: lives with significant other Occupation Status: retired Current/Historical Medications Scheduled Allopurinol (Zyloprim), 200 MG PO QPM Atorvastatin (Lipitor), 80 MG PO NOON Clopidogrel Bisulfate (Clopidogrel), 75 MG PO QAM Docusate Sodium (Colace), 1 CAP PO BID Escitalopram Oxalate (Lexapro), 20 MG PO HS Furosemide (Lasix), 20 MG PO BID Hydralazine Hcl (Apresoline), 50 MG PO TID Levothyroxine Sodium (Levothyroxine Sodium), 75 MCG PO QAM Lisinopril (Prinivil), 20 MG PO QAM Magnesium Chloride (Mag-Sr Plus Calcium), 535 MG PO DAILY Metoprolol Tartrate (Lopressor) (Lopressor), 12.5 MG PO BID Multiple Vitamins W/ Minerals (Centrum Silver Adult 50+), 1 TAB PO QPM [place]-3 Fatty Acids (Fish Oil [place]-3 1000 mg), 1 CAP PO BID Pantoprazole (Protonix), 40 MG PO NOON Pregabalin (Lyrica), 100 MG PO BID Sennosides (Senokot), 8.6 MG PO HS Thiamine Mononitrate (Vitamin B1), 100 MG PO DAILY Warfarin Sod (Jantoven), 5 MG PO DAILY Warfarin Sodium (Warfarin Sodium), 7.5 MG PO UD Scheduled PRN Oxycodone Hcl (Oxycodone Hcl), 5 MG PO DAILY PRN for Pain Allergies Coded Allergies: No Known Allergies (Unverified , 04/21/18) Physical Exam Vital Signs Date Time Temp Pulse Resp B/P (MAP) Pulse Ox O2 Delivery O2 Flow Rate FiO2 04/21/18 09:47 62 20 177/96 96 Room Air 04/21/18 07:16 36.8 60 18 157/89 97 Room Air Physical Exam GENERAL: Awake, alert, well-appearing, in no acute distress HENT: Bandage in place, soaked in blood, upon removal clot in place, Xeroform dressing in place, all bleeding appears to be in control. Oropharynx unremarkable. EYES: Normal conjunctiva. Sclera non-icteric. NECK: Supple. No nuchal rigidity. FROM. No JVD. RESPIRATORY: Clear to auscultation. CARDIAC: Regular rate, normal rhythm. Extremities warm and well perfused. Pulses equal. ABDOMEN: Soft, non-distended. No tenderness to palpation. No rebound or guarding. No masses. RECTAL: Deferred. MUSCULOSKELETAL: Chest examination reveals no tenderness. The back is symmetrical on inspection without obvious abnormality. There is no CVA tenderness to palpation. No joint edema. Quarter sized fluid collection to the left forearm. LOWER EXTREMITIES: Calves are equal size bilaterally and non-tender. No edema. No discoloration. NEURO: Normal sensorium. No sensory or motor deficits noted. SKIN: No rash or jaundice noted. Medical Decision & Procedures ER Provider Diagnostic Interpretation: Radiology results as stated below per my review and radiologist interpretation: L VENOUS DOPPLER UPR EXT UNIL HISTORY: Pain. Edema. Pt has swelling to left forearm COMPARISON STUDY: None. FINDINGS: The internal jugular vein is patent. There is normal flow within the subclavian vein. There is normal flow and compressibility within the left axillary, basilic, brachial, radial, ulnar, and visualized cephalic veins. Soft tissue evaluation of the nodular density of the left forearm shows a nonspecific complex subcutaneous nodule measuring 3 x 2 x 1 cm. This potentially is a hematoma although follow-up to resolution is suggested. IMPRESSION: 1. No evidence for deep venous thrombosis. 2. Complex subcutaneous nodular density left forearm possibly related to a simple hematoma. 3. Follow-up at a later date is recommended to ensure complete resolution. The above report was generated using voice recognition software. It may contain grammatical, syntax or spelling errors. Electronically signed by: Garett Cabrera M.D. 04/21/2018 9:31 AM Dictated Date/Time: 04/21/2018 9:29 AM Laboratory Results Test 04/21/18 07:30 Prothrombin Time 27.4 SECONDS (9.0-12.0) Prothromb Time International Ratio 2.7 (0.9-1.1) Labs reviewed by ED physician. ED Course 0723: Past medical records reviewed. The patient was evaluated in room A11B. A complete history and physical examination was performed. 0754: I reevaluated the patient. Xeroform dressing was not disturbed. The patient has an appointment with his doctor later today. He reports that he has been taking oxycodone without a stool softener. 0956: Upon reexamination the patient is resting comfortably. I discussed results and treatment plan with the patient. He verbalizes agreement and understanding. The patient is ready for discharge. Medical Decision This is a 67-year-old male who presents the emergency department complaining of bleeding from a facial wound. Upon arrival to the emergency department the bleeding has stopped. The patient does have a dressing in place. Using shared medical decision making with both the patient and his we decided not to touch the dressing and to let the wound heal. He remained hemodynamically stable while in the emergency department. In addition to this the patient is also complaining of a lump to his left forearm area. The patient was sent for an ultrasound of this area which is showing a hematoma. The patient does have a follow-up with his surgeon later this afternoon and I believe he can be safely discharged to their care. Patient's INR was found to be therapeutic. Medication Reconcilliation Current Medication List: was personally reviewed by me Blood Pressure Screening Patient's blood pressure: Elevated blood pressure Blood pressure disposition: Referred to PCP Impression Primary Impression: Bleeding from wound Scribe Attestation The scribe's documentation has been prepared under my direction and personally reviewed by me in its entirety. I confirm that the note above accurately reflects all work, treatment, procedures, and medical decision making performed by me. Departure Information Dispostion Home / Self-Care Prescriptions Docusate Sodium (COLACE) 100 Mg Cap 1 CAP PO BID for 30 Days, #60 CAP Prov: Felton Anders MD 04/21/18 Sennosides (SENOKOT) 8.6 Mg Tab 8.6 MG PO HS for 30 Days, #30 TAB Prov: Felton Anders MD 04/21/18 Referrals Emeka Piper, D.ODonovan (PCP) Forms HOME CARE DOCUMENTATION FORM, IMPORTANT VISIT INFORMATION, WORK / SCHOOL INSTRUCTIONS Patient Instructions ED Wound Check Post Op Bleeding, My [facility] Additional Instructions INR= 2.7 Keep appointments as previously scheduled You have been examined and treated today on an emergency basis only. This is not a substitute for, or an effort to provide, complete comprehensive medical care. It is impossible to recognize and treat all injuries or illnesses in a single emergency department visit. It is therefore important that you follow up closely with Dr Piper. Call as soon as possible for an appointment. Thank you for your time and consideration. I look forward to speaking with you again soon. Please don't hesitate to call us if you have any questions.
[2018-04-21] MEDS ORDERED: HYDR-4717 PO (11:22)
[2018-04-21] MEDS ORDERED: FURO-85 PO (11:22)
[2018-04-21] MEDS ORDERED: LISI20TA3 PO (11:22)
[2018-04-21] MEDS ORDERED: WARF-284 PO (11:22)
[2018-04-21] MEDS ORDERED: METO25TA56 PO (11:22)
[2018-04-21] MEDS ORDERED: MULT-845 PO (15:51)
[2018-04-21] MEDS ORDERED: LEVO75TA5 PO (15:51)
[2018-04-21] MEDS ORDERED: ATOR-26 PO (16:29)
[2018-04-21] MEDS ORDERED: THIA1TAB11 PO (16:29)
[2018-04-21] MEDS ORDERED: PANT1TAB3 PO (17:39)
[2018-04-21] MEDS ORDERED: ALLO100T PO (20:03)
[2018-04-21] MEDS ORDERED: PLV75 PO (20:04)
[2018-04-21] MEDS ORDERED: ESCI1TAB10 PO (20:16)
== END 2018-04-21 10:00 | disposition home or self-care (01) ==
LOC: C.EDB 07:11 → C.EDA 10:00
DX: L76.22 Postprocedural hemorrhage of skin and subcutaneous tissue following other procedure (principal); I48.91 Unspecified atrial fibrillation; N18.3 Chronic kidney disease, stage 3 (moderate); E78.5 Hyperlipidemia, unspecified; K21.9 Gastro-esophageal reflux disease without esophagitis; E11.9 Type 2 diabetes mellitus without complications; I12.9 Hypertensive chronic kidney disease with stage 1 through stage 4 chronic kidney disease, or unspecified chronic kidney disease; E03.9 Hypothyroidism, unspecified; G47.30 Sleep apnea, unspecified; Z79.01 Long term (current) use of anticoagulants; Z79.899 Other long term (current) drug therapy

== ENCOUNTER 2019-01-28 08:57 | Inpatient (IN) ==
--- OUTSIDE RECORDS SUMMARY | 2019-01-28 08:59 | External Medical Summary | Continuity of Care Document ---
:1950 Author Name Otoniel Engel, Provider Address Unavailable Unavailable , Care Team Providers Name Role Phone Puneet Blackwell PA-C Unavailable [email or web address] VIRGILIO Unavailable Unavailable Problems Dyslipidemia (272.4) (E78.5) Snoring (786.09) (R06.83) Periods Of Not Breathing While Asleep (Sleep Apnea) (780.57) Hypertension (401.9) (I10) Hypothyroidism (244.9) (E03.9) Coronary artery disease (414.00) (I25.10) Shortness of breath (786.05) (R06.02) Peripheral vascular disease (443.9) (I73.9) Palpitations (785.1) (R00.2) Esophageal reflux (530.81) (K21.9) Chest pain (786.50) (R07.9) Atrial fibrillation (427.31) (I48.91) Allergies and Adverse Reactions No Known Drug Allergies (Allergy) Medications Nizoral 2 % External Shampoo; apply bid as directed Refills: 0 Colchicine 0.6 MG Oral Tablet; TAKE 1 TABLET DAILY DIRECT ED. Refills: 0 Warfarin Sodium 5 MG Oral Tablet; USE DIRECTED Quantity: 50 Refills: 6 Lanoxin 125 MCG Oral Tablet; TAKE 1 TABLET DAILY. Quantity: 30 Refills: 5 Metoprolol Tartrate 50 MG Oral Tablet; TAKE 1 TABLET EVERY 1 2 HOURS DAILY. Quantity: 60 Refills: 5 Fenofibrate 160 MG Oral Tablet Refills: 0 Protonix 40 MG Oral Tablet Delayed Release; TAKE 1 TABLET BY MOUTH EVERY DAY Refills: 0 Crestor 40 MG Oral Tablet; TAKE 1 TABLET DAILY. Refills: 0 PA Vitamin E 400 UNIT Oral Capsule; TAKE 1 CAPSULE Daily Refills: 0 Neurontin 300 MG Oral Capsule; TAKE 1 CAPSULE AT BEDTIME Refills: 0 Plavix 75 MG Oral Tablet; TAKE 1 TABLET DAILY. Quantity: 30 Refills: 5 Synthroid 50 MCG Oral Tablet; TAKE 1 TABLET DAILY DIRECTE D. Refills: 0 [place]-3 1000 MG Oral Capsule; TAKE 1 CAPSULE DAILY. Refills: 0 Vitamin D 1000 UNIT CAPS; TAKE 1 CAPSULE Daily Refills: 0 Multi-Vitamin Daily Oral Tablet; TAKE 1 TABLET DAILY. Refills: 0 Vitamin B-12 2500 MCG Sublingual Tablet Sublingual; PLACE TA BLET Daily Refills: 0 Cialis 20 MG Oral Tablet; TAKE DIRECTED. Refills: 0 Ultram 50 MG Oral Tablet; TAKE ONE OR TW O TABLETS BY MOUTH EVERY SIX HOURS NEEDED FOR PAIN Refills: 0 Flomax 0.4 MG Oral Capsule; TAKE 1 CAPSULE Daily Quantity: 30 Refills: 5 Procedures History of Bypass Graft Using Vein: Axillary-femoral Status: Completed Immunizations Influenza On: 2012 Family History Unknown Family Member Family history of Cancer Status: Active Comments: Famil y History Family history of Heart Disease (V17.49) Status: Active Comments: Family History Family history of Hypertension (V17.49) Status: Active Comments: Family History Family history of Diabetes Mellitus (V18.0) Status: Active Comments: Family History Family history of Pulmonary Disease Status: Active Comm ents: Family History Social History - Smoking Status Never smoker Plan of Treatment Planned Observations Planned Goals not documented Results No Known Results Results not documented
--- NOTE | 2019-01-28 09:10 | CT Scan Report ---
CT OF THE HEAD WITHOUT CONTRAST CLINICAL HISTORY: Stroke evaluation COMPARISON STUDY: Head CT February 26, 2016. CT DOSE: 823.12 mGy.cm TECHNIQUE: Helical axial images of the head were obtained without IV contrast. Automated exposure con trol was utilized for the study. A dose lowering technique was utilized adhering to the principles o f ALARA. FINDINGS: No acute intracranial hemorrhage, midline shift or mass effect is present. Ventricular syst em is stable. The basilar cisterns are patent. There are no extra-axial collections. There are no fin dings to suggest acute dural sinus thrombosis or acute territorial infarct. There are no significant calvarial abnormalities. IMPRESSION: No acute intracranial findings. Electronically signed by: Spencer Rocha M.D. 01/28/2019 9:09 AM
[2019-01-28] MEDS ORDERED: SODIUM CHLORIDE 0.9% 1000ML 500 ML IV ONE (09:12)
[2019-01-28] MEDS ORDERED: ACETAMINOPHEN 325 MG TAB PO STA (09:14)
[2019-01-28] MEDS ORDERED: PIPERACILLIN/TAZOBACTAM 4.5 GM/120 ML BAG IV ONE (09:14)
[2019-01-28] MEDS ORDERED: PIPERACILL/TAZOBAC CONSULT ACTIVE PRN (09:14)
[2019-01-28 09:29] LABS: Basophils # (auto) 0.02 K/uL (0-0.2); Basophils % (auto) 0.2 %; Eosinophils # (auto) 0.01 K/uL (0-0.5); Eosinophils % (auto) 0.1 %; Hematocrit (blood only) 38.4 % (42-52); Hemoglobin 13.2 g/dL (14.0-18.0); Immature Granulocytes # (auto) 0.03 K/uL (0.00-0.02); Immature Granulocytes % (auto) 0.2 %; Lymphocytes % (auto) 3.8 %; Mean Corpuscular Hgb Conc 34.4 g/dL (32-36); Mean Platelet Volume 10.8 fL (7.4-10.4); Monocytes # (auto) 0.55 K/uL (0.11-0.59); Monocytes % (auto) 4.2 %; Neutrophils # (auto) 12.06 K/uL (1.4-6.5); Neutrophils % (auto) 91.5 %; Platelet Count 131 K/uL (130-400); RDW Coefficient of Variation 14.3 % (11.5-14.5); RDW Standard Deviation 50.7 fL (36.4-46.3); Red Blood Count 3.92 M/uL (4.7-6.1); White Blood Count 13.17 K/uL (4.8-10.8)
[2019-01-28 09:40] LABS: INR 2.1 (0.9-1.1); Partial Thromboplastin Time 27.4 Seconds (21.0-31.0); Prothrombin Time 20.3 Seconds (9.0-12.0)
--- NOTE | 2019-01-28 09:41 | XRay Report ---
XR chest 1V portable CLINICAL HISTORY: fever COMPARISON STUDY: Chest radiograph June 20, 2017. FINDINGS: There is no pneumothorax. There is minimal right lower lung opacity. Left lung is clear. Th ere is no evidence for pulmonary edema. There is a possible small right pleural effusion. Cardiac siz e is at the upper limits of normal. IMPRESSION: Mild right lower lung opacity which favors atelectasis although consolidation could appe ar similar. Radiographic follow-up is recommended. Possible small right pleural effusion. Electronically signed by: Spencer Rocha M.D. 01/28/2019 9:40 AM
[2019-01-28 09:44] LABS: Alanine Aminotransferase 42 U/L (12-78); Albumin Level 3.6 gm/dl (3.4-5.0); Aspartate Aminotransferase 46 U/L (15-37); BUN Creatinine Ratio 17.3 (10-20); Blood Urea Nitrogen 60 mg/dl (7-18); Calcium 9.2 mg/dl (8.5-10.1); Carbon Dioxide 24 mmol/L (21-32); Chloride 105 mmol/L (98-107); Est GFR (African American) 19.8; Est GFR (Non-African American) 17.1; Glucose 89 mg/dl (70-99); Magnesium 1.7 mg/dl (1.8-2.4); Sodium 139 mmol/L (136-145)
[2019-01-28 09:50] LABS: Appearance Urine Clear (Clear); Bilirubin Urine Negative (Negative); Blood Urine Negative (Negative); Color Urine Yellow; Glucose Urine UA Negative (Negative); Ketones Urine Trace (Negative); Leukocyte Esterase Urine Negative (Negative); Nitrite Urine Negative (Negative); Protein Urine Negative (Negative); Specific Gravity Urine 1.017 (1.000-1.030); Urobilinogen Urine Negative (Negative)
[2019-01-28 10:00] LABS: Albumin Globulin Ratio 0.9 (0.9-2); Alkaline Phosphatase 55 U/L (45-117); Bilirubin,Total 0.9 mg/dl (0.2-1); Total Protein 7.6 gm/dl (6.4-8.2); Troponin I 0.068 ng/ml (0-0.045)
[2019-01-28] MEDS ORDERED: MULTI-VITAMIN INFUSION 10 ML, THIAMINE HCL 100 MG, FOLIC ACID 1 MG in SODIUM CHLORIDE 0... IV SCH ×2 (10:15→20:00)
[2019-01-28 10:53] LABS: Influenza A virus by PCR Neg for Influ A (Neg); Influenza B virus by PCR Neg for Influ B (Neg)
--- NOTE | 2019-01-28 11:21 | Emergency Department Note ---
Entered by Zahra Wilson acting as a scribe for Marcus Morales MD History of Present Illness General Chief complaint: Stroke/CVA Symptoms Source: patient, family () and EMS History of Present Illness Onset (ago): hour(s) (0430 this morning) Location: head Pain Consistency: + other (episode) Quality: + other (stroke-like symptoms) Associated symptoms: + denies other symptoms (urinary symptoms), + weakness (left arm) and + other (slurred speech (resolved)); no chest pain, no headaches and no nausea/vomiting The patient is a 68 year old male that is presenting to the Emergency Room with complaints of stroke-like symptoms that occurred this morning around 0430. The patients family report that the patient was last seen normal around 0430 when he was walking to the bathroom. His states that she found the patient shivering on the bathroom floor. His notes that the patient had left arm weakness and slurred speech, which is different from the patients baseline state. Upon arrival to the Emergency Room, the patients symptoms appear to have mostly resolved. 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 The patient denies any vomiting, chest pain, headaches, or urinary symptoms. His notes that the patient has pain in his legs and arms at baseline. His reports that the patient is in the early stages of heart disease and takes Coumadin. The patient has a fever of 102F in the Emergency Room. EMS reports that the patient was answering questions on route. The patient notes that he has a history of alcoholism. Home Medications Home Medications Medication Instructions Recorded Confirmed Type allopurinol 200 mg PO DAILY 01/28/19 01/28/19 History atorvastatin 80 mg PO DAILY 01/28/19 01/28/19 History clopidogrel 75 mg PO DAILY 01/28/19 01/28/19 History duloxetine 40 mg PO DAILY 01/28/19 01/28/19 History furosemide 20 mg PO BID 01/28/19 01/28/19 History hydralazine 50 mg PO TID 01/28/19 01/28/19 History levothyroxine 75 mcg PO DAILY 01/28/19 01/28/19 History lisinopril 20 mg PO DAILY 01/28/19 01/28/19 History metoprolol succinate 12.5 mg PO BID 01/28/19 01/28/19 History multivit with [id number] 1 cap PO DAILY 01/28/19 01/28/19 History [Men's Daily] omega [id number] oil [Fish Oil] 1 cap PO DAILY 01/28/19 01/28/19 History oxycodone 5 mg PO DAILY PRN 01/28/19 01/28/19 History pantoprazole 40 mg PO DAILY 01/28/19 01/28/19 History pregabalin [Lyrica] 100 mg PO TID 01/28/19 01/28/19 History warfarin 5 mg PO SUTUTHSA@1600 01/28/19 01/28/19 History warfarin [Jantoven] 7.5 mg PO MOWEFR@1600 01/28/19 01/28/19 History Allergies Allergy/AdvReac Type Severity Reaction Status Date / Time No Known Allergies Allergy Unverified 01/28/19 10:24 Past Med/Surg History Medical History CKD (chronic kidney disease) stage 3, GFR 30-59 ml/min (Chronic) Hypothyroidism (Chronic) GERD (gastroesophageal reflux disease) (Chronic) HTN (hypertension) (Chronic) Dyslipidemia (Chronic) CAD (coronary artery disease) (Chronic) History of cardioversion (Chronic) Hypertensive urgency (Acute) History of pulmonary embolism (Chronic) "2 episodes, chronic warfarin therapy" Atrial fibrillation (Chronic) History of ventricular tachycardia (Chronic) Anticoagulated on warfarin (Chronic) Diabetic neuropathy (Chronic) Sleep apnea (Chronic) History of bradycardia (Chronic) "carvedilol discontinued" Bleeding from wound (Acute) Abnormal gait ETOH abuse Obesity Surgical History S/P aneurysm repair (Chronic) "AAA" History of inguinal hernia repair (Chronic) S/P femoral-popliteal bypass surgery (Chronic) Family History Other Family history non-contributory Social History Preferred Language: Urdu Communication Ability: Effective Transportation Supervisor Required: Yes Beliefs That Will Affect Care: None marital status: Current Living Situation: Spouse current occupational status: retired Other Information That Helps Us Care for You: No Feels Safe at Home: Yes Smoking Status: Never smoker Do You Dip or Chew Tobacco: No Second Hand Exposure: No Tobacco Cessation Education Requested by Patient: No Hx Alcohol Use: Yes Alcohol type: hard liquor Hx Substance Use: Yes substance use type: does not use Substance Use Type Other:: >20-30 years ago Review of Systems See HPI for pertinent positives & negatives. and A total of 10 systems reviewed and were otherwise negative Physical Exam Vital Signs Vital Signs - 24 hr 01/28/19 09:00 01/28/19 09:09 01/28/19 09:23 Temperature 39.2 C H Temperature Source Oral Sepsis Recent Fever Within 48 Hours Yes Sepsis New/Unexplained Change in Mental Status Yes Sepsis Action Taken by Nursing Physician Notified Pulse Rate 100 H 108 H 97 H Pulse Rate [Left] Pulse Rate from SpO2 Sensor 106 H 96 H Pulse Rhythm [Left] Pulse Strength [Left] Respiratory Rate 21 Respiratory Effort / Characteristics Spontaneous Respiratory Depth Respiratory Pattern Blood Pressure 151/108 H 147/130 H Blood Pressure [Left Arm] Blood Pressure Mean 122 135 Blood Pressure Mean [Left Arm] Blood Pressure Position Sitting Blood Pressure Position [Left Arm] Pulse Oximetry 98 94 94 Oxygen Delivery Method Nasal Cannula Oxygen Flow Rate 2 01/28/19 09:30 01/28/19 09:40 01/28/19 09:44 Temperature Temperature Source Sepsis Recent Fever Within 48 Hours Sepsis New/Unexplained Change in Mental Status Sepsis Action Taken by Nursing Pulse Rate 102 H 99 H 90 Pulse Rate [Left] Pulse Rate from SpO2 Sensor 106 H 100 H 94 H Pulse Rhythm [Left] Pulse Strength [Left] Respiratory Rate Respiratory Effort / Characteristics Respiratory Depth Respiratory Pattern Blood Pressure 151/87 H Blood Pressure [Left Arm] Blood Pressure Mean 108 Blood Pressure Mean [Left Arm] Blood Pressure Position Blood Pressure Position [Left Arm] Pulse Oximetry 94 94 90 Oxygen Delivery Method Oxygen Flow Rate 01/28/19 09:50 01/28/19 10:00 01/28/19 10:10 Temperature Temperature Source Sepsis Recent Fever Within 48 Hours Sepsis New/Unexplained Change in Mental Status Sepsis Action Taken by Nursing Pulse Rate 105 H 93 H 97 H Pulse Rate [Left] Pulse Rate from SpO2 Sensor 103 H 97 H 94 H Pulse Rhythm [Left] Pulse Strength [Left] Respiratory Rate Respiratory Effort / Characteristics Respiratory Depth Respiratory Pattern Blood Pressure Blood Pressure [Left Arm] Blood Pressure Mean Blood Pressure Mean [Left Arm] Blood Pressure Position Blood Pressure Position [Left Arm] Pulse Oximetry 98 98 99 Oxygen Delivery Method Oxygen Flow Rate 01/28/19 10:12 01/28/19 10:13 01/28/19 10:20 Temperature Temperature Source Sepsis Recent Fever Within 48 Hours Sepsis New/Unexplained Change in Mental Status Sepsis Action Taken by Nursing Pulse Rate 97 H 94 H Pulse Rate [Left] 91 H Pulse Rate from SpO2 Sensor 97 H 91 H Pulse Rhythm [Left] Pulse Strength [Left] Respiratory Rate 20 Respiratory Effort / Characteristics Spontaneous Respiratory Depth Respiratory Pattern Blood Pressure 116/61 Blood Pressure [Left Arm] 116/61 Blood Pressure Mean 79 Blood Pressure Mean [Left Arm] 79 Blood Pressure Position Blood Pressure Position [Left Arm] Lying Pulse Oximetry 98 98 98 Oxygen Delivery Method Nasal Cannula Oxygen Flow Rate 2 01/28/19 10:23 01/28/19 10:30 01/28/19 10:31 Temperature 37.9 C H Temperature Source Oral Sepsis Recent Fever Within 48 Hours Sepsis New/Unexplained Change in Mental Status Sepsis Action Taken by Nursing Pulse Rate 105 H 98 H Pulse Rate [Left] Pulse Rate from SpO2 Sensor 100 H 94 H Pulse Rhythm [Left] Pulse Strength [Left] Respiratory Rate Respiratory Effort / Characteristics Respiratory Depth Respiratory Pattern Blood Pressure 114/56 L Blood Pressure [Left Arm] Blood Pressure Mean 75 Blood Pressure Mean [Left Arm] Blood Pressure Position Blood Pressure Position [Left Arm] Pulse Oximetry 98 93 Oxygen Delivery Method Oxygen Flow Rate 01/28/19 10:40 01/28/19 10:45 01/28/19 11:00 Temperature 38.2 C H Temperature Source Oral Sepsis Recent Fever Within 48 Hours Sepsis New/Unexplained Change in Mental Status Sepsis Action Taken by Nursing Pulse Rate 92 H 91 H Pulse Rate [Left] Pulse Rate from SpO2 Sensor 95 H Pulse Rhythm [Left] Pulse Strength [Left] Respiratory Rate Respiratory Effort / Characteristics Respiratory Depth Respiratory Pattern Blood Pressure Blood Pressure [Left Arm] Blood Pressure Mean Blood Pressure Mean [Left Arm] Blood Pressure Position Blood Pressure Position [Left Arm] Pulse Oximetry 97 Oxygen Delivery Method Oxygen Flow Rate 01/28/19 11:03 01/28/19 11:15 01/28/19 11:19 Temperature Temperature Source Sepsis Recent Fever Within 48 Hours Sepsis New/Unexplained Change in Mental Status Sepsis Action Taken by Nursing Pulse Rate 96 H 96 H 89 Pulse Rate [Left] Pulse Rate from SpO2 Sensor 95 H 90 Pulse Rhythm [Left] Pulse Strength [Left] Respiratory Rate Respiratory Effort / Characteristics Respiratory Depth Respiratory Pattern Blood Pressure 104/59 L Blood Pressure [Left Arm] Blood Pressure Mean 74 Blood Pressure Mean [Left Arm] Blood Pressure Position Blood Pressure Position [Left Arm] Pulse Oximetry 98 97 Oxygen Delivery Method Oxygen Flow Rate 01/28/19 11:30 01/28/19 11:31 01/28/19 11:32 Temperature Temperature Source Sepsis Recent Fever Within 48 Hours Sepsis New/Unexplained Change in Mental Status Sepsis Action Taken by Nursing Pulse Rate 89 84 87 Pulse Rate [Left] Pulse Rate from SpO2 Sensor 88 88 90 Pulse Rhythm [Left] Pulse Strength [Left] Respiratory Rate Respiratory Effort / Characteristics Respiratory Depth Respiratory Pattern Blood Pressure 102/59 L Blood Pressure [Left Arm] Blood Pressure Mean 73 Blood Pressure Mean [Left Arm] Blood Pressure Position Blood Pressure Position [Left Arm] Pulse Oximetry 96 97 97 Oxygen Delivery Method Oxygen Flow Rate 01/28/19 11:45 01/28/19 12:00 01/28/19 12:01 Temperature Temperature Source Sepsis Recent Fever Within 48 Hours Sepsis New/Unexplained Change in Mental Status Sepsis Action Taken by Nursing Pulse Rate 84 82 81 Pulse Rate [Left] Pulse Rate from SpO2 Sensor 84 89 83 Pulse Rhythm [Left] Pulse Strength [Left] Respiratory Rate Respiratory Effort / Characteristics Respiratory Depth Respiratory Pattern Blood Pressure 104/62 Blood Pressure [Left Arm] Blood Pressure Mean 76 Blood Pressure Mean [Left Arm] Blood Pressure Position Blood Pressure Position [Left Arm] Pulse Oximetry 96 97 96 Oxygen Delivery Method Nasal Cannula Oxygen Flow Rate 2 01/28/19 12:57 Temperature 36.7 C Temperature Source Oral Sepsis Recent Fever Within 48 Hours Sepsis New/Unexplained Change in Mental Status Sepsis Action Taken by Nursing Pulse Rate Pulse Rate [Left] 89 Pulse Rate from SpO2 Sensor Pulse Rhythm [Left] Irregular Pulse Strength [Left] Normal Respiratory Rate 20 Respiratory Effort / Characteristics Non-Labored Respiratory Depth Normal Respiratory Pattern Regular Blood Pressure Blood Pressure [Left Arm] 100/63 Blood Pressure Mean Blood Pressure Mean [Left Arm] 75 Blood Pressure Position Blood Pressure Position [Left Arm] Lying Pulse Oximetry 96 Oxygen Delivery Method Nasal Cannula Oxygen Flow Rate 2 General: Non-ill appearing older male in no acute distress. Eyes are open. Answers most questions but seems slow to respond. HEENT: Normal cephalic atraumatic. Pupils are equal round and reactive to light. Extraocular movements are intact. Oropharynx is pink with moist mucous membranes. No swelling of the mouth lips or tongue. Neck: Supple with a midline trachea. No meningeal signs or stiffness, no JVD or bruits. No Stridor. Chest: Clear to auscultation bilaterally. No wheezes or rhonchi. No increased work of breathing. Heart: regular rate and rhythm. Abdomen: Soft nontender, nondistended without rebound guarding or rigidity. Extremities: No cyanosis clubbing or edema. No calf tenderness or asymmetry Spine/Back. Non tender to palpation. No CVA tenderness Skin: Good turgor without rashes. Neurologic exam: Cranial nerves two through 12 are intact. Motor and sensation are intact and symmetrical throughout. No focal deficits. No slurred speech. Course 0855: After speaking with EMS, I placed the patient on stroke alert prior to arrival to the Emergency Room due to his symptoms. I alerted Dr. Kovacs, [facility], who will wait on CT and clinical results before evaluated the patient. 0900:The patient was evaluated in room A01. A complete history and physical examination was performed. 0928: Upon reevaluation, the patient appears stable with IV fluids and IV antibiotics. I updated the patient on his current imaging results. 1000: I discussed the patient's case with Dr. Montana, [facility], who will evaluate the patient for further management and care. 1020: Upon reevaluation, the patient is resting comfortably. I discussed laboratory and radiographic results with the patient. He verbalized agreement of the treatment plan. The patient will be evaluated for further management and care. Consultations Consultation #1: I alerted Dr. Kovacs, [facility], who will wait on CT and clinical results before evaluated the patient. Time: 08:55 Consultation #2: I discussed the patient's case with Dr. Montana, [facility], who will evaluate the patient for further management and care. Time: 10:00 Administered Medications Atorvastatin Calcium (Lipitor) 80 mg PO DAILY [facility] Stop: 02/27/19 11:14 Last Admin: 01/28/19 13:42 Dose: 80 mg Documented by: [id number] Clopidogrel Bisulfate (Plavix) 75 mg PO DAILY [facility] Stop: 02/27/19 11:14 Last Admin: 01/28/19 13:43 Dose: 75 mg Documented by: [id number] Duloxetine HCl (Cymbalta) 40 mg PO DAILY [facility] Stop: 02/27/19 11:14 Last Admin: 01/28/19 13:42 Dose: 40 mg Documented by: [id number] Hydralazine HCl (Apresoline) 50 mg PO TID [facility] Stop: 02/27/19 13:59 Last Admin: 01/28/19 13:52 Dose: Not Given Documented by: [id number] Sodium Chloride (Nss 1000ml) 1,000 mls @ 150 mls/hr IV .Q6H40M [facility] Stop: 01/29/19 02:19 Last Admin: 01/28/19 13:51 Dose: 150 mls/hr Documented by: [id number] Piperacillin Sod/Tazobactam (Sod 3.375 gm/ Dextrose) 115 mls @ 28.75 mls/hr IV Q8H [facility]; Protocol Stop: 01/30/19 13:59 Last Admin: 01/28/19 13:45 Dose: 28.8 mls/hr Documented by: [id number] Levothyroxine Sodium (Synthroid) 75 mcg PO DAILYBB [facility] Stop: 02/27/19 11:14 Last Admin: 01/28/19 13:43 Dose: 75 mcg Documented by: [id number] Metoprolol Succinate (Toprol Xl) 12.5 mg PO BID [facility] Stop: 02/27/19 11:29 Last Admin: 01/28/19 13:43 Dose: 12.5 mg Documented by: [id number] Pantoprazole Sodium (Protonix) 40 mg PO DAILY [facility] Stop: 02/27/19 11:29 Last Admin: 01/28/19 13:43 Dose: 40 mg Documented by: [id number] Pregabalin (Lyrica) 100 mg PO TID [facility] Stop: 02/27/19 13:59 Last Admin: 01/28/19 13:52 Dose: 100 mg Documented by: [id number] Discontinued Medications Acetaminophen (Tylenol) 650 mg PO NOW [facility] Stop: 01/28/19 09:15 Last Admin: 01/28/19 09:18 Dose: 650 mg Documented by: [id number] Piperacillin Sod/Tazobactam Sod (Zosyn) 4.5 gm in 120 mls @ 240 mls/hr IV NOW ONE Stop: 01/28/19 09:43 Last Infusion: 01/28/19 10:07 Dose: 0 mls/hr Documented by: [id number] Admin: 01/28/19 09:19 Dose: 240 mls/hr Documented by: [id number] Sodium Chloride (Nss 1000ml) 500 mls @ 999 mls/hr IV .Q31M ONE Stop: 01/28/19 09:42 Last Infusion: 01/28/19 10:07 Dose: 0 mls/hr Documented by: [id number] Admin: 01/28/19 09:19 Dose: 999 mls/hr Documented by: [id number] Multivitamins 10 ml/ Thiamine HCl 100 mg/ Folic Acid 1 mg/Sodium Chloride 1,011.2 mls @ 1,011.2 mls/hr IV .Q1H [facility] Stop: 01/28/19 11:14 Last Infusion: 01/28/19 13:58 Dose: 0 mls/hr Documented by: [id number] Admin: 01/28/19 10:20 Dose: 1,011.2 mls/hr Documented by: [id number] Medical Decision Making Differential Diagnosis Differential Diagnosis: Etiologies such as sepsis, stroke, TIA, UTI, intracranial hemorrhage, cardiac disease, electrolytes or metabolic abnormalities, alcohol use as well as others were entertained. Medical Records Attestation: I reviewed the patient's medical records. Home Medications Current Medication List: was personally reviewed by me Laboratory Data Attestation: I reviewed the patient's lab results. Result diagrams: 01/28/19 09:09 01/28/19 09:09 Lab Results 01/28/19 01/28/19 01/28/19 Range/Units 09:01 09:08 09:09 WBC 13.17 H (4.8-10.8) K/uL RBC 3.92 L (4.7-6.1) M/uL Hgb 13.2 L (14.0-18.0) g/dL Hct 38.4 L (42-52) % MCV 98.0 (80-100) fL MCH 33.7 (25-34) pg MCHC 34.4 (32-36) g/dL RDW Std Deviation 50.7 H (36.4-46.3) fL RDW Coeff of Pauline 14.3 (11.5-14.5) % Plt Count 131 (130-400) K/uL MPV 10.8 H (7.4-10.4) fL Immature Gran % (Auto) 0.2 % Neut % (Auto) 91.5 % Lymph % (Auto) 3.8 % [place] % (Auto) 4.2 % Eos % (Auto) 0.1 % Baso % (Auto) 0.2 % Immature Gran # (Auto) 0.03 H (0.00-0.02) K/uL Neut # (Auto) 12.06 H (1.4-6.5) K/uL Lymph # (Auto) 0.50 L (1.2-3.4) K/uL [place] # (Auto) 0.55 (0.11-0.59) K/uL Eos # (Auto) 0.01 (0-0.5) K/uL Baso # (Auto) 0.02 (0-0.2) K/uL PT 20.3 H (9.0-12.0) Seconds POC INR 2.0 H (0.9-1.1) INR 2.1 H (0.9-1.1) APTT 27.4 (21.0-31.0) Seconds PTT Ratio 1.0 VBG pH (7.36-7.41) Sodium (136-145) mmol/L Potassium (3.5-5.1) mmol/L Chloride (98-107) mmol/L Carbon Dioxide (21-32) mmol/L Anion Gap (3-11) BUN (7-18) mg/dl Creatinine (0.6-1.4) mg/dl Est Cr Clr Drug Dosing Est GFR ( Amer) Est GFR (Non-Af Amer) BUN/Creatinine Ratio (10-20) Glucose (70-99) mg/dl POC Glucose (70-99) Osmolality (280-300) mOsm/kg POC Lactic Acid [place] (0.90-1.70) mmol/L Calcium (8.5-10.1) mg/dl Magnesium (1.8-2.4) mg/dl Total Bilirubin (0.2-1) mg/dl AST (15-37) U/L ALT (12-78) U/L Alkaline Phosphatase (45-117) U/L Total Creatine Kinase (39-308) U/L Troponin I (0-0.045) ng/ml Total Protein (6.4-8.2) gm/dl Albumin (3.4-5.0) gm/dl Globulin (2.5-4.0) gm/dl Albumin/Globulin Ratio (0.9-2) Vitamin B12 (211-911) pg/ml Folate (>5.38) ng/ml Urine Color Urine Appearance (Clear) Urine pH (4.5-7.5) Ur Specific [place] (1.000-1.030) Urine Protein (Negative) Urine Glucose (UA) (Negative) Urine Ketones (Negative) Urine Blood (Negative) Urine Nitrite (Negative) Urine Bilirubin (Negative) Urine Urobilinogen (Negative) Ur Leukocyte Esterase (Negative) Urine Osmolality (500-800) mOsm/kg Ur Random Creatinine mg/dl Ur Random Sodium mmol/L Ur Random Urea Nitrogn mg/dl Urine Opiates Screen (Neg) Ur Methadone, Qual (Neg) Urine Barbiturates (Neg) Ur Phencyclidine (PCP) (Neg) U Amphetamin/Meth Scrn (Neg) MDMA (Ecstasy) Screen (Neg) U Benzodiazepines Scrn (Neg) Ur Cocaine Metabolite (Neg) U Marijuana (THC) Screen (Neg) Ethyl Alcohol mg/dL (0-3) mg/dl Lyme Disease IgG Ab (Negative) Lyme Disease IgM Ab (Negative) Influenza Type A (PCR) (Neg) Influenza Type B (PCR) (Neg) Blood Type Antibody Screen 01/28/19 01/28/19 01/28/19 Range/Units 09:09 09:09 09:09 WBC (4.8-10.8) K/uL RBC (4.7-6.1) M/uL Hgb (14.0-18.0) g/dL Hct (42-52) % MCV (80-100) fL MCH (25-34) pg MCHC (32-36) g/dL RDW Std Deviation (36.4-46.3) fL RDW Coeff of Pauline (11.5-14.5) % Plt Count (130-400) K/uL MPV (7.4-10.4) fL Immature Gran % (Auto) % Neut % (Auto) % Lymph % (Auto) % [place] % (Auto) % Eos % (Auto) % Baso % (Auto) % Immature Gran # (Auto) (0.00-0.02) K/uL Neut # (Auto) (1.4-6.5) K/uL Lymph # (Auto) (1.2-3.4) K/uL [place] # (Auto) (0.11-0.59) K/uL Eos # (Auto) (0-0.5) K/uL Baso # (Auto) (0-0.2) K/uL PT (9.0-12.0) Seconds POC INR (0.9-1.1) INR (0.9-1.1) APTT (21.0-31.0) Seconds PTT Ratio VBG pH (7.36-7.41) Sodium 139 (136-145) mmol/L Potassium 4.0 (3.5-5.1) mmol/L Chloride 105 (98-107) mmol/L Carbon Dioxide 24 (21-32) mmol/L Anion Gap 10.0 (3-11) BUN 60 H (7-18) mg/dl Creatinine 3.45 H (0.6-1.4) mg/dl Est Cr Clr Drug Dosing Not Reportable Est GFR ( Amer) 19.8 Est GFR (Non-Af Amer) 17.1 BUN/Creatinine Ratio 17.3 (10-20) Glucose 89 (70-99) mg/dl POC Glucose (70-99) Osmolality (280-300) mOsm/kg POC Lactic Acid [place] (0.90-1.70) mmol/L Calcium 9.2 (8.5-10.1) mg/dl Magnesium 1.7 L (1.8-2.4) mg/dl Total Bilirubin 0.9 (0.2-1) mg/dl AST 46 H (15-37) U/L ALT 42 (12-78) U/L Alkaline Phosphatase 55 (45-117) U/L Total Creatine Kinase 627 H (39-308) U/L Troponin I 0.068 H* (0-0.045) ng/ml Total Protein 7.6 (6.4-8.2) gm/dl Albumin 3.6 (3.4-5.0) gm/dl Globulin 4.0 (2.5-4.0) gm/dl Albumin/Globulin Ratio 0.9 (0.9-2) Vitamin B12 (211-911) pg/ml Folate (>5.38) ng/ml Urine Color Urine Appearance (Clear) Urine pH (4.5-7.5) Ur Specific [place] (1.000-1.030) Urine Protein (Negative) Urine Glucose (UA) (Negative) Urine Ketones (Negative) Urine Blood (Negative) Urine Nitrite (Negative) Urine Bilirubin (Negative) Urine Urobilinogen (Negative) Ur Leukocyte Esterase (Negative) Urine Osmolality (500-800) mOsm/kg Ur Random Creatinine mg/dl Ur Random Sodium mmol/L Ur Random Urea Nitrogn mg/dl Urine Opiates Screen (Neg) Ur Methadone, Qual (Neg) Urine Barbiturates (Neg) Ur Phencyclidine (PCP) (Neg) U Amphetamin/Meth Scrn (Neg) MDMA (Ecstasy) Screen (Neg) U Benzodiazepines Scrn (Neg) Ur Cocaine Metabolite (Neg) U Marijuana (THC) Screen (Neg) Ethyl Alcohol mg/dL (0-3) mg/dl Lyme Disease IgG Ab (Negative) Lyme Disease IgM Ab (Negative) Influenza Type A (PCR) (Neg) Influenza Type B (PCR) (Neg) Blood Type A Positive Antibody Screen NEGATIVE 01/28/19 01/28/19 01/28/19 Range/Units 09:15 09:15 09:33 WBC (4.8-10.8) K/uL RBC (4.7-6.1) M/uL Hgb (14.0-18.0) g/dL Hct (42-52) % MCV (80-100) fL MCH (25-34) pg MCHC (32-36) g/dL RDW Std Deviation (36.4-46.3) fL RDW Coeff of Pauline (11.5-14.5) % Plt Count (130-400) K/uL MPV (7.4-10.4) fL Immature Gran % (Auto) % Neut % (Auto) % Lymph % (Auto) % [place] % (Auto) % Eos % (Auto) % Baso % (Auto) % Immature Gran # (Auto) (0.00-0.02) K/uL Neut # (Auto) (1.4-6.5) K/uL Lymph # (Auto) (1.2-3.4) K/uL [place] # (Auto) (0.11-0.59) K/uL Eos # (Auto) (0-0.5) K/uL Baso # (Auto) (0-0.2) K/uL PT (9.0-12.0) Seconds POC INR (0.9-1.1) INR (0.9-1.1) APTT (21.0-31.0) Seconds PTT Ratio VBG pH (7.36-7.41) Sodium (136-145) mmol/L Potassium (3.5-5.1) mmol/L Chloride (98-107) mmol/L Carbon Dioxide (21-32) mmol/L Anion Gap (3-11) BUN (7-18) mg/dl Creatinine (0.6-1.4) mg/dl Est Cr Clr Drug Dosing Est GFR ( Amer) Est GFR (Non-Af Amer) BUN/Creatinine Ratio (10-20) Glucose (70-99) mg/dl POC Glucose 91 (70-99) Osmolality 307 H (280-300) mOsm/kg POC Lactic Acid [place] (0.90-1.70) mmol/L Calcium (8.5-10.1) mg/dl Magnesium (1.8-2.4) mg/dl Total Bilirubin (0.2-1) mg/dl AST (15-37) U/L ALT (12-78) U/L Alkaline Phosphatase (45-117) U/L Total Creatine Kinase (39-308) U/L Troponin I (0-0.045) ng/ml Total Protein (6.4-8.2) gm/dl Albumin (3.4-5.0) gm/dl Globulin (2.5-4.0) gm/dl Albumin/Globulin Ratio (0.9-2) Vitamin B12 (211-911) pg/ml Folate (>5.38) ng/ml Urine Color Urine Appearance (Clear) Urine pH (4.5-7.5) Ur Specific [place] (1.000-1.030) Urine Protein (Negative) Urine Glucose (UA) (Negative) Urine Ketones (Negative) Urine Blood (Negative) Urine Nitrite (Negative) Urine Bilirubin (Negative) Urine Urobilinogen (Negative) Ur Leukocyte Esterase (Negative) Urine Osmolality (500-800) mOsm/kg Ur Random Creatinine mg/dl Ur Random Sodium mmol/L Ur Random Urea Nitrogn mg/dl Urine Opiates Screen (Neg) Ur Methadone, Qual (Neg) Urine Barbiturates (Neg) Ur Phencyclidine (PCP) (Neg) U Amphetamin/Meth Scrn (Neg) MDMA (Ecstasy) Screen (Neg) U Benzodiazepines Scrn (Neg) Ur Cocaine Metabolite (Neg) U Marijuana (THC) Screen (Neg) Ethyl Alcohol mg/dL < 3.0 (0-3) mg/dl Lyme Disease IgG Ab (Negative) Lyme Disease IgM Ab (Negative) Influenza Type A (PCR) (Neg) Influenza Type B (PCR) (Neg) Blood Type Antibody Screen 01/28/19 01/28/19 01/28/19 Range/Units 09:34 09:42 10:10 WBC (4.8-10.8) K/uL RBC (4.7-6.1) M/uL Hgb (14.0-18.0) g/dL Hct (42-52) % MCV (80-100) fL MCH (25-34) pg MCHC (32-36) g/dL RDW Std Deviation (36.4-46.3) fL RDW Coeff of Pauline (11.5-14.5) % Plt Count (130-400) K/uL MPV (7.4-10.4) fL Immature Gran % (Auto) % Neut % (Auto) % Lymph % (Auto) % [place] % (Auto) % Eos % (Auto) % Baso % (Auto) % Immature Gran # (Auto) (0.00-0.02) K/uL Neut # (Auto) (1.4-6.5) K/uL Lymph # (Auto) (1.2-3.4) K/uL [place] # (Auto) (0.11-0.59) K/uL Eos # (Auto) (0-0.5) K/uL Baso # (Auto) (0-0.2) K/uL PT (9.0-12.0) Seconds POC INR (0.9-1.1) INR (0.9-1.1) APTT (21.0-31.0) Seconds PTT Ratio VBG pH (7.36-7.41) Sodium (136-145) mmol/L Potassium (3.5-5.1) mmol/L Chloride (98-107) mmol/L Carbon Dioxide (21-32) mmol/L Anion Gap (3-11) BUN (7-18) mg/dl Creatinine (0.6-1.4) mg/dl Est Cr Clr Drug Dosing Est GFR ( Amer) Est GFR (Non-Af Amer) BUN/Creatinine Ratio (10-20) Glucose (70-99) mg/dl POC Glucose (70-99) Osmolality (280-300) mOsm/kg POC Lactic Acid Pawan 1.92 H (0.90-1.70) mmol/L Calcium (8.5-10.1) mg/dl Magnesium (1.8-2.4) mg/dl Total Bilirubin (0.2-1) mg/dl AST (15-37) U/L ALT (12-78) U/L Alkaline Phosphatase (45-117) U/L Total Creatine Kinase (39-308) U/L Troponin I (0-0.045) ng/ml Total Protein (6.4-8.2) gm/dl Albumin (3.4-5.0) gm/dl Globulin (2.5-4.0) gm/dl Albumin/Globulin Ratio (0.9-2) Vitamin B12 (211-911) pg/ml Folate (>5.38) ng/ml Urine Color Yellow Urine Appearance Clear (Clear) Urine pH 5.0 (4.5-7.5) Ur Specific [place] 1.017 (1.000-1.030) Urine Protein Negative (Negative) Urine Glucose (UA) Negative (Negative) Urine Ketones Trace H (Negative) Urine Blood Negative (Negative) Urine Nitrite Negative (Negative) Urine Bilirubin Negative (Negative) Urine Urobilinogen Negative (Negative) Ur Leukocyte Esterase Negative (Negative) Urine Osmolality (500-800) mOsm/kg Ur Random Creatinine mg/dl Ur Random Sodium mmol/L Ur Random Urea Nitrogn mg/dl Urine Opiates Screen (Neg) Ur Methadone, Qual (Neg) Urine Barbiturates (Neg) Ur Phencyclidine (PCP) (Neg) U Amphetamin/Meth Scrn (Neg) MDMA (Ecstasy) Screen (Neg) U Benzodiazepines Scrn (Neg) Ur Cocaine Metabolite (Neg) U Marijuana (THC) Screen (Neg) Ethyl Alcohol mg/dL (0-3) mg/dl Lyme Disease IgG Ab (Negative) Lyme Disease IgM Ab (Negative) Influenza Type A (PCR) Neg for Influ A (Neg) Influenza Type B (PCR) Neg for Influ B (Neg) Blood Type Antibody Screen 01/28/19 01/28/19 01/28/19 Range/Units 12:31 13:55 13:55 WBC (4.8-10.8) K/uL RBC (4.7-6.1) M/uL Hgb (14.0-18.0) g/dL Hct (42-52) % MCV (80-100) fL MCH (25-34) pg MCHC (32-36) g/dL RDW Std Deviation (36.4-46.3) fL RDW Coeff of Pauline (11.5-14.5) % Plt Count (130-400) K/uL MPV (7.4-10.4) fL Immature Gran % (Auto) % Neut % (Auto) % Lymph % (Auto) % [place] % (Auto) % Eos % (Auto) % Baso % (Auto) % Immature Gran # (Auto) (0.00-0.02) K/uL Neut # (Auto) (1.4-6.5) K/uL Lymph # (Auto) (1.2-3.4) K/uL [place] # (Auto) (0.11-0.59) K/uL Eos # (Auto) (0-0.5) K/uL Baso # (Auto) (0-0.2) K/uL PT (9.0-12.0) Seconds POC INR (0.9-1.1) INR (0.9-1.1) APTT (21.0-31.0) Seconds PTT Ratio VBG pH (7.36-7.41) Sodium (136-145) mmol/L Potassium (3.5-5.1) mmol/L Chloride (98-107) mmol/L Carbon Dioxide (21-32) mmol/L Anion Gap (3-11) BUN (7-18) mg/dl Creatinine (0.6-1.4) mg/dl Est Cr Clr Drug Dosing Est GFR ( Amer) Est GFR (Non-Af Amer) BUN/Creatinine Ratio (10-20) Glucose (70-99) mg/dl POC Glucose 96 (70-99) Osmolality (280-300) mOsm/kg POC Lactic Acid Pawan (0.90-1.70) mmol/L Calcium (8.5-10.1) mg/dl Magnesium (1.8-2.4) mg/dl Total Bilirubin (0.2-1) mg/dl AST (15-37) U/L ALT (12-78) U/L Alkaline Phosphatase (45-117) U/L Total Creatine Kinase (39-308) U/L Troponin I (0-0.045) ng/ml Total Protein (6.4-8.2) gm/dl Albumin (3.4-5.0) gm/dl Globulin (2.5-4.0) gm/dl Albumin/Globulin Ratio (0.9-2) Vitamin B12 (211-911) pg/ml Folate (>5.38) ng/ml Urine Color Urine Appearance (Clear) Urine pH (4.5-7.5) Ur Specific [place] (1.000-1.030) Urine Protein (Negative) Urine Glucose (UA) (Negative) Urine Ketones (Negative) Urine Blood (Negative) Urine Nitrite (Negative) Urine Bilirubin (Negative) Urine Urobilinogen (Negative) Ur Leukocyte Esterase (Negative) Urine Osmolality 467 L (500-800) mOsm/kg Ur Random Creatinine 183.0 mg/dl Ur Random Sodium 7 mmol/L Ur Random Urea Nitrogn 869 mg/dl Urine Opiates Screen (Neg) Ur Methadone, Qual (Neg) Urine Barbiturates (Neg) Ur Phencyclidine (PCP) (Neg) U Amphetamin/Meth Scrn (Neg) MDMA (Ecstasy) Screen (Neg) U Benzodiazepines Scrn (Neg) Ur Cocaine Metabolite (Neg) U Marijuana (THC) Screen (Neg) Ethyl Alcohol mg/dL (0-3) mg/dl Lyme Disease IgG Ab (Negative) Lyme Disease IgM Ab (Negative) Influenza Type A (PCR) (Neg) Influenza Type B (PCR) (Neg) Blood Type Antibody Screen 01/28/19 01/28/19 01/28/19 Range/Units 13:55 14:09 14:09 WBC (4.8-10.8) K/uL RBC (4.7-6.1) M/uL Hgb (14.0-18.0) g/dL Hct (42-52) % MCV (80-100) fL MCH (25-34) pg MCHC (32-36) g/dL RDW Std Deviation (36.4-46.3) fL RDW Coeff of Pauline (11.5-14.5) % Plt Count (130-400) K/uL MPV (7.4-10.4) fL Immature Gran % (Auto) % Neut % (Auto) % Lymph % (Auto) % [place] % (Auto) % Eos % (Auto) % Baso % (Auto) % Immature Gran # (Auto) (0.00-0.02) K/uL Neut # (Auto) (1.4-6.5) K/uL Lymph # (Auto) (1.2-3.4) K/uL [place] # (Auto) (0.11-0.59) K/uL Eos # (Auto) (0-0.5) K/uL Baso # (Auto) (0-0.2) K/uL PT (9.0-12.0) Seconds POC INR (0.9-1.1) INR (0.9-1.1) APTT (21.0-31.0) Seconds PTT Ratio VBG pH (7.36-7.41) Sodium (136-145) mmol/L Potassium (3.5-5.1) mmol/L Chloride (98-107) mmol/L Carbon Dioxide (21-32) mmol/L Anion Gap (3-11) BUN (7-18) mg/dl Creatinine (0.6-1.4) mg/dl Est Cr Clr Drug Dosing Est GFR ( Amer) Est GFR (Non-Af Amer) BUN/Creatinine Ratio (10-20) Glucose (70-99) mg/dl POC Glucose (70-99) Osmolality (280-300) mOsm/kg POC Lactic Acid Pawan (0.90-1.70) mmol/L Calcium (8.5-10.1) mg/dl Magnesium (1.8-2.4) mg/dl Total Bilirubin (0.2-1) mg/dl AST (15-37) U/L ALT (12-78) U/L Alkaline Phosphatase (45-117) U/L Total Creatine Kinase (39-308) U/L Troponin I 0.123 H* (0-0.045) ng/ml Total Protein (6.4-8.2) gm/dl Albumin (3.4-5.0) gm/dl Globulin (2.5-4.0) gm/dl Albumin/Globulin Ratio (0.9-2) Vitamin B12 817 (211-911) pg/ml Folate > 24.00 (>5.38) ng/ml Urine Color Urine Appearance (Clear) Urine pH (4.5-7.5) Ur Specific [place] (1.000-1.030) Urine Protein (Negative) Urine Glucose (UA) (Negative) Urine Ketones (Negative) Urine Blood (Negative) Urine Nitrite (Negative) Urine Bilirubin (Negative) Urine Urobilinogen (Negative) Ur Leukocyte Esterase (Negative) Urine Osmolality (500-800) mOsm/kg Ur Random Creatinine mg/dl Ur Random Sodium mmol/L Ur Random Urea Nitrogn mg/dl Urine Opiates Screen Pos H (Neg) Ur Methadone, Qual Neg (Neg) Urine Barbiturates Neg (Neg) Ur Phencyclidine (PCP) Neg (Neg) U Amphetamin/Meth Scrn Neg (Neg) MDMA (Ecstasy) Screen Neg (Neg) U Benzodiazepines Scrn Neg (Neg) Ur Cocaine Metabolite Neg (Neg) U Marijuana (THC) Screen Neg (Neg) Ethyl Alcohol mg/dL (0-3) mg/dl Lyme Disease IgG Ab (Negative) Lyme Disease IgM Ab (Negative) Influenza Type A (PCR) (Neg) Influenza Type B (PCR) (Neg) Blood Type Antibody Screen 01/28/19 01/28/19 Range/Units 14:09 14:09 WBC (4.8-10.8) K/uL RBC (4.7-6.1) M/uL Hgb (14.0-18.0) g/dL Hct (42-52) % MCV (80-100) fL MCH (25-34) pg MCHC (32-36) g/dL RDW Std Deviation (36.4-46.3) fL RDW Coeff of Pauline (11.5-14.5) % Plt Count (130-400) K/uL MPV (7.4-10.4) fL Immature Gran % (Auto) % Neut % (Auto) % Lymph % (Auto) % [place] % (Auto) % Eos % (Auto) % Baso % (Auto) % Immature Gran # (Auto) (0.00-0.02) K/uL Neut # (Auto) (1.4-6.5) K/uL Lymph # (Auto) (1.2-3.4) K/uL [place] # (Auto) (0.11-0.59) K/uL Eos # (Auto) (0-0.5) K/uL Baso # (Auto) (0-0.2) K/uL PT (9.0-12.0) Seconds POC INR (0.9-1.1) INR (0.9-1.1) APTT (21.0-31.0) Seconds PTT Ratio VBG pH 7.39 (7.36-7.41) Sodium (136-145) mmol/L Potassium (3.5-5.1) mmol/L Chloride (98-107) mmol/L Carbon Dioxide (21-32) mmol/L Anion Gap (3-11) BUN (7-18) mg/dl Creatinine (0.6-1.4) mg/dl Est Cr Clr Drug Dosing Est GFR ( Amer) Est GFR (Non-Af Amer) BUN/Creatinine Ratio (10-20) Glucose (70-99) mg/dl POC Glucose (70-99) Osmolality (280-300) mOsm/kg POC Lactic Acid Pawan (0.90-1.70) mmol/L Calcium (8.5-10.1) mg/dl Magnesium (1.8-2.4) mg/dl Total Bilirubin (0.2-1) mg/dl AST (15-37) U/L ALT (12-78) U/L Alkaline Phosphatase (45-117) U/L Total Creatine Kinase (39-308) U/L Troponin I (0-0.045) ng/ml Total Protein (6.4-8.2) gm/dl Albumin (3.4-5.0) gm/dl Globulin (2.5-4.0) gm/dl Albumin/Globulin Ratio (0.9-2) Vitamin B12 (211-911) pg/ml Folate (>5.38) ng/ml Urine Color Urine Appearance (Clear) Urine pH (4.5-7.5) Ur Specific [place] (1.000-1.030) Urine Protein (Negative) Urine Glucose (UA) (Negative) Urine Ketones (Negative) Urine Blood (Negative) Urine Nitrite (Negative) Urine Bilirubin (Negative) Urine Urobilinogen (Negative) Ur Leukocyte Esterase (Negative) Urine Osmolality (500-800) mOsm/kg Ur Random Creatinine mg/dl Ur Random Sodium mmol/L Ur Random Urea Nitrogn mg/dl Urine Opiates Screen (Neg) Ur Methadone, Qual (Neg) Urine Barbiturates (Neg) Ur Phencyclidine (PCP) (Neg) U Amphetamin/Meth Scrn (Neg) MDMA (Ecstasy) Screen (Neg) U Benzodiazepines Scrn (Neg) Ur Cocaine Metabolite (Neg) U Marijuana (THC) Screen (Neg) Ethyl Alcohol mg/dL (0-3) mg/dl Lyme Disease IgG Ab Negative (Negative) Lyme Disease IgM Ab Negative (Negative) Influenza Type A (PCR) (Neg) Influenza Type B (PCR) (Neg) Blood Type Antibody Screen Imaging Data Radiologist's Impression: Radiology results as stated below per my review and the radiologist's interpretation: CT OF THE HEAD WITHOUT CONTRAST CLINICAL HISTORY: Stroke evaluation COMPARISON STUDY: Head CT February 26, 2016. CT DOSE: 823.12 mGy.cm TECHNIQUE: Helical axial images of the head were obtained without IV contrast. Automated exposure control was utilized for the study. A dose lowering technique was utilized adhering to the principles of ALARA. FINDINGS: No acute intracranial hemorrhage, midline shift or mass effect is present. Ventricular system is stable. The basilar cisterns are patent. There are no extra-axial collections. There are no findings to suggest acute dural sinus thrombosis or acute territorial infarct. There are no significant calvarial abnormalities. IMPRESSION: No acute intracranial findings. Electronically signed by: Spencer Rocha M.D. 01/28/2019 9:09 AM XR chest 1V portable CLINICAL HISTORY: fever COMPARISON STUDY: Chest radiograph June 20, 2017. FINDINGS: There is no pneumothorax. There is minimal right lower lung opacity. Left lung is clear. There is no evidence for pulmonary edema. There is a possible small right pleural effusion. Cardiac size is at the upper limits of normal. IMPRESSION: Mild right lower lung opacity which favors atelectasis although consolidation could appear similar. Radiographic follow-up is recommended. Possible small right pleural effusion. Electronically signed by: Spencer Rocha M.D. 01/28/2019 9:40 AM ECG Data Attestation: I personally reviewed and interpreted this ECG as follows: Indication: weakness Rate (beats per minute): 101 Rhythm: atrial fibrillation (RVR) Findings: + nonspecific-ST abn Comparison ECG Date: from (09/12/2017) Change: the following changes noted (rate increased, non-specific ST abnormalities now present) Blood Pressure Blood Pressure Findings: Elevated blood pressure Blood Pressure Disposition: further management by hospitalist [facility] Narrative This patient comes in as described above. He was brought in by paramedics he was last seen around 4:30 in the morning his said that he was shaking and did not feel well she found him on the toilet this morning. When EMS called me they are worried that his speech was slurred and thought his left arm was weak so I called a stroke alert. Blood sugar was checked on route and it was not elevated significantly. We took him over medially to get a CAT scan I evaluated him on the way over as well. He has normal speech.. He does answer most questions appropriately but seems slow some of the time as well. CAT scan of his head is unremarkable. I did talk to Dr. Kovacs initially let him know that he had a potential stroke alert. In the meantime the INR was 2 so therefore that would disqualify him from TPA the CAT scan was also negative. Additionally the story change in a temperature 39 so I am more worried about sepsis/infection a full septic work-up was done including cultures and lactic acid. He also given empiric antibiotics with Zosyn 4.5 g IV. He was given a IV fluid bolus. I talked his at length. His blood work shows elevated BUN and creatinine which is apparently new and his creatinine is 3 of those potassium is normal. EKG shows A. fib troponin is just mildly elevated. White count was mildly elevated however his lactic acid is less than 2. His blood pressures been stable. I also did order a CT of the abdomen and pelvis without contrast to rule out obstructive uropathy his urinalysis does not suggest UTI. His chest x-ray suggest pneumonia. At this point, he is not been tachycardic or hypertensive and so far he is a little shaky at times but has no evidence to suggest alcohol withdrawal, and this may be from infection/sepsis. I did give him a banana bag IV as he does have a history of drinking alcohol and wanted to cover this aspect. He will need to be monitored for withdrawal in the hospital as well. I did consult the [facility] hospitalist to see in the ER for further inpatient treatment and evaluation. Impression & Plan Sepsis, Pneumonia, Renal failure, Weakness Critical Care Time Due to the patient's weakness and concern for stroke and sepsis as well as multiple IV medications and extensive work-up done, I have personally spent greater than 45 minutes of critical care time in the direct management of this patient. This includes bedside care, interpretation of diagnostic studies, and testing, discussion with consultants, patient, and family members, and other required patient management activities. This 45 minutes is in excess of all separately billable procedures. Critical Care Time: Yes Total Critical Care Time: 45 Discharge Plan Visit Data *Final* Discharge Date/Time: 01/28/19 12:01 Chief Complaint: Stroke/CVA Symptoms ED Provider: Marcus Morales Discharge Problem: Sepsis, Pneumonia, Renal failure, Weakness Patient Disposition: Admitted As Inpatient Discharge Instructions Interventions: ED Discharge Assessment Last Done: 01/28/19 12:01 Discharge Problem: Sepsis Qualifiers: Sepsis type: sepsis due to unspecified organism Qualified Code(s): A41.9 - Sepsis, unspecified organism Pneumonia Qualifiers: Pneumonia type: due to unspecified organism Laterality: unspecified laterality Lung location: unspecified part of lung Qualified Code(s): J18.9 - Pneumonia, u nspecified organism Renal failure Qualifiers: Renal failure chronicity: unspecified chronicity Qualified Code(s): N19 - Unspecified kidney failure The scribe's documentation has been prepared under my direction and personally reviewed by me in its entirety. I confirm that the note above accurately r eflects all work, treatment, procedures, and medical decision making performed by me.
--- NOTE | 2019-01-28 11:21 | History & Physical Report ---
Date of Service January 28, 2019 Assessment & Plan (1) Metabolic encephalopathy: Underlying sepsis with encephalopathy 2/2 infection. Non-infectious causes include but are not limited to renal failure, ETOH use and/or withdrawal, seizures, medication side effects, rhabdo, other (illicit) drug use, hypomagnesemia. Doubt acute stroke as there are no focal deficits on exam, and he is improving in just a couple of hours with IVF and antibiotics. Of note, baseline cognition is somewhat off and he has known memory issues; he sees a neuropsychologist. Therefore, any insult would expectantly cause confusion and forgetfulness as he has a poor reserve at baseline. Cont Zosyn and IVF, blood cultures pending, UA is clear of infection, blood or protein. CK is elevated likely 2/2 to the insult, would trend in am. Will replete Mg and repeat. Seizure precautions and consult Neuro. Defer AEDs and EEG to them. Later, when patient was on the floor mentioned one seizure in the past but he didn't receive AEDs and this was unrelated to ETOH. 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 Will continue to aggressively hydrate and repeat BMP CBC later this evening. (2) Hypomagnesemia: replace and repeat in am. (3) Demand ischemia: Mild bump in troponin likely related to demand ischemia. This will be trended and echo ordered. No chest pain or EKG changes. (4) Sepsis: Unclear source, cultures pending. Cont IVF/Zosyn and investigation of etiology. (5) ALEXIS (acute kidney injury): Related to sepsis-FeNa is 0.1% and urine sodium is 7 despite BID Lasix use. No obvious obstructing masses or stones on CT scan and he is making urine. Cont IVF and repeat labs this evening. If no improvement, consider Nephrology consult. (6) Weakness: Likely secondary to above process. PT/OT once he improves clinically. (7) ETOH abuse: PRN Ativan withdrawal protocol. Currently is not tremulous or anxious appearing and has a normal heart rate. Has a h/o adverse reaction to gabapentin and he is on Lyrica currently for neuropathy. (8) Atrial fibrillation: Rate controlled with metoprolol, cont warfarin. INR therapeutic. (9) PAD (peripheral artery disease): chronic, has h/o peripheral bypass. Continues on Plavix. (10) Hypothyroidism: Cont Synthroid per home regimen (11) GERD (gastroesophageal reflux disease): Cont pantoprozole per home regimen (12) DVT prophylaxis: INR therapeutic on warfarin Full Code Dispo-to telemetry. I rechecked him after a couple of hours on the floor and he was clinically improving but still did not remember the events of the morning. Deb Montana DO [facility] [address] Hospitalist History of Present Illness Chief Complaint: confusion, weakness, fever, chills Primary Care Provider: Emeka Piper DO 68 yo M with h/o heavy alcohol use presents with sudden onset of rigors, weakness and confusion overnight. He cannot give a history this morning 2/2 AMS but is able to respond yes or no simply to questions. and sister are at bedside. reports he woke up saying he was chilled around 0400. She then helped him get to the bathroom because he was weak. She fell back asleep and noted that he was still on the potty, slumped over with eyes open and awake but unresponsive to her approximately 2-3 hours later. He had wet himself and was very weak. She called other family members and 3 adults couldn't get him to the door because of profound weakness. (At baseline he has a shuffled gait 2/2 neuropathy and a history of heavy drinking, but ambulates without a walker or cane typically.) EMS was called and on arrival he was found to have ALEXIS and temp 39.2 C. Lab work revealed a white blood cell count of 13 K, INR was therapeutic at 2.1, BUN 60, creatinine 3.45 with a history of stage III CKD and a creatinine of 1.40 at baseline in 2017. Urinalysis was clear for infection or blood UDS is pending, alcohol level is 0, flu screen was negative. A chest x- ray revealed mild right lower lung opacity favoring atelectasis although consolidation could appear similar in a possible small right pleural effusion. The patient is on Lasix twice daily. A CT of the abdomen and pelvis without contrast confirms that right lower lobe opacity reflects atelectasis. There is mild bilateral perinephric infiltration which is symmetric. There are mildly enlarged left external iliac nodes that are present which may be reactive. He was started on IV fluids and Zosyn empirically. Blood cultures are drawn and pending. Head CT revealed no acute intracranial findings. The patient responded well and was started to improve clinically within a couple of hours in the ER per family at bedside. states he is out in the yard daily with frequent tick exposures. An extensive skin exam was performed and revealed no evidence of rash or tick bite. The patient denies any tick bites recently. He is also noted to be working with roses in the yard and gets frequent thorn scratches. There is no evidence of cellulitis but well healed scratches are present. His last drink is reported yesterday in the afternoon when he went to the bar. However, the patient reports his last drink was 3 days ago. He denies any other symptoms including no chest pain, shortness of breath, abdominal pain, any other pain, headaches, neck stiffness, visual changes, nasal or sinus congestion, sore throat, nausea, vomiting, changes in bowels including diarrhea or blood in stool. When asked how he feels he states he feels confused. During my examination which lasted approximately 30 minutes the patient continued to improve mentally. Allergies Allergy/AdvReac Type Severity Reaction Status Date / Time No Known Allergies Allergy Unverified 01/28/19 10:24 Home Medications Home Medications Medication Instructions Recorded Confirmed Type allopurinol 200 mg PO DAILY 01/28/19 01/28/19 History atorvastatin 80 mg PO DAILY 01/28/19 01/28/19 History clopidogrel 75 mg PO DAILY 01/28/19 01/28/19 History duloxetine 40 mg PO DAILY 01/28/19 01/28/19 History furosemide 20 mg PO BID 01/28/19 01/28/19 History hydralazine 50 mg PO TID 01/28/19 01/28/19 History levothyroxine 75 mcg PO DAILY 01/28/19 01/28/19 History lisinopril 20 mg PO DAILY 01/28/19 01/28/19 History metoprolol succinate 12.5 mg PO BID 01/28/19 01/28/19 History multivit with nxt-BI-qxyvasih 1 cap PO DAILY 01/28/19 01/28/19 History [Men's Daily] omega 7-vax-qoc-fish oil [Fish Oil] 1 cap PO DAILY 01/28/19 01/28/19 History oxycodone 5 mg PO DAILY PRN 01/28/19 01/28/19 History pantoprazole 40 mg PO DAILY 01/28/19 01/28/19 History pregabalin [Lyrica] 100 mg PO TID 01/28/19 01/28/19 History warfarin 5 mg PO SUTUTHSA@1600 01/28/19 01/28/19 History warfarin [Jantoven] 7.5 mg PO MOWEFR@1600 01/28/19 01/28/19 History Past Med/Surg History Medical History CKD (chronic kidney disease) stage 3, GFR 30-59 ml/min (Chronic) Hypothyroidism (Chronic) GERD (gastroesophageal reflux disease) (Chronic) HTN (hypertension) (Chronic) Dyslipidemia (Chronic) CAD (coronary artery disease) (Chronic) History of cardioversion (Chronic) Hypertensive urgency (Acute) History of pulmonary embolism (Chronic) "2 episodes, chronic warfarin therapy" Atrial fibrillation (Chronic) History of ventricular tachycardia (Chronic) Anticoagulated on warfarin (Chronic) Diabetic neuropathy (Chronic) Sleep apnea (Chronic) History of bradycardia (Chronic) "carvedilol discontinued" Bleeding from wound (Acute) Abnormal gait ETOH abuse Obesity Surgical History S/P aneurysm repair (Chronic) "AAA" History of inguinal hernia repair (Chronic) S/P femoral-popliteal bypass surgery (Chronic) Family History Other Family history non-contributory Social History Preferred Language: Austrian Communication Ability: Impaired Client Manager Large Law Required: Yes Beliefs That Will Affect Care: None marital status: Current Living Situation: Spouse current occupational status: retired Other Information That Helps Us Care for You: No Feels Safe at Home: Yes Smoking Status: Never smoker Do You Dip or Chew Tobacco: No Second Hand Exposure: No Tobacco Cessation Education Requested by Patient: No Hx Alcohol Use: Yes Alcohol type: hard liquor Hx Substance Use: Yes substance use type: does not use Substance Use Type Other:: >20-30 years ago Review of Systems Review of Systems: At least ten systems were reviewed and negative except as indicated on HPI above. History and ROS is limited 2/2 altered mental status. Physical Exam Physical Exam: CONSTITUTIONAL: WNWD, vitals as above, does not appear in distressed but is clearly confused. Cannot remember events of the night and demonstrates difficulty with processing the information asked of him. Tends to stare forward or look around with some nonspecific nystagmus present. EYES: EOMI bilaterally, PERRL, normal conjuctivae, no scleral icterus ENT: oropharynx clear with moist mucous membranes NECK: trachea midline, no lymphadenopathy, demonstrates normal ROM without difficulty RESPIRATORY: clear to auscultation bilaterally, no crackles, rales or wheezes, normal respiratory effort CARDIOVASCULAR: regular rate and irreg rhythm, S1 and 2 heard without murmurs, gallops or rubs, no JVD, no peripheral edema CHEST: inspection of chest was normal GASTROINTESTINAL: normal bowel sounds, soft, nontender, nondistended MUSCULOSKELETAL: strength 5/5 throughout but is purposeful and thoughtful about movements, not quick to react. Head is normocephalic and atraumatic, neck supple SKIN: warm and dry, no obvious tick bites or rashes present NEUROLOGIC: BR DTR 2/4, pateelar DTR could not be elicited as the patient is tensing up. PERRL, EOMI, no facial palsy, no dysarthria. CN 2-12 grossly intact, sensory deficit in sock distribution of lower legs bilaterally,normal speech, no tremor. PSYCHIATRIC: alert cooperative and oriented to person and place. Cannot remember events of the night prior. Note: As I was examining him in the ER he appeared to become more oriented and lucid. Results & Data Vital Signs (Past 12 Hours) Vital Signs Temp Pulse Pulse Resp BP BP Pulse Ox 01/28/19 10:40 92 H 97 01/28/19 10:31 98 H 114/56 L 93 01/28/19 10:30 105 H 98 01/28/19 10:23 37.9 C H 01/28/19 10:20 94 H 98 01/28/19 10:13 91 H 20 116/61 98 01/28/19 10:12 97 H 116/61 98 01/28/19 10:10 97 H 99 01/28/19 10:00 93 H 98 01/28/19 09:50 105 H 98 01/28/19 09:44 90 151/87 H 90 01/28/19 09:40 99 H 94 01/28/19 09:30 102 H 94 01/28/19 09:23 97 H 94 01/28/19 09:09 108 H 147/130 H 94 01/28/19 09:00 39.2 C H 100 H 21 151/108 H 98 Laboratory Results Short CBC 01/28/19 Range/Units 09:09 WBC 13.17 H (4.8-10.8) K/uL Hgb 13.2 L (14.0-18.0) g/dL Hct 38.4 L (42-52) % Plt Count 131 (130-400) K/uL BMP 01/28/19 09:09 Sodium 139 Potassium 4.0 Chloride 105 Carbon Dioxide 24 BUN 60 H Creatinine 3.45 H Glucose 89 Calcium 9.2 Cardiac Enzymes 01/28/19 01/28/19 Range/Units 09:09 09:09 Total Creatine Kinase 627 H (39-308) U/L Troponin I 0.068 H* (0-0.045) ng/ml Liver Function 01/28/19 Range/Units 09:09 Total Bilirubin 0.9 (0.2-1) mg/dl AST 46 H (15-37) U/L ALT 42 (12-78) U/L Alkaline Phosphatase 55 (45-117) U/L Albumin 3.6 (3.4-5.0) gm/dl Urine 01/28/19 Range/Units 09:42 Urine Color Yellow Urine Appearance Clear (Clear) Urine pH 5.0 (4.5-7.5) Ur Specific [place] 1.017 (1.000-1.030) Urine Protein Negative (Negative) Urine Glucose (UA) Negative (Negative) Diagnostic Findings CT abd/pel wo contrast IMPRESSION: 1. No urinary calculi or hydronephrosis. 2. Fatty infiltration of the liver. 3. No bowel obstruction. Normal appendix. 4. Femoral to femoral bypass graft in place with adjacent infiltration which is nonspecific but may be postprocedural. 5. Mildly enlarged left external lymph nodes which may be reactive. XR chest 1V portable CLINICAL HISTORY: fever COMPARISON STUDY: Chest radiograph June 20, 2017. FINDINGS: There is no pneumothorax. There is minimal right lower lung opacity. Left lung is clear. There is no evidence for pulmonary edema. There is a possible small right pleural effusion. Cardiac size is at the upper limits of normal. IMPRESSION: Mild right lower lung opacity which favors atelectasis although consolidation could appear similar. Radiographic follow-up is recommended. Possible small right pleural effusion. CT Head: IMPRESSION: No acute intracranial findings Code Status & VTE Plan Code Status Full VTE Prophylaxis Plan VTE Prophylaxis will be ordered: Yes Critical Care Time Critical Care Time: No (1) Sepsis Sepsis type: sepsis due to unspecified organism Qualified Code(s): A41.9 - Sepsis, unspecified organism
--- NOTE | 2019-01-28 11:23 | CT Scan Report ---
CT OF THE ABDOMEN AND PELVIS WITHOUT CONTRAST CLINICAL HISTORY: Elevated creatinine. Evaluate for obstruction. COMPARISON STUDY: Right upper quadrant ultrasound and KUB June 21, 2017. TECHNIQUE: Axial images of the abdomen and pelvis were obtained without IV contrast. Images were revi ewed in the axial, sagittal, and coronal planes. Automated exposure control was utilized for the vivi dy. A dose lowering technique was utilized adhering to the principles of ALARA. FINDINGS: Right lower lobe opacity reflects atelectasis. No pneumatosis, free air or portal venous ga s is present. No renal, ureteral or bladder calculi are present. There is no hydronephrosis or hydrou reter. There is mild bilateral perinephric infiltration which is symmetric. A 1.8 cm left renal lesio n is suboptimally assessed on this unenhanced exam but measures water attenuation. Bifurcated aortoil iac stent graft is in place. Femoral to femoral bypass graft is noted. Rodrigo infiltration is noted. T hese are suboptimally assessed on this unenhanced exam. Caliber of small and large bowel are normal. The appendix is normal. No suspicious osseous lesions are noted. Mildly enlarged left external iliac nodes are present. IMPRESSION: 1. No urinary calculi or hydronephrosis. 2. Fatty infiltration of the liver. 3. No bowel obstruction. Normal appendix. 4. Femoral to femoral bypass graft in place with adjacent infiltration which is nonspecific but may b e postprocedural. 5. Mildly enlarged left external lymph nodes which may be reactive. Electronically signed by: Spencer Rocha M.D. 01/28/2019 11:21 AM
[2019-01-28] MEDS ORDERED: LORazepam 1 MG TAB PO PRN (12:50)
[2019-01-28] MEDS ORDERED: ONDANSETRON INJ 2 MG/ML 2 ML VIAL IV PRN (12:50)
[2019-01-28] MEDS ORDERED: POLYETHYLENE (MIRALAX) 17 GM PACK PO PRN (12:50)
[2019-01-28] MEDS: ATORVASTATIN 40 MG TAB PO SCH (13:42)
[2019-01-28] MEDS: DULOXETINE HCL 20 MG CAP PO SCH (13:42)
[2019-01-28] MEDS: LEVOTHYROXINE SODIUM 75 MCG TABLET PO SCH (13:43)
[2019-01-28] MEDS: CLOPIDOGREL BISULFATE 75 MG TAB PO SCH (13:43)
[2019-01-28] MEDS: PANTOprazole 40 MG TAB PO SCH (13:43)
[2019-01-28] MEDS: METOPROLOL SUCC 25MG EXT REL TAB PO SCH ×2 (13:43→20:26)
[2019-01-28] MEDS: HydrALAZINE TAB 50 MG TAB PO SCH ×3 (13:44→20:26)
[2019-01-28] MEDS: PIPERACILLIN/TAZOBACTAM 3.375 GM in DEXTROSE 5% 100 ML IV SCH ×2 (13:45→21:09)
[2019-01-28] MEDS: SODIUM CHLORIDE 0.9% 1000ML 1,000 ML IV SCH ×3 (13:51→21:16)
[2019-01-28] MEDS: PREGABALIN 100 MG CAP PO SCH ×2 (13:52→20:22)
[2019-01-28 14:28] LABS: Amphetamines+Metham, Urine Neg (Neg); Barbiturates, Urine Neg (Neg); Benzodiazepine, Urine Neg (Neg); Cocaine, Urine Neg (Neg); MDMA (Ecstacy), Urine Neg (Neg); Methadone, Urine Neg (Neg); Opiate, Urine Pos (Neg); Phencyclidine, Urine Neg (Neg)
[2019-01-28 14:46] LABS: Vitamin B12 817 pg/ml (211-911)
[2019-01-28 14:47] LABS: Folate (Folic Acid) > 24.00 ng/ml (>5.38)
[2019-01-28 15:23] LABS: Lyme Ab IgG w/WB Rflx Negative (Negative); Lyme Ab IgM w/WB Rflx Negative (Negative)
[2019-01-28] MEDS ORDERED: PERFLUTREN LIPID MICROSPHERE (DEFINITY) IV ONE (16:03)
[2019-01-28] MEDS ORDERED: MAGNESIUM SULFATE / D5W 1 GM/100 ML BAG IV ONE (16:45)
[2019-01-28] MEDS: WARFARIN SOD 5 MG TAB PO SCH (16:47)
[2019-01-28] MEDS ORDERED: LORazepam 1 MG/2 ML VIAL IV PRN (19:52)
[2019-01-28] MEDS ORDERED: Nursing to Pharmacy Communication ONE (20:21)
[2019-01-28] MEDS: ACETAMINOPHEN 325 MG TAB PO PRN (20:22)
[2019-01-28 20:35] LABS: Albumin Level 3.4 gm/dl (3.4-5.0); BUN Creatinine Ratio 17.7 (10-20); Calcium 8.8 mg/dl (8.5-10.1); Creatinine Clr Calc Pharmacy 27.3 ml/min; Est GFR (African American) 23.1; Est GFR (Non-African American) 19.9; Magnesium 1.9 mg/dl (1.8-2.4); Potassium 4.5 mmol/L (3.5-5.1)
[2019-01-28 20:50] LABS: Albumin Globulin Ratio 0.8 (0.9-2); Bilirubin,Total 1.3 mg/dl (0.2-1); Globulin 4.4 gm/dl (2.5-4.0); Total Protein 7.8 gm/dl (6.4-8.2); Troponin I 0.084 ng/ml (0-0.045)
[2019-01-28] MEDS ORDERED: VANCOMYCIN CONSULT ACTIVE PRN (23:23)
[2019-01-28] MEDS ORDERED: VANCOMYCIN HCL 1,000 MG in SODIUM CHLORIDE 0.9% 250 ML IV SCH (23:25)
[2019-01-28] MEDS ORDERED: SODIUM CHLORIDE 0.9% 500 ML IV SCH (23:30)
[2019-01-29] MEDS ORDERED: VANCOMYCIN HCL 2,000 MG in SODIUM CHLORIDE 0.9% 500 ML IV SCH
[2019-01-29] MEDS ORDERED: ATIVAN IV ALCOHOL WITHDRAWL IV PRN (00:15)
[2019-01-29] MEDS ORDERED: chlordiazePOXIDE ALCOHOL WITHDRAWL 25MG PO STA (00:18)
[2019-01-29] MEDS: ACETAMINOPHEN 325 MG TAB PO PRN ×4 (00:19→20:17)
[2019-01-29] MEDS: chlordiazePOXIDE HCl 25 MG CAP PO SCH ×3 (00:44→12:38)
[2019-01-29] MEDS ORDERED: LORAZEPAM 2MG IV ACTIVE PROTOCOL IV PRN (00:45)
[2019-01-29] MEDS ORDERED: LORAZEPAM 3MG IV ACTIVE PROTOCOL IV PRN (00:45)
[2019-01-29] MEDS ORDERED: LORAZEPAM 1MG IV ACTIVE PROTOCOL IV PRN (00:45)
[2019-01-29] MEDS: SODIUM CHLORIDE 0.9% 1000ML 1,000 ML IV SCH ×3 (02:43→20:17)
[2019-01-29 04:27] LABS: Hematocrit (blood only) 31.9 % (42-52); Hemoglobin 10.9 g/dL (14.0-18.0); Mean Corpuscular Hgb Conc 34.2 g/dL (32-36); Mean Corpuscular Volume 98.8 fL (80-100); RDW Coefficient of Variation 14.3 % (11.5-14.5); RDW Standard Deviation 51.9 fL (36.4-46.3); Red Blood Count 3.23 M/uL (4.7-6.1); White Blood Count 15.02 K/uL (4.8-10.8)
[2019-01-29 04:40] LABS: INR 1.7 (0.9-1.1); Prothrombin Time 17.2 Seconds (9.0-12.0)
[2019-01-29 04:44] LABS: Creatinine Clr Calc Pharmacy 34.7 ml/min; Est GFR (African American) 30.6; Est GFR (Non-African American) 26.4
[2019-01-29 04:58] LABS: Basophils # (auto) 0.02 K/uL (0-0.2); Basophils % (auto) 0.1 %; Eosinophils # (auto) 0.01 K/uL (0-0.5); Eosinophils % (auto) 0.1 %; Immature Granulocytes # (auto) 0.07 K/uL (0.00-0.02); Immature Granulocytes % (auto) 0.5 %; Lymphocytes # (auto) 0.83 K/uL (1.2-3.4); Lymphocytes % (auto) 5.5 %; Mean Platelet Volume 11.3 fL (7.4-10.4); Monocytes # (auto) 0.55 K/uL (0.11-0.59); Monocytes % (auto) 3.7 %; Neutrophils # (auto) 13.54 K/uL (1.4-6.5); Neutrophils % (auto) 90.1 %; Platelet Count 96 K/uL (130-400); Platelet Estimate Decreased (Normal)
[2019-01-29] MEDS: PIPERACILLIN/TAZOBACTAM 3.375 GM in DEXTROSE 5% 100 ML IV SCH ×3 (06:09→21:55)
[2019-01-29] MEDS: LEVOTHYROXINE SODIUM 75 MCG TABLET PO SCH (06:09)
[2019-01-29] MEDS: HydrALAZINE TAB 50 MG TAB PO SCH ×3 (07:53→20:20)
[2019-01-29] MEDS: DULOXETINE HCL 20 MG CAP PO SCH (07:53)
[2019-01-29] MEDS: ATORVASTATIN 40 MG TAB PO SCH (07:54)
[2019-01-29] MEDS: CEROVITE ADV FORMULA TAB PO SCH (07:55)
[2019-01-29] MEDS: PREGABALIN 100 MG CAP PO SCH ×3 (07:55→20:17)
[2019-01-29] MEDS: PANTOprazole 40 MG TAB PO SCH (07:56)
[2019-01-29] MEDS: METOPROLOL SUCC 25MG EXT REL TAB PO SCH ×2 (07:56→20:20)
[2019-01-29] MEDS: CLOPIDOGREL BISULFATE 75 MG TAB PO SCH (07:56)
[2019-01-29] MEDS: ALLOPURINOL 100 MG TAB PO SCH (07:57)
[2019-01-29] MEDS: THIAMINE HCL 100 MG TAB PO SCH (07:57)
[2019-01-29] MEDS ORDERED: THIAMINE HCL 100 MG TAB PO SCH (09:00)
[2019-01-29] MEDS ORDERED: THIAMINE HCL 100 MG in SYRINGE 9 ML IV SCH (09:00)
[2019-01-29] MEDS ORDERED: ALBUTEROL 0.5% NEB SOLN 2.5 MG/0.5 ML VIAL NEB STA (14:17)
--- NOTE | 2019-01-29 14:42 | XRay Report ---
SINGLE VIEW CHEST CLINICAL HISTORY: Wheezing. FINDINGS: An AP, portable, upright chest radiograph is compared to study dated 01/28/2019. Correlation is made with chest CT dated 03/06/2014. The examination is degraded by portable technique and patient rotation. The heart is top normal for projection. The mediastinal contour is within normal limits. T here is elevation of the right hemidiaphragm and mild bibasilar atelectasis. No airspace consolidatio n or large pleural effusion is identified. No pneumothorax is seen. The bony thorax is grossly intact . IMPRESSION: No active disease in the chest. Electronically signed by: Zelalem Griffin M.D. 01/29/2019 2:40 PM
--- NOTE | 2019-01-29 15:02 | Hospitalist Progress Note ---
Date of Service January 29, 2019 Assessment & Plan (1) Metabolic encephalopathy: -baseline cognition is somewhat off and he has known memory issues; he sees a neuropsychologist -history of alcohol use -metabolic encephalopathy likely due to bacteremia; streptococcus bacteremia -have discontinued seizure precautions and neurology consult at this time, will monitor on telemetry (2) Hypomagnesemia: serum magnesium on admission was 1.7 and it has improved to 1.9 on 01/28/19 will continue to monitor and replete as needed (3) Demand ischemia: troponins peaked at 0.123 and likely related to demand ischemia echocardiogram does not show wall motion abnormalities no chest pain (4) Sepsis: streptococcus bacteremia -was started on Zosyn on 01/28/19 on admission day, received 1 dose of Vancomycin when admission blood culture was speciating as gram positive species -as of 01/29/19, will continue Zosyn alone for now, and will repeat blood cultures, will also request infectious disease consultation to follow and recommend antibiotics duration and de-escalation based cultures and clinical assessment (5) ALEXIS (acute kidney injury): admission creatinine of 3.45 on 01/28/19 and downtrended to 2.41 on 01/29/19 have reduced the IV fluids from 150 cc/hr to 80 cc hr continue to trend renal function (6) Weakness: may be partly due to bacteremia, treat infection will have PT/OT assessments Obesity BMI is 34.5 but patient has truncal obesity 01/29/19:patient noted to have expiratory wheezes when sitting up. wheezing did not improve with stat nebulizer treatment and Chest X ray was clear. patient's wheezing improved when laying flat on the bed. would appear that because of abdomen pannus when sitting up the patient has expiratory wheeze (7) ETOH abuse: PRN Ativan withdrawal protocol Has a h/o adverse reaction to gabapentin on Lyrica currently for neuropathy (8) Atrial fibrillation: Rate controlled with metoprolol INR therapeutic on admission 01/28/19 as 2.1 and coumadin was continued INR is 1.7 on 01/29/19, continue home dose 7.5 mg every Mon/Wed/Wednesday and 5 mg daily on other days (9) PAD (peripheral artery disease): chronic, has h/o peripheral bypass. Continues on Plavix. (10) Hypothyroidism: TSH 0.720 continue home dose Levothyroxine 75 mcg daily (11) GERD (gastroesophageal reflux disease): continue pantoprazole (12) DVT prophylaxis: on coumadin Subjective Patient noted to have expiratory wheezes when sitting up. wheezing did not improve with stat nebulizer treatment and Chest X ray was clear. patient's wheezing improved when laying flat on the bed. would appear that because of abdomen pannus when sitting up the patient has expiratory wheeze. Physical Exam Constitutional: + ill appearing Eyes: PERRL, conjunctivae normal, anicteric sclerae EOM intact bilaterally ENMT: external ear and nose normal, oropharynx normal Neck: trachea midline, no thyromegaly normal visual inspection Respiratory: normal respiratory effort Auscultation: lungs clear to au scultation bilaterally expiratory wheezes when sitting up but better when laying down Cardiovascular: Rate/Rhythm: regular rate and + irregularly irregular Gastrointestinal (Abdomen): Inspection/Auscultation: normal bowel sounds and + significant pannus Percussion/Palpation: abdomen soft Musculoskeletal: Head/Neck/Chest: normocephalic and head atraumatic Psychiatric: Orientation: alert and cooperative Results & Data Vital Signs (Past 12 Hours) Vital Signs Temp Pulse Pulse Resp BP Pulse Ox 01/29/19 14:36 89 20 97 01/29/19 10:55 36.2 C L 72 19 109/67 99 01/29/19 07:18 36.4 C L 80 19 136/76 94 01/29/19 06:46 37.1 C 01/29/19 04:38 38.6 C H 01/29/19 04:15 36.7 C 78 20 123/77 99 (1) Sepsis Sepsis type: sepsis due to unspecified organism Qualified Code(s): A41.9 - Sepsis, unspecified organism
[2019-01-29] MEDS: WARFARIN SOD 5 MG TAB PO SCH (15:42)
--- NOTE | 2019-01-29 15:48 | Infectious Disease Consult ---
Date of Consultation January 29, 2019 Assessment & Plan (1) Streptococcal bacteremia: 68-year-old male with streptococcal bacteremia with encephalopathy. No obvious source evident on exam, will need echocardiogram to further evaluate for possible endocarditis. Length of IV antibiotics yet to be determined. Will adjust once final culture results are available. Will follow. History of Present Illness Reason for Consultation: Streptococcal bacteremia, antibiotic duration Attending Physician: Gonzalo Huntley MD History of Present Illness History obtained from medical staff and medical records as patient unable to provide adequate history. 68-year-old male with history of alcohol abuse, hypertension, stage III chronic kidney disease, dyslipidemia, coronary artery disease, atrial fibrillation, who was in usual state of health until the day of admission when he was found by family members to be slumped over, poorly responsive, incontinent. Was brought to the hospital and admitted for further management. Head CT was negative for acute [employer] event. He is now been found to have positive blood cultures for streptococcal species. Currently receiving IV Zosyn. Abdominal CT unremarkable for source of infection. Allergies Allergy/AdvReac Type Severity Reaction Status Date / Time No Known Allergies Allergy Unverified 01/28/19 10:24 Home Medications Home Medications Medication Instructions Recorded Confirmed Type allopurinol 200 mg PO DAILY 01/28/19 01/28/19 History atorvastatin 80 mg PO DAILY 01/28/19 01/28/19 History clopidogrel 75 mg PO DAILY 01/28/19 01/28/19 History duloxetine 40 mg PO DAILY 01/28/19 01/28/19 History furosemide 20 mg PO BID 01/28/19 01/28/19 History hydralazine 50 mg PO TID 01/28/19 01/28/19 History levothyroxine 75 mcg PO DAILY 01/28/19 01/28/19 History lisinopril 20 mg PO DAILY 01/28/19 01/28/19 History metoprolol succinate 12.5 mg PO BID 01/28/19 01/28/19 History multivit with [id number] 1 cap PO DAILY 01/28/19 01/28/19 History [Men's Daily] omega [id number]-fish oil [Fish Oil] 1 cap PO DAILY 01/28/19 01/28/19 History oxycodone 5 mg PO DAILY PRN 01/28/19 01/28/19 History pantoprazole 40 mg PO DAILY 01/28/19 01/28/19 History pregabalin [Lyrica] 100 mg PO TID 01/28/19 01/28/19 History warfarin 5 mg PO SUTUTHSA@1600 01/28/19 01/28/19 History warfarin [Jantoven] 7.5 mg PO MOWEFR@1600 01/28/19 01/28/19 History Patient History Medical History CKD (chronic kidney disease) stage 3, GFR 30-59 ml/min (Chronic) Hypothyroidism (Chronic) GERD (gastroesophageal reflux disease) (Chronic) HTN (hypertension) (Chronic) Dyslipidemia (Chronic) CAD (coronary artery disease) (Chronic) History of cardioversion (Chronic) Hypertensive urgency (Acute) History of pulmonary embolism (Chronic) "2 episodes, chronic warfarin therapy" Atrial fibrillation (Chronic) History of ventricular tachycardia (Chronic) Anticoagulated on warfarin (Chronic) Diabetic neuropathy (Chronic) Sleep apnea (Chronic) History of bradycardia (Chronic) "carvedilol discontinued" Bleeding from wound (Acute) Abnormal gait ETOH abuse Obesity Surgical History S/P aneurysm repair (Chronic) "AAA" History of inguinal hernia repair (Chronic) S/P femoral-popliteal bypass surgery (Chronic) Family History Other Family history non-contributory Social History Preferred Language: [place] Communication Ability: Impaired Medical Records Tech Required: Yes Beliefs That Will Affect Care: None marital status: Current Living Situation: Spouse current occupational status: retired Other Information That Helps Us Care for You: No Feels Safe at Home: Yes Smoking Status: Never smoker Do You Dip or Chew Tobacco: No Second Hand Exposure: No Tobacco Cessation Education Requested by Patient: No Hx Alcohol Use: Yes Alcohol type: hard liquor Hx Substance Use: Yes substance use type: does not use Substance Use Type Other:: >20-30 years ago Review of Systems Review of Systems: Unobtainable due to cognitive status Physical Exam Constitutional: WD/WN, vitals as above comfortable; no acute distress Eyes: PERRL, conjunctivae normal, anicteric sclerae ENMT: external ear and nose normal, oropharynx normal Neck: trachea midline, no thyromegaly neck nontender Respiratory: normal respiratory effort, lungs clear to auscultation normal percussion; does not use accessory muscles Cardiovascular: Rate/Rhythm: + irregularly irregular Heart Sounds: normal S1 and normal S2; no gallop, no murmur and no cardiac rub Vessels: normal peripheral pulses; no JVD Gastrointestinal (Abdomen): normal bowel sounds, soft, nontender, no he patosplenomegaly Musculoskeletal: no cyanosis or clubbing, extremities motor strength 5/5 Spine: thoracic spine normal to inspection and lumbar spine normal to inspection; no cervical spinal tenderness Skin: no rashes, warm and dry normal turgor; no lesions Neurologic: moves all extremities; no focal motor deficits Psychiatric: Orientation: alert and oriented to person Lymphatic: no cervical or axillary lymphadenopathy no inguinal lymphadenopathy Results & Data Vital Signs (Past 12 Hours) Vital Signs Temp Pulse Pulse Resp BP Pulse Ox 01/29/19 14:36 89 20 97 01/29/19 10:55 36.2 C L 72 19 109/67 99 01/29/19 07:18 36.4 C L 80 19 136/76 94 01/29/19 06:46 37.1 C 01/29/19 04:38 38.6 C H 01/29/19 04:15 36.7 C 78 20 123/77 99 Laboratory Results Short CBC 01/29/19 Range/Units 04:15 WBC 15.02 H (4.8-10.8) K/uL Hgb 10.9 L (14.0-18.0) g/dL Hct 31.9 L (42-52) % Plt Count 96 L (130-400) K/uL BMP 01/28/19 01/29/19 19:59 04:15 Sodium 135 L Potassium 4.5 Chloride 105 Carbon Dioxide 23 BUN 54 H Creatinine 3.04 H D 2.41 H D Glucose 123 H Calcium 8.8 Cardiac Enzymes 01/28/19 01/29/19 Range/Units 19:59 04:15 Total Creatine Kinase 816 H (39-308) U/L Troponin I 0.084 H* (0-0.045) ng/ml Liver Function 01/28/19 Range/Units 19:59 Total Bilirubin 1.3 H (0.2-1) mg/dl AST 71 H (15-37) U/L ALT 46 (12-78) U/L Alkaline Phosphatase 42 L (45-117) U/L Albumin 3.4 (3.4-5.0) gm/dl Diagnostic Findings Microbiology 01/28/19 09:33 Blood Blood Culture - Preliminary Streptococcus species 01/28/19 09:15 Blood Blood Culture - Preliminary Streptococcus species CT OF THE HEAD WITHOUT CONTRAST CLINICAL HISTORY: Stroke evaluation COMPARISON STUDY: Head CT February 26, 2016. CT DOSE: 823.12 mGy.cm TECHNIQUE: Helical axial images of the head were obtained without IV contrast. Automated exposure control was utilized for the study. A dose lowering technique was utilized adhering to the principles of ALARA. FINDINGS: No acute intracranial hemorrhage, midline shift or mass effect is present. Ventricular system is stable. The basilar cisterns are patent. There are no extra-axial collections. There are no findings to suggest acute dural sinus thrombosis or acute territorial infarct. There are no significant calvarial abnormalities. IMPRESSION: No acute intracranial findings. Electronically signed by: Spencer Rocha M.D. 01/28/2019 9:09 AM
[2019-01-29] MEDS ORDERED: IBUPROFEN 600 MG TAB PO STA (18:16)
[2019-01-29] MEDS ORDERED: CLINDAMYCIN 900 MG in DEXTROSE 5% 50 ML IV SCH (19:00)
[2019-01-29] MEDS ORDERED: ALBUTEROL 0.5% NEB SOLN 2.5 MG/0.5 ML VIAL NEB SCH (20:00)
[2019-01-29] MEDS: CLINDAMYCIN 900 MG in DEXTROSE 5% 100 ML IV SCH (20:08)
[2019-01-30] MEDS: CLINDAMYCIN 900 MG in DEXTROSE 5% 100 ML IV SCH ×2 (03:26→12:10)
[2019-01-30] MEDS: LEVOTHYROXINE SODIUM 75 MCG TABLET PO SCH (05:53)
[2019-01-30] MEDS: PIPERACILLIN/TAZOBACTAM 3.375 GM in DEXTROSE 5% 100 ML IV SCH ×2 (05:55→14:18)
[2019-01-30 07:51] LABS: INR 1.7 (0.9-1.1)
[2019-01-30 08:15] LABS: Albumin Level 2.5 gm/dl (3.4-5.0); BUN Creatinine Ratio 15.5 (10-20); Calcium 7.9 mg/dl (8.5-10.1); Est GFR (African American) 39.3; Est GFR (Non-African American) 33.9
[2019-01-30] MEDS: ATORVASTATIN 40 MG TAB PO SCH (08:25)
[2019-01-30] MEDS: ALLOPURINOL 100 MG TAB PO SCH (08:25)
[2019-01-30 08:26] LABS: Albumin Globulin Ratio 0.7 (0.9-2); Bilirubin,Total 0.7 mg/dl (0.2-1); Globulin 3.8 gm/dl (2.5-4.0); Total Protein 6.3 gm/dl (6.4-8.2)
[2019-01-30] MEDS: THIAMINE HCL 100 MG TAB PO SCH (08:26)
[2019-01-30] MEDS: CLOPIDOGREL BISULFATE 75 MG TAB PO SCH (08:26)
[2019-01-30] MEDS: HydrALAZINE TAB 50 MG TAB PO SCH ×3 (08:26→19:59)
[2019-01-30] MEDS: DULOXETINE HCL 20 MG CAP PO SCH (08:26)
[2019-01-30] MEDS: PANTOprazole 40 MG TAB PO SCH (08:27)
[2019-01-30] MEDS: CEROVITE ADV FORMULA TAB PO SCH (08:27)
[2019-01-30] MEDS: METOPROLOL SUCC 25MG EXT REL TAB PO SCH ×2 (08:27→20:00)
[2019-01-30] MEDS: PREGABALIN 100 MG CAP PO SCH ×3 (08:33→20:06)
[2019-01-30] MEDS: SODIUM CHLORIDE 0.9% 1000ML 1,000 ML IV SCH ×2 (08:34→20:06)
--- NOTE | 2019-01-30 10:03 | Hospitalist Progress Note ---
Date of Service January 30, 2019 Assessment & Plan (1) Metabolic encephalopathy: -baseline cognition is somewhat off and he has known memory issues; he sees a neuropsychologist -history of alcohol use -metabolic encephalopathy likely due to bacteremia; streptococcus bacteremia -have discontinued seizure precautions and neurology consult at this time as of 01/29/19 -has been continued to be monitored on telemetry (2) Hypomagnesemia: serum magnesium on admission was 1.7 and it has improved to 1.9 on 01/28/19 serum magnesium is 2 on 01/30/19 and appears that hypomagnesemia has resolved (3) Demand ischemia: troponins peaked at 0.123 and likely related to demand ischemia echocardiogram does not show wall motion abnormalities no chest pain (4) Sepsis: streptococcus bacteremia -was started on Zosyn on 01/28/19 on admission day, received 1 dose of Vancomycin when admission blood culture was speciating as gram positive species -as of 01/29/19, was continued on Zosyn and because patient continued to have high fevers IV clindamycin was added -follow up blood cultures from 01/29/19 and 01/30/19 -will continue IV Zosyn and IV Clindamycin at this time unless otherwise recomme nded by infectious disease consultation (5) ALEXIS (acute kidney injury): admission creatinine of 3.45 on 01/28/19 and downtrended to 2.41 on 01/29/19 have reduced the IV fluids from 150 cc/hr to 80 cc hr on 01/29/19 creatinine is 1.96 on 01/30/19; continue IV fluids 80 cc/hr for now (6) Weakness: may be partly due to bacteremia, treat infection PT/OT assessments Obesity BMI is 34.5 but patient has truncal obesity 01/29/19:patient noted to have expiratory wheezes when sitting up. wheezing did not improve with stat nebulizer treatment and Chest X ray was clear. patient's wheezing improved when laying flat on the bed. would appear that because of abdomen pannus when sitting up the patient has expiratory wheeze (7) ETOH abuse: PRN Ativan withdrawal protocol Has a h/o adverse reaction to gabapentin on Lyrica currently for neuropathy (8) Atrial fibrillation: Rate controlled with metoprolol INR therapeutic on admission 01/28/19 as 2.1 and coumadin was continued INR is 1.7 on 01/29/19 and 01/30/19, continue home dose 7.5 mg every Wed/Wed/Wednesday and 5 mg daily on other days for now (9) PAD (peripheral artery disease): chronic, has h/o peripheral bypass. Continues on Plavix. (10) Hypothyroidism: TSH 0.720 continue home dose Levothyroxine 75 mcg daily (11) GERD (gastroesophageal reflux disease): continue pantoprazole (12) DVT prophylaxis: on coumadin Subjective Patient seen and examined while sitting in the bed. He is without distress. and appears much more comfortable in appearance compared to yesterday. patient denies chest pain or shortness of breath or abdominal pain. he is reading the newspaper and notes that the antibiotic bag is running low so his cognition appears better today. Afebrile today so far compared to yesterday Physical Exam Constitutional: WD/WN, vitals as above Eyes: PERRL, conjunctivae normal, anicteric sclerae EOM intact bilaterally ENMT: external ear and nose normal, oropharynx normal Neck: trachea midline, no thyromegaly normal visual inspection Respiratory: normal respiratory effort Auscultation: lungs clear to auscultation bilaterally Cardiovascular: Rate/Rhythm: + bradycardic and + irregularly irregular Gastrointestinal (Abdomen): Inspection/Auscultation: normal bowel sounds and + significant pannus Percussion/Palpation: abdomen soft Musculoskeletal: Head/Neck/Chest: normocephalic and head atraumatic Psychiatric: Orientation: alert and cooperative Genitourinary: condom cath Results & Data Vital Signs (Past 12 Hours) Vital Signs Temp Pulse Pulse Pulse Resp BP Pulse Ox 01/30/19 08:06 36.8 C 64 19 104/65 98 01/30/19 03:45 36.3 C L 62 20 127/68 98 01/30/19 00:14 36.7 C 01/29/19 23:54 79 01/29/19 23:06 36.6 C 72 18 103/64 98 (1) Sepsis Sepsis type: sepsis due to unspecified organism Qualified Code(s): A41.9 - Sepsis, unspecified organism
--- NOTE | 2019-01-30 15:29 | Infectious Disease Progress Nt ---
Date of Service January 30, 2019 Assessment & Plan (1) Streptococcal bacteremia: 68-year-old male with group C streptococcal bacteremia with encephalopathy. No obvious source evident on exam, will need echocardiogram to further evaluate for possible endocarditis. Patient changed to IV ceftriaxone. Will follow. Subjective Patient seen in follow-up for streptococcal bacteremia. Appears comfortable, in no distress, offers no specific complaints. Remains afebrile. Blood cultures identified as group C streptococcus. Review of Systems Review of Systems: All systems reviewed & are unremarkable except as noted in HPI & below Physical Exam Constitutional: WD/WN, vitals as above comfortable; no acute distress Eyes: PERRL, conjunctivae normal, anicteric sclerae ENMT: external ear and nose normal, oropharynx normal Neck: trachea midline, no thyromegaly neck nontender Respiratory: normal respiratory effort, lungs clear to auscultation normal percussion; does not use accessory muscles Cardiovascular: Rate/Rhythm: + irregularly irregular Heart Sounds: normal S1 and normal S2; no gallop, no murmur and no cardiac rub Vessels: normal peripheral pulses; no JVD Gastrointestinal (Abdomen): normal bowel sounds, soft, nontender, no hepatosplenomegaly Musculoskeletal: no cyanosis or clubbing, extremities motor strength 5/5 Spine: thoracic spine normal to inspection and lumbar spine normal to inspection; no cervical spinal tenderness Skin: no rashes, warm and dry normal turgor; no lesions Neurologic: moves all extremities; no focal motor deficits Psychiatric: Orientation: alert and oriented to person Lymphatic: no cervical or axillary lymphadenopathy no inguinal lymphadenopathy Results & Data Vital Signs (Past 12 Hours) Vital Signs Temp Pulse Pulse Pulse Resp BP Pulse Ox 01/30/19 15:24 36.7 C 61 18 118/74 99 01/30/19 14:20 109/72 01/30/19 11:55 36.7 C 73 18 94/58 L 96 01/30/19 08:06 36.8 C 64 19 104/65 98 01/30/19 08:00 61 01/30/19 03:45 36.3 C L 62 20 127/68 98 Laboratory Results [facility] 01/30/19 07:19 Sodium 141 Potassium 4.0 Chloride 109 H Carbon Dioxide 23 BUN 30 H Creatinine 1.96 H D Glucose 104 H Calcium 7.9 L Liver Function 01/30/19 Range/Units 07:19 Total Bilirubin 0.7 D (0.2-1) mg/dl AST 94 H (15-37) U/L ALT 64 (12-78) U/L Alkaline Phosphatase 41 L (45-117) U/L Albumin 2.5 L (3.4-5.0) gm/dl Diagnostic Findings Microbiology 01/28/19 09:33 Blood Blood Culture - Final Group C Beta Strep 01/28/19 09:15 Blood Blood Culture - Final Group C Beta Strep
[2019-01-30] MEDS ORDERED: WARFARIN SOD 7.5 MG TAB PO SCH (16:00)
[2019-01-30] MEDS: cefTRIAXone SODIUM 2,000 MG in DEXTROSE 5% 50 ML IV SCH (16:47)
[2019-01-30] MEDS: OXYCODONE HCL IR 5 MG TAB (IMMEDIATE RELEASE) PO PRN (19:38)
[2019-01-30] MEDS: ALBUTEROL 0.5% NEB SOLN 2.5 MG/0.5 ML VIAL NEB PRN (19:44)
[2019-01-30] MEDS: ACETAMINOPHEN 325 MG TAB PO PRN (22:19)
[2019-01-30] MEDS: methylPREDNISolone 40 MG in SYRINGE 0 ML IV SCH (23:57)
[2019-01-31] MEDS ORDERED: IBUPROFEN 200 MG TAB PO STA (01:52)
[2019-01-31] MEDS ORDERED: METOPROLOL TARTRATE 1 MG/ML VIAL IV PRN (01:53)
[2019-01-31] MEDS: LEVOTHYROXINE SODIUM 75 MCG TABLET PO SCH (06:37)
[2019-01-31] MEDS: methylPREDNISolone 40 MG in SYRINGE 0 ML IV SCH (06:37)
[2019-01-31 07:41] LABS: Hematocrit (blood only) 32.1 % (42-52); Hemoglobin 10.8 g/dL (14.0-18.0); Mean Corpuscular Hgb Conc 33.6 g/dL (32-36); Mean Corpuscular Volume 98.5 fL (80-100); Mean Platelet Volume 12.1 fL (7.4-10.4); Platelet Count 96 K/uL (130-400); RDW Coefficient of Variation 14.7 % (11.5-14.5); RDW Standard Deviation 52.6 fL (36.4-46.3); Red Blood Count 3.26 M/uL (4.7-6.1); White Blood Count 5.03 K/uL (4.8-10.8)
[2019-01-31 07:46] LABS: INR 2.9 (0.9-1.1); Prothrombin Time 27.2 Seconds (9.0-12.0)
[2019-01-31 08:09] LABS: Basophils # (auto) 0.01 K/uL (0-0.2); Basophils % (auto) 0.2 %; Immature Granulocytes # (auto) 0.01 K/uL (0.00-0.02); Immature Granulocytes % (auto) 0.2 %; Lymphocytes # (auto) 0.78 K/uL (1.2-3.4); Lymphocytes % (auto) 15.5 %; Monocytes # (auto) 0.21 K/uL (0.11-0.59); Monocytes % (auto) 4.2 %; Neutrophils # (auto) 4.02 K/uL (1.4-6.5); Neutrophils % (auto) 79.9 %
[2019-01-31 08:19] LABS: Albumin Globulin Ratio 0.7 (0.9-2); Albumin Level 2.8 gm/dl (3.4-5.0); BUN Creatinine Ratio 12.1 (10-20); Bilirubin,Total 0.5 mg/dl (0.2-1); Creatinine Clr Calc Pharmacy 52.8 ml/min; Est GFR (African American) 50.2; Est GFR (Non-African American) 43.3; Globulin 4.2 gm/dl (2.5-4.0); Potassium 4.7 mmol/L (3.5-5.1)
[2019-01-31] MEDS: cefTRIAXone SODIUM 2,000 MG in DEXTROSE 5% 50 ML IV SCH (08:45)
[2019-01-31] MEDS: ALLOPURINOL 100 MG TAB PO SCH (08:45)
[2019-01-31] MEDS: PREGABALIN 100 MG CAP PO SCH ×3 (08:45→21:00)
[2019-01-31] MEDS: METOPROLOL SUCC 25MG EXT REL TAB PO SCH ×2 (08:46→20:57)
[2019-01-31] MEDS: ATORVASTATIN 40 MG TAB PO SCH (08:47)
[2019-01-31] MEDS: THIAMINE HCL 100 MG TAB PO SCH (08:47)
[2019-01-31] MEDS: CEROVITE ADV FORMULA TAB PO SCH (08:47)
[2019-01-31] MEDS: CLOPIDOGREL BISULFATE 75 MG TAB PO SCH (08:47)
[2019-01-31] MEDS: PANTOprazole 40 MG TAB PO SCH (08:47)
[2019-01-31] MEDS: SODIUM CHLORIDE 0.9% 1000ML 1,000 ML IV SCH (08:48)
[2019-01-31] MEDS: HydrALAZINE TAB 50 MG TAB PO SCH ×3 (08:48→20:58)
[2019-01-31] MEDS: DULOXETINE HCL 20 MG CAP PO SCH (08:48)
[2019-01-31] MEDS ORDERED: ALBUTEROL 0.5% NEB SOLN 2.5 MG/0.5 ML VIAL NEB STA (14:08)
--- NOTE | 2019-01-31 14:10 | Hospitalist Progress Note ---
Date of Service January 31, 2019 Assessment & Plan (1) Metabolic encephalopathy: -baseline cognition is somewhat off and he has known memory issues; he sees a neuropsychologist -history of alcohol use -metabolic encephalopathy likely due to bacteremia; streptococcus bacteremia -have discontinued seizure precautions and neurology consult at this time as of 01/29/19 -patient has been mentating at baseline from 01/30/19 (2) Hypomagnesemia: serum magnesium on admission was 1.7 and it has improved to 1.9 on 01/28/19 serum magnesium is 2 on 01/30/19 and appears that hypomagnesemia has resolved (3) Demand ischemia: troponins peaked at 0.123 and likely related to demand ischemia echocardiogram does not show wall motion abnormalities no chest pain (4) Sepsis: streptococcus bacteremia -was started on Zosyn on 01/28/19 on admission day, received 1 dose of Vancomycin when admission blood culture was speciating as gram positive species -as of 01/29/19, was continued on Zosyn and because patient continued to have high fevers IV clindamycin was added -blood cultures no growth to date from 01/29/19 -patient was switched from Zosyn and Clindamycin on 01/30/19 by Infectious disease consult switched to ceftriaxone 2 grams daily because the 01/28/19 blood cultures finalized as pansensitive Group C Beta Strep -patient did spike fevers on the night time of 01/30/19 -But infectious disease Dr. Sloan preliminary suggests that a total of 2 weeks of antibiotics will likely clear the infection and stop the fevers (5) ALEIXS (acute kidney injury): admission creatinine of 3.45 on 01/28/19 and downtrended to 2.41 on 01/29/19 have reduced the IV fluids from 150 cc/hr to 80 cc hr on 01/29/19 creatinine is 1.96 on 01/30/19 and continued IV fluids 80 cc/hr creatinine is 1.6 on 01/31/19 and with the near resolution of the acute kidney injury, have stopped the IV fluids and encourage oral hydration (6) Weakness: may be partly due to bacteremia, treat infection PT/OT assessments Obesity BMI is 34.5 but patient has truncal obesity 01/29/19:patient noted to have expiratory wheezes when sitting up. wheezing did not improve with stat nebulizer treatment and Chest X ray was clear. patient's wheezing improved when laying flat on the bed. would appear that because of abdomen pannus when sitting up the patient has expiratory wheeze 01/30/19: patient noted to have wheezing despite changes in position and will start scheduled albuterol for now (7) ETOH abuse: PRN Ativan withdrawal protocol Has a h/o adverse reaction to gabapentin on Lyrica currently for neuropathy (8) Atrial fibrillation: Rate controlled with metoprolol INR therapeutic on admission 01/28/19 as 2.1 and coumadin was continued INR is 1.7 on 01/29/19 and 01/30/19, continue home dose 7.5 mg every Wed/Wed/Wednesday and 5 mg daily on other days for now INR is noted to be 2.9 on 01/31/19, will hold coumadin, and will consider midline placement if INR is not supratherapeutic by 02/01/19 (9) PAD (peripheral artery disease): chronic, has h/o peripheral bypass. Continues on Plavix. (10) Hypothyroidism: TSH 0.720 continue home dose Levothyroxine 75 mcg daily (11) GERD (gastroesophageal reflux disease): continue pantoprazole (12) DVT prophylaxis: on coumadin Subjective patient was switched from Zosyn and Clindamycin on 01/30/19 by Infectious disease consult switched to ceftriaxone 2 grams daily because the 01/28/19 blood cultures finalized as pansensitive Group C Beta Strep patient did spike fevers on the night time of 01/30/[address] Sloan preliminary suggests that a total of 2 weeks of antibiotics will likely clear the infection and stop the fevers Have discussed with patient's and patients about consent for midline or PICC line INR is noted to be 2.9 on 01/31/19, will hold coumadin, and will consider midline placement if INR is not supratherapeutic by 02/01/19 Patient mentating well compared to beginning of amdission. some wheezes despite changes in body position. denies shortness of breath. is breathing on room air. no vomiting. no headache Physical Exam Constitutional: WD/WN, vitals as above Eyes: PERRL, conjunctivae normal, anicteric sclerae EOM intact bilaterally ENMT: external ear and nose normal, oropharynx normal Neck: trachea midline, no thyromegaly normal visual inspection Respiratory: normal respiratory effort Auscultation: lungs clear to auscultation bilaterally Cardiovascular: Rate/Rhythm: regular rhythm and + irregularly irregular Gastrointestinal (Abdomen): Inspection/Auscultation: normal bowel sounds and + significant pannus Percussion/Palpation: abdomen soft Musculoskeletal: Head/Neck/Chest: normocephalic and head atraumatic Psychiatric: Orientation: alert and cooperative Results & Data Vital Signs (Past 12 Hours) Vital Signs Temp Pulse Pulse Pulse Resp BP BP 01/31/19 11:24 36.7 C 73 18 131/87 01/31/19 07:35 70 01/31/19 07:07 36.4 C L 75 18 01/31/19 05:39 36.5 C 01/31/19 02:15 105 H 170/80 H BP Pulse Ox 01/31/19 11:24 96 01/31/19 07:35 01/31/19 07:07 144/97 H 95 01/31/19 05:39 139/96 01/31/19 02:15 (1) Sepsis Sepsis type: sepsis due to unspecified organism Qualified Code(s): A41.9 - Sepsis, unspecified organism
--- NOTE | 2019-01-31 15:21 | Infectious Disease Progress Nt ---
Date of Service January 31, 2019 Assessment & Plan (1) Streptococcal bacteremia: 68-year-old male with group C streptococcal bacteremia with encephalopathy. No obvious source evident on exam. Echocardiogram unrevealing. Often will find B or C strep and blood without identifiable focus. Would recommend 2 weeks total of IV treatment including days of Zosyn, to continue ceftriaxone to allow easier outpatient treatment. Discussed with hospitalist. Subjective Patient seen in follow-up for streptococcal bacteremia. Appears comfortable, in no distress, offers no specific complaints. Remains afebrile. Blood cultures identified as group C streptococcus. Transthoracic echocardiogram without obvious significant valvular disease or vegetation. Follow-up blood cultures remain negative. Review of Systems Review of Systems: All systems reviewed & are unremarkable except as noted in HPI & below Physical Exam Constitutional: WD/WN, vitals as above comfortable; no acute distress Eyes: PERRL, conjunctivae normal, anicteric sclerae ENMT: external ear and nose normal, oropharynx normal Neck: trachea midline, no thyromegaly neck nontender Respiratory: normal respiratory effort, lungs clear to auscultation normal percussion; does not use accessory muscles Cardiovascular: Rate/Rhythm: + irregularly irregular Heart Sounds: normal S1 and normal S2; no gallop, no murmur and no cardiac rub Vessels: normal peripheral pulses; no JVD Gastrointestinal (Abdomen): normal bowel sounds, soft, nontender, no hepatosplenomegaly Musculoskeletal: no cyanosis or clubbing, extremities motor strength 5/5 Spine: thoracic spine normal to inspection and lumbar spine normal to inspection; no cervical spinal tenderness Skin: no rashes, warm and dry normal turgor; no lesions Neurologic: moves all extremities; no focal motor deficits Psychiatric: Orientation: alert and oriented to person Lymphatic: no cervical or axillary lymphadenopathy no inguinal lymphadenopathy Results & Data Vital Signs (Past 12 Hours) Vital Signs Temp Pulse Pulse Pulse Resp BP BP 01/31/19 15:10 36.4 C L 71 19 159/89 H 01/31/19 14:37 68 16 01/31/19 11:24 36.7 C 73 18 131/87 01/31/19 07:35 70 01/31/19 07:07 36.4 C L 75 18 144/97 H 01/31/19 05:39 36.5 C 139/96 Pulse Ox 01/31/19 15:10 96 01/31/19 14:37 97 01/31/19 11:24 96 01/31/19 07:35 01/31/19 07:07 95 01/31/19 05:39 Laboratory Results Short CBC 01/31/19 Range/Units 07:11 WBC 5.03 (4.8-10.8) K/uL Hgb 10.8 L (14.0-18.0) g/dL Hct 32.1 L (42-52) % Plt Count 96 L (130-400) K/uL BMP 01/31/19 07:11 Sodium 138 Potassium 4.7 D Chloride 110 H Carbon Dioxide 20 L BUN 19 H Creatinine 1.60 H D Glucose 178 H Calcium 8.0 L Liver Function 01/31/19 Range/Units 07:11 Total Bilirubin 0.5 (0.2-1) mg/dl AST 180 H (15-37) U/L ALT 119 H (12-78) U/L Alkaline Phosphatase 73 (45-117) U/L Albumin 2.8 L (3.4-5.0) gm/dl Diagnostic Findings Microbiology 01/29/19 18:57 Blood Blood Culture - Preliminary No growth to date. 01/29/19 18:55 Blood Blood Culture - Preliminary No growth to date. 01/28/19 09:33 Blood Blood Culture - Final Group C Beta Strep 01/28/19 09:15 Blood Blood Culture - Final Group C Beta Strep
[2019-01-31] MEDS: ALBUTEROL 0.5% NEB SOLN 2.5 MG/0.5 ML VIAL NEB SCH (18:58)
[2019-01-31] MEDS: OXYCODONE HCL IR 5 MG TAB (IMMEDIATE RELEASE) PO PRN (21:01)
[2019-02-01] MEDS ORDERED: chlordiazePOXIDE HCl 5 MG CAP PO SCH (00:30)
[2019-02-01] MEDS: ALBUTEROL 0.5% NEB SOLN 2.5 MG/0.5 ML VIAL NEB SCH ×2 (01:34→07:03)
[2019-02-01] MEDS: LEVOTHYROXINE SODIUM 75 MCG TABLET PO SCH (05:54)
[2019-02-01] MEDS: HydrALAZINE TAB 50 MG TAB PO SCH ×3 (07:18→20:51)
[2019-02-01 07:33] LABS: Prothrombin Time 28.2 Seconds (9.0-12.0)
[2019-02-01 07:48] LABS: Hematocrit (blood only) 31.8 % (42-52); Hemoglobin 10.7 g/dL (14.0-18.0); Mean Corpuscular Hgb Conc 33.6 g/dL (32-36); Mean Corpuscular Volume 97.8 fL (80-100); Mean Platelet Volume 12.1 fL (7.4-10.4); Platelet Count 105 K/uL (130-400); RDW Coefficient of Variation 14.8 % (11.5-14.5); RDW Standard Deviation 53.1 fL (36.4-46.3); Red Blood Count 3.25 M/uL (4.7-6.1); White Blood Count 7.48 K/uL (4.8-10.8)
[2019-02-01 08:05] LABS: Albumin Level 2.8 gm/dl (3.4-5.0); BUN Creatinine Ratio 14.3 (10-20); Calcium 8.7 mg/dl (8.5-10.1); Creatinine Clr Calc Pharmacy 52.9 ml/min; Est GFR (African American) 50.6; Est GFR (Non-African American) 43.6; Potassium 4.3 mmol/L (3.5-5.1)
[2019-02-01 08:08] LABS: Albumin Globulin Ratio 0.7 (0.9-2); Bilirubin,Total 0.4 mg/dl (0.2-1); Globulin 4.2 gm/dl (2.5-4.0)
[2019-02-01] MEDS: PREGABALIN 100 MG CAP PO SCH ×3 (08:21→20:51)
[2019-02-01] MEDS: PANTOprazole 40 MG TAB PO SCH (08:34)
[2019-02-01] MEDS: OXYCODONE HCL IR 5 MG TAB (IMMEDIATE RELEASE) PO PRN ×2 (08:34→20:51)
[2019-02-01] MEDS: CEROVITE ADV FORMULA TAB PO SCH (08:34)
[2019-02-01] MEDS: ALLOPURINOL 100 MG TAB PO SCH (08:35)
[2019-02-01] MEDS: ATORVASTATIN 40 MG TAB PO SCH (08:35)
[2019-02-01] MEDS: CLOPIDOGREL BISULFATE 75 MG TAB PO SCH (08:35)
[2019-02-01] MEDS: METOPROLOL SUCC 25MG EXT REL TAB PO SCH ×2 (08:36→20:52)
[2019-02-01] MEDS: THIAMINE HCL 100 MG TAB PO SCH (08:36)
[2019-02-01 08:37] LABS: Basophils # (auto) 0.01 K/uL (0-0.2); Basophils % (auto) 0.1 %; Eosinophils # (auto) 0.03 K/uL (0-0.5); Eosinophils % (auto) 0.4 %; Immature Granulocytes # (auto) 0.02 K/uL (0.00-0.02); Immature Granulocytes % (auto) 0.3 %; Lymphocytes # (auto) 1.32 K/uL (1.2-3.4); Lymphocytes % (auto) 17.6 %; Monocytes # (auto) 0.67 K/uL (0.11-0.59); Neutrophils # (auto) 5.43 K/uL (1.4-6.5); Neutrophils % (auto) 72.6 %
[2019-02-01] MEDS: DULOXETINE HCL 20 MG CAP PO SCH (08:37)
[2019-02-01] MEDS: cefTRIAXone SODIUM 2,000 MG in DEXTROSE 5% 50 ML IV SCH (08:41)
--- NOTE | 2019-02-01 11:32 | Hospitalist Progress Note ---
Date of Service February 01, 2019 Assessment & Plan (1) Metabolic encephalopathy: -baseline cognition is somewhat off and he has known memory issues; he sees a neuropsychologist -history of alcohol use -metabolic encephalopathy likely due to Streptococcus bacteremia Mental status back to baseline (2) Hypomagnesemia: Resolved (3) Sepsis: streptococcus bacteremia Blood cultures positive for group C beta Streptococcus ID consulted Initially on Zosyn, changed to ceftriaxone IV this is day #[address] Sloan recommends total of 14 days of antibiotics Midline ordered Plan to discharge patient home at home with services to complete IV antibiotics at home With PCP and infectious disease clinic in 1 week (4) Demand ischemia: troponins peaked at 0.123 and likely related to demand ischemia echocardiogram does not show wall motion abnormalities no chest pain (5) ALEXIS (acute kidney injury): Patient given IV fluids Creatinine back to baseline 1.6 DC IV fluids Positive wheezing, likely secondary to volume overload Resume Lasix 20 mg twice a day Chest x-ray repeat no acute process PRN albuterol (6) Weakness: may be partly due to bacteremia, treat infection PT/OT evaluation, awaiting repeat eval Obesity BMI is 34.5 but patient has truncal obesity (7) ETOH abuse: PRN Ativan withdrawal protocol Has a h/o adverse reaction to gabapentin on Lyrica currently for neuropathy no signs of overt withdrawal (8) Atrial fibrillation: Rate controlled with metoprolol inr 3.0 hold coumadin monitor INR (9) PAD (peripheral artery disease): chronic, has h/o peripheral bypass. Continues on Plavix. (10) Hypothyroidism: TSH 0.720 continue home dose Levothyroxine 75 mcg daily (11) GERD (gastroesophageal reflux disease): continue pantoprazole (12) DVT prophylaxis: on coumadin Disposition d/c to SNF when accepted ff up with PCP, ID Clinic Subjective ff up for strep bacteremia resting in bed, comfortable states he feels better overall still has occasional mild wheeze with mild dyspnea denies other symptoms Review of Systems Review of Systems: All systems reviewed & are unremarkable except as noted in HPI & below Physical Exam Physical Exam: General- oriented x 3, not in distress, speaks in sentences with no effort or accessory muscle use Head- atraumatic Eyes- PERRL, EOMI, anicteric ENT- oropharynx clear Neck- supple, no JVD, no adenopathy, no thyromegaly; carotids +2/2, no bruits appreciated Lungs- faint wheeze bilaterally, no rales Heart- normal rate, regular rhythm; no murmur, no gallop, no rub appreciated Abdomen- normal bowel sounds, nondistended, soft, nontender, no masses or hepatosplenomegaly Extremities- no pretibial edema, no calf tenderness; peripheral pulses intact Neuro- alert, oriented x 3; CN 2-12 grossly intact; motor 5/5 bilaterally;sensation 100% on all extremities; no other gross focal neurologic deficits Skin- warm & dry Results & Data Vital Signs (Past 12 Hours) Vital Signs Temp Pulse Pulse Resp BP BP Pulse Ox 02/01/19 07:25 71 02/01/19 07:04 66 18 96 02/01/19 06:58 36.4 C L 68 18 157/101 H 165/109 H 97 02/01/19 04:00 36.4 C L 57 L 18 148/88 H 96 Laboratory Results Laboratory Results - last 24 hr 01/28/19 02/01/19 02/01/19 13:55 06:54 06:54 WBC 7.48 RBC 3.25 L Hgb 10.7 L Hct 31.8 L MCV 97.8 MCH 32.9 MCHC 33.6 RDW Std Deviation 53.1 H RDW Coeff of Pauline 14.8 H Plt Count 105 L MPV 12.1 H Immature Gran % (Auto) 0.3 Neut % (Auto) 72.6 Lymph % (Auto) 17.6 [place] % (Auto) 9.0 Eos % (Auto) 0.4 Baso % (Auto) 0.1 Immature Gran # (Auto) 0.02 Neut # (Auto) 5.43 Lymph # (Auto) 1.32 [place] # (Auto) 0.67 H Eos # (Auto) 0.03 Baso # (Auto) 0.01 PT 28.2 H INR 3.0 H Sodium Potassium Chloride Carbon Dioxide Anion Gap BUN Creatinine Est Cr Clr Drug Dosing Est GFR ( Amer) Est GFR (Non-Af Amer) BUN/Creatinine Ratio Glucose POC Glucose Calcium Total Bilirubin AST ALT Alkaline Phosphatase Total Protein Albumin Globulin Albumin/Globulin Ratio U Codeine Confrm GC/MS SEE NOTE Ur Morphine (GC/MS) 158 A Ur Hydrocodone (GC/MS) NEGATIVE Ur Norhydrocodone NEGATIVE Ur Noroxycodone 257 A Urine Oxycodone (GC/MS) 169 A U Oxymorphone GC/MS 146 A Ur Hydromorphone (GC/MS) NEGATIVE 02/01/19 02/01/19 02/01/19 06:54 07:06 11:22 WBC RBC Hgb Hct MCV MCH MCHC RDW Std Deviation RDW Coeff of Pauline Plt Count MPV Immature Gran % (Auto) Neut % (Auto) Lymph % (Auto) [place] % (Auto) Eos % (Auto) Baso % (Auto) Immature Gran # (Auto) Neut # (Auto) Lymph # (Auto) [place] # (Auto) Eos # (Auto) Baso # (Auto) PT INR Sodium 141 Potassium 4.3 Chloride 113 H Carbon Dioxide 20 L Anion Gap 8.0 BUN 23 H Creatinine 1.59 H Est Cr Clr Drug Dosing 52.9 Est GFR ( Amer) 50.6 Est GFR (Non-Af Amer) 43.6 BUN/Creatinine Ratio 14.3 Glucose 126 H POC Glucose 125 H 156 H Calcium 8.7 Total Bilirubin 0.4 AST 123 H ALT 128 H Alkaline Phosphatase 71 Total Protein 7.0 Albumin 2.8 L Globulin 4.2 H Albumin/Globulin Ratio 0.7 L U Codeine Confrm GC/MS Ur Morphine (GC/MS) Ur Hydrocodone (GC/MS) Ur Norhydrocodone Ur Noroxycodone Urine Oxycodone (GC/MS) U Oxymorphone GC/MS Ur Hydromorphone (GC/MS) (1) Sepsis Sepsis type: sepsis due to unspecified organism Qualified Code(s): A41.9 - Sepsis, unspecified organism
[2019-02-01] MEDS ORDERED: FUROSEMIDE 20 MG TAB PO STA (11:43)
[2019-02-01 12:10] LABS: Hydrocodone Urine NEGATIVE NG/ML (CUTOFF=50); Hydromor Urine NEGATIVE NG/ML (CUTOFF=50); Morphine Urine 158 NG/ML (CUTOFF=50); Norhydrocodone Conf Ur NEGATIVE NG/ML (CUTOFF=50); Noroxycodone Urine 257 NG/ML (CUTOFF=50); Oxycodone Urine 169 NG/ML (CUTOFF=50)
--- NOTE | 2019-02-01 12:41 | XRay Report ---
XR chest 2V routine CLINICAL HISTORY: wheezing dyspnea COMPARISON STUDY: 01/29/2019 FINDINGS: The bones soft tissues and hemidiaphragms are normal. The cardiomediastinal silhouette is n ormal. The lungs are clear. The pulmonary vasculature is normal. IMPRESSION: Negative chest. The above report was generated using voice recognition software. It may contain grammatical, syntax or spelling errors. Electronically signed by: Garett Cabrera M.D. 02/01/2019 12:39 PM
--- NOTE | 2019-02-01 14:26 | Infectious Disease Progress Nt ---
Date of Service February 01, 2019 Assessment & Plan (1) Streptococcal bacteremia: 68-year-old male with group C streptococcal bacteremia with encephalopathy. No obvious source evident on exam. Echocardiogram unrevealing. Often will find B or C strep and blood without identifiable focus. Would recommend 2 weeks total of IV treatment including days of Zosyn, to continue ceftriaxone to allow easier outpatient treatment. Discussed with hospitalist. Subjective Patient seen in follow-up for streptococcal bacteremia. Appears comfortable, in no distress, offers no specific complaints. Remains afebrile. Blood cultures identified as group C streptococcus. Transthoracic echocardiogram without obvious significant valvular disease or vegetation. Follow-up blood cultures remain negative. Review of Systems Review of Systems: All systems reviewed & are unremarkable except as noted in HPI & below Physical Exam Constitutional: WD/WN, vitals as above comfortable; no acute distress Eyes: PERRL, conjunctivae normal, anicteric sclerae ENMT: external ear and nose normal, oropharynx normal Neck: trachea midline, no thyromegaly neck nontender Respiratory: normal respiratory effort, lungs clear to auscultation normal percussion; does not use accessory muscles Cardiovascular: Rate/Rhythm: + irregularly irregular Heart Sounds: normal S1 and normal S2; no gallop, no murmur and no cardiac rub Vessels: normal peripheral pulses; no JVD Gastrointestinal (Abdomen): normal bowel sounds, soft, nontender, no hepatosplenomegaly Musculoskeletal: no cyanosis or clubbing, extremities motor strength 5/5 Spine: thoracic spine normal to inspection and lumbar spine normal to inspection; no cervical spinal tenderness Skin: no rashes, warm and dry normal turgor; no lesions Neurologic: moves all extremities; no focal motor deficits Psychiatric: Orientation: alert and oriented to person Lymphatic: no cervical or axillary lymphadenopathy no inguinal lymphadenopathy Results & Data Vital Signs (Past 12 Hours) Vital Signs Temp Pulse Pulse Resp BP BP Pulse Ox 02/01/19 13:35 36.5 C 82 16 145/84 H 96 02/01/19 11:37 36.9 C 67 18 157/87 H 95 02/01/19 07:25 71 02/01/19 07:04 66 18 96 02/01/19 06:58 36.4 C L 68 18 157/101 H 165/109 H 97 02/01/19 04:00 36.4 C L 57 L 18 148/88 H 96 Laboratory Results Short CBC 02/01/19 Range/Units 06:54 WBC 7.48 (4.8-10.8) K/uL Hgb 10.7 L (14.0-18.0) g/dL Hct 31.8 L (42-52) % Plt Count 105 L (130-400) K/uL BMP 02/01/19 06:54 Sodium 141 Potassium 4.3 Chloride 113 H Carbon Dioxide 20 L BUN 23 H Creatinine 1.59 H Glucose 126 H Calcium 8.7 Liver Function 02/01/19 Range/Units 06:54 Total Bilirubin 0.4 (0.2-1) mg/dl AST 123 H (15-37) U/L ALT 128 H (12-78) U/L Alkaline Phosphatase 71 (45-117) U/L Albumin 2.8 L (3.4-5.0) gm/dl Medications Administered Microbiology 01/30/19 07:30 Blood Blood Culture - Preliminary No growth to date. 01/30/19 07:19 Blood Blood Culture - Preliminary No growth to date. 01/29/19 18:57 Blood Blood Culture - Preliminary No growth to date. 01/29/19 18:55 Blood Blood Culture - Preliminary No growth to date. 01/28/19 09:33 Blood Blood Culture - Final Group C Beta Strep 01/28/19 09:15 Blood Blood Culture - Final Group C Beta Strep
[2019-02-01] MEDS ORDERED: AMLODIPINE BESYLATE 5 MG TAB PO ONE (16:45)
[2019-02-01] MEDS: FUROSEMIDE 20 MG TAB PO SCH (17:50)
[2019-02-01] MEDS: ALBUTEROL 0.5% NEB SOLN 2.5 MG/0.5 ML VIAL NEB PRN ×2 (17:59→22:56)
[2019-02-01] MEDS: ACETAMINOPHEN 325 MG TAB PO PRN (22:35)
[2019-02-01 23:16] LABS: Q Fever IgG, Phase I NEGATIVE; Q Fever Phase I IgM Antibody NEGATIVE; Q Fever Phase II IgG Antibody NEGATIVE; Q Fever Phase II IgM Antibody NEGATIVE; R. typhi IgG Ab Not Detected (Not Detected); R. typhi IgM Ab Not Detected (Not Detected); RMSF IgG Ab Not Detected (Not Detected); RMSF IgM Ab Not Detected (Not Detected)
[2019-02-02] MEDS: LEVOTHYROXINE SODIUM 75 MCG TABLET PO SCH (05:36)
[2019-02-02 07:01] LABS: BUN Creatinine Ratio 13.1 (10-20); Calcium 8.6 mg/dl (8.5-10.1); Creatinine Clr Calc Pharmacy 44.7 ml/min; Est GFR (African American) 40.8; Est GFR (Non-African American) 35.2; Potassium 4.1 mmol/L (3.5-5.1)
[2019-02-02] MEDS: HydrALAZINE TAB 50 MG TAB PO SCH ×3 (08:04→21:02)
[2019-02-02] MEDS: DULOXETINE HCL 20 MG CAP PO SCH (08:05)
[2019-02-02] MEDS: ATORVASTATIN 40 MG TAB PO SCH (08:06)
[2019-02-02] MEDS: FUROSEMIDE 20 MG TAB PO SCH ×2 (08:06→16:14)
[2019-02-02] MEDS: CEROVITE ADV FORMULA TAB PO SCH (08:06)
[2019-02-02] MEDS: PANTOprazole 40 MG TAB PO SCH (08:07)
[2019-02-02] MEDS: METOPROLOL SUCC 25MG EXT REL TAB PO SCH ×2 (08:07→21:03)
[2019-02-02] MEDS: CLOPIDOGREL BISULFATE 75 MG TAB PO SCH (08:07)
[2019-02-02] MEDS: THIAMINE HCL 100 MG TAB PO SCH (08:08)
[2019-02-02] MEDS: ALLOPURINOL 100 MG TAB PO SCH (08:08)
[2019-02-02] MEDS: ALBUTEROL 0.5% NEB SOLN 2.5 MG/0.5 ML VIAL NEB PRN (08:18)
[2019-02-02] MEDS: PREGABALIN 100 MG CAP PO SCH ×3 (08:25→21:01)
[2019-02-02] MEDS: cefTRIAXone SODIUM 2,000 MG in DEXTROSE 5% 50 ML IV SCH (08:25)
[2019-02-02] MEDS: OXYCODONE HCL IR 5 MG TAB (IMMEDIATE RELEASE) PO PRN ×2 (08:26→21:01)
[2019-02-02] MEDS ORDERED: AMLODIPINE BESYLATE 5 MG TAB PO SCH (09:00)
[2019-02-02] MEDS: AMLODIPINE BESYLATE 5 MG TAB PO SCH (09:02)
[2019-02-02] MEDS ORDERED: methylPREDNISolone 125 MG/2 ML VIAL IV STA (10:27)
[2019-02-02] MEDS ORDERED: XOPENEX/ATROVENT 1.25mg/0.5MG NEB COMBO NEB SCH (10:30)
[2019-02-02 12:02] LABS: Prothrombin Time 19.6 Seconds (9.0-12.0)
[2019-02-02] MEDS: FLUTICASONE/SALMETEROL 250/50 (ADVAIR) 14 PUFF/1 INHALER INH SCH ×2 (14:06→21:04)
[2019-02-02] MEDS: IPRATROPIUM BROMIDE NEB SOLN 0.02% 2.5 ML VIAL INH SCH ×3 (14:28→19:51)
[2019-02-02] MEDS: LEVALBUTEROL 1.25MG/0.5ML NEB INH SCH ×3 (14:28→19:50)
--- NOTE | 2019-02-02 16:49 | Hospitalist Progress Note ---
Date of Service February 02, 2019 Assessment & Plan (1) Metabolic encephalopathy: -baseline cognition is somewhat off and he has known memory issues; he sees a neuropsychologist -history of alcohol use -metabolic encephalopathy likely due to Streptococcus bacteremia Mental status back to baseline (2) Sepsis: streptococcus bacteremia Blood cultures positive for group C beta Streptococcus ID consulted Initially on Zosyn, changed to ceftriaxone IV this is day #[address] Sloan recommends total of 14 days of antibiotics Midline placed Follow-up with PCP and infectious disease clinic in 1 week (3) Wheezing: Likely secondary to underlying asthma/COPD, mild volume overload Repeat chest x-ray: No pneumonia Start IV Solu-Medrol, Advair, nebs every 6 hours Usual Lasix 20 mg p.o. twice a day resumed Monitor response Will need pulmonary function testing as an outpatient (4) ALEXIS (acute kidney injury): Patient given IV fluids Creatinine back to baseline 1.6 DC IV fluids Resume Lasix 20 mg twice a day Chest x-ray repeat no acute process PRN albuterol Creatinine 1.9 Monitor while on Lasix (5) Demand ischemia: troponins peaked at 0.123 and likely related to demand ischemia echocardiogram does not show wall motion abnormalities no chest pain (6) Hypomagnesemia: Resolved (7) Weakness: Secondary to underlying sepsis, bacteremia PT/OT evaluation Plan to transition to care home facility upon discharge from the hospital Obesity BMI is 34.5 but patient has truncal obesity (8) ETOH abuse: PRN Ativan withdrawal protocol Has a h/o adverse reaction to gabapentin on Lyrica currently for neuropathy no signs of overt withdrawal (9) Atrial fibrillation: Rate controlled with metoprolol inr 2.0 Coumadin 5 mg p.o. today monitor INR (10) PAD (peripheral artery disease): chronic, has h/o peripheral bypass. Continues on Plavix. (11) Hypothyroidism: Cont Synthroid per home regimen (12) GERD (gastroesophageal reflux disease): Cont pantoprozole per home regimen (13) DVT prophylaxis: on coumadin Disposition d/c to SNF when accepted ff up with PCP, ID Clinic Subjective Follow-up for strep bacteremia Seen resting in bed, not in distress States he did not have a good night secondary to wheezing and some shortness of breath Has dry cough, denies chest pain, no fevers or chills next Denies any other symptoms Review of Systems Review of Systems: All systems reviewed & are unremarkable except as noted in HPI & below Physical Exam Physical Exam: General- oriented x 3, not in distress, speaks in sentences with no effort or accessory muscle use Eyes- anicteric Neck- no JVD Lungs-faint wheeze bilaterally, no crackles Heart- normal rate, regular rhythm; no murmurs Abdomen- normal bowel sounds, nondistended, soft, nontender Extremities-positive mild left lower leg edema, no warmth, mild redness, no tenderness Neuro- alert, oriented x 3; no gross focal neurologic deficits Skin- warm & dry Results & Data Vital Signs (Past 12 Hours) Vital Signs Temp Pulse Resp BP Pulse Ox 02/02/19 15:36 93 02/02/19 14:49 36.5 C 78 20 158/84 H 93 02/02/19 11:33 36.8 C 57 L 20 175/81 H 91 02/02/19 08:18 71 18 90 02/02/19 07:46 36.6 C 72 20 164/81 H 93 Laboratory Results Laboratory Results - last 24 hr 01/28/19 02/02/19 02/02/19 14:09 05:57 11:44 PT 19.6 H INR 2.0 H Sodium 139 Potassium 4.1 Chloride 109 H Carbon Dioxide 23 Anion Gap 7.0 BUN 25 H Creatinine 1.90 H D Est Cr Clr Drug Dosing 44.7 Est GFR ( Amer) 40.8 Est GFR (Non-Af Amer) 35.2 BUN/Creatinine Ratio 13.1 Glucose 98 Calcium 8.6 Q Fever Phase I IgG Ab NEGATIVE Q Fever Phase I IgM Ab NEGATIVE Q Fever Phase II IgG Ab NEGATIVE Q Fever Phase II IgM Ab NEGATIVE Rickettsia IgG Ab Not Detected Rickettsia IgM Ab Not Detected Typhus Fever IgG Ab Not Detected Typhus Fever IgM Ab Not Detected (1) Sepsis Sepsis type: sepsis due to unspecified organism Qualified Code(s): A41.9 - Sepsis, unspecified organism
[2019-02-02] MEDS ORDERED: WARFARIN SOD 5 MG TAB PO ONE (17:00)
[2019-02-02] MEDS: methylPREDNISolone 40 MG in SYRINGE 0 ML IV SCH (19:07)
[2019-02-03] MEDS: methylPREDNISolone 40 MG in SYRINGE 0 ML IV SCH (01:38)
[2019-02-03] MEDS: IPRATROPIUM BROMIDE NEB SOLN 0.02% 2.5 ML VIAL INH SCH ×3 (02:21→14:21)
[2019-02-03] MEDS: LEVALBUTEROL 1.25MG/0.5ML NEB INH SCH ×3 (02:21→14:22)
[2019-02-03] MEDS: LEVOTHYROXINE SODIUM 75 MCG TABLET PO SCH (05:57)
[2019-02-03 06:50] LABS: INR 1.6 (0.9-1.1); Prothrombin Time 16.2 Seconds (9.0-12.0)
[2019-02-03 06:55] LABS: BUN Creatinine Ratio 15.9 (10-20); Calcium 8.8 mg/dl (8.5-10.1); Creatinine Clr Calc Pharmacy 47.1 ml/min; Est GFR (African American) 44.4; Est GFR (Non-African American) 38.3; Potassium 3.9 mmol/L (3.5-5.1)
[2019-02-03] MEDS: PANTOprazole 40 MG TAB PO SCH (08:14)
[2019-02-03] MEDS: CLOPIDOGREL BISULFATE 75 MG TAB PO SCH (08:14)
[2019-02-03] MEDS: METOPROLOL SUCC 25MG EXT REL TAB PO SCH (08:14)
[2019-02-03] MEDS: CEROVITE ADV FORMULA TAB PO SCH (08:14)
[2019-02-03] MEDS: PREGABALIN 100 MG CAP PO SCH ×2 (08:14→14:01)
[2019-02-03] MEDS: AMLODIPINE BESYLATE 5 MG TAB PO SCH (08:14)
[2019-02-03] MEDS: ALLOPURINOL 100 MG TAB PO SCH (08:14)
[2019-02-03] MEDS: FLUTICASONE/SALMETEROL 250/50 (ADVAIR) 14 PUFF/1 INHALER INH SCH (08:15)
[2019-02-03] MEDS: FUROSEMIDE 20 MG TAB PO SCH (08:15)
[2019-02-03] MEDS: HydrALAZINE TAB 50 MG TAB PO SCH ×2 (08:15→14:00)
[2019-02-03] MEDS: THIAMINE HCL 100 MG TAB PO SCH (08:15)
[2019-02-03] MEDS: ATORVASTATIN 40 MG TAB PO SCH (08:15)
[2019-02-03] MEDS: cefTRIAXone SODIUM 2,000 MG in DEXTROSE 5% 50 ML IV SCH (08:28)
--- NOTE | 2019-02-03 09:14 | Hospitalist Progress Note ---
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 Diverticular bleed? in the setting of Coumadin, Plavix use repeat CBC today monitor (2) Metabolic encephalopathy: -baseline cognition is somewhat off and he has known memory issues; he sees a neuropsychologist -history of alcohol use -metabolic encephalopathy likely due to Streptococcus bacteremia Mental status back to baseline (3) Sepsis: streptococcus bacteremia Blood cultures positive for group C beta Streptococcus ID consulted Initially on Zosyn, changed to ceftriaxone IV this is day #[address] Sloan recommends total of 14 days of antibiotics Midline placed Follow-up with PCP and infectious disease clinic in 1 week (4) Wheezing: Likely secondary to underlying asthma/COPD, mild volume overload Repeat chest x-ray: No pneumonia Start IV Solu-Medrol, Advair, nebs every 6 hours Usual Lasix 20 mg p.o. twice a day resumed Monitor response Will need pulmonary function testing as an outpatient -- 02/03 wheezing resolved change Solumedrol to Prednisone continue Nebs, Advair monitor (5) ALEXIS (acute kidney injury): Patient given IV fluids Creatinine back to baseline 1.6 DC IV fluids Resume Lasix 20 mg twice a day Chest x-ray repeat no acute process PRN albuterol Creatinine 1.7 Monitor while on Lasix (6) Demand ischemia: troponins peaked at 0.123 and likely related to demand ischemia echocardiogram does not show wall motion abnormalities no chest pain (7) Hypomagnesemia: Resolved (8) Weakness: Secondary to underlying sepsis, bacteremia PT/OT evaluation Plan to transition to assisted facility upon discharge from the hospital Obesity BMI is 34.5 but patient has truncal obesity (9) ETOH abuse: PRN Ativan withdrawal protocol Has a h/o adverse reaction to gabapentin on Lyrica currently for neuropathy no signs of overt withdrawal (10) Atrial fibrillation: Rate controlled with metoprolol inr 1.7 resume usual coumadin monitor INR (11) PAD (peripheral artery disease): chronic, has h/o peripheral bypass. Continues on Plavix. (12) Hypothyroidism: Cont Synthroid per home regimen (13) GERD (gastroesophageal reflux disease): Cont pantoprozole per home regimen Disposition evaluation of hematochezia in progress as noted above (14) DVT prophylaxis: on coumadin Disposition d/c to SNF when accepted ff up with PCP, ID Clinic Subjective ff up for strep bacteremia seen resting in bed, comfortable states he slept well breathing is much better, denies cough had bright red blood noted in the toilet bowl yesterday after BM states he's had this in the past when he strains no abdominal pain, nausea/vomiting denies other symptoms Review of Systems Review of Systems: All systems reviewed & are unremarkable except as noted in HPI & below Physical Exam Physical Exam: General- oriented x 3, not in distress, speaks in sentences wi th no effort or accessory muscle use Eyes- anicteric Neck- no JVD Lungs- clear breath sounds, no wheezing BL Heart- normal rate, regular rhythm; no murmurs Abdomen- normal bowel sounds, nondistended, soft, nontender Extremities- mild lower leg edema- left, no calf tenderness Neuro- alert, oriented x 3; no gross focal neurologic deficits Skin- warm & dry Results & Data Vital Signs (Past 12 Hours) Vital Signs Temp Pulse Pulse Resp BP Pulse Ox 02/03/19 07:44 36.7 C 68 16 163/90 H 96 02/03/19 07:41 62 02/03/19 07:16 72 16 96 02/03/19 03:57 36.8 C 87 18 162/72 H 96 02/02/19 23:44 69 02/02/19 23:43 36.6 C 85 18 172/83 H 95 Laboratory Results Laboratory Results - last 24 hr 02/02/19 02/03/19 02/03/19 11:44 06:08 06:08 PT 19.6 H 16.2 H INR 2.0 H 1.6 H Sodium 138 Potassium 3.9 Chloride 108 H Carbon Dioxide 23 Anion Gap 7.0 BUN 28 H Creatinine 1.77 H Est Cr Clr Drug Dosing 47.1 Est GFR ( Amer) 44.4 Est GFR (Non-Af Amer) 38.3 BUN/Creatinine Ratio 15.9 Glucose 216 H Calcium 8.8 (1) Sepsis Sepsis type: sepsis due to unspecified organism Qualified Code(s): A41.9 - Sepsis, unspecified organism
[2019-02-03] MEDS ORDERED: predniSONE 20 MG TAB PO SCH (09:15)
[2019-02-03] MEDS: OXYCODONE HCL IR 5 MG TAB (IMMEDIATE RELEASE) PO PRN (09:16)
[2019-02-03] MEDS: DULOXETINE HCL 20 MG CAP PO SCH (09:16)
[2019-02-03 10:05] LABS: Basophils # (auto) 0.01 K/uL (0-0.2); Basophils % (auto) 0.2 %; Hematocrit (blood only) 29.8 % (42-52); Hemoglobin 10.5 g/dL (14.0-18.0); Immature Granulocytes # (auto) 0.07 K/uL (0.00-0.02); Immature Granulocytes % (auto) 1.3 %; Lymphocytes # (auto) 0.78 K/uL (1.2-3.4); Mean Corpuscular Hgb Conc 35.2 g/dL (32-36); Mean Corpuscular Volume 95.5 fL (80-100); Mean Platelet Volume 12.6 fL (7.4-10.4); Monocytes # (auto) 0.31 K/uL (0.11-0.59); Monocytes % (auto) 5.6 %; Neutrophils # (auto) 4.41 K/uL (1.4-6.5); Neutrophils % (auto) 78.9 %; Nucleated RBC # (auto) 0.05 K/uL (0-0); Nucleated RBC % (auto) 0.9 %; Platelet Count 130 K/uL (130-400); RDW Coefficient of Variation 14.6 % (11.5-14.5); RDW Standard Deviation 50.3 fL (36.4-46.3); Red Blood Count 3.12 M/uL (4.7-6.1); White Blood Count 5.58 K/uL (4.8-10.8)
[2019-02-03 10:17] LABS: Estimated Average Glucose 126 mg/dl
[2019-02-03 11:27] VITALS: TEMP 97.9; O2SAT 93
--- NOTE | 2019-02-03 13:27 | Discharge Summary ---
Date of Service February 03, 2019 Admission HPI Per Admitting Provider 68 yo M with h/o heavy alcohol use presents with sudden onset of rigors, weakness and confusion overnight. He cannot give a history this morning 2/2 AMS but is able to respond yes or no simply to questions. and sister are at bedside. reports he woke up saying he was chilled around 0400. She then helped him get to the bathroom because he was weak. She fell back asleep and noted that he was still on the potty, slumped over with eyes open and awake but unresponsive to her approximately 2-3 hours later. He had wet himself and was very weak. She called other family members and 3 adults couldn't get him to the door because of profound weakness. (At baseline he has a shuffled gait 2/2 neuropathy and a history of heavy drinking, but ambulates without a walker or cane typically.) EMS was called and on arrival he was found to have ALEXIS and temp 39.2 C. Lab work revealed a white blood cell count of 13 K, INR was therapeutic at 2.1, BUN 60, creatinine 3.45 with a history of stage III CKD and a creatinine of 1.40 at baseline in 2017. Urinalysis was clear for infection or blood UDS is pending, alcohol level is 0, flu screen was negative. A chest x- ray revealed mild right lower lung opacity favoring atelectasis although consolidation could appear similar in a possible small right pleural effusion. The patient is on Lasix twice daily. A CT of the abdomen and pelvis without contrast confirms that right lower lobe opacity reflects atelectasis. There is mild bilateral perinephric infiltration which is symmetric. There are mildly enlarged left external iliac nodes that are present which may be reactive. He was started on IV fluids and Zosyn empirically. Blood cultures are drawn and pending. Head CT revealed no acute intracranial findings. The patient responded well and was started to improve clinically within a couple of hours in the ER per family at bedside. states he is out in the yard daily with frequent tick exposures. An extensive skin exam was performed and revealed no evidence of rash or tick bite. The patient denies any tick bites recently. He is also noted to be working with roses in the yard and gets frequent thorn scratches. There is no evidence of cellulitis but well healed scratches are present. His last drink is reported yesterday in the afternoon when he went to the bar. However, the patient reports his last drink was 3 days ago. He denies any other symptoms including no chest pain, shortness of breath, abdominal pain, any other pain, headaches, neck stiffness, visual changes, nasal or sinus congestion, sore throat, nausea, vomiting, changes in bowels including diarrhea or blood in stool. When asked how he feels he states he feels confused. During my examination which lasted approximately 30 minutes the patient continued to improve mentally. Admission Exam Per Admitting Provider CONSTITUTIONAL: WNWD, vitals as above, does not appear in distressed but is clearly confused. Cannot remember events of the night and demonstrates difficulty with processing the information asked of him. Tends to stare forward or look around with some nonspecific nystagmus present. EYES: EOMI bilaterally, PERRL, normal conjuctivae, no scleral icterus ENT: oropharynx clear with moist mucous membranes NECK: trachea midline, no lymphadenopathy, demonstrates normal ROM without difficulty RESPIRATORY: clear to auscultation bilaterally, no crackles, rales or wheezes, normal respiratory effort CARDIOVASCULAR: regular rate and irreg rhythm, S1 and 2 heard without murmurs, gallops or rubs, no JVD, no peripheral edema CHEST: inspection of chest was normal GASTROINTESTINAL: normal bowel sounds, soft, nontender, nondistended MUSCULOSKELETAL: strength 5/5 throughout but is purposeful and thoughtful about movements, not quick to react. Head is normocephalic and atraumatic, neck supple SKIN: warm and dry, no obvious tick bites or rashes present NEUROLOGIC: BR DTR 2/4, pateelar DTR could not be elicited as the patient is tensing up. PERRL, EOMI, no facial palsy, no dysarthria. CN 2-12 grossly intact, sensory deficit in sock distribution of lower legs bilaterally,normal speech, no tremor. PSYCHIATRIC: alert cooperative and oriented to person and place. Cannot remember events of the night prior. Note: As I was examining him in the ER he appeared to become more oriented and lucid. Principal Diagnosis SEPSIS SECONDARY TO STREPTOCOCCUS BACTEREMIA, WITH ENCEPHALOPATHY Discharge Exam General- oriented x 3, not in distress, speaks in sentences with no effort or accessory muscle use Eyes- anicteric Neck- no JVD Lungs- clear breath sounds, no wheezing BL Heart- normal rate, regular rhythm; no murmurs Abdomen- normal bowel sounds, nondistended, soft, nontender Extremities- mild lower leg edema- left, no calf tenderness Neuro- alert, oriented x 3; no gross focal neurologic deficits Skin- warm & dry Discharge Data Allergies Allergy/AdvReac Type Severity Reaction Status Date / Time No Known Allergies Allergy Unverified 01/28/19 10:24 Consultations 01/28/19 09:56 ED Decision to Admit Stat 01/28/19 12:50 Consult Case Management - Discharge Planning Routine 01/29/19 15:06 Consult Infectious Diseases Routine Ordered Studies 01/28/19 08:50 CT head/brain wo con Stat IMPRESSION: No acute intracranial findings. 01/28/19 10:33 CT abd pelvis wo con Stat IMPRESSION: 1. No urinary calculi or hydronephrosis. 2. Fatty infiltration of the liver. 3. No bowel obstruction. Normal appendix. 4. Femoral to femoral bypass graft in place with adjacent infiltration which is nonspecific but may be postprocedural. 5. Mildly enlarged left external lymph nodes which may be reactive. Hospital Course (1) Metabolic encephalopathy: -metabolic encephalopathy likely due to Streptococcus bacteremia Mental status back to baseline (2) Sepsis: secondary to streptococcus bacteremia Blood cultures positive for group C beta Streptococcus ID consulted Initially on Zosyn, changed to ceftriaxone IV- received 6 days of IV antibiotics Dr. Sloan recommends total of 14 days of antibiotics Midline placed Follow-up with PCP and infectious disease clinic in 1-2 weeks (3) Wheezing: Likely secondary to underlying asthma/COPD, mild volume overload Repeat chest x-ray: No pneumonia Staredt IV Solu-Medrol, Advair, nebs every 6 hours Usual Lasix 20 mg p.o. twice a day resumed -- patient improved -- continue Prednisone taper, Advair, PRN Nebs Will need pulmonary function testing as an outpatient -- a1c 6.0 monitor BSGs while on prednisone (4) Hematochezia: last colonoscopy 2010: unremarkable last EGD 2011: Schatzi's ring, Hiatal hernia from hemorrhoids? Diverticular bleed? in the setting of Coumadin, Plavix use CT abdomen: unrevealing repeat CBC - Hg stable at around 10 monitor for recurrence, monitor Hg (5) ALEXIS (acute kidney injury): Patient given IV fluids Creatinine back to baseline 1.6 DC IV fluids Resumed Lasix 20 mg twice a day Chest x-ray repeat no acute process PRN albuterol Creatinine 1.7 Monitor crea while on Lasix Lisinopril changed to Amlodipine (6) Demand ischemia: troponins peaked at 0.123 and likely related to demand ischemia echocardiogram does not show wall motion abnormalities no chest pain (7) Hypomagnesemia: Resolved (8) Weakness: Secondary to underlying sepsis, bacteremia PT/OT evaluation [facility] upon discharge from the hospital Obesity BMI is 34.5 (9) Atrial fibrillation: Rate controlled with metoprolol inr 1.7 resume usual coumadin monitor INR daily and adjust coumadin accordingly (10) ETOH abuse: PRN Ativan withdrawal protocol Has a h/o adverse reaction to gabapentin on Lyrica currently for neuropathy no signs of overt withdrawal (11) PAD (peripheral artery disease): chronic, has h/o peripheral bypass. Continues on Plavix. (12) Hypothyroidism: Cont Synthroid per home regimen (13) GERD (gastroesophageal reflux disease): Cont pantoprozole per home regimen Pre DM - A1c 6.0 monitor closely as outpatient Disposition ff up with PCP Dr. Emeka Piper on 02/08 at 10:55am ff up with ID [facility] Dr. Sloan in 1-2 weeks (14) DVT prophylaxis: on coumadin Disposition d/c to SNF when accepted ff up with PCP, ID Clinic Total Time Total Time Spent Total Time Spent (In Minutes): 55 minutes Discharge Plan Discharge Items Patient Disposition: Transfer Long-Term Fac Reason For Visit: SEPSIS, CONFUSION Discharge Diagnosis: Sepsis secondary to Streptococcus bacteremia Discharge Goals: Diagnostic testing and Therapeutic intervention Activity: As commented below Activity Comment: Resume activity gradually as tolerated, continue physical therapy Lifting: Wait until after follow-up appointment Exercise/Sports: Wait until after follow-up appointment Driving/Machine Use Comment: No driving until cleared by primary care physician Non-emergency contact: Primary Care Provider Call non-emergency contact if: you have any medication questions Follow-up/Referrals: Emeka Piper DO [Primary Care Provider] - 02/08/19 10:55 am Diet: Heart Healthy Addtl Provider Instructions: Please refer to accompanying hospital discharge summary for further details. Prescriptions: New ipratropium bromide 0.02 % Solution 0.5 mg inhalation Q4H PRN (Reason: Shortness Of Breath Or Wheezing) 14 Days Qty: 75 RF: 0 levalbuterol HCl 1.25 mg/0.5 mL Solution For Nebulization 1.25 mg inhalation Q4H PRN (Reason: Shortness Of Breath Or Wheezing) 14 Days Qty: 30 RF: 0 amlodipine [Norvasc] 5 mg Tablet 10 mg PO QAM 30 Days Qty: 60 RF: 0 prednisone 10 mg tablet 10 mg PO UD Qty: 15 RF: 0 fluticasone propion-salmeterol [Advair Diskus] 250-50 mcg/dose Blister With Device 1 puff inhalation BID 30 Days Qty: 1 RF: 0 ceftriaxone 2 gram recon soln 2 gm IV DAILY 8 Days Qty: 8 RF: 0 Continued atorvastatin 80 mg tablet 80 mg PO DAILY RF: 0 clopidogrel 75 mg Tablet 75 mg PO DAILY RF: 0 allopurinol 100 mg tablet 200 mg PO DAILY RF: 0 levothyroxine 75 mcg Tablet 75 mcg PO DAILY RF: 0 pantoprazole 40 mg Tablet,Delayed Release (Dr/Ec) 40 mg PO DAILY RF: 0 warfarin 5 mg Tablet 5 mg PO SUTUTHSA@1600 RF: 0 hydralazine 50 mg Tablet 50 mg PO TID RF: 0 furosemide 20 mg Tablet 20 mg PO BID RF: 0 metoprolol succinate 25 mg Tablet Extended Release 24 Hr 12.5 mg PO BID RF: 0 oxycodone 5 mg Tablet 5 mg PO DAILY PRN (Reason: Pain) RF: 0 Lyrica 100 mg Capsule 100 mg PO TID RF: 0 Men's Daily 0.4-600 mg-mcg Capsule 1 cap PO DAILY RF: 0 duloxetine 40 mg Capsule,Delayed Release(Dr/Ec) 40 mg PO DAILY RF: 0 omega 1-lqs-tud-fish oil [Fish Oil] 360-1,200 mg Capsule,Delayed Release(Dr/Ec) 1 cap PO DAILY RF: 0 warfarin [Jantoven] 7.5 mg tablet 7.5 mg PO MOWEFR@1600 RF: 0 Discontinued lisinopril 20 mg Tablet 20 mg PO DAILY RF: 0 Stand-Alone Forms: [facility] Discharge Orders: Discharge Order (Routine); Ordered 02/03/19 Ordered By: Fidencio Cobb Skilled Items Patient informed of condition?: Yes DNR: No Discharge Level of Care: Skilled Communicable Disease: No Discharge Prognosis: Stable Admission Data Admit Date/Time: 01/28/19 11:01 Attending Provider: Fidencio Cobb Admit Provider: eDb [place] Primary Care Provider: Emeka Piper Other Providers: Gonzalo Huntley ; Deb [place] ; Otf Sloan Service: Telemetry Medical
[2019-02-03 13:45] VITALS: BP 163/90; PULSE 71
--- NOTE | 2019-02-03 14:45 | Infectious Disease Progress Nt ---
Date of Service February 03, 2019 Assessment & Plan (1) Streptococcal bacteremia: 68-year-old male with group C streptococcal bacteremia with encephalopathy. No obvious source evident on exam. Echocardiogram unrevealing. Often will find B or C strep and blood without identifiable focus. Would recommend 2 weeks total of IV treatment including days of Zosyn, to continue ceftriaxone to allow easier outpatient treatment. Discussed with hospitalist. Subjective Patient seen in follow-up for streptococcal bacteremia. Appears comfortable, in no distress, offers no specific complaints. Remains afebrile. Blood cultures identified as group C streptococcus. Transthoracic echocardiogram without obvious significant valvular disease or vegetation. Follow-up blood cultures remain negative. Review of Systems Review of Systems: All systems reviewed & are unremarkable except as noted in HPI & below Physical Exam Constitutional: WD/WN, vitals as above comfortable; no acute distress Eyes: PERRL, conjunctivae normal, anicteric sclerae ENMT: external ear and nose normal, oropharynx normal Neck: trachea midline, no thyromegaly neck nontender Respiratory: normal respiratory effort, lungs clear to auscultation normal percussion; does not use accessory muscles Cardiovascular: Rate/Rhythm: + irregularly irregular Heart Sounds: normal S1 and normal S2; no gallop, no murmur and no cardiac rub Vessels: normal peripheral pulses; no JVD Gastrointestinal (Abdomen): normal bowel sounds, soft, nontender, no hepatosplenomegaly Musculoskeletal: no cyanosis or clubbing, extremities motor strength 5/5 Spine: thoracic spine normal to inspection and lumbar spine normal to inspection; no cervical spinal tenderness Skin: no rashes, warm and dry normal turgor; no lesions Neurologic: moves all extremities; no focal motor deficits Psychiatric: Orientation: alert and oriented to person Lymphatic: no cervical or axillary lymphadenopathy no inguinal lymphadenopathy Results & Data Vital Signs (Past 12 Hours) Vital Signs Temp Pulse Pulse Pulse Pulse Resp BP 02/03/19 13:43 36.6 C 73 71 72 16 163/90 H 02/03/19 11:27 36.6 C 73 16 02/03/19 07:44 36.7 C 68 16 163/90 H 02/03/19 07:41 62 02/03/19 07:16 72 16 02/03/19 03:57 36.8 C 87 18 162/72 H BP Pulse Ox 02/03/19 13:43 168/82 H 93 02/03/19 11:27 168/82 H 93 02/03/19 07:44 96 02/03/19 07:41 02/03/19 07:16 96 02/03/19 03:57 96 Laboratory Results Short CBC 02/03/19 Range/Units 06:09 WBC 5.58 (4.8-10.8) K/uL Hgb 10.5 L (14.0-18.0) g/dL Hct 29.8 L (42-52) % Plt Count 130 (130-400) K/uL BMP 02/03/19 06:08 Sodium 138 Potassium 3.9 Chloride 108 H Carbon Dioxide 23 BUN 28 H Creatinine 1.77 H Glucose 216 H Calcium 8.8 Diagnostic Findings Microbiology 01/30/19 07:30 Blood Blood Culture - Preliminary No growth to date. 01/30/19 07:19 Blood Blood Culture - Preliminary No growth to date. 01/29/19 18:57 Blood Blood Culture - Preliminary No growth to date. 01/29/19 18:55 Blood Blood Culture - Preliminary No growth to date. 01/28/19 09:33 Blood Blood Culture - Final Group C Beta Strep 01/28/19 09:15 Blood Blood Culture - Final Group C Beta Strep
[2019-02-04 09:50] LABS: Giant Platelets 1+
== END 2019-02-03 15:48 | DRG 871 ==
LOC: ED 08:57 → SUATTDRO 11:01 → 2S 11:01 → 2N 02-01 13:30

== ENCOUNTER 2021-03-18 09:05 | Inpatient (IN) ==
[2021-03-18] MEDS ORDERED: PIPERACILLIN/TAZOBACTAM 4.5 GM/120 ML BAG IV ONE (09:46)
[2021-03-18] MEDS ORDERED: PIPERACILL/TAZOBAC CONSULT ACTIVE PRN ×2 (09:46→16:09)
[2021-03-18] MEDS ORDERED: SODIUM CHLORIDE 0.9% 1000ML 1,000 ML IV SCH (10:00)
[2021-03-18 10:11] LABS: Hematocrit (blood only) 31.8 % (42-52); Hemoglobin 10.6 g/dL (14.0-18.0); Mean Corpuscular Hemoglobin 34.4 pg (25-34); Mean Corpuscular Hgb Conc 33.3 g/dL (32-36); Mean Corpuscular Volume 103.2 fL (80-100); RDW Standard Deviation 57.2 fL (36.4-46.3); Red Blood Count 3.08 M/uL (4.7-6.1)
[2021-03-18 10:12] LABS: Basophils # (auto) 0.03 K/uL (0-0.2); Basophils % (auto) 0.4 %; Eosinophils # (auto) 0.15 K/uL (0-0.5); Eosinophils % (auto) 2.1 %; Immature Granulocytes # (auto) 0.01 K/uL (0.00-0.02); Immature Granulocytes % (auto) 0.1 %; Lymphocytes # (auto) 1.25 K/uL (1.2-3.4); Lymphocytes % (auto) 17.1 %; Mean Platelet Volume 10.6 fL (7.4-10.4); Monocytes # (auto) 0.66 K/uL (0.11-0.59); Neutrophils % (auto) 71.3 %; Nucleated RBC # (auto) 0.03 K/uL (0-0); Nucleated RBC % (auto) 0.4 %; Platelet Count 224 K/uL (130-400); RDW Coefficient of Variation 15.6 % (11.5-14.5)
[2021-03-18 10:26] LABS: Albumin Level 3.3 gm/dl (3.4-5.0); BUN Creatinine Ratio 23.5 (10-20); Calcium 8.8 mg/dl (8.5-10.1); Creatinine Clr Calc Pharmacy 39.8 ml/min; Est GFR (African American) 39.5 ml/min; Potassium 4.6 mmol/L (3.5-5.1)
[2021-03-18 10:43] LABS: Albumin Globulin Ratio 0.7 (0.9-2); Bilirubin,Total 0.3 mg/dl (0.2-1); C Reactive Protein 1.41 mg/dl (0-0.29); Globulin 4.4 gm/dl (2.5-4.0); Thyroid Stimulating Hormone 5.42 uIu/ml (0.300-4.500); Total Protein 7.7 gm/dl (6.4-8.2)
[2021-03-18 10:54] LABS: Partial Thromboplastin Ratio 2.9; Prothrombin Time 67.7 Seconds (9.0-12.0)
[2021-03-18 11:02] LABS: T4 Free Thyroxine 0.87 ng/dl (0.8-1.6)
[2021-03-18 11:03] LABS: INR 7.9 (0.9-1.1); Partial Thromboplastin Time 75.2 Seconds (21.0-31.0)
--- NOTE | 2021-03-18 11:10 | CT Scan Report ---
CT SCAN OF THE BRAIN WITHOUT IV CONTRAST CLINICAL HISTORY: Frequent falls. Generalized weakness. COMPARISON STUDY: CT of the brain dated 11/02/2020. TECHNIQUE: Unenhanced axial CT scan of the brain is performed from the vertex to the skull base. A do se lowering technique was utilized adhering to the principles of ALARA. CT DOSE: 614.27 mGy.cm FINDINGS: Brain parenchyma: There are age-related involutional changes noting minimal subcortical and perivent ricular microangiopathic change. There is no hemorrhage, mass effect, or evidence of acute territoria l ischemia by CT criteria. Parson-white matter differentiation is preserved. No extra-axial fluid colle ction is seen. Ventricles, sulci, cisterns: Prominent secondary to involutional change. Intracranial vasculature: There is atherosclerotic calcification of the cavernous carotid arteries. Calvarium: Unremarkable. Sinuses and mastoids: The visualized paranasal sinuses are clear. The mastoid air cells are well pneu matized. Orbits: The bony orbits are grossly intact. There are bilateral ocular lens implants. IMPRESSION: There is no hemorrhage, mass effect, or evidence of acute territorial ischemia by CT anjel ivan. ACT 112: Negative or not required by law. Electronically signed by: Zelalem Griffin M.D. 03/18/2021 11:09 AM
[2021-03-18] MEDS ORDERED: PHYTONADIONE 2.5 MG in SODIUM CHLORIDE 0.9% 50 ML IV ONE (11:31)
--- NOTE | 2021-03-18 11:46 | XRay Report ---
XR chest 1V portable CLINICAL HISTORY: weakness COMPARISON STUDY: February 01, 2019 FINDINGS: No pneumothorax. No pleural effusion. No large infiltrates or consolidative lesions are seen. Cardiac silhouette is within upper limits of normal. Aorta is tortuous and calcified. No significant pulmonary vascular congestion.. Osseous structures: Osteopenia. Degenerative changes of the spine. IMPRESSION: 1. No large infiltrates or consolidative lesions are seen. 2. Cardiac silhouette is within upper limits of normal. ACT 112: Negative or not required by law. The above report was generated using voice recognition software. It may contain grammatical, syntax o r spelling errors. Electronically signed by: Jenelle Amin DO 03/18/2021 11:44 AM
--- NOTE | 2021-03-18 11:50 | XRay Report ---
XR foot RT min 3V routine CLINICAL HISTORY: toe infection COMPARISON: None. DISCUSSION: No acute fracture or dislocation seen. No significant edema is seen. Mild degenerative changes are seen. Vascular calcifications are demonstrated. IMPRESSION: No acute fracture or dislocation. ACT 112: Negative or not required by law. The above report was generated using voice recognition software. It may contain grammatical, syntax o r spelling errors. Electronically signed by: Jenelle Amin DO 03/18/2021 11:49 AM
[2021-03-18] MEDS: SODIUM CHLORIDE 0.9% 1000ML 1,000 ML IV SCH ×2 (12:24→16:40)
--- NOTE | 2021-03-18 12:46 | History & Physical Report ---
Date of Service March 18, 2021 Assessment & Plan (1) Supratherapeutic INR: (2) Atrial fibrillation: - Admit to tele -INR 7.9 on admission, trend with daily labs -Given vitamin K 2.5 mg IV in the ER, hold on any further reversal for now. -EKG reviewed, irregularly irregular, slightly bradycardic with a heart rate in the mid 40s to low 50s, patient reports baseline is in the 50s. -Follows with cardiology as an outpatient, consider consult during hospital stay, follows with Garett Marquez as an outpatient -Rate controlled with metoprolol succinate 12.5 mg daily, recently was reduce per cardiology -Checking lymes/anaplasmosis testing with bradycardia (3) Falls: - Fell 3 times on Wednesday night - CT head negative, Xray foot negative, CXR negative, if any c/o pain would further image. 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 (4) CAD (coronary artery disease): -Continue atorvastatin 80 mg daily, beta-jerald as above, lisinopril 10 mg daily (5) HTN (hypertension): -Upon EMR review in [facility], blood pressure has been hard to control, on 03/12 metoprolol was reduced from 25 mg daily to 12.5 mg daily due to bradycardia - may consider alternative if HR remains in low 50s to 40s per cardiology -Continue on metoprolol as above, lisinopril 10 mg daily, hydralazine 25 mg TID. - Lasix 20 mg BID (which will start tomorrow morning since had IVFs in the ER.) (6) Dyslipidemia: - Continue statin therapy - history of fibrofatty infiltration of the liver as well as alcoholism, alcoholic cirrhosis, past pancreatitis. - Follow lipid panel, LFT (7) PAD (peripheral artery disease): -History of such, leading to worsening wound healing ability -Check A1c with am labs, last A1c was 5.9 on 06/12/2020, patient reports he has never been deemed a diabetic although is diagnosed with diabetic neuropathy and takes Lyrica for nerve pain. He has not ever been required to take antihyperglycemic's - (8) S/P aneurysm repair: -AAA measuring 3.5 cm x 3.5 cm s/p stent repair from Jun 2020, scheduled to have follow up imaging in Jun 2021. (9) CKD (chronic kidney disease) stage 3, GFR 30-59 ml/min: - Hx of such, cr. baseline ~ 1.5-1.7, currently 1.9, IVFs given in ER. (10) Wound of right foot: - Wound consult for bandaging/wound care/teaching , please have outpatient set up for after hospital stay per request. - Involves the 4 small toes of the right foot - Continue IV zosyn for now. - Lactate 3.0 on admission, s/p IVFs improved to 1.0. No wound culture obtained. Follow blood cultures. Afebrile, WBC 7.3. CRP elevated 1.41 - Xray of the foot is negative for osteomyelitis, consider a CT if no improvement with IV abx. - Checking A1C (11) Diabetic neuropathy: -History of such, continue Lyrica 100 mg TID, Cymbalta 90 mg at bedtime also for mood (12) Cirrhosis: - History of significant alcohol abuse, patient reports he is no longer drinking alcohol -Bronze colored skin likely due to hemochromatosis - LFTs WNL today - Continue disulfiram 250 mg HS (13) Hypothyroidism: - TSH 5.420 on admission today, was 2.32 in December, free T4 is 0.87, low normal. - Increase levothyroxine to 88 mcg. - Will need repeat TSH and free T4 prior to dc and again within 4-6 weeks. (14) GERD (gastroesophageal reflux disease): -Continue Protonix daily DVT prophylaxis: - teds, scds, holding coumadin with supratherapeutic INR, follow INR daily labs. CODE: DNR/DNI Dispo: From home, likely to remain in the hospital x 1-2 days History of Present Illness Primary Care Provider: Emeka Piper, DO This is a 70 yo M with PMhx of HTN, HLD, hypertriglyceridemia, A. fib on Coumadin, CAD, pulmonary hypertension, mild paroxysmal V. tach, aortic ectasia, AAA, PVD, history of pulmonary embolism, GERD, alcoholic cirrhosis of the liver, CKD stage III, gout, depression who presents as he has had issues with bleeding from numerous scrapes and lesions on his legs, right toes status post fall sustained on Wednesday. is present at bedside and assists with the history. She reports that her was outside mowing grass for 4 hours on Wednesday afternoon in 90 degree heat. He drank 1 bottle of water during that timeframe. When he came inside he fell slowly to the ground due to lightheadedness x3 that evening but refused to come to the hospital. Denies LOC, trauma to the head, but did sustain small cut to the right knee. He has been having issues with right 4 small toes, as they have been "rubbed raw" from wearing an ill fitting shoe, and have worsened over the past 10 days. He denies any redness surrounding the area but is having issues with controlling bleeding of these toes. He has been taking his Coumadin, 12 mg daily except for Mondays when he takes 9 mg, as directed. Last night he took 9 mg. Upon presentation to the ER his INR is 7.9. His further reports that he likes to mow the grass without shirt, and shorts to "get some sun" but that he frequently sustains abrasions and scratches to his extremities which have also had oozing blood in the past few days. He is there of possible recent tick bite, but reports this is very possible, they also have a pet dog that could be carrying ticks. The patient denies having any recent fevers, chills or sweats. His appetite has been fairly good, fluid intake has been decent, but reports that he has been constipated x2 days where his bowels typically move once daily. Denies any other acute complaints. Allergies Allergy/AdvReac Type Severity Reaction Status Date / Time No Known Allergies Allergy Unverified 03/18/21 10:54 Home Medications Medication Instructions Recorded Confirmed Type allopurinol 200 mg PO HS 01/28/19 03/18/21 History atorvastatin 80 mg PO DAILY@1200 01/28/19 03/18/21 History clopidogrel 75 mg PO QAM 01/28/19 03/18/21 History furosemide 20 mg PO BID 01/28/19 03/18/21 History hydralazine 50 mg PO TID 01/28/19 03/18/21 History levothyroxine 75 mcg PO DAILYBB 01/28/19 03/18/21 History omega 6-[id number]-xyq-fish oil [Fish Oil] 1 cap PO BID 01/28/19 03/18/21 History pantoprazole 40 mg PO DAILY@1200 01/28/19 03/18/21 History oxycodone 5 mg PO DAILY PRN #10 tab 02/03/19 03/18/21 Rx cyanocobalamin (vitamin B-12) 1,000 mcg PO DAILY@1200 11/24/19 03/18/21 History [Vitamin B-12] ferrous sulfate [iron] 325 mg PO Q OTHER DAY@1200 11/24/19 03/18/21 History lisinopril 10 mg PO QAM 11/24/19 03/18/21 History pregabalin 100 mg PO BID 11/24/19 03/18/21 History pyridoxine (vitamin B6) [Vitamin 100 mg PO DAILY@1200 11/24/19 03/18/21 History B-6] calcitriol 0.25 mcg PO QAM 11/01/20 03/18/21 History carbamazepine 200 mg PO HS 11/01/20 03/18/21 History duloxetine 60 mg PO HS 11/01/20 03/18/21 History ezetimibe 10 mg PO QAM 11/01/20 03/18/21 History vitamin E 200 unit PO DAILY@1200 11/01/20 03/18/21 History disulfiram 250 mg PO HS 03/18/21 03/18/21 History duloxetine [Cymbalta] 30 mg PO HS 03/18/21 03/18/21 History magnesium chloride 128 mg PO BID 03/18/21 03/18/21 History metoprolol succinate 12.5 mg PO DAILY 03/18/21 03/18/21 History warfarin [Jantoven] See Rx Instructions .ROUTE .COMPLEX 03/18/21 03/18/21 History Past Med/Surg History Medical History (Updated 03/18/21 @ 14:48 by Archana Keller PA-C) Abnormal gait Anticoagulated on warfarin Atrial fibrillation Bleeding from wound CAD (coronary artery disease) CKD (chronic kidney disease) stage 3, GFR 30-59 ml/min Diabetic neuropathy Dyslipidemia ETOH abuse GERD (gastroesophageal reflux disease) History of bradycardia "carvedilol discontinued" History of cardioversion History of pulmonary embolism "2 episodes, chronic warfarin therapy" History of ventricular tachycardia HTN (hypertension) Hypertensive urgency Hypothyroidism Obesity Sleep apnea Surgical History History of inguinal hernia repair S/P aneurysm repair "AAA" S/P femoral-popliteal bypass surgery Family History Other Family history non-contributory Social History Smoking Status: Never smoker Second Hand Exposure: No; Hx Alcohol Use: Yes Alcohol type: hard liquor Hx Substance Use: No Preferred Language: Urdu Communication Ability: Effective Loss Prevention Investigator Required: Yes Beliefs That Will Affect Care: None marital status: Current Living Situation: Spouse current occupational status: retired Feels Safe at Home: Yes Assistive Devices: None Review of Systems Review of Systems: Constitutional: No fever, chills, sweats, fatigue or weakness Eyes: No diplopia, no changes in vision ENT: No sore throat, tinnitus, or trouble swallowing Respiratory: No shortness of breath, No dyspnea at rest or on exertion, no cough or sputum Cardiovascular: No chest pain, palpitations, or flutter Abdomen: No pain, No diarrhea, No nausea, No vomiting, + constipation. Musculoskeletal: No calf pain, No joint pain, No swelling Extremities: R knee abrasion, + R small toes with redness, tight skin, Genitourinary : No dysuria or urinary frequency, No hematuria Neurologic: No numbness/tingling, no difficulty with ambulation, no motor deficits, + peripheral neuropathy Psychiatric: No depression or anxiety symptoms Endocrine: No fatigue, No weight changes Integumentary: No itch, No rash Physical Exam Physical Exam: General: awake, alert, no apparent distress, obese BMI 30.8, + bronze skin color. Head: Normocephalic, atraumatic ENT: PERRL, EOMI, no pharyngeal exudate, mucous membranes moist Chest: Clear to auscultation, on room air, no adventitious breath sounds Cardiac:Irregularly irregular, bradycardic with HR 47-low 50s at bedside, no murmur, no JVD, normal peripheral pulses, good capillary refill Back: ecchymosis over R flank region, R shoulder blade developing Abdominal: NABS x 4 quadrants, soft, nondistended, nontender to palpation, no rebound or guarding Extremities: R knee abraison oozing blood through dressing, R foot invovling 4 toes are wrapped with AYE and kerlix, erythematous, not unwrapped due to bleeding. Otherwise Normal inspection, no peripheral edema or erythema, calfs nontender to palpation Psych: Normal mood and affect Neuro: AAO x 3, strength intact bilaterally and rated 5/5, no motor deficits, speech is clear, no peripheral sensory deficits Skin: Bronze, vasquez skin color, lesions and ecchymosis as described above. Results & Data Results & Data ([facility]) Vital Signs (Past 12 Hours) Vital Signs Temp Pulse Resp BP Pulse Ox 03/18/21 12:00 48 L 14 146/78 H 94 03/18/21 11:30 61 13 127/62 03/18/21 11:08 74 21 99 03/18/21 10:30 95 H 15 127/59 L 03/18/21 10:00 14 112/61 98 03/18/21 09:50 64 18 95 03/18/21 09:36 89 17 105/63 03/18/21 09:24 36.6 C 61 16 84/56 L 98 Diagnostic Findings Chest X-Ray 03/18/21 09:46 XR chest 1V portable CLINICAL HISTORY: weakness COMPARISON STUDY: February 01, 2019 FINDINGS: No pneumothorax. No pleural effusion. No large infiltrates or consolidative lesions are seen. Cardiac silhouette is within upper limits of normal. Aorta is tortuous and calcified. No significant pulmonary vascular congestion.. Osseous structures: Osteopenia. Degenerative changes of the spine. IMPRESSION: 1. No large infiltrates or consolidative lesions are seen. 2. Cardiac silhouette is within upper limits of normal. ACT 112: Negative or not required by law. The above report was generated using voice recognition software. It may contain grammatical, syntax or spelling errors. Electronically signed by: Jenelle Amin DO 03/18/2021 11:44 AM Foot X-Ray 03/18/21 09:48 XR foot RT min 3V routine CLINICAL HISTORY: toe infection COMPARISON: None. DISCUSSION: No acute fracture or dislocation seen. No significant edema is seen. Mild degenerative changes are seen. Vascular calcifications are demonstrated. IMPRESSION: No acute fracture or dislocation. ACT 112: Negative or not required by law. The above report was generated using voice recognition software. It may contain grammatical, syntax or spelling errors. Electronically signed by: Jenelle Amin DO 03/18/2021 11:[address] 03/18/21 10:11 CT SCAN OF THE BRAIN WITHOUT IV CONTRAST CLINICAL HISTORY: Frequent falls. Generalized weakness. COMPARISON STUDY: CT of the brain dated 11/02/2020. TECHNIQUE: Unenhanced axial CT scan of the brain is performed from the vertex to the skull base. A dose lowering technique was utilized adhering to the principles of ALARA. CT DOSE: 614.27 mGy.cm FINDINGS: Brain parenchyma: There are age-related involutional changes noting minimal subcortical and periventricular microangiopathic change. There is no hemorrhage, mass effect, or evidence of acute territorial ischemia by CT criteria. Parson- white matter differentiation is preserved. No extra-axial fluid collection is seen. Ventricles, sulci, cisterns: Prominent secondary to involutional change. Intracranial vasculature: There is atherosclerotic calcification of the cavernous carotid arteries. Calvarium: Unremarkable. Sinuses and mastoids: The visualized paranasal sinuses are clear. The mastoid air cells are well pneumatized. Orbits: The bony orbits are grossly intact. There are bilateral ocular lens implants. IMPRESSION: There is no hemorrhage, mass effect, or evidence of acute territorial ischemia by CT criteria. ACT 112: Negative or not required by law. Electronically signed by: Zelalem Griffin M.D. 03/18/2021 11:09 AM ECG Additional Comments: 18-MAR-2021 09:34:27 [facility]-EDSTAT ROUTINE RETRIEVAL Atrial fibrillation with slow ventricular response with a competing junctional pacemaker Left axis deviation Left bundle branch block Abnormal ECG When compared with ECG of 02-NOV-2020 16:43, Vent. rate has decreased BY 32 BPM Left bundle branch block is now Present 25mm/s 10mm/mV 150Hz 9.0.9 12SL 241 HD GAURI: 12 Referred by: REFERRED SELF Unconfirmed Vent. rate [address] interval * ms QRS duration 162 ms QT/QTc 472/455 ms Code Status & VTE Plan Code Status DNR/DNI-discussed with the patient and his at bedside Supervising Physician Co-Signing Physician Notes I saw this patient with the physician administrative assistant office manager, I participated in the history, physical, review of systems, and physical exam. I reviewed the medications with the patient and the physician administrative assistant office manager and helped reconcile the medications. I helped take a detailed family and social history as well. I formulated the assessment and plan personally with the physician administrative assistant office manager and went over it with the patient. Physical Exam Gen-AAO x 3, NAD, Afebrile Head-NCAT, EOMI, PERRLA, Anicteric Sclera, No Posterior Pharyngeal Erythema Neck-Supple, No JVD, No Thyromegaly, No Masses, No LAD, No Bruits Lungs-Clear to Auscultation Bilaterally, No Rales, No Rhonchi, No Wheezing, No Crepitus Chest-No S4, +S1, +S2, No S3, No Murmurs, No Rubs, No Gallops, No Ectopy Abdomen-Soft, Bowel Sounds Present, Non Tender, Non Distended, No Hepatomegaly, No Splenomegaly, No Palpable Masses, No Rebound, No Rigidity, No Guarding Musculoskeletal-Full Range of Motion Bilaterally, No CVAT Extremities-No Cyanosis, No Clubbing, No Edema, bleeding at mult sites, dusky toes R Nuero-Cranial Nerves II-XII grossly intact, Motor WNL, DTRs WNL, Strength WNL, Non Focal Psych-Normal Mood
[2021-03-18 14:43] LABS: Lyme Ab IgG w/WB Rflx Negative (Negative); Lyme Ab IgM w/WB Rflx Negative (Negative)
--- NOTE | 2021-03-18 15:27 | Electrocardiogram Report ---
Test Reason : Blood Pressure : / mmHG Vent. Rate : 056 BPM Atrial Rate : 202 BPM P-R Int : 000 ms QRS Dur : 162 ms QT Int : 472 ms P-R-T Axes : 000 -72 063 degrees QTc Int : 455 ms Atrial fibrillation with slow ventricular response with a competing junctional pacemaker Left axis deviation Left bundle branch block Abnormal ECG When compared with ECG of 02-NOV-2020 16:43, Vent. rate has decreased BY 32 BPM Left bundle branch block is now Present Confirmed by Blayne Horton ([id number]) on 03/18/2021 3:27:15 PM Referred By: REFERRED SELF Confirmed By:Blayne Horton
[2021-03-18] MEDS ORDERED: ONDANSETRON INJ 2 MG/ML 2 ML VIAL IV PRN (16:09)
[2021-03-18] MEDS ORDERED: oxyCODONE HCL IR 5 MG TAB (IMMEDIATE RELEASE) PO PRN (16:09)
[2021-03-18] MEDS ORDERED: PIPERACILLIN/TAZOBACTAM 4.5 GM in DEXTROSE 5% 100 ML IV SCH (16:09)
[2021-03-18] MEDS ORDERED: ACETAMINOPHEN 325 MG TAB PO PRN (16:09)
[2021-03-18] MEDS: PIPERACILLIN/TAZOBACTAM 3.375 GM in DEXTROSE 5% 100 ML IV SCH (17:23)
[2021-03-18] MEDS: hydrALAZINE TAB 50 MG TAB PO SCH ×2 (17:23→21:04)
--- NOTE | 2021-03-18 18:33 | Emergency Department Note ---
History of Present Illness General Chief complaint: Infection Stated complaint: INFECTION IN TOES, BLOOD SPOTS ON ARMS AND LEGS Time Seen by Provider: 03/18/21 09:43 Source: patient and EMS Mode of arrival: ambulatory Limitations: no limitations History of Present Illness Provider complaint: Weakness, infection the toes, multiple abrasions that are bleeding Maximum Pain Intensity: 7 This patient is a 70-year-old male who presents emergency department with complaints of generalized weakness. Patient's states he was mowing the lawn 2 days ago and became dehydrated. He was weak and sustained several falls later that afternoon. Patient is anticoagulated on warfarin secondary to a history of peripheral vascular disease as well as atrial fibrillation and PE. He has not had his INR checked in several weeks. His states he does still drink alcohol but has not had any since 3 days ago. She does not believe he hit his head as she witnessed the falls 2 days ago. Patient does have notable bruising to his back, upper extremities, knees and shins. There are several superficial abrasions/secretions that continue to bleed greater than 48 hours after the injury. Patient and denies any change in mental status, vomiting, fevers, chest pain, shortness of breath. Home Medications Medication Instructions Recorded Confirmed Type allopurinol 200 mg PO HS 01/28/19 03/18/21 History atorvastatin 80 mg PO DAILY@1200 01/28/19 03/18/21 History clopidogrel 75 mg PO QAM 01/28/19 03/18/21 History hydralazine 50 mg PO TID 01/28/19 03/18/21 History levothyroxine 75 mcg PO DAILYBB 01/28/19 03/18/21 History omega 8-wws-yud-fish oil [Fish Oil] 1 cap PO BID 01/28/19 03/18/21 History oxycodone 5 mg PO DAILY PRN #10 tab 02/03/19 03/18/21 Rx cyanocobalamin (vitamin B-12) 1,000 mcg PO DAILY@1200 11/24/19 03/18/21 History [Vitamin B-12] ferrous sulfate [iron] 325 mg PO Q OTHER DAY@1200 11/24/19 03/18/21 History lisinopril 10 mg PO QAM 11/24/19 03/18/21 History pregabalin 100 mg PO BID 11/24/19 03/18/21 History pyridoxine (vitamin B6) [Vitamin 100 mg PO DAILY@1200 11/24/19 03/18/21 History B-6] calcitriol 0.25 mcg PO QAM 11/01/20 03/18/21 History carbamazepine 200 mg PO HS 11/01/20 03/18/21 History duloxetine 60 mg PO HS 11/01/20 03/18/21 History ezetimibe 10 mg PO QAM 11/01/20 03/18/21 History vitamin E 200 unit PO DAILY@1200 11/01/20 03/18/21 History disulfiram 250 mg PO HS 03/18/21 03/18/21 History duloxetine [Cymbalta] 30 mg PO HS 03/18/21 03/18/21 History metoprolol succinate 12.5 mg PO DAILY 03/18/21 03/18/21 History cefdinir 300 mg PO Q12H 10 Days #20 cap 03/20/21 Rx doxycycline monohydrate 100 mg PO BID 10 Days #20 cap 03/20/21 Rx warfarin [Jantoven] 5 mg PO DAILY #30 tab 03/20/21 Rx Allergies Allergy/AdvReac Type Severity Reaction Status Date / Time No Known Allergies Allergy Unverified 03/18/21 10:54 Past Med/Surg History Medical History (Updated 03/20/21 @ 14:58 by Teodora Chahal MD) Abnormal gait Anticoagulated on warfarin Atrial fibrillation Bleeding from wound CAD (coronary artery disease) CKD (chronic kidney disease) stage 3, GFR 30-59 ml/min Diabetic neuropathy Dyslipidemia ETOH abuse GERD (gastroesophageal reflux disease) History of bradycardia "carvedilol discontinued" History of cardioversion History of pulmonary embolism "2 episodes, chronic warfarin therapy" History of ventricular tachycardia HTN (hypertension) Hypertensive urgency Hypothyroidism Obesity Sleep apnea Surgical History History of inguinal hernia repair S/P aneurysm repair "AAA" S/P femoral-popliteal bypass surgery Family History Other Family history non-contributory Social History Smoking Status: Never smoker Second Hand Exposure: No; Hx Alcohol Use: Yes Alcohol type: beer and hard liquor Hx Substance Use: No Preferred Language: Setswana Communication Ability: Effective 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 and A total of 10 systems reviewed and were otherwise negative Physical Exam Vital Signs Vital Signs - 24 hr 03/18/21 09:24 03/18/21 09:36 03/18/21 09:50 Temperature 36.6 C Temperature Source Oral Pulse Rate 61 89 64 Pulse Rate from SpO2 Sensor Pulse Rhythm Irregular Respiratory Rate 16 17 18 Blood Pressure 84/56 L 105/63 Blood Pressure Mean 65 77 Pulse Oximetry 98 95 Oxygen Delivery Method Room Air Room Air Sepsis Recent Fever Within 48 Hours No Sepsis New/Unexplained Change in Mental Status N/A Sepsis Action Taken by Nursing No Action Required 03/18/21 10:00 03/18/21 10:30 03/18/21 11:08 Temperature Temperature Source Pulse Rate 95 H 74 Pulse Rate from SpO2 Sensor 57 L 60 Pulse Rhythm Respiratory Rate 14 15 21 Blood Pressure 112/61 127/59 L Blood Pressure Mean 78 81 Pulse Oximetry 98 99 Oxygen Delivery Method Sepsis Recent Fever Within 48 Hours Sepsis New/Unexplained Change in Mental Status Sepsis Action Taken by Nursing 03/18/21 11:30 03/18/21 12:00 03/18/21 12:30 Temperature Temperature Source Pulse Rate 61 48 L 45 L Pulse Rate from SpO2 Sensor Pulse Rhythm Respiratory Rate 13 14 12 Blood Pressure 127/62 146/78 H 152/82 H Blood Pressure Mean 83 100 105 Pulse Oximetry 94 Oxygen Delivery Method Room Air Sepsis Recent Fever Within 48 Hours Sepsis New/Unexplained Change in Mental Status Sepsis Action Taken by Nursing Vital signs reviewed. General: Chronically ill-appearing 70-year-old male, in no significant distress. HEENT: No scleral icterus, PERRLA, neck supple. Atraumatic. Cardiovascular: Irregular but rate controlled. No extra sounds. Pulmonary: Coarse breath sounds at the bases bilaterally, normal work of breathing. Abdomen: Soft, obese, nontender, nondistended, positive bowel sounds. Musculoskeletal: Atraumatic, no peripheral edema. Right toes 2-4 with traumatic appearing avulsion (? ill-fitting shoe), mild surrounding erythema and slight discoloration. Foul odor. No appreciable discharge. Neurologic: Patient awake alert and oriented x 3, Minimal if any sensation. Skin: Warm, dry, several areas of ecchymosis to the posterior upper back, right elbow, right knee with ecchymosis and abrasion. Linear superficial abrasion with bleeding to the right hodge. Arterial insufficiency skin changes noted to the right greater than left lower extremities Course Administered Medications Allopurinol (Allopurinol 100 Mg Tab) 200 mg PO [facility] Stop: 04/17/21 20:59 Last Admin: 03/19/21 20:48 Dose: 200 mg Documented by: [id number] Admin: 03/18/21 21:03 Dose: 200 mg Documented by: [id number] Atorvastatin Calcium (Atorvastatin 40 Mg Tab) 80 mg PO DAILY@1200 [facility] Stop: 04/18/21 11:59 Last Admin: 03/20/21 11:41 Dose: 80 mg Documented by: [id number] Admin: 03/19/21 12:14 Dose: 80 mg Documented by: [id number] Calcitriol (Calcitriol 0.25 Mcg Capsule) 0.25 mcg PO [facility] Stop: 04/18/21 08:59 Last Admin: 03/20/21 09:15 Dose: 0.25 mcg Documented by: [id number] Admin: 03/19/21 08:45 Dose: 0.25 mcg Documented by: [id number] Carbamazepine (Carbamazepine 200 Mg Tabcr) 200 mg PO [facility] Stop: 04/17/21 20:59 Last Admin: 03/19/21 20:46 Dose: 200 mg Documented by: [id number] Admin: 03/18/21 21:03 Dose: 200 mg Documented by: [id number] Cyanocobalamin (Cyanocobalamin 500 Mcg Tablet (Vitamin B-12)) 1,000 mcg PO DAILY@1200 [facility] Stop: 04/18/21 11:59 Last Admin: 03/20/21 11:41 Dose: 1,000 mcg Documented by: [id number] Admin: 03/19/21 12:14 Dose: 1,000 mcg Documented by: [id number] Duloxetine HCl (Duloxetine Hcl 30 Mg Cap) 30 mg PO [facility] Stop: 04/17/21 20:59 Last Admin: 03/19/21 20:47 Dose: 30 mg Documented by: [id number] Admin: 03/18/21 21:03 Dose: 30 mg Documented by: [id number] Duloxetine HCl (Duloxetine Hcl 60 Mg Cap) 60 mg PO HS [facility] Stop: 04/17/21 20:59 Last Admin: 03/19/21 20:46 Dose: 60 mg Documented by: [id number] Admin: 03/18/21 21:03 Dose: 60 mg Documented by: [id number] Ezetimibe (Ezetimibe 10 Mg Tablet) 10 mg PO QAM [facility] Stop: 04/18/21 08:59 Last Admin: 03/20/21 09:16 Dose: 10 mg Documented by: [id number] Admin: 03/19/21 08:44 Dose: 10 mg Documented by: [id number] Ferrous Sulfate (Ferrous Sulfate 325 Mg Tab) 325 mg PO Q2D@1200 [facility] Stop: 04/18/21 11:59 Last Admin: 03/19/21 12:15 Dose: 325 mg Documented by: [id number] Fish Oil ([place]-3 (Purified Fish Oil) 1 Gm Cap) 1 gm PO BID [facility] Stop: 04/17/21 20:59 Last Admin: 03/20/21 09:16 Dose: 1 gm Documented by: [id number] Admin: 03/19/21 20:47 Dose: 1 gm Documented by: [id number] Admin: 03/19/21 08:42 Dose: 1 gm Documented by: [id number] Admin: 03/18/21 21:04 Dose: 1 gm Documented by: [id number] Furosemide (Furosemide 20 Mg Tab) 20 mg PO BID17 [facility] Stop: 04/18/21 08:59 Last Admin: 03/20/21 09:16 Dose: 20 mg Documented by: [id number] Admin: 03/19/21 17:06 Dose: 20 mg Documented by: [id number] Admin: 03/19/21 08:43 Dose: 20 mg Documented by: [id number] Hydralazine HCl (Hydralazine Tab 50 Mg Tab) 50 mg PO TID [facility] Stop: 04/17/21 16:08 Last Admin: 03/20/21 13:43 Dose: 50 mg Documented by: [id number] Admin: 03/20/21 09:15 Dose: 50 mg Documented by: [id number] Admin: 03/19/21 20:48 Dose: 50 mg Documented by: [id number] Admin: 03/19/21 14:57 Dose: 50 mg Documented by: [id number] Admin: 03/19/21 08:42 Dose: 50 mg Documented by: [id number] Admin: 03/18/21 21:04 Dose: 50 mg Documented by: [id number] Admin: 03/18/21 17:23 Dose: 50 mg Documented by: [id number] Piperacillin Sod/Tazobactam (Sod 3.375 gm/ Dextrose) 115 mls @ 28.75 mls/hr IV Q8H [facility]; Protocol Stop: 03/20/21 16:59 Last Infusion: 03/20/21 13:30 Dose: 0 mls/hr Documented by: [id number] Admin: 03/20/21 09:13 Dose: 28.8 mls/hr Documented by: [id number] Infusion: 03/20/21 04:35 Dose: 0 mls/hr Documented by: [id number] Admin: 03/20/21 00:35 Dose: 28.8 mls/hr Documented by: [id number] Infusion: 03/19/21 22:49 Dose: 0 mls/hr Documented by: [id number] Admin: 03/19/21 17:06 Dose: 28.8 mls/hr Documented by: [id number] Infusion: 03/19/21 12:55 Dose: 0 mls/hr Documented by: [id number] Admin: 03/19/21 08:46 Dose: 28.8 mls/hr Documented by: [id number] Infusion: 03/19/21 05:23 Dose: 0 mls/hr Documented by: [id number] Admin: 03/19/21 01:22 Dose: 28.8 mls/hr Documented by: [id number] Infusion: 03/18/21 21:50 Dose: 0 mls/hr Documented by: [id number] Admin: 03/18/21 17:23 Dose: 28.8 mls/hr Documented by: [id number] Levothyroxine Sodium (Levothyroxine Sodium 88 Mcg Tablet) 88 mcg PO DAILYBB [facility] Stop: 04/18/21 06:29 Last Admin: 03/20/21 05:33 Dose: 88 mcg Documented by: [id number] Admin: 03/19/21 05:52 Dose: 88 mcg Documented by: [id number] [facility]inopril (L[facility]op[facility] 10 Mg Tab) [facility] [place]: 04/18/21 08:59 Last Admin: 03/20/21 09:15 Dose: 10 mg Documented by: [id number] Admin: 03/19/21 08:44 Dose: 10 mg Documented by: [id number] Magnesium Chloride (Magnesium Chloride 64mg Delayed Rel Tab) 128 mg PO BID [facility] Stop: 04/17/21 20:59 Last Admin: 03/20/21 09:15 Dose: 128 mg Documented by: [id number] Admin: 03/19/21 20:46 Dose: 128 mg Documented by: [id number] Admin: 03/19/21 08:42 Dose: 128 mg Documented by: [id number] Admin: 03/18/21 21:04 Dose: 128 mg Documented by: [id number] Metoprolol Succinate (Metoprolol Succ 25mg Ext Rel Tab) 12.5 mg PO DAILY [facility] Stop: 04/18/21 08:59 Last Admin: 03/20/21 09:14 Dose: 12.5 mg Documented by: [id number] Admin: 03/19/21 08:43 Dose: 12.5 mg Documented by: [id number] Miscellaneous (Disulfiram 250 Mg ~ Order Awaiting Action) 1 ea N/A QS [facility] Stop: 04/18/21 00:00 Last Admin: 03/20/21 07:39 Dose: Not Given Documented by: [id number] Admin: 03/20/21 01:06 Dose: Not Given Documented by: [id number] Admin: 03/19/21 15:03 Dose: Not Given Documented by: [id number] Admin: 03/19/21 07:30 Dose: Not Given Documented by: [id number] Admin: 03/19/21 01:21 Dose: Not Given Documented by: [id number] Pantoprazole Sodium (Pantoprazole 40 Mg Tab) 40 mg PO DAILY@1200 [facility] Stop: 04/18/21 11:59 Last Admin: 03/20/21 11:40 Dose: 40 mg Documented by: [id number] Admin: 03/19/21 12:15 Dose: 40 mg Documented by: [id number] Pregabalin (Pregabalin 100 Mg Cap) 100 mg PO BID [facility] Stop: 04/17/21 20:59 Last Admin: 03/20/21 09:20 Dose: 100 mg Documented by: [id number] Admin: 03/19/21 20:55 Dose: 100 mg Documented by: [id number] Admin: 03/19/21 08:49 Dose: 100 mg Documented by: [id number] Admin: 03/18/21 21:04 Dose: 100 mg Documented by: [id number] Pyridoxine HCl (Pyridoxine Hcl 50 Mg Tab) 100 mg PO DAILY@1200 [facility] Stop: 04/18/21 11:59 Last Admin: 03/20/21 11:40 Dose: 100 mg Documented by: [id number] Admin: 03/19/21 12:15 Dose: 100 mg Documented by: [id number] Vitamin E (Tocopheryl, Dl-Alpha 100 Units Cap) 200 units PO DAILY@1200 [facility] Stop: 04/18/21 11:59 Last Admin: 03/20/21 11:40 Dose: 200 units Documented by: [id number] Admin: 03/19/21 12:15 Dose: 200 units Documented by: [id number] Discontinued Medications Sodium Chloride (Nss 1000ml) 1,000 mls @ 999 mls/hr IV .Q1H1M [facility] Stop: 03/18/21 11:00 Last Infusion: 03/18/21 16:38 Dose: 0 mls/hr Documented by: [id number] Admin: 03/18/21 10:54 Dose: 999 mls/hr Documented by: [id number] Sodium Chloride (Nss 1000ml) 1,000 mls @ 150 mls/hr IV .Q6H40M [facility] Stop: 04/17/21 09:59 Last Infusion: 03/19/21 05:50 Dose: 0 mls/hr Documented by: [id number] Admin: 03/19/21 01:19 Dose: 150 mls/hr Documented by: [id number] Infusion: 03/18/21 23:21 Dose: 150 mls/hr Documented by: [id number] Admin: 03/18/21 16:40 Dose: 150 mls/hr Documented by: [id number] Infusion: 03/18/21 16:39 Dose: 0 mls/hr Documented by: [id number] Admin: 03/18/21 12:24 Dose: 150 mls/hr Documented by: [id number] Piperacillin Sod/Tazobactam Sod (Zosyn) 4.5 gm in 120 mls @ 240 mls/hr IV NOW ONE Stop: 03/18/21 10:15 Last Infusion: 03/18/21 11:24 Dose: 0 mls/hr Documented by: [id number] Admin: 03/18/21 10:54 Dose: 240 mls/hr Documented by: [id number] Phytonadione 2.5 mg/ Sodium (Chloride) 50.25 mls @ 100.5 mls/hr IV ONE ONE Stop: 03/18/21 12:00 Last Infusion: 03/18/21 12:15 Dose: 0 mls/hr Documented by: [id number] Admin: 03/18/21 11:45 Dose: 100.5 mls/hr Documented by: [id number] Sodium Chloride (Nss 1000ml) 1,000 mls @ 50 mls/hr IV .Q20H ONE Stop: 03/20/21 01:40 Last Infusion: 03/20/21 02:27 Dose: 0 mls/hr Documented by: [id number] Admin: 03/19/21 05:50 Dose: 50 mls/hr Documented by: [id number] Phytonadione (Phytonadione 5 Mg Tab) 2.5 mg PO NOW STA Stop: 03/19/21 06:32 Last Admin: 03/19/21 07:30 Dose: Not Given Documented by: [id number] Medical Decision Making Differential Diagnosis Infection, dehydration, metabolic abnormality, alcohol intoxication, hypo/hyperglycemia, electrolyte disturbance, anemia, hypoxia, cardiac sources, intracerebral event, toxicologic, neurologic, as well as other pathologies. Medical Records Attestation: I reviewed the patient's medical records. Home Medications Current Medication List: was personally reviewed by me Laboratory Data Attestation: I reviewed the patient's lab results. Result diagrams: 03/20/21 06:57 03/20/21 06:57 Lab Results 03/18/21 03/18/21 03/18/21 Range/Units 09:50 09:50 09:50 WBC 7.30 (4.8-10.8) K/uL RBC 3.08 L (4.7-6.1) M/uL Hgb 10.6 L (14.0-18.0) g/dL Hct 31.8 L (42-52) % MCV 103.2 H (80-100) fL MCH 34.4 H (25-34) pg MCHC 33.3 (32-36) g/dL RDW Std Deviation 57.2 H (36.4-46.3) fL RDW Coeff of Pauline 15.6 H (11.5-14.5) % Plt Count 224 (130-400) K/uL MPV 10.6 H (7.4-10.4) fL Immature Gran % (Auto) 0.1 % Neut % (Auto) 71.3 % Lymph % (Auto) 17.1 % Hayes % (Auto) 9.0 % Eos % (Auto) 2.1 % Baso % (Auto) 0.4 % Neut # (Auto) 5.20 (1.4-6.5) K/uL Lymph # (Auto) 1.25 (1.2-3.4) K/uL Hayes # (Auto) 0.66 H (0.11-0.59) K/uL Eos # (Auto) 0.15 (0-0.5) K/uL Baso # (Auto) 0.03 (0-0.2) K/uL Immature Gran # (Auto) 0.01 (0.00-0.02) K/uL Absolute Nucleated RBC 0.03 H (0-0) K/uL Nucleated RBC % (auto) 0.4 % ESR 46 H (0-20) mm/hr PT (9.0-12.0) Seconds INR (0.9-1.1) APTT (21.0-31.0) Seconds PTT Ratio Sodium 140 (136-145) mmol/L Potassium 4.6 (3.5-5.1) mmol/L Chloride 109 H (98-107) mmol/L Carbon Dioxide 26 (21-32) mmol/L Anion Gap 5.0 (3-11) BUN 45 H (7-18) mg/dl Creatinine 1.93 H (0.6-1.4) mg/dl Est Cr Clr Drug Dosing 39.8 ml/min Est GFR ( Amer) 39.5 ml/min Est GFR (Non-Af Amer) 34.0 ml/min BUN/Creatinine Ratio 23.5 H (10-20) Glucose 86 (70-99) mg/dl Lactate (0.4-2.0) mmol/L Calcium 8.8 (8.5-10.1) mg/dl Total Bilirubin 0.3 (0.2-1) mg/dl AST 32 (15-37) U/L ALT 32 (12-78) U/L Alkaline Phosphatase 86 (45-117) U/L C-Reactive Protein 1.41 H (0-0.29) mg/dl Total Protein 7.7 (6.4-8.2) gm/dl Albumin 3.3 L (3.4-5.0) gm/dl Globulin 4.4 H (2.5-4.0) gm/dl Albumin/Globulin Ratio 0.7 L (0.9-2) TSH 5.420 H (0.300-4.500) uIu/ml Free T4 0.87 (0.8-1.6) ng/dl Specimen Hemolysis Ethyl Alcohol mg/dL (0-3) mg/dl Anaplasma Smear See Comment Lyme Disease IgG Ab (Negative) Lyme Disease IgM Ab (Negative) COVID-19 Eval Order SARS-CoV-2 (PCR) (Negative) 03/18/21 03/18/21 03/18/21 Range/Units 09:50 09:50 10:45 WBC (4.8-10.8) K/uL RBC (4.7-6.1) M/uL Hgb (14.0-18.0) g/dL Hct (42-52) % MCV (80-100) fL MCH (25-34) pg MCHC (32-36) g/dL RDW Std Deviation (36.4-46.3) fL RDW Coeff of Pauline (11.5-14.5) % Plt Count (130-400) K/uL MPV (7.4-10.4) fL Immature Gran % (Auto) % Neut % (Auto) % Lymph % (Auto) % Hayes % (Auto) % Eos % (Auto) % Baso % (Auto) % Neut # (Auto) (1.4-6.5) K/uL Lymph # (Auto) (1.2-3.4) K/uL Hayes # (Auto) (0.11-0.59) K/uL Eos # (Auto) (0-0.5) K/uL Baso # (Auto) (0-0.2) K/uL Immature Gran # (Auto) (0.00-0.02) K/uL Absolute Nucleated RBC (0-0) K/uL Nucleated RBC % (auto) % ESR (0-20) mm/hr PT 67.7 H (9.0-12.0) Seconds INR 7.9 H* (0.9-1.1) APTT 75.2 H* (21.0-31.0) Seconds PTT Ratio 2.9 Sodium (136-145) mmol/L Potassium (3.5-5.1) mmol/L Chloride (98-107) mmol/L Carbon Dioxide (21-32) mmol/L Anion Gap (3-11) BUN (7-18) mg/dl Creatinine (0.6-1.4) mg/dl Est Cr Clr Drug Dosing ml/min Est GFR ( Amer) ml/min Est GFR (Non-Af Amer) ml/min BUN/Creatinine Ratio (10-20) Glucose (70-99) mg/dl Lactate 3.1 H* (0.4-2.0) mmol/L Calcium (8.5-10.1) mg/dl Total Bilirubin (0.2-1) mg/dl AST (15-37) U/L ALT (12-78) U/L Alkaline Phosphatase (45-117) U/L C-Reactive Protein (0-0.29) mg/dl Total Protein (6.4-8.2) gm/dl Albumin (3.4-5.0) gm/dl Globulin (2.5-4.0) gm/dl Albumin/Globulin Ratio (0.9-2) TSH (0.300-4.500) uIu/ml Free T4 (0.8-1.6) ng/dl Specimen Hemolysis Ethyl Alcohol mg/dL (0-3) mg/dl Anaplasma Smear Lyme Disease IgG Ab Negative (Negative) Lyme Disease IgM Ab Negative (Negative) COVID-19 Eval Order SARS-CoV-2 (PCR) (Negative) 03/18/21 03/18/21 03/18/21 Range/Units 10:45 11:51 11:51 WBC (4.8-10.8) K/uL RBC (4.7-6.1) M/uL Hgb (14.0-18.0) g/dL Hct (42-52) % MCV (80-100) fL MCH (25-34) pg MCHC (32-36) g/dL RDW Std Deviation (36.4-46.3) fL RDW Coeff of Pauline (11.5-14.5) % Plt Count (130-400) K/uL MPV (7.4-10.4) fL Immature Gran % (Auto) % Neut % (Auto) % Lymph % (Auto) % Hayes % (Auto) % Eos % (Auto) % Baso % (Auto) % Neut # (Auto) (1.4-6.5) K/uL Lymph # (Auto) (1.2-3.4) K/uL Hayes # (Auto) (0.11-0.59) K/uL Eos # (Auto) (0-0.5) K/uL Baso # (Auto) (0-0.2) K/uL Immature Gran # (Auto) (0.00-0.02) K/uL Absolute Nucleated RBC (0-0) K/uL Nucleated RBC % (auto) % ESR (0-20) mm/hr PT (9.0-12.0) Seconds INR (0.9-1.1) APTT (21.0-31.0) Seconds PTT Ratio Sodium (136-145) mmol/L Potassium (3.5-5.1) mmol/L Chloride (98-107) mmol/L Carbon Dioxide (21-32) mmol/L Anion Gap (3-11) BUN (7-18) mg/dl Creatinine (0.6-1.4) mg/dl Est Cr Clr Drug Dosing ml/min Est GFR ( Amer) ml/min Est GFR (Non-Af Amer) ml/min BUN/Creatinine Ratio (10-20) Glucose (70-99) mg/dl Lactate (0.4-2.0) mmol/L Calcium (8.5-10.1) mg/dl Total Bilirubin (0.2-1) mg/dl AST (15-37) U/L ALT (12-78) U/L Alkaline Phosphatase (45-117) U/L C-Reactive Protein (0-0.29) mg/dl Total Protein (6.4-8.2) gm/dl Albumin (3.4-5.0) gm/dl Globulin (2.5-4.0) gm/dl Albumin/Globulin Ratio (0.9-2) TSH (0.300-4.500) uIu/ml Free T4 (0.8-1.6) ng/dl Specimen Hemolysis Ethyl Alcohol mg/dL 51.0 H (0-3) mg/dl Anaplasma Smear Lyme Disease IgG Ab (Negative) Lyme Disease IgM Ab (Negative) COVID-19 Eval Order Covid19 at [facility] SARS-CoV-2 (PCR) NEGATIVE (Negative) 03/18/21 Range/Units 12:40 WBC (4.8-10.8) K/uL RBC (4.7-6.1) M/uL Hgb (14.0-18.0) g/dL Hct (42-52) % MCV (80-100) fL MCH (25-34) pg MCHC (32-36) g/dL RDW Std Deviation (36.4-46.3) fL RDW Coeff of Pauline (11.5-14.5) % Plt Count (130-400) K/uL MPV (7.4-10.4) fL Immature Gran % (Auto) % Neut % (Auto) % Lymph % (Auto) % Hayes % (Auto) % Eos % (Auto) % Baso % (Auto) % Neut # (Auto) (1.4-6.5) K/uL Lymph # (Auto) (1.2-3.4) K/uL Hayes # (Auto) (0.11-0.59) K/uL Eos # (Auto) (0-0.5) K/uL Baso # (Auto) (0-0.2) K/uL Immature Gran # (Auto) (0.00-0.02) K/uL Absolute Nucleated RBC (0-0) K/uL Nucleated RBC % (auto) % ESR (0-20) mm/hr PT (9.0-12.0) Seconds INR (0.9-1.1) APTT (21.0-31.0) Seconds PTT Ratio Sodium (136-145) mmol/L Potassium (3.5-5.1) mmol/L Chloride (98-107) mmol/L Carbon Dioxide (21-32) mmol/L Anion Gap (3-11) BUN (7-18) mg/dl Creatinine (0.6-1.4) mg/dl Est Cr Clr Drug Dosing ml/min Est GFR ( Amer) ml/min Est GFR (Non-Af Amer) ml/min BUN/Creatinine Ratio (10-20) Glucose (70-99) mg/dl Lactate 1.0 (0.4-2.0) mmol/L Calcium (8.5-10.1) mg/dl Total Bilirubin (0.2-1) mg/dl AST (15-37) U/L ALT (12-78) U/L Alkaline Phosphatase (45-117) U/L C-Reactive Protein (0-0.29) mg/dl Total Protein (6.4-8.2) gm/dl Albumin (3.4-5.0) gm/dl Globulin (2.5-4.0) gm/dl Albumin/Globulin Ratio (0.9-2) TSH (0.300-4.500) uIu/ml Free T4 (0.8-1.6) ng/dl Specimen Hemolysis Ethyl Alcohol mg/dL (0-3) mg/dl Anaplasma Smear Lyme Disease IgG Ab (Negative) Lyme Disease IgM Ab (Negative) COVID-19 Eval Order SARS-CoV-2 (PCR) (Negative) Imaging Data Radiologist's Impression: Chest X-Ray 03/18/21 09:46 XR chest 1V portable CLINICAL HISTORY: weakness COMPARISON STUDY: February 01, 2019 FINDINGS: No pneumothorax. No pleural effusion. No large infiltrates or consolidative lesions are seen. Cardiac silhouette is within upper limits of normal. Aorta is tortuous and calcified. No significant pulmonary vascular congestion.. Osseous structures: Osteopenia. Degenerative changes of the spine. IMPRESSION: 1. No large infiltrates or consolidative lesions are seen. 2. Cardiac silhouette is within upper limits of normal. ACT 112: Negative or not required by law. The above report was generated using voice recognition software. It may contain grammatical, syntax or spelling errors. Electronically signed by: Jenelle Amin DO 03/18/2021 11:44 AM Foot X-Ray 03/18/21 09:48 XR foot RT min 3V routine CLINICAL HISTORY: toe infection COMPARISON: None. DISCUSSION: No acute fracture or dislocation seen. No significant edema is seen. Mild degenerative changes are seen. Vascular calcifications are demonstrated. IMPRESSION: No acute fracture or dislocation. ACT 112: Negative or not required by law. The above report was generated using voice recognition software. It may contain grammatical, syntax or spelling errors. Electronically signed by: Jenelle Amin DO 03/18/2021 11:[address] 03/18/21 10:11 CT SCAN OF THE BRAIN WITHOUT IV CONTRAST CLINICAL HISTORY: Frequent falls. Generalized weakness. COMPARISON STUDY: CT of the brain dated 11/02/2020. TECHNIQUE: Unenhanced axial CT scan of the brain is performed from the vertex to the skull base. A dose lowering technique was utilized adhering to the principles of ALARA. CT DOSE: 614.27 mGy.cm FINDINGS: Brain parenchyma: There are age-related involutional changes noting minimal subcortical and periventricular microangiopathic change. There is no hemorrhage, mass effect, or evidence of acute territorial ischemia by CT criteria. Parson- white matter differentiation is preserved. No extra-axial fluid collection is seen. Ventricles, sulci, cisterns: Prominent secondary to involutional change. Intracranial vasculature: There is atherosclerotic calcification of the cavernous carotid arteries. Calvarium: Unremarkable. Sinuses and mastoids: The visualized paranasal sinuses are clear. The mastoid air cells are well pneumatized. Orbits: The bony orbits are grossly intact. There are bilateral ocular lens implants. IMPRESSION: There is no hemorrhage, mass effect, or evidence of acute t erritorial ischemia by CT criteria. ACT 112: Negative or not required by law. Electronically signed by: Zelalem Griffin M.D. 03/18/2021 11:09 AM ECG Data Attestation: I personally reviewed and interpreted this ECG as follows: Indication: + weakness Rate (beats per minute): 56 Rhythm: + atrial fibrillation ECG Intervals/blocks: + Left bundle branch block ECG [place]: + Left axis deviation ECG ST segments: + Normal ST segments Comparison ECG Date: from (03/18/21) Change: the following changes noted (Left BBB is new) Blood Pressure Blood Pressure Findings: Elevated blood pressure Blood Pressure Disposition: further management by hospitalist COLBY Narrative This patient was evaluated and appeared to be in no significant distress. Physical examination reveals a chronically ill-appearing male with several areas of active bleeding however they are controlled with pressure dressing. IV access was obtained and laboratory work was drawn. An order for cardiac monitoring was placed and the patient is noted to be in a rate controlled atrial fibrillation at 74 bpm. IV hydration was initiated. The patient's laboratory work reveals an INR of 7.9, lactate of 1.0, hemoglobin of 10. Patient was given 2.5 mg of IV vitamin K. X-rays are negative for acute fracture. Head CT is negative for acute intracranial hemorrhage. Patient's alcohol level is noted to be 51. Ongoing alcohol consumption is considered to be a type etiology for the patient's symptoms. Case was discussed with the hospitalist service who evaluated patient for admission and further management. Patient and are aware of the plan and agree. Impression & Plan Atrial fibrillation, ETOH abuse, PAD (peripheral artery disease) Discharge Plan Visit Data Chief Complaint: Infection Stated Complaint: INFECTION IN TOES, BLOOD SPOTS ON ARMS AND LEGS ED Provider: Teodora Chahal Discharge Problem: Atrial fibrillation, ETOH abuse, PAD (peripheral artery disease) Patient Disposition: Admitted As Inpatient Condition: Good Discharge Instructions Interventions: ED Discharge Assessment Last Done: 03/18/21 15:09 Discharge Problem: Atrial fibrillation Qualifiers: Atrial fibrillation type: unspecified chronic Qualified Code(s): I48.20 - Chronic atrial fibrillation, unspecified
[2021-03-18] MEDS ORDERED: METOPROLOL SUCC 25MG EXT REL TAB PO SCH (21:00)
[2021-03-18] MEDS: DULoxetine HCL 30 MG CAP PO SCH (21:03)
[2021-03-18] MEDS: allopurinoL 100 MG TAB PO SCH (21:03)
[2021-03-18] MEDS: DULoxetine HCL 60 MG CAP PO SCH (21:03)
[2021-03-18] MEDS: OMEGA-3 (PURIFIED FISH OIL) 1 GM CAP PO SCH (21:04)
[2021-03-18] MEDS: PREGABALIN 100 MG CAP PO SCH (21:04)
[2021-03-18] MEDS: MAGNESIUM CHLORIDE 64MG DELAYED REL TAB PO SCH (21:04)
[2021-03-18 21:38] LABS: Appearance Urine Clear (Clear); Bilirubin Urine Negative (Negative); Blood Urine Negative (Negative); Color Urine Yellow; Glucose Urine UA Negative (Negative); Ketones Urine Negative (Negative); Leukocyte Esterase Urine Negative (Negative); Nitrite Urine Negative (Negative); Protein Urine Negative (Negative); Urobilinogen Urine Negative (Negative); pH Urine 5.5 (4.5-7.5)
[2021-03-19] MEDS: SODIUM CHLORIDE 0.9% 1000ML 1,000 ML IV SCH (01:19)
[2021-03-19] MEDS: PIPERACILLIN/TAZOBACTAM 3.375 GM in DEXTROSE 5% 100 ML IV SCH ×3 (01:22→17:06)
--- NOTE | 2021-03-19 05:38 | Communication Note ---
Date of Service: March 19, 2021 Notified by RN of bleeding wounds. AP Coumadin coagulopathy A.m. labs now Hold Plavix until a.m. labs back. Will relay to AM provider.
[2021-03-19] MEDS ORDERED: SODIUM CHLORIDE 0.9% 1000ML 1,000 ML IV ONE (05:41)
[2021-03-19] MEDS: LEVOTHYROXINE SODIUM 88 MCG TABLET PO SCH (05:52)
[2021-03-19] MEDS ORDERED: PHYTONADIONE 5 MG TAB PO STA (06:31)
[2021-03-19 07:06] LABS: Hematocrit (blood only) 26.9 % (42-52); Hemoglobin 8.9 g/dL (14.0-18.0); Mean Corpuscular Hemoglobin 34.8 pg (25-34); Mean Corpuscular Volume 105.1 fL (80-100); Platelet Count 154 K/uL (130-400); RDW Coefficient of Variation 15.8 % (11.5-14.5); RDW Standard Deviation 60.5 fL (36.4-46.3); Red Blood Count 2.56 M/uL (4.7-6.1); White Blood Count 3.69 K/uL (4.8-10.8)
[2021-03-19 07:07] LABS: Mean Corpuscular Hgb Conc 33.1 g/dL (32-36)
[2021-03-19 07:12] LABS: INR 2.1 (0.9-1.1); Prothrombin Time 20.3 Seconds (9.0-12.0)
[2021-03-19 07:31] LABS: BUN Creatinine Ratio 21.7 (10-20); Calcium 8.5 mg/dl (8.5-10.1); Creatinine Clr Calc Pharmacy 45.9 ml/min; Est GFR (Non-African American) 40.6 ml/min; Potassium 4.7 mmol/L (3.5-5.1)
[2021-03-19 07:34] LABS: Albumin Globulin Ratio 0.8 (0.9-2); Bilirubin,Total 0.7 mg/dl (0.2-1); Globulin 3.7 gm/dl (2.5-4.0); Total Protein 6.7 gm/dl (6.4-8.2)
--- NOTE | 2021-03-19 07:43 | Magnetic Resonance Report ---
MRI OF THE RIGHT FOREFOOT NO CONTRAST CLINICAL HISTORY: Infected toes. Possible osteomyelitis COMPARISON STUDY: X-ray study dated 03/18/2021 FINDINGS: Images were acquired in the axial, sagittal, and coronal planes. The examination is motion degraded. There are flexion deformities at the level of the distal interphalangeal joints of the second through fifth toes. There is no definitive T1 or T2 bone marrow edema to indicate osteomyelitis. There is mild nonspecific soft tissue edema. There is mild edema within the intrinsic musculature of the foot. IMPRESSION: 1. Significantly limited study from a technical standpoint secondary to motion degradation 2. No evidence of acute osteomyelitis. ACT 112: Negative or not required by law. Electronically signed by: Marvin Puentes M.D. 03/19/2021 7:42 AM
[2021-03-19] MEDS: MAGNESIUM CHLORIDE 64MG DELAYED REL TAB PO SCH ×2 (08:42→20:46)
[2021-03-19] MEDS: hydrALAZINE TAB 50 MG TAB PO SCH ×3 (08:42→20:48)
[2021-03-19] MEDS: OMEGA-3 (PURIFIED FISH OIL) 1 GM CAP PO SCH ×2 (08:42→20:47)
[2021-03-19] MEDS: FUROSEMIDE 20 MG TAB PO SCH ×2 (08:43→17:06)
[2021-03-19] MEDS: METOPROLOL SUCC 25MG EXT REL TAB PO SCH (08:43)
[2021-03-19] MEDS: EZETIMIBE 10 MG TABLET PO SCH (08:44)
[2021-03-19] MEDS: lisinopril 10 MG TAB PO SCH (08:44)
[2021-03-19] MEDS: CALCITRIOL 0.25 MCG CAPSULE PO SCH (08:45)
[2021-03-19] MEDS: PREGABALIN 100 MG CAP PO SCH ×2 (08:49→20:55)
[2021-03-19] MEDS ORDERED: CLOPIDOGREL BISULFATE 75 MG TAB PO SCH (09:00)
[2021-03-19] MEDS ORDERED: FUROSEMIDE 20 MG TAB PO SCH (09:00)
[2021-03-19] MEDS ORDERED: FERROUS SULFATE 325 MG TAB PO SCH (12:00)
[2021-03-19] MEDS: CYANOCOBALAMIN 500 MCG TABLET (VITAMIN B-12) PO SCH (12:14)
[2021-03-19] MEDS: ATORVASTATIN 40 MG TAB PO SCH (12:14)
[2021-03-19] MEDS: PANTOprazole 40 MG TAB PO SCH (12:15)
[2021-03-19] MEDS: PYRIDOXINE HCL 50 MG TAB PO SCH (12:15)
[2021-03-19] MEDS: TOCOPHERYL, DL-ALPHA 100 UNITS CAP PO SCH (12:15)
--- NOTE | 2021-03-19 14:28 | Hospitalist Progress Note ---
Date of Service March 19, 2021 Assessment & Plan (1) Supratherapeutic INR: (2) Atrial fibrillation: -INR 2.1 today -Given vitamin K 2.5 mg IV in the ER, hold on any further reversal for now. -EKG reviewed, irregularly irregular, slightly bradycardic with a heart rate in the mid 40s to low 50s, patient reports baseline is in the 50s. -Follows with cardiology as an outpatient, follows with Garett Jimmy as an outpatient -Rate controlled with metoprolol succinate 12.5 mg daily, recently was reduce per cardiology -Checking lymes/anaplasmosis testing with bradycardia (3) Falls: - Fell 3 times on Wednesday night - CT head negative, Xray foot negative, CXR negative, if any c/o pain would further image. 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 (4) CAD (coronary artery disease): -Continue atorvastatin 80 mg daily, beta-jerald as above, lisinopril 10 mg daily (5) HTN (hypertension): - Upon EMR review in [facility], blood pressure has been hard to control, on 03/12 metoprolol was reduced from 25 mg daily to 12.5 mg daily due to bradycardia - may consider alternative if HR remains in low 50s to 40s per cardiology - Continue on metoprolol as above, lisinopril 10 mg daily, hydralazine 25 mg TID. - Lasix 20 mg BID (which will start tomorrow morning since had IVFs in the ER.) (6) Dyslipidemia: - Continue statin therapy - history of fibrofatty infiltration of the liver as well as alcoholism, alcoholic cirrhosis, past pancreatitis. - Follow lipid panel, LFT (7) PAD (peripheral artery disease): -History of such, leading to worsening wound healing ability -Check A1c with am labs, last A1c was 5.9 on 06/12/2020, patient reports he has never been deemed a diabetic although is diagnosed with diabetic neuropathy and takes Lyrica for nerve pain. He has not ever been required to take antihyperglycemic's (8) S/P aneurysm repair: -AAA measuring 3.5 cm x 3.5 cm s/p stent repair from Jun 2020, scheduled to have follow up imaging in Jun 2021. (9) CKD (chronic kidney disease) stage 3, GFR 30-59 ml/min: - Hx of such, cr. baseline ~ 1.5-1.7, currently 1.9, IVFs given in ER. (10) Wound of right foot: - Wound consult for bandaging/wound care/teaching , please have outpatient set up for after hospital stay per request. - Involves the 4 small toes of the right foot - MRI negative for Osteomyelitis - Continue IV Zosyn for now. - Lactate 3.0 on admission, s/p IVFs improved to 1.0. No wound culture obtained. Follow blood cultures. Afebrile, WBC 7.3. CRP elevated 1.41 - Xray and MRI of the foot are negative for osteomyelitis (11) Diabetic neuropathy: -History of such, continue Lyrica 100 mg TID, Cymbalta 90 mg at bedtime also for mood (12) Cirrhosis: - History of significant alcohol abuse, patient reports he is no longer drinking alcohol -Bronze colored skin likely due to hemochromatosis - LFTs WNL today - Continue disulfiram 250 mg HS (13) Hypothyroidism: - TSH 5.420 on admission today, was 2.32 in December, free T4 is 0.87, low normal. - Increase levothyroxine to 88 mcg. (14) GERD (gastroesophageal reflux disease): -Continue Protonix daily L elbow pain and swelling, Likely hematoma, Orth to see DVT prophylaxis: - teds, scds, holding coumadin with supratherapeutic INR, follow INR daily labs. CODE: DNR/DNI Dispo: From home, likely to remain in the hospital x 1-2 days labs checked ROS-No Headache, No Visual Changes, No Nausea, No Vomiting, No Fever, No Chills, No Neck Pain or Stiffness, No Chest Pain, No Palpitations, No SOB, No GALEANO, No Cough, No Sputum, No Wheezing, No Abdominal Pain, No Diarrhea, No Hematemesis, No Hemoptysis, No Unexpected Weight Loss, No Flank pain, No Melena, No Hematochezia, No Frequency, No Urgency, No Burning, No Hematuria, No Rashes, No Diaphoresis. Appetite is Normal, +L Elbow pain and swelling Physical Exam Gen-AAO x 3, NAD, Afebrile Head-NCAT, EOMI, PERRLA, Anicteric Sclera, No Posterior Pharyngeal Erythema Neck-Supple, No JVD, No Thyromegaly, No Masses, No LAD, No Bruits Lungs-Clear to Auscultation Bilaterally, No Rales, No Rhonchi, No Wheezing, No Crepitus Chest-No S4, +S1, +S2, No S3, No Murmurs, No Rubs, No Gallops, No Ectopy Abdomen-Soft, Bowel Sounds Present, Non Tender, Non Distended, No Hepatomegaly, No Splenomegaly, No Palpable Masses, No Rebound, No Rigidity, No Guarding Musculoskeletal-L Elbow c decreased Range of Motion, +L Elbow pain and swelling, No CVAT Extremities-No Cyanosis, No Clubbing, No Edema, bleeding at mult sites, dusky toes R Nuero-Cranial Nerves II-XII grossly intact, Motor WNL, DTRs WNL, Strength WNL, Non Focal Psych-Normal Mood Admission and Anticipated Discharge Date Admission Date: March 18, 2021 Results & Data Results & Data ([facility]) Vital Signs (Past 12 Hours) Vital Signs Temp Pulse Pulse Resp BP Pulse Ox 03/19/21 11:28 36.4 C L 60 17 151/78 H 95 03/19/21 07:33 78 03/19/21 07:24 36.6 C 68 19 155/85 H 96 03/19/21 03:17 59 L 03/19/21 02:41 36.8 C 66 18 147/79 H 98
--- NOTE | 2021-03-19 16:05 | Orthopedic Consultation ---
Date of Consultation March 19, 2021 Assessment & Plan (1) Olecranon bursitis of left elbow: Exam consistent with left elbow olecranon bursitis, likely chronic. Does not appear to be septic. Given his elevated INR could be hemorrhagic. Review of his x-rays demonstrate a large olecranon spur with soft tissue swelling. He does have a moderate effusion with a positive fat pad sign. No obvious fracture noted, although patient has had multiple falls and unsure if he has fallen on his elbow, possible hemarthrosis. Cannot rule out an occult fracture. His elbow bursal swelling does not appear to be infectious at this time. Will have Dr. Tinoco evaluate the patient as well and review his x-rays to determine if aspiration is warranted or if any other further imaging needed. Recommend ice to left elbow, Lidoderm patch if needed. History of Present Illness Reason for Consultation: Left elbow pain and swelling Requesting Physician: Dr. Mota of medicine service Attending Physician: Gonzalo Mota DO History of Present Illness Patient is a pleasant 70 year old male with multiple medical comorbidities. PMHx significant for a-fib on Coumadin, frequent falls, CAD, HTN. PAD, CKD, DM2, alchoholic cirrhosis, and hypothyroidism. He presented to the ED yesterday after several falls and issues with persistent bleeding from abrasions, chronic toe infection. On admission is INR was supratherapeutic at 7.9. Has been brought down and is now 2.1. We have been asked to see Mr. Anderson for evaluation of elbow swelling to evaluate for bursitis vs hematoma. He states has had swelling for past several weeks. Review of chart he had left elbow x-ray in October with findings demonstrating bursitis vs hematoma after a fall. He does have complaint of generalized pain, with pain more localized to his elbow with movement. He is on IV Zosyn currently out of concern for toe infection. MRI negative for osteo. Normal white count, CRP 1.79 with sed rate of 42. He has not been febrile this admission. Denies fever, chills, headaches, n/v/d, chest pain, sob. Allergies Allergy/AdvReac Type Severity Reaction Status Date / Time No Known Allergies Allergy Unverified 03/18/21 10:54 Home Medications Medication Instructions Recorded Confirmed Type allopurinol 200 mg PO HS 01/28/19 03/18/21 History atorvastatin 80 mg PO DAILY@1200 01/28/19 03/18/21 History clopidogrel 75 mg PO QAM 01/28/19 03/18/21 History furosemide 20 mg PO BID 01/28/19 03/18/21 History hydralazine 50 mg PO TID 01/28/19 03/18/21 History levothyroxine 75 mcg PO DAILYBB 01/28/19 03/18/21 History omega 0-jzg-nme-fish oil [Fish Oil] 1 cap PO BID 01/28/19 03/18/21 History pantoprazole 40 mg PO DAILY@1200 01/28/19 03/18/21 History oxycodone 5 mg PO DAILY PRN #10 tab 02/03/19 03/18/21 Rx cyanocobalamin (vitamin B-12) 1,000 mcg PO DAILY@1200 11/24/19 03/18/21 History [Vitamin B-12] ferrous sulfate [iron] 325 mg PO Q OTHER DAY@1200 11/24/19 03/18/21 History lisinopril 10 mg PO QAM 11/24/19 03/18/21 History pregabalin 100 mg PO BID 11/24/19 03/18/21 History pyridoxine (vitamin B6) [Vitamin 100 mg PO DAILY@1200 11/24/19 03/18/21 History B-6] calcitriol 0.25 mcg PO QAM 11/01/20 03/18/21 History carbamazepine 200 mg PO HS 11/01/20 03/18/21 History duloxetine 60 mg PO HS 11/01/20 03/18/21 History ezetimibe 10 mg PO QAM 11/01/20 03/18/21 History vitamin E 200 unit PO DAILY@1200 11/01/20 03/18/21 History disulfiram 250 mg PO HS 03/18/21 03/18/21 History duloxetine [Cymbalta] 30 mg PO HS 03/18/21 03/18/21 History magnesium chloride 128 mg PO BID 03/18/21 03/18/21 History metoprolol succinate 12.5 mg PO DAILY 03/18/21 03/18/21 History warfarin [Jantoven] See Rx Instructions .ROUTE .COMPLEX 03/18/21 03/18/21 Hist ory Patient History Medical History (Updated 03/19/21 @ 16:17 by Dakotah Montanez) Abnormal gait Anticoagulated on warfarin Atrial fibrillation Bleeding from wound CAD (coronary artery disease) CKD (chronic kidney disease) stage 3, GFR 30-59 ml/min Diabetic neuropathy Dyslipidemia ETOH abuse GERD (gastroesophageal reflux disease) History of bradycardia "carvedilol discontinued" History of cardioversion History of pulmonary embolism "2 episodes, chronic warfarin therapy" History of ventricular tachycardia HTN (hypertension) Hypertensive urgency Hypothyroidism Obesity Sleep apnea Surgical History History of inguinal hernia repair S/P aneurysm repair "AAA" S/P femoral-popliteal bypass surgery Family History Other Family history non-contributory Social History Smoking Status: Never smoker Second Hand Exposure: No; Hx Alcohol Use: Yes Alcohol type: beer and hard liquor Hx Substance Use: No Preferred Language: Yemeni Communication Ability: Effective Derrick Hand Required: Yes Beliefs That Will Affect Care: None marital status: Current Living Situation: Spouse current occupational status: retired Feels Safe at Home: Yes Safety Concerns: Feels Safe At This Time Assistive Devices: Glasses Review of Systems Review of Systems: All systems reviewed & are unremarkable except as noted in HPI & below Physical Exam Physical Exam: Left elbow: No discolorations, no erythema. No open wounds. Has ROM 5 degrees to 120 degrees, pain at end range of flexion. Mild tenderness about the elbow, no tenderness over olecranon. Swelling over olecranon cons istent with bursitis. Does feel like he has some scarred bursa on palpation. No ligamentous laxity. N/v status and sensation intact. Constitutional: well developed and well nourished; no acute distress Respiratory: no respiratory distress Skin: no rashes, warm and dry Multiple areas of ecchymosis/bruising on his extremities Neurologic: normal touch/pain/proprioception Psychiatric: A+Ox3, euthymic affect Results & Data ([facility]) Vital Signs (Past 12 Hours) Vital Signs Temp Pulse Pulse Resp BP Pulse Ox 03/19/21 15:03 36.4 C L 69 18 173/88 H 92 03/19/21 11:28 36.4 C L 60 17 151/78 H 95 03/19/21 07:33 78 03/19/21 07:24 36.6 C 68 19 155/85 H 96 Laboratory Results H & H 03/18/21 03/19/21 Range/Units 09:50 06:42 Hgb 10.6 L 8.9 L (14.0-18.0) g/dL Hct 31.8 L 26.9 L (42-52) % Coagulation 03/18/21 03/19/21 Range/Units 09:50 06:42 INR 7.9 H* 2.1 H (0.9-1.1) Diagnostic Findings XR elbow LT min 3V routine HISTORY: 70 years-old Male pain/swelling acute pain and swelling of the left elbow COMPARISON: Left elbow radiographs 11/01/2020 TECHNIQUE: 3 views of the left elbow FINDINGS: Moderate sized enthesophyte of the olecranon process. Moderate adjacent soft tissue prominence. Mild multifocal osteoarthritis without acute fracture or dislocation. Interval development of a moderate joint effusion. No opaque foreign body. IMPRESSION: 1. Moderate joint effusion without acute fracture or dislocation identified. 2. Moderate soft tissue prominence of the olecranon process redemonstrated, possibly representing a chronic bursitis.
--- NOTE | 2021-03-19 16:09 | XRay Report ---
XR elbow LT min 3V routine HISTORY: 70 years-old Male pain/swelling acute pain and swelling of the left elbow COMPARISON: Left elbow radiographs 11/01/2020 TECHNIQUE: 3 views of the left elbow FINDINGS: Moderate sized enthesophyte of the olecranon process. Moderate adjacent soft tissue prominence. Mild multifocal osteoarthritis without acute fracture or dislocation. Interval development of a moderate j oint effusion. No opaque foreign body. IMPRESSION: 1. Moderate joint effusion without acute fracture or dislocation identified. 2. Moderate soft tissue prominence of the olecranon process redemonstrated, possibly representing a c hronic bursitis. ACT 112: Negative or not required by law. The above report was generated using voice recognition software. It may contain grammatical, syntax o r spelling errors. Electronically signed by: Augustine Bautista M.D. 03/19/2021 4:08 PM
[2021-03-19] MEDS ORDERED: ETHYL CHLORIDE AER SPR 100 ML CAN EXT ONE (16:36)
[2021-03-19] MEDS: DULoxetine HCL 60 MG CAP PO SCH (20:46)
[2021-03-19] MEDS: DULoxetine HCL 30 MG CAP PO SCH (20:47)
[2021-03-19] MEDS: allopurinoL 100 MG TAB PO SCH (20:48)
[2021-03-20] MEDS: PIPERACILLIN/TAZOBACTAM 3.375 GM in DEXTROSE 5% 100 ML IV SCH ×2 (00:35→09:13)
[2021-03-20] MEDS: LEVOTHYROXINE SODIUM 88 MCG TABLET PO SCH (05:33)
[2021-03-20 07:15] LABS: Hematocrit (blood only) 28.8 % (42-52); Hemoglobin 9.6 g/dL (14.0-18.0); Mean Corpuscular Hemoglobin 34.2 pg (25-34); Mean Corpuscular Hgb Conc 33.3 g/dL (32-36); Mean Corpuscular Volume 102.5 fL (80-100); Mean Platelet Volume 10.1 fL (7.4-10.4); Platelet Count 138 K/uL (130-400); RDW Coefficient of Variation 15.9 % (11.5-14.5); RDW Standard Deviation 58.8 fL (36.4-46.3); Red Blood Count 2.81 M/uL (4.7-6.1); White Blood Count 4.83 K/uL (4.8-10.8)
[2021-03-20 07:25] LABS: INR 1.5 (0.9-1.1); Prothrombin Time 15.2 Seconds (9.0-12.0)
[2021-03-20 07:41] LABS: Albumin Level 3.1 gm/dl (3.4-5.0); BUN Creatinine Ratio 16.9 (10-20); Creatinine Clr Calc Pharmacy 48.2 ml/min; Est GFR (African American) 49.5 ml/min; Est GFR (Non-African American) 42.7 ml/min
[2021-03-20 07:44] LABS: Albumin Globulin Ratio 0.8 (0.9-2); Bilirubin,Total 0.5 mg/dl (0.2-1); Total Protein 7.1 gm/dl (6.4-8.2)
[2021-03-20] MEDS: METOPROLOL SUCC 25MG EXT REL TAB PO SCH (09:14)
[2021-03-20] MEDS: lisinopril 10 MG TAB PO SCH (09:15)
[2021-03-20] MEDS: hydrALAZINE TAB 50 MG TAB PO SCH ×2 (09:15→13:43)
[2021-03-20] MEDS: MAGNESIUM CHLORIDE 64MG DELAYED REL TAB PO SCH (09:15)
[2021-03-20] MEDS: CALCITRIOL 0.25 MCG CAPSULE PO SCH (09:15)
[2021-03-20] MEDS: OMEGA-3 (PURIFIED FISH OIL) 1 GM CAP PO SCH (09:16)
[2021-03-20] MEDS: EZETIMIBE 10 MG TABLET PO SCH (09:16)
[2021-03-20] MEDS: FUROSEMIDE 20 MG TAB PO SCH (09:16)
[2021-03-20] MEDS: PREGABALIN 100 MG CAP PO SCH (09:20)
--- NOTE | 2021-03-20 10:01 | Discharge Summary ---
Date of Service March 20, 2021 Admission HPI Per Admitting Provider This is a 70 yo M with PMhx of HTN, HLD, hypertriglyceridemia, A. fib on Coumadin, CAD, pulmonary hypertension, mild paroxysmal V. tach, aortic ectasia, AAA, PVD, history of pulmonary embolism, GERD, alcoholic cirrhosis of the liver, CKD stage III, gout, depression who presents as he has had issues with bleeding from numerous scrapes and lesions on his legs, right toes status post fall sustained on Wednesday. is present at bedside and assists with the history. She reports that her was outside mowing grass for 4 hours on Wednesday afternoon in 90 degree heat. He drank 1 bottle of water during that timeframe. When he came inside he fell slowly to the ground due to lightheadedness x3 that evening but refused to come to the hospital. Denies LOC, trauma to the head, but did sustain small cut to the right knee. He has been having issues with right 4 small toes, as they have been "rubbed raw" from wearing an ill fitting shoe, and have worsened over the past 10 days. He denies any redness surrounding the area but is having issues with controlling bleeding of these toes. He has been taking his Coumadin, 12 mg daily except for Mondays when he takes 9 mg, as directed. Last night he took 9 mg. Upon presentation to the ER his INR is 7.9. His further reports that he likes to mow the grass without shirt, and shorts to "get some sun" but that he frequently sustains abrasions and scratches to his extremities which have also had oozing blood in the past few days. He is there of possible recent tick bite, but reports this is very possible, they also have a pet dog that could be carrying ticks. The patient denies having any recent fevers, chills or sweats. His appetite has been fairly good, fluid intake has been decent, but reports that he has been constipated x2 days where his bowels typically move once daily. Denies any other acute complaints. Admission Exam Per Admitting Provider General: awake, alert, no apparent distress, obese BMI 30.8, + bronze skin color. Head: Normocephalic, atraumatic ENT: PERRL, EOMI, no pharyngeal exudate, mucous membranes moist Chest: Clear to auscultation, on room air, no adventitious breath sounds Cardiac:Irregularly irregular, bradycardic with HR 47-low 50s at bedside, no murmur, no JVD, normal peripheral pulses, good capillary refill Back: ecchymosis over R flank region, R shoulder blade developing Abdominal: NABS x 4 quadrants, soft, nondistended, nontender to palpation, no rebound or guarding Extremities: R knee abraison oozing blood through dressing, R foot invovling 4 toes are wrapped with AYE and kerlix, erythematous, not unwrapped due to bleeding. Otherwise Normal inspection, no peripheral edema or erythema, calfs nontender to palpation Psych: Normal mood and affect Neuro: AAO x 3, strength intact bilaterally and rated 5/5, no motor deficits, speech is clear, no peripheral sensory deficits Skin: Bronze, vasquez skin color, lesions and ecchymosis as described above. Principal Diagnosis (1) Supratherapeutic INR: (2) Atrial fibrillation: (3) Falls: (4) CAD (coronary artery disease): (5) HTN (hypertension): (6) Dyslipidemia: (7) PAD (peripheral artery disease): (8) S/P aneurysm repair: (9) CKD (chronic kidney disease) stage 3, GFR 30-59 ml/min: (10) Wound of right foot: (11) Diabetic neuropathy: (12) Cirrhosis: (13) Hypothyroidism: (14) GERD (gastroesophageal reflux disease): (15) L Olecranon Bursitis Discharge Exam See below Discharge Data Allergies Allergy/AdvReac Type Severity Reaction Status Date / Time No Known Allergies Allergy Unverified 03/18/21 10:54 Consultations 03/18/21 13:03 ED Decision to Admit Stat 03/19/21 11:14 Consult Orthopedic Surgery Routine Ordered Studies 03/18/21 10:11 CT head/brain wo con Stat 03/18/21 15:37 MR foot RT w/o con Stat Current Diagnoses Hypothyroidism, unspecified (03/18/21) Type 2 diabetes mellitus with diabetic neuropathy, unspecified (03/18/21) Hyperlipidemia, unspecified (03/18/21) Essential (primary) hypertension (03/18/21) Atherosclerotic heart disease of [place] coronary artery without angina pectoris (03/18/21) Unspecified atrial fibrillation (03/18/21) Peripheral vascular disease, unspecified (03/18/21) Gastro-esophageal reflux disease without esophagitis (03/18/21) Unspecified cirrhosis of liver (03/18/21) Olecranon bursitis, left elbow (03/18/21) Chronic kidney disease, stage 3 (moderate) (03/18/21) Abnormal coagulation profile (03/18/21) Unspecified open wound, right foot, initial encounter (03/18/21) Unspecified fall, initial encounter (03/18/21) Personal history of other diseases of the circulatory system (03/18/21) Other specified postprocedural states (03/18/21) Allergies No Known Allergies Allergy (Unverified 03/18/21 10:54) Height/Weight/Isolation Height 5 ft 9 in Weight 95.3 kg Chemistry 03/18/21 03/19/21 03/20/21 09:50 06:42 06:57 Sodium 140 141 142 Potassium 4.6 4.7 4.0 Chloride 109 H 112 H 112 H Carbon Dioxide 26 26 25 Anion Gap 5.0 3.0 5.0 BUN 45 H 36 H 27 H Creatinine 1.93 H 1.67 H 1.60 H Glucose 86 105 H 124 H Urinalysis 03/18/21 20:40 Urine Color Yellow Urine Appearance Clear Urine pH 5.5 Ur Specific [place] 1.020 Urine Protein Negative Urine Glucose (UA) Negative Urine Ketones Negative Urine Blood Negative Urine Nitrite Negative Urine Bilirubin Negative Microbiology 03/18/21 10:45 Blood Aerobic Blood Culture - Preliminary No growth in Aerobic bottle after 24 hours. 03/18/21 10:45 Blood Anaerobic Blood Culture - Preliminary No growth in Anaerobic bottle after 24 hours. 03/18/21 10:26 Blood Aerobic Blood Culture - Preliminary No growth in Aerobic bottle after 24 hours. 03/18/21 10:26 Blood Anaerobic Blood Culture - Preliminary No growth in Anaerobic bottle after 24 hours. Hospital Course (1) Supratherapeutic INR: (2) Atrial fibrillation: -INR 1.5 today -Given vitamin K 2.5 mg IV in the ER, hold on any further reversal for now. -EKG reviewed, irregularly irregular, slightly bradycardic with a heart rate in the mid 40s to low 50s, patient reports baseline is in the 50s. -Follows with cardiology as an outpatient, follows with Garett Marquez as an outpatient -Rate controlled with metoprolol succinate 12.5 mg daily, recently was reduce per cardiology -Lymes/anaplasmosis negative (3) Falls: - Fell 3 times on Wednesday night - CT head negative, Xray foot negative, CXR negative, if any c/o pain would further image. 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 (4) CAD (coronary artery disease): -Continue atorvastatin 80 mg daily, beta-jerald as above, lisinopril 10 mg daily (5) HTN (hypertension): - Upon EMR review in [facility], blood pressure has been hard to control, on 03/12 metoprolol was reduced from 25 mg daily to 12.5 mg daily due to bradycardia - may consider alternative if HR remains in low 50s to 40s per cardiology - Continue on metoprolol as above, lisinopril 10 mg daily, hydralazine 25 mg TID. - Lasix 20 mg BID (6) Dyslipidemia: - Continue statin therapy - history of fibrofatty infiltration of the liver as well as alcoholism, alcoholic cirrhosis, past pancreatitis. - Follow lipid panel, LFT (7) PAD (peripheral artery disease): -History of such, leading to worsening wound healing ability -Check A1c with am labs, last A1c was 5.9 on 06/12/2020, patient reports he has never been deemed a diabetic although is diagnosed with diabetic neuropathy and takes Lyrica for nerve pain. He has not ever been required to take antihyperglycemic's (8) S/P aneurysm repair: -AAA measuring 3.5 cm x 3.5 cm s/p stent repair from Jun 2020, scheduled to have follow up imaging in Jun 2021. (9) CKD (chronic kidney disease) stage 3, GFR 30-59 ml/min: - Hx of such, cr. baseline ~ 1.5-1.7, currently 1.9, IVFs given in ER. (10) Wound of right foot: - Wound consult for bandaging/wound care/teaching , please have outpatient set up for after hospital stay per request. - Involves the 4 small toes of the right foot - MRI negative for Osteomyelitis - DC on Cefdinir and Doxy - Lactate 3.0 on admission, s/p IVFs improved to 1.0. No wound culture obtained. Follow blood cultures. Afebrile, WBC 7.3. CRP elevated 1.41 - Xray and MRI of the foot are negative for osteomyelitis (11) Diabetic neuropathy: -History of such, continue Lyrica 100 mg TID, Cymbalta 90 mg at bedtime also for mood (12) Cirrhosis: - History of significant alcohol abuse, patient reports he is no longer drinking alcohol -Bronze colored skin likely due to hemochromatosis - LFTs WNL today - Continue disulfiram 250 mg HS (13) Hypothyroidism: - TSH 5.420 on admission today, was 2.32 in December, free T4 is 0.87, low normal. (14) GERD (gastroesophageal reflux disease): -Continue Protonix daily L elbow pain and swelling, Likely hematoma, Orth follow up in office DVT prophylaxis: - teds, scds, holding coumadin with supratherapeutic INR, follow INR daily labs. CODE: DNR/DNI, resume Warfarin, Warfarin clinic Dispo: DC home labs checked ROS-No Headache, No Visual Changes, No Nausea, No Vomiting, No Fever, No Chills, No Neck Pain or Stiffness, No Chest Pain, No Palpitations, No SOB, No GALEANO, No Cough, No Sputum, No Wheezing, No Abdominal Pain, No Diarrhea, No Hematemesis, No Hemoptysis, No Unexpected Weight Loss, No Flank pain, No Melena, No Hematochezia, No Frequency, No Urgency, No Burning, No Hematuria, No Rashes, No Diaphoresis. Appetite is Normal, +L Elbow pain and swelling Physical Exam Gen-AAO x 3, NAD, Afebrile Head-NCAT, EOMI, PERRLA, Anicteric Sclera, No Posterior Pharyngeal Erythema Neck-Supple, No JVD, No Thyromegaly, No Masses, No LAD, No Bruits Lungs-Clear to Auscultation Bilaterally, No Rales, No Rhonchi, No Wheezing, No Crepitus Chest-No S4, +S1, +S2, No S3, No Murmurs, No Rubs, No Gallops, No Ectopy Abdomen-Soft, Bowel Sounds Present, Non Tender, Non Distended, No Hepatomegaly, No Splenomegaly, No Palpable Masses, No Rebound, No Rigidity, No Guarding Musculoskeletal-L Elbow c decreased Range of Motion, +L Elbow pain and swelling- improved, No CVAT Extremities-No Cyanosis, No Clubbing, No Edema, bleeding at mult sites, dusky toes R Nuero-Cranial Nerves II-XII grossly intact, Motor WNL, DTRs WNL, Strength WNL, Non Focal Psych-Normal Mood I certify that this patient is under my care and that I, or a physicians addictions counselor assistant working with me, had a face to-face encounter that meets the home health [id number] encounter requirements with this patient. The encounter with the patient was in whole, or in part, for the following medical condition, which is the primary reason for home health care (list medical condition): I certify that, based on my findings, the following services are medically necessary home health services: My clinical findings support the need for the above services because: Further, I certify that my clinical findings support that this patient is homebound (i.e. absences from home require considerable and taxing effort and are for medical reasons or buddhism services or infrequently or of short duration when for other reasons) because: Certification for Home Health Services: Based on the above findings, I certify that this patient is confined to the home and needs intermittent fdc care, physical therapy and/or speech therapy or continues to need occupational therapy. The patient is under my care, and I have initiated the establishment of the plan of care. This patient will be followed by a physician who will periodically review the plan of care. Total Time Total Time Spent Total Time Spent (In Minutes): 45 mins Total Time Includes: Examination of the Patient, Discharge Planning, Medication Reconciliation and Communication With Other Providers Discharge Plan Discharge Items Patient Disposition: Home - Home Health Services Reason For Visit: ELEVATED INR Discharge Diagnosis: (1) Supratherapeutic INR: (2) Atrial fibrillation: (3) Falls: (4) CAD (coronary artery disease): (5) HTN (hypertension): (6) Dyslipidemia: (7) PAD (peripheral artery disease): (8) S/P aneurysm repair: (9) CKD (chronic kidney disease) stage 3, GFR 30-59 ml/min: (10) Wound of right foot: (11) Diabetic neuropathy: (12) Cirrhosis: (13) Hypothyroidism: (14) GERD (gastroesophageal reflux disease): (15) L Olecranon Bursitis Condition on Discharge: Good Health Concerns: Continued Falls Activity: Per Instructions section Activity Comment: No heavy work or work in the heat Lifting: Gradually increase as tolerated Bathing: No limitations Sexual Activity: When tolerated Exercise/Sports: Gradually increase as tolerated Driving/Machine Use: No limitations Weightbearing: Full weightbearing Non-emergency contact: Primary Care Provider, Surgeon and Water Main Installer Helper Call non-emergency contact if: you have any medication questions and your symptoms worsen Follow-up/Referrals: Emeka Piper DO [Primary Care Provider] - (Date & Time 03/26/2021 1:40 PM Provider Emeka Piper DO Department [facility] ) Dakotah Montanez [Physician Assurance Senior] - (Call for Apt) Diet: Carb Consistent or DM2 and Heart Healthy Addtl Attending Provider Instructions: Ice alternating with heat to L elbow. Walking boot until healed. Home with Home Health. Home wound care Pending Studies at Discharge: No Stand-Alone Forms: My [facility] [employer], Smoking Cessation Medications and DC Order Prescriptions: New doxycycline monohydrate 100 mg capsule 100 mg PO BID 10 Days Qty: 20 RF: 0 cefdinir 300 mg capsule 300 mg PO Q12H 10 Days Qty: 20 RF: 0 warfarin [Jantoven] 5 mg tablet 5 mg PO DAILY Qty: 30 RF: 0 Continued atorvastatin 80 mg tablet 80 mg PO DAILY@1200 RF: 0 clopidogrel 75 mg Tablet 75 mg PO QAM RF: 0 allopurinol 100 mg tablet 200 mg PO HS RF: 0 levothyroxine 75 mcg Tablet 75 mcg PO DAILYBB RF: 0 hydralazine 50 mg Tablet 50 mg PO TID RF: 0 omega [id number] oil [Fish Oil] 360-1,200 mg Capsule,Delayed Release(Dr/Ec) 1 cap PO BID RF: 0 oxycodone 5 mg Tablet 5 mg PO DAILY PRN (Reason: Pain) Qty: 10 RF: 0 cyanocobalamin (vitamin B-12) [Vitamin B-12] 1,000 mcg Tablet 1,000 mcg PO DAILY@1200 RF: 0 ferrous sulfate [iron] 325 mg (65 mg iron) Tablet 325 mg PO Q OTHER DAY@1200 RF: 0 lisinopril 10 mg tablet 10 mg PO QAM RF: 0 pyridoxine (vitamin B6) [Vitamin B-6] 100 mg Tablet 100 mg PO DAILY@1200 RF: 0 pregabalin 100 mg capsule 100 mg PO BID RF: 0 vitamin E 200 unit Capsule 200 unit PO DAILY@1200 RF: 0 carbamazepine 100 mg tablet extended release 12 hr 200 mg PO HS RF: 0 calcitriol 0.25 mcg Capsule 0.25 mcg PO QAM RF: 0 ezetimibe 10 mg tablet 10 mg PO QAM RF: 0 duloxetine 60 mg capsule,delayed release(DR/EC) 60 mg PO HS RF: 0 disulfiram 250 mg tablet 250 mg PO HS RF: 0 duloxetine [Cymbalta] 30 mg capsule,delayed release(DR/EC) 30 mg PO HS RF: 0 metoprolol succinate 25 mg tablet extended release 24 hr 12.5 mg PO DAILY RF: 0 Discontinued pantoprazole 40 mg Tablet,Delayed Release (Dr/Ec) 40 mg PO DAILY@1200 RF: 0 furosemide 20 mg Tablet 20 mg PO BID RF: 0 warfarin [Jantoven] 6 mg tablet See Rx Instructions .ROUTE .COMPLEX RF: 0 magnesium chloride 64 mg magnesium Tablet 128 mg PO BID RF: 0 Discharge Orders: Discharge Order (Routine); Ordered 03/20/21 Ordered By: Gonzalo Mota Admission Data Admit Date/Time: 03/18/21 12:45 Attending Provider: Gonzalo Mota Admit Provider: Archana Keller Primary Care Provider: Emeka Piper Other Providers: Gonzalo Mota ; Carlton Gleason
[2021-03-20] MEDS: PANTOprazole 40 MG TAB PO SCH (11:40)
[2021-03-20] MEDS: PYRIDOXINE HCL 50 MG TAB PO SCH (11:40)
[2021-03-20] MEDS: TOCOPHERYL, DL-ALPHA 100 UNITS CAP PO SCH (11:40)
[2021-03-20] MEDS: CYANOCOBALAMIN 500 MCG TABLET (VITAMIN B-12) PO SCH (11:41)
[2021-03-20] MEDS: ATORVASTATIN 40 MG TAB PO SCH (11:41)
== END 2021-03-20 17:31 | disposition home health service (06) | DRG 813 ==
LOC: ED 09:05 → 2W 12:45

== ENCOUNTER 2023-02-28 09:48 | Inpatient (IN) ==
[2023-02-28] MEDS ORDERED: SODIUM CHLORIDE 0.9% 1000ML 1,000 ML IV STA (10:06)
--- NOTE | 2023-02-28 10:06 | Emergency Department Note ---
Impression & Plan Acute lower GI bleeding ADMIT ED Provider Note HPI: The patient is a 72-year-old gentleman with history of atrial fibrillation, currently on Coumadin, presents the emergency department with 4 to 5 days of vague symptoms of generalized weakness and fever/chills. Patient states he has had several episodes of loose stools as well during this time. Denies any nausea, denies any chest pain. Patient states he is getting more short of breath with exertion. On arrival here to the ED the patient is hemodynamically stable, he is with mild hypotension at 99/40 but heart rate is within normal limits and the patient is saturating well on room air, he is afebrile on arri diya. ROS: - Per HPI *Outpatient medications and allergy history reviewed. *Pertinent external medical records reviewed. PE: General: Alert HEENT: Normocephalic, trachea midline Eyes: Extraocular eye movement is intact, no scleral erythema Pulmonary: Clear to auscultation bilaterally, no wheezing Cardio: Regular rate and rhythm GI: Abdomen is soft to palpation, rectal examination performed at the bedside shows no evidence of gross blood, occult stool testing is positive : No suprapubic tenderness MSK: No evidence of trauma or malformation of the extremities, no edema Skin: No evidence of rash Neuro: Alert, no focal deficits Psychiatric: Cooperative athletic monitor: (As interpreted by myself): - An order was placed for continuous cardiac monitoring - Patient was noted to be in atrial fibrillation with rate of 63 EKG: (As interpreted by myself): Rate: 58 Rhythm: Atrial fibrillation Intervals: Within normal limits ST changes: No ST elevation Time: 1013 Interventions provided in ED: -IV fluid bolus, IV Protonix bolus and drip, PCC, IV vitamin K, packed red blood cell transfusion Differential Diagnosis: Symptomatic anemia, lower GI bleed, viral upper respiratory infection, acute bacterial pneumonia, CHF exacerbation, ACS, pulmonary embolism, amongst other potential pathologies. Medical Decision Making: Shortly after the patient arrived IV was established and lab work obtained, patient was maintained on environmental monitoring specialist, patient's lab work that was obtained shows evidence of no leukocytosis, hemoglobin is low at 4.4, platelet count is within normal limits, MCV is also normal. Patient's INR is therapeutic at 2.8, CMP shows evidence of acute renal failure with creatinine of 3.1, BUN is elevated at 81 troponin is elevated at 44.9. EKG does not show any ischemic changes. Patient denies any chest pain. Low suspicion for ACS, low suspicion for PE given therapeutic Coumadin levels. In regards to the patient's generalized weakness, I believe his anemia with hemoglobin of 4.4 is likely the source of this, on reassessment he tells me his stools have been dark and loose in nature, occult stool testing was done and is positive. Patient was given IV vitamin K for Coumadin reversal, also given PCC following my discussion with Dr. Burrell. His pressure improved with IV fluids. I discussed the case with on-call gastroenterology, Dr. Carbone, recommends interventions that have already been done and keeping the patient n.p.o. for GI assessment. Given his current hemodynamic stability they will assess the patient on the inpatient service. Case was then [facility] and the placement was placed for admission in stable condition. Consultants: - Gastroenterology, Dr. Carbone - Hospitalist service, Dr. Moran - Anticoagulation specialist, Dr. Burrell Disposition discussion held by myself with: Patient * CRITICAL CARE TIME: ( 55 ) minutes -Management of lower GI bleed with hemoglobin critically low at 4.4 requiring packed red blood cell transfusion amongst other interventions, time spent at the bedside, discussion with other physicians including gastroenterology and the hospitalist service, arrangement of admission. Diagnosis: 1. Lower GI bleed, acute 2. Symptomatic anemia, acute 3. Elevated high-sensitivity troponin level 4. Acute kidney injury 5. Uremia, acute Disposition: Admission Garett Moon DO Emergency Medicine Past Med/Surg History Medical History (Updated 02/28/23 @ 16:21 by Garett Moon DO) Abnormal gait Anticoagulated on warfarin Atrial fibrillation Bleeding from wound CAD (coronary artery disease) CKD (chronic kidney disease) stage 3, GFR 30-59 ml/min Diabetic neuropathy Dyslipidemia ETOH abuse GERD (gastroesophageal reflux disease) GIB (gastrointestinal bleeding) History of bradycardia "carvedilol discontinued" History of cardioversion History of pulmonary embolism "2 episodes, chronic warfarin therapy" History of ventricular tachycardia HTN (hypertension) Hypertensive urgency Hypothyroidism Neuropathy Obesity Sleep apnea Surgical History History of inguinal hernia repair S/P aneurysm repair "AAA" S/P femoral-popliteal bypass surgery Family History Other Family history non-contributory Social History Smoking Status: Never smoker Second Hand Exposure: No; Do You Dip or Chew Tobacco: No; Hx Alcohol Use: Yes Alcohol type: beer and hard liquor Hx Substance Use: No Preferred Language: Frisian Communication Ability: Effective Communication Ability Comment: intoxicated Visual Impairment: Limited Hearing Ability: Normal Care Program Director Required: No Beliefs That Will Affect Care: None marital status: Current Living Situation: Spouse current occupational status: retired How many Children do You have: 4 How many Children do You have Comment: children live in [place], able to assist with care as needed Other Information That Helps Us Care for You: No Feels Safe at Home: No Is there a partner from a previous relationship who is making you feel unsafe now?: No Any Concerns about Your Family Situation: No Would You Like to Speak to Someone About Your Situation: No Safety Concerns: Feels Safe At This Time Diet Comment: follows a "semi-keto diet" during the past year weight has: decreased > 10 lbs Assistive Devices: Glasses Allergies Allergies Allergy/AdvReac Type Severity Reaction Status Date / Time No Known Allergies Allergy Verified 02/28/23 11:16 Home Meds Home Medications Medication Instructions Recorded Confirmed allopurinol 100 mg tablet 200 mg PO HS reduce uric acid 01/28/19 02/28/23 atorvastatin 80 mg tablet 80 mg PO DAILY@1200 cholesterol 01/28/19 02/28/23 clopidogrel 75 mg tablet 75 mg PO QAM 01/28/19 02/28/23 levothyroxine 75 mcg tablet 75 mcg PO DAILYBB thyriod 01/28/19 02/28/23 cyanocobalamin (vitamin B-12) 1,000 mcg PO DAILY@119911/24/19 02/28/23 1,000 mcg tablet (Vitamin B-12) lisinopril 10 mg tablet 5 mg PO QAM 11/24/19 02/28/23 pregabalin 100 mg capsule 100 mg PO DAILY 11/24/19 02/28/23 pyridoxine (vitamin B6) 100 mg 100 mg PO DAILY@1200 11/24/19 02/28/23 tablet (Vitamin B-6) calcitriol 0.25 mcg capsule 0.25 mcg PO QAM 11/01/20 02/28/23 carbamazepine 100 mg 100 mg PO HS 11/01/20 02/28/23 tablet,extended release,12 hr duloxetine 60 mg capsule,delayed 60 mg PO HS 11/01/20 02/28/23 release ezetimibe 10 mg tablet 10 mg PO QAM 11/01/20 02/28/23 furosemide 20 mg tablet 20 mg PO BID 03/27/21 02/28/23 folic acid 400 mcg tablet 0.4 mg PO DAILY 02/28/23 02/28/23 iron,carbonyl 65 mg-vitamin C 125 1 tab PO DAILY 02/28/23 02/28/23 mg tablet,delayed release (Vitron-C) melatonin 1 mg tablet 6 - 8 mg PO HS PRN Sleep 02/28/23 02/28/23 pantoprazole 40 mg tablet,delayed 40 mg PO DAILY 02/28/23 02/28/23 release warfarin 6 mg tablet 6 mg PO [id number] 02/28/23 02/28/23 warfarin 6 mg tablet 9 mg PO [id number] 02/28/23 02/28/23 Results & Data (ED) Vital Signs Vital Signs - 24 hr 02/28/23 09:53 02/28/23 10:24 02/28/23 12:39 Temperature 36.8 C 36.6 C Temperature Source Oral Oral Pulse Rate 71 94 H 65 Pulse Rate from SpO2 Sensor Pulse Rhythm Regular Pulse Strength Normal Respiratory Rate 16 20 Blood Pressure 99/40 L 96/50 L Blood Pressure Mean 59 65 Blood Pressure Position Sitting Pulse Oximetry 94 98 Oxygen Delivery Method Room Air Sepsis Recent Fever Within 48 Hours No Sepsis New/Unexplained Change in Mental Status No Sepsis Action Taken by Nursing No Action Required 02/28/23 10:08 02/28/23 10:19 02/28/23 10:20 Temperature Temperature Source Pulse Rate 86 Pulse Rate from SpO2 Sensor Pulse Rhythm Pulse Strength Respiratory Rate 16 Blood Pressure 84/50 L Blood Pressure Mean 66 Blood Pressure Position Pulse Oximetry Oxygen Delivery Method Room Air Sepsis Recent Fever Within 48 Hours Sepsis New/Unexplained Change in Mental Status Sepsis Action Taken by Nursing 02/28/23 10:30 02/28/23 10:36 02/28/23 10:36 Temperature Temperature Source Pulse Rate 84 96 H Pulse Rate from SpO2 Sensor Pulse Rhythm Pulse Strength Respiratory Rate 23 18 Blood Pressure 97/49 L Blood Pressure Mean 75 Blood Pressure Position Pulse Oximetry Oxygen Delivery Method Sepsis Recent Fever Within 48 Hours Sepsis New/Unexplained Change in Mental Status Sepsis Action Taken by Nursing 02/28/23 10:45 02/28/23 10:45 02/28/23 11:00 Temperature Temperature Source Pulse Rate 90 75 Pulse Rate from SpO2 Sensor 65 67 Pulse Rhythm Pulse Strength Respiratory Rate 21 20 Blood Pressure 105/53 L Blood Pressure Mean 71 Blood Pressure Position Pulse Oximetry 100 93 Oxygen Delivery Method Room Air Room Air Sepsis Recent Fever Within 48 Hours Sepsis New/Unexplained Change in Mental Status Sepsis Action Taken by Nursing 02/28/23 11:07 02/28/23 11:07 02/28/23 11:15 Temperature Temperature Source Pulse Rate 112 H Pulse Rate from SpO2 Sensor 66 Pulse Rhythm Pulse Strength Respiratory Rate 15 Blood Pressure 95/53 L 101/56 L Blood Pressure Mean 59 83 Blood Pressure Position Pulse Oximetry 92 Oxygen Delivery Method Room Air Sepsis Recent Fever Within 48 Hours Sepsis New/Unexplained Change in Mental Status Sepsis Action Taken by Nursing 02/28/23 11:15 02/28/23 11:30 02/28/23 11:30 Temperature Temperature Source Pulse Rate 58 L Pulse Rate from SpO2 Sensor Pulse Rhythm Pulse Strength Respiratory Rate 18 10 L Blood Pressure 113/57 L Blood Pressure Mean 75 Blood Pressure Position Pulse Oximetry 92 Oxygen Delivery Method Room Air Room Air Sepsis Recent Fever Within 48 Hours Sepsis New/Unexplained Change in Mental Status Sepsis Action Taken by Nursing 02/28/23 11:45 02/28/23 11:45 02/28/23 12:00 Temperature Temperature Source Pulse Rate 59 L Pulse Rate from SpO2 Sensor Pulse Rhythm Pulse Strength Respiratory Rate 16 Blood Pressure 112/67 99/42 L Blood Pressure Mean 95 49 Blood Pressure Position Pulse Oximetry Oxygen Delivery Method Sepsis Recent Fever Within 48 Hours Sepsis New/Unexplained Change in Mental Status Sepsis Action Taken by Nursing 02/28/23 12:00 02/28/23 12:15 02/28/23 12:30 Temperature Temperature Source Pulse Rate 66 66 64 Pulse Rate from SpO2 Sensor 147 H 64 Pulse Rhythm Pulse Strength Respiratory Rate 21 17 16 Blood Pressure Blood Pressure Mean Blood Pressure Position Pulse Oximetry 96 Oxygen Delivery Method Room Air Sepsis Recent Fever Within 48 Hours Sepsis New/Unexplained Change in Mental Status Sepsis Action Taken by Nursing 02/28/23 12:38 02/28/23 12:38 Temperature Temperature Source Pulse Rate 65 Pulse Rate from SpO2 Sensor 65 Pulse Rhythm Pulse Strength Respiratory Rate 14 Blood Pressure 96/50 L Blood Pressure Mean 72 Blood Pressure Position Pulse Oximetry 100 Oxygen Delivery Method Room Air Sepsis Recent Fever Within 48 Hours Sepsis New/Unexplained Change in Mental Status Sepsis Action Taken by Nursing Laboratory Data 02/28/23 10:22 02/28/23 10:22 Lab Results 02/28/23 02/28/23 02/28/23 Range/Units 10:17 10:22 10:22 WBC 6.54 (4.8-10.8) K/ul RBC 1.46 L (4.70-6.10) M/uL Hgb 4.4 L* (14.0-18.0) g/dl Hct 14.5 L* (42.0-52.0) % MCV 99.3 (80.0-100.0) fL MCH 30.1 (25.0-34.0) pg MCHC 30.3 L (32.0-36.0) g/dL RDW Std Deviation 66.6 H (36.4-46.3) fL RDW Coeff of Pauline 18.5 H (11.5-14.5) % Plt Count 190 (130-400) K/uL MPV 11.5 (9.4-12.4) fL Immature Gran % (Auto) 0.6 % Neut % (Auto) 67.7 % Lymph % (Auto) 19.0 % [place] % (Auto) 10.9 % Eos % (Auto) 1.5 % Baso % (Auto) 0.3 % Reticulocyte % (Auto) (0.5-2.0) % Neut # (Auto) 4.43 (1.40-6.50) K/uL Lymph # (Auto) 1.24 (1.2-3.4) K/uL [place] # (Auto) 0.71 H (0.11-0.59) K/uL Eos # (Auto) 0.10 (0-0.50) K/uL Baso # (Auto) 0.02 (0-0.2) K/uL Reticulocyte # (0.02-0.10) 10^6/uL Immature Gran # (Auto) 0.04 (0.01-0.20) K/uL Absolute Nucleated RBC 0.07 (0-0.12) K/uL Nucleated RBC % (auto) 1.1 % Anisocytosis Present PT (9.0-12.0) Seconds INR (0.9-1.1) Sodium 135 L (136-145) mmol/L Potassium 4.2 (3.5-5.1) mmol/L Chloride 104 (98-107) mmol/L Carbon Dioxide 23 (21-32) mmol/L Anion Gap 8 (3-11) BUN 81 H (6-23) mg/dl Creatinine 3.11 H (0.6-1.4) mg/dl Est Cr Clr Drug Dosing Not Reportable Est GFR ( Amer) 21.9 ml/min Est GFR (Non-Af Amer) 18.9 ml/min BUN/Creatinine Ratio 26.0 H (10-20) Glucose 135 H (70-99(Fasting)) mg/dl Calcium 8.6 (8.6-10.3) mg/dl Iron 31 L (35-175) mcg/dl Transferrin 316 (200-360) mg/dl Ferritin 13.0 (8-388) ng/ml Total Bilirubin 0.3 (0.2-1.0) mg/dl AST 20 (13-39) U/L ALT 22 (7-52) U/L Alkaline Phosphatase 64 (34-104) U/L Troponin I High Sens 44.9 H (0-20) pg/ml B-Natriuretic Peptide (0-100) pg/ml Total Protein 6.6 (6.0-8.3) gm/dl Albumin 3.6 (3.4-5.0) gm/dl Globulin 3.0 (2.5-4.0) gm/dl Albumin/Globulin Ratio 1.2 (0.9-2) Lipase 71 (11-82) U/L Vitamin B12 (180-914) pg/ml Folate (>5.38) ng/ml TSH (0.300-4.500) uIu/ml Free T4 (0.61-1.60) ng/dl Adenovirus (PCR) Not Detected (NotDetected) B. pertussis DNA (PCR) Not Detected (NotDetected) B.parapertussis DNA PCR Not Detected (NotDetected) C. pneumoniae DNA (PCR) Not Detected (NotDetected) Coronavirus OC43 (PCR) Not Detected (NotDetected) Coronavirus HKU1 (PCR) Not Detected (NotDetected) Coronavirus 229E (PCR) Not Detected (NotDetected) SARS-CoV-2 (PCR) Not Detected (NotDetected) Coronavirus NL63 (PCR) Not Detected (NotDetected) Human Metapneumovir PCR Not Detected (NotDetected) Influenza Type A (PCR) Not Detected (NotDetected) Influenza Type B (PCR) Not Detected (NotDetected) M. pneumoniae (PCR) Not Detected (NotDetected) Parainfluenza 1 (PCR) Not Detected (NotDetected) Parainfluenza 2 (PCR) Not Detected (NotDetected) Parainfluenza 3 (PCR) Not Detected (NotDetected) Parainfluenza 4 (PCR) Not Detected (NotDetected) RSV (PCR) Not Detected (NotDetected) Entero/Rhino (PCR) Not Detected (NotDetected) Blood Type Blood Type Recheck Antibody Screen Crossmatch 02/28/23 02/28/23 02/28/23 Range/Units 10:22 10:40 10:40 WBC (4.8-10.8) K/ul RBC (4.70-6.10) M/uL Hgb (14.0-18.0) g/dl Hct (42.0-52.0) % MCV (80.0-100.0) fL MCH (25.0-34.0) pg MCHC (32.0-36.0) g/dL RDW Std Deviation (36.4-46.3) fL RDW Coeff of Pauline (11.5-14.5) % Plt Count (130-400) K/uL MPV (9.4-12.4) fL Immature Gran % (Auto) % Neut % (Auto) % Lymph % (Auto) % [place] % (Auto) % Eos % (Auto) % Baso % (Auto) % Reticulocyte % (Auto) 6.0 H (0.5-2.0) % Neut # (Auto) (1.40-6.50) K/uL Lymph # (Auto) (1.2-3.4) K/uL [place] # (Auto) (0.11-0.59) K/uL Eos # (Auto) (0-0.50) K/uL Baso # (Auto) (0-0.2) K/uL Reticulocyte # 0.09 (0.02-0.10) 10^6/uL Immature Gran # (Auto) (0.01-0.20) K/uL Absolute Nucleated RBC (0-0.12) K/uL Nucleated RBC % (auto) % Anisocytosis PT 28.6 H (9.0-12.0) Seconds INR 2.8 H (0.9-1.1) Sodium (136-145) mmol/L Potassium (3.5-5.1) mmol/L Chloride (98-107) mmol/L Carbon Dioxide (21-32) mmol/L Anion Gap (3-11) BUN (6-23) mg/dl Creatinine (0.6-1.4) mg/dl Est Cr Clr Drug Dosing Est GFR ( Amer) ml/min Est GFR (Non-Af Amer) ml/min BUN/Creatinine Ratio (10-20) Glucose (70-99(Fasting)) mg/dl Calcium (8.6-10.3) mg/dl Iron (35-175) mcg/dl Transferrin (200-360) mg/dl Ferritin (8-388) ng/ml Total Bilirubin (0.2-1.0) mg/dl AST (13-39) U/L ALT (7-52) U/L Alkaline Phosphatase (34-104) U/L Troponin I High Sens (0-20) pg/ml B-Natriuretic Peptide 142 H (0-100) pg/ml Total Protein (6.0-8.3) gm/dl Albumin (3.4-5.0) gm/dl Globulin (2.5-4.0) gm/dl Albumin/Globulin Ratio (0.9-2) Lipase (11-82) U/L Vitamin B12 (180-914) pg/ml Folate (>5.38) ng/ml TSH (0.300-4.500) uIu/ml Free T4 (0.61-1.60) ng/dl Adenovirus (PCR) (NotDetected) B. pertussis DNA (PCR) (NotDetected) B.parapertussis DNA PCR (NotDetected) C. pneumoniae DNA (PCR) (NotDetected) Coronavirus OC43 (PCR) (NotDetected) Coronavirus HKU1 (PCR) (NotDetected) Coronavirus 229E (PCR) (NotDetected) SARS-CoV-2 (PCR) (NotDetected) Coronavirus NL63 (PCR) (NotDetected) Human Metapneumovir PCR (NotDetected) Influenza Type A (PCR) (NotDetected) Influenza Type B (PCR) (NotDetected) M. pneumoniae (PCR) (NotDetected) Parainfluenza 1 (PCR) (NotDetected) Parainfluenza 2 (PCR) (NotDetected) Parainfluenza 3 (PCR) (NotDetected) Parainfluenza 4 (PCR) (NotDetected) RSV (PCR) (NotDetected) Entero/Rhino (PCR) (NotDetected) Blood Type Blood Type Recheck Antibody Screen Crossmatch 02/28/23 02/28/23 02/28/23 Range/Units 10:40 10:58 11:05 WBC (4.8-10.8) K/ul RBC (4.70-6.10) M/uL Hgb (14.0-18.0) g/dl Hct (42.0-52.0) % MCV (80.0-100.0) fL MCH (25.0-34.0) pg MCHC (32.0-36.0) g/dL RDW Std Deviation (36.4-46.3) fL RDW Coeff of Pauline (11.5-14.5) % Plt Count (130-400) K/uL MPV (9.4-12.4) fL Immature Gran % (Auto) % Neut % (Auto) % Lymph % (Auto) % [place] % (Auto) % Eos % (Auto) % Baso % (Auto) % Reticulocyte % (Auto) (0.5-2.0) % Neut # (Auto) (1.40-6.50) K/uL Lymph # (Auto) (1.2-3.4) K/uL [place] # (Auto) (0.11-0.59) K/uL Eos # (Auto) (0-0.50) K/uL Baso # (Auto) (0-0.2) K/uL Reticulocyte # (0.02-0.10) 10^6/uL Immature Gran # (Auto) (0.01-0.20) K/uL Absolute Nucleated RBC (0-0.12) K/uL Nucleated RBC % (auto) % Anisocytosis PT (9.0-12.0) Seconds INR (0.9-1.1) Sodium (136-145) mmol/L Potassium (3.5-5.1) mmol/L Chloride (98-107) mmol/L Carbon Dioxide (21-32) mmol/L Anion Gap (3-11) BUN (6-23) mg/dl Creatinine (0.6-1.4) mg/dl Est Cr Clr Drug Dosing Est GFR ( Amer) ml/min Est GFR (Non-Af Amer) ml/min BUN/Creatinine Ratio (10-20) Glucose (70-99(Fasting)) mg/dl Calcium (8.6-10.3) mg/dl Iron (35-175) mcg/dl Transferrin (200-360) mg/dl Ferritin (8-388) ng/ml Total Bilirubin (0.2-1.0) mg/dl AST (13-39) U/L ALT (7-52) U/L Alkaline Phosphatase (34-104) U/L Troponin I High Sens (0-20) pg/ml B-Natriuretic Peptide (0-100) pg/ml Total Protein (6.0-8.3) gm/dl Albumin (3.4-5.0) gm/dl Globulin (2.5-4.0) gm/dl Albumin/Globulin Ratio (0.9-2) Lipase (11-82) U/L Vitamin B12 (180-914) pg/ml Folate (>5.38) ng/ml TSH 1.577 (0.300-4.500) uIu/ml Free T4 0.89 (0.61-1.60) ng/dl Adenovirus (PCR) (NotDetected) B. pertussis DNA (PCR) (NotDetected) B.parapertussis DNA PCR (NotDetected) C. pneumoniae DNA (PCR) (NotDetected) Coronavirus OC43 (PCR) (NotDetected) Coronavirus HKU1 (PCR) (NotDetected) Coronavirus 229E (PCR) (NotDetected) SARS-CoV-2 (PCR) (NotDetected) Coronavirus NL63 (PCR) (NotDetected) Human Metapneumovir PCR (NotDetected) Influenza Type A (PCR) (NotDetected) Influenza Type B (PCR) (NotDetected) M. pneumoniae (PCR) (NotDetected) Parainfluenza 1 (PCR) (NotDetected) Parainfluenza 2 (PCR) (NotDetected) Parainfluenza 3 (PCR) (NotDetected) Parainfluenza 4 (PCR) (NotDetected) RSV (PCR) (NotDetected) Entero/Rhino (PCR) (NotDetected) Blood Type A Positive Blood Type Recheck A Positive Antibody Screen NEGATIVE Crossmatch See Detail 02/28/23 Range/Units 11:08 WBC (4.8-10.8) K/ul RBC (4.70-6.10) M/uL Hgb (14.0-18.0) g/dl Hct (42.0-52.0) % MCV (80.0-100.0) fL MCH (25.0-34.0) pg MCHC (32.0-36.0) g/dL RDW Std Deviation (36.4-46.3) fL RDW Coeff of Pauline (11.5-14.5) % Plt Count (130-400) K/uL MPV (9.4-12.4) fL Immature Gran % (Auto) % Neut % (Auto) % Lymph % (Auto) % [place] % (Auto) % Eos % (Auto) % Baso % (Auto) % Reticulocyte % (Auto) (0.5-2.0) % Neut # (Auto) (1.40-6.50) K/uL Lymph # (Auto) (1.2-3.4) K/uL [place] # (Auto) (0.11-0.59) K/uL Eos # (Auto) (0-0.50) K/uL Baso # (Auto) (0-0.2) K/uL Reticulocyte # (0.02-0.10) 10^6/uL Immature Gran # (Auto) (0.01-0.20) K/uL Absolute Nucleated RBC (0-0.12) K/uL Nucleated RBC % (auto) % Anisocytosis PT (9.0-12.0) Seconds INR (0.9-1.1) Sodium (136-145) mmol/L Potassium (3.5-5.1) mmol/L Chloride (98-107) mmol/L Carbon Dioxide (21-32) mmol/L Anion Gap (3-11) BUN (6-23) mg/dl Creatinine (0.6-1.4) mg/dl Est Cr Clr Drug Dosing Est GFR ( Amer) ml/min Est GFR (Non-Af Amer) ml/min BUN/Creatinine Ratio (10-20) Glucose (70-99(Fasting)) mg/dl Calcium (8.6-10.3) mg/dl Iron (35-175) mcg/dl Transferrin (200-360) mg/dl Ferritin (8-388) ng/ml Total Bilirubin (0.2-1.0) mg/dl AST (13-39) U/L ALT (7-52) U/L Alkaline Phosphatase (34-104) U/L Troponin I High Sens (0-20) pg/ml B-Natriuretic Peptide (0-100) pg/ml Total Protein (6.0-8.3) gm/dl Albumin (3.4-5.0) gm/dl Globulin (2.5-4.0) gm/dl Albumin/Globulin Ratio (0.9-2) Lipase (11-82) U/L Vitamin B12 1453 H (180-914) pg/ml Folate > 22.30 (>5.38) ng/ml TSH (0.300-4.500) uIu/ml Free T4 (0.61-1.60) ng/dl Adenovirus (PCR) (NotDetected) B. pertussis DNA (PCR) (NotDetected) B.parapertussis DNA PCR (NotDetected) C. pneumoniae DNA (PCR) (NotDetected) Coronavirus OC43 (PCR) (NotDetected) Coronavirus HKU1 (PCR) (NotDetected) Coronavirus 229E (PCR) (NotDetected) SARS-CoV-2 (PCR) (NotDetected) Coronavirus NL63 (PCR) (NotDetected) Human Metapneumovir PCR (NotDetected) Influenza Type A (PCR) (NotDetected) Influenza Type B (PCR) (NotDetected) M. pneumoniae (PCR) (NotDetected) Parainfluenza 1 (PCR) (NotDetected) Parainfluenza 2 (PCR) (NotDetected) Parainfluenza 3 (PCR) (NotDetected) Parainfluenza 4 (PCR) (NotDetected) RSV (PCR) (NotDetected) Entero/Rhino (PCR) (NotDetected) Blood Type Blood Type Recheck Antibody Screen Crossmatch Administered Medications Pantoprazole Sodium 40 mg/ (Dextrose) 100 mls @ 20 mls/hr IV Q5H JOSÉ MIGUEL Stop: 03/30/23 12:29 Last Admin: 02/28/23 13:11 Dose: 8 mg/hr, 20 mls/hr Documented By: DAVID Discontinued Medications Sodium Chloride (Nss 1000ml) 1,000 mls @ 999 mls/hr IV .Q1H1M STA Stop: 02/28/23 11:06 Last Infusion: 02/28/23 11:45 Dose: 0 mls/hr Documented By: Admin: 02/28/23 10:35 Dose: 999 mls/hr Documented By: DAVID Phytonadione 10 mg/ Dextrose 51 mls @ 102 mls/hr IV ONE ONE Stop: 02/28/23 11:59 Last Infusion: 02/28/23 13:34 Dose: 0 mls/hr Documented By: Admin: 02/28/23 13:00 Dose: 102 mls/hr Documented By: DAVID Pantoprazole Sodium (Protonix Bolus/Drip) 0 mls @ 1 mls/hr IV ONE STA Stop: 02/28/23 12:03 Last Admin: 02/28/23 13:11 Dose: Not Given Documented By: DAVID Pantoprazole Sodium 80 mg/ (Dextrose) 120 mls @ 400 mls/hr IV NOW ONE Stop: 02/28/23 12:19 Last Infusion: 02/28/23 13:20 Dose: 0 mls/hr Documented By: Admin: 02/28/23 13:00 Dose: 400 mls/hr Documented By: DAVID Prothrombin Complex Concent ( (Human) 2,500 units/ Syringe) 100 mls @ 10 mls/min IV 1230 ONE; Protocol Stop: 02/28/23 12:39 Last Admin: 02/28/23 12:35 Dose: 10 mls/min Documented By: DAVID Imaging Data Radiologist's Impression: Chest X-Ray 02/28/23 10:06 XR chest 1V portable HISTORY: 72 years-old Male Chest pain, nonspecific acute shortness of breath with chest pain COMPARISON: 03/18/2021 TECHNIQUE: AP view of the chest FINDINGS: Cardiac silhouette is enlarged. No pneumothorax, pleural effusion or overt pulmonary edema. Mild subsegmental bibasilar densities. Degenerative changes of the shoulders and spine. IMPRESSION: 1. Cardiomegaly without pulmonary edema. 2. Mild bibasilar densities suggest atelectasis. 3. The lateral right lung base is partially excluded from the [id number]. ACT 112: Negative or not required by law. The above report was generated using voice recognition software. It may contain grammatical, syntax or spelling errors. Electronically signed by: Augustine Bautista M.D. 02/28/2023 12:13 PM Discharge Plan Visit Data Chief Complaint: Shortness of Breath/Dyspnea Stated Complaint: DIFFICULTY BREATHING, FLU SX ED Provider: Garett Moon Discharge Problem: Acute lower GI bleeding Patient Disposition: Admitted As Inpatient Discharge Instructions Interventions: ED Discharge Assessment Last Done: 02/28/23 14:02
[2023-02-28 10:51] LABS: Hematocrit (blood only) 14.5 % (42.0-52.0); Hemoglobin 4.4 g/dl (14.0-18.0); Mean Corpuscular Hemoglobin 30.1 pg (25.0-34.0); Mean Corpuscular Hgb Conc 30.3 g/dL (32.0-36.0); Mean Corpuscular Volume 99.3 fL (80.0-100.0); Mean Platelet Volume 11.5 fL (9.4-12.4); Nucleated RBC # (auto) 0.07 K/uL (0-0.12); Nucleated RBC % (auto) 1.1 %; Platelet Count 190 K/uL (130-400); RDW Coefficient of Variation 18.5 % (11.5-14.5); RDW Standard Deviation 66.6 fL (36.4-46.3); Red Blood Count 1.46 M/uL (4.70-6.10); White Blood Count 6.54 K/ul (4.8-10.8)
[2023-02-28] MEDS ORDERED: SODIUM CHLORIDE 0.9% 250 ML IV PRN ×3 (10:53→21:25)
[2023-02-28 11:01] LABS: Alanine Aminotransferase 22 U/L (7-52); Albumin Globulin Ratio 1.2 (0.9-2); Albumin Level 3.6 gm/dl (3.4-5.0); Alkaline Phosphatase 64 U/L (34-104); Anion Gap 8 (3-11); Aspartate Aminotransferase 20 U/L (13-39); Bilirubin,Total 0.3 mg/dl (0.2-1.0); Blood Urea Nitrogen 81 mg/dl (6-23); Calcium 8.6 mg/dl (8.6-10.3); Carbon Dioxide 23 mmol/L (21-32); Chloride 104 mmol/L (98-107); Est GFR (African American) 21.9 ml/min; Est GFR (Non-African American) 18.9 ml/min; Glucose 135 mg/dl (70-99(Fasting)); Lipase 71 U/L (11-82); Potassium 4.2 mmol/L (3.5-5.1); Sodium 135 mmol/L (136-145); Total Protein 6.6 gm/dl (6.0-8.3)
[2023-02-28 11:08] LABS: Troponin I High Sensitivity 44.9 pg/ml (0-20)
[2023-02-28 11:15] LABS: Anisocytosis Present; Basophils # (auto) 0.02 K/uL (0-0.2); Basophils % (auto) 0.3 %; Eosinophils % (auto) 1.5 %; Immature Granulocytes # (auto) 0.04 K/uL (0.01-0.20); Immature Granulocytes % (auto) 0.6 %; Lymphocytes # (auto) 1.24 K/uL (1.2-3.4); Monocytes # (auto) 0.71 K/uL (0.11-0.59); Monocytes % (auto) 10.9 %; Neutrophils # (auto) 4.43 K/uL (1.40-6.50); Neutrophils % (auto) 67.7 %
[2023-02-28 11:26] LABS: INR 2.8 (0.9-1.1); Prothrombin Time 28.6 Seconds (9.0-12.0)
[2023-02-28 11:30] LABS: Adenovirus PCR Not Detected (NotDetected); Bordetella parapertussis PCR Not Detected (NotDetected); Bordetella pertussis PCR Not Detected (NotDetected); Chlamydia pneumoniae PCR Not Detected (NotDetected); Coronavirus 229E PCR Not Detected (NotDetected); Coronavirus CoV-2 (COVID19)PCR Not Detected (NotDetected); Coronavirus HKU1 PCR Not Detected (NotDetected); Coronavirus NL63 PCR Not Detected (NotDetected); Coronavirus OC43PCR Not Detected (NotDetected); Human Metapneumovirus PCR Not Detected (NotDetected); Influenza A PCR Not Detected (NotDetected); Influenza B PCR Not Detected (NotDetected); Mycoplasma pneumoniae PCR Not Detected (NotDetected); Parainfluenza Virus 1 PCR Not Detected (NotDetected); Parainfluenza Virus 2 PCR Not Detected (NotDetected); Parainfluenza Virus 3 PCR Not Detected (NotDetected); Parainfluenza Virus 4 PCR Not Detected (NotDetected); Respiratory Syncytial VirusPCR Not Detected (NotDetected); Rhinovirus/Enterovirus PCR Not Detected (NotDetected)
[2023-02-28] MEDS ORDERED: PHYTONADIONE 10 MG in DEXTROSE 5% 50 ML IV ONE (11:30)
[2023-02-28] MEDS ORDERED: PANTOprazole 80 MG in DEXTROSE 5% 100 ML IV ONE (12:02)
[2023-02-28] MEDS ORDERED: PANTOPRAZOLE BOLUS/DRIP 1 EACH IV STA (12:02)
--- NOTE | 2023-02-28 12:15 | XRay Report ---
XR chest 1V portable HISTORY: 72 years-old Male Chest pain, nonspecific acute shortness of breath with chest pain COMPARISON: 03/18/2021 TECHNIQUE: AP view of the chest FINDINGS: Cardiac silhouette is enlarged. No pneumothorax, pleural effusion or overt pulmonary edema. Mild subs egmental bibasilar densities. Degenerative changes of the shoulders and spine. IMPRESSION: 1. Cardiomegaly without pulmonary edema. 2. Mild bibasilar densities suggest atelectasis. 3. The lateral right lung base is partially excluded from the [id number]. ACT 112: Negative or not required by law. The above report was generated using voice recognition software. It may contain grammatical, syntax o r spelling errors. Electronically signed by: Augustine Bautista M.D. 02/28/2023 12:13 PM
[2023-02-28] MEDS ORDERED: PROTHROMBIN COMP CONC- KCENTRA 2,500 UNITS in SYRINGE 0 ML IV ONE (12:30)
[2023-02-28] MEDS ORDERED: ONDANSETRON INJ 2 MG/ML 2 ML VIAL IV PRN (12:41)
[2023-02-28] MEDS ORDERED: ACETAMINOPHEN 325 MG TAB PO PRN (12:41)
[2023-02-28] MEDS ORDERED: POLYETHYLENE (MIRALAX) 17 GM PACK PO PRN (12:41)
[2023-02-28] MEDS ORDERED: ALUMINUM/MAGNESIUM SUSP 30 ML UDC PO PRN (12:41)
[2023-02-28] MEDS ORDERED: MAGNESIUM HYDROXIDE SUSP 30 ML UDC PO PRN (12:41)
--- NOTE | 2023-02-28 12:48 | History & Physical Report ---
Date of Service February 28, 2023 Assessment & Plan (1) GIB (gastrointestinal bleeding): (2) Atrial fibrillation: (3) Anticoagulated with warfarin: (4) CKD (chronic kidney disease) stage 3, GFR 30-59 ml/min: (5) Hypothyroidism: (6) HTN (hypertension): (7) Dyslipidemia: (8) CAD (coronary artery disease): (9) S/P aneurysm repair: (10) GERD (gastroesophageal reflux disease): (11) Aneurysm of right iliac artery: (12) Alcohol use: Plan 72 y/o presents with SOB and low hgb, 4.4. Takes Coumadin for AF (INR 4.8 at home on Wednesday. 2.8 today). Protonix gtt started. Transfuse 2 UPRBC due to finish at 1900; recheck H/H and INR at 2100. H/O R iliac artery aneurysm; takes Plavix. Worsening creatinine. Baseline Creat 2.0-2.4; today 3.11. If no improvement, consider Nephro consult. Hold nephrotoxic agents. GIB: FOBT positive Hgb: 4.4. Baseline 12.8; recheck at 2100 second infusion of PRBC started at 1630. Hgb on 01/29 8.3, 02/05 7.9 01/29/23: Anemia studies done: TIBC: 393, Vitamin B12: 1335, Ferritin 27, Folic Acid 18.0, Retic count: 31.7 02/09/23: FOBT negative Known alcohol use; may be contributing factor to symptoms; see below T/C & consent done in ED; 2 UPRBC ordered, no Lasix in between. Repeat CBC at 1900. 2 additional units ordered and held until repeat check Protonix gtt started CXR: cardiomegaly without pulmonary edema. Mild bibasilar densities suggest atelectasis. NPO GI consult. AF: Takes Warfarin and Metoprolol INR:2.8, was 4.8 on Wednesday. Has not taken Coumadin since Wednesday Dr. Lara aware; 2G K-Centra admin in ED Check INR at 2100 H/O R iliac artery aneurysm: right iliac artery aneurysm in 2011 See above in HPI for details Takes Plavix; hold for active bleed Alcohol abuse: Known alcohol use. Was sober for 19 months until 9 days ago. Admits to having started drinking one month ago Drank 1 pint of Vodka x4 days in a row; last time drinking 5 days ago. and prior to that 19 months. No tremors on exam and do not suspect withdraw effects after discussion with pt and family CKD: Baseline creatinine 2.0-2.4 over past year today creatinine 3.11; hold any nephrotoxic agents HTN: Takes Lisinopril; hold for now Creatinine: baseline 2.0-2.4; Today 3.11; recheck with BMP in AM If no improvement; consider AP CT and Nephro consultation HLD: takes high-dose Atorvastatin; continue Takes Zetia; continue Hypothyroidism: Takes Synthroid; continue Gout: takes Allopurinol; continue Depression: Takes Duloxetine; continue Disposition: PCP: Dr. Piper Code Status: Full Code VTE Prophylaxis: Teds and SCDs for now due to active bleed I spent a total of 87 minutes coordinating, documenting, and providing care for this patient excluding time spent in the performance of separately billed services. All of the aforementioned completed while collaborating with the assigned attending physician for a full treatment plan. Please see their addendum for further details. History of Present Illness Chief Complaint: SOB/GIB Primary Care Provider: Emeka Piper DO Patient presented with abdominal pain, SOB, dizziness, hypotension and diarrhea. Pt reports that he has not felt well since Wednesday. He noted that he was becoming generally weaker and has not been able to eat or drink over the past three days. he reports SOB with exertion. This morning, he felt that he was really declining and becoming more dizzy and weak. He reports having darker stools over the past few days. As outlined below, he had blood work done as an outpatient and based on results Fe+ dosing was increased. Pt is a recovering alcoholic. I did speak with his out in the hallway prior to talking with the patient and she had suspicion that he has been drinking over the past month. She reports he has been abstaining from alcohol for 19 months prior to that but she notes some historic behaviors that include hanging out in the driveway, eating mints, and mannerism changes; but she states he denies using alcohol to her. I did ask the patient directly and he was honest that he has been drinking vodka. His last drink was last Wednesday and he drank a pint of vodka daily x4 days at that time. In the ED, Hgb 4.4; baseline is 12.8. Hgb on 01/29 8.3, 02/05 7.9 As an outpatient at the beginning of January on 01/29 he did have anemia studies done: TIBC: 393, Vitamin B12: 1335, Ferritin 27, Folic Acid 18.0, Retic count: 31.7 02/09/23: FOBT negative at that time. FOBT positive today. T/C and blood consent obtained in ED. 2 UPRBC ordered in ED. INR 2.8; Dr. Lara ordered 2G KCentra in ED.Will recheck INR. Patient checks INR at home. On Wednesday it was 4.8; held since. PMH includes: H/O PE (spontaneous 2006 and 2011 on Coumadin since 2011), AF (prior cardioversion), CAD s/p aneurysm repair, HTN, CKD, EFRAÍN, GERD, hypothyroidism. Most recent ECHO 12/24/21:EF: 45-49%,LV wall thickness increased from previous ECHO. Mild MR, moderate TR.Mild to moderate valve issues. FMH includes Mom having a CABG x5 and Dad having CVA/TIA. Pt had a heart catheterization in 2013 with increased right atrial pressures which apparently were related to his anemia at that time. Moderate coronary artery irregularitites were identified. No stents pr further invasive intervention at that time. Kendrick noting from outpatient records: patient was noted to have a right iliac artery aneurysm in 2011 and underwentrepair of ectatic abdominal aorta and right common iliac artery aneurysm with Cook Zenith aortic stent graft and transcatheter embolization of the right internal iliac artery by Dr. Ritter on 11/22/2012. Due to progressive RLE claudication he eventually underwent a [id number] femoral artery to femoral artery bypass graft with 8 mm externally supported ePTFE by Dr. Ritter on and afem-fem bypass graft and therefore he underwent angiography of bilateral iliacs/femorals/fem-fem 11/07/14. Pt travels to [place] [facility] with acute hypoxic respiratory failure, initially requiring BiPAP therapy and ICU level care. Event attributed to acute decompensated systolic heart failure, acute pulmonary edema. Pt denies CARRILLO, dizziness, SOB, chest pain or palpitations, swelling, crackles in his chest, N/V/D, tremors, recent falls or trauma, abdominal pain or distention, hematochezia, hematemesis, cough, fever or chills. Pt is sitting in his hospital bed, barboza dusky appearance, cyanotic nail beds, Patient will be admitted for further evaluation and management. Please see A/P for further details. Allergies Allergy/AdvReac Type Severity Reaction Status Date / Time No Known Allergies Allergy Verified 02/28/23 11:16 Home Medications Medication Instructions Recorded Confirmed Type allopurinol 100 mg tablet 200 mg PO HS reduce uric acid 01/28/19 02/28/23 History atorvastatin 80 mg tablet 80 mg PO DAILY@1200 cholesterol 01/28/19 02/28/23 History clopidogrel 75 mg tablet 75 mg PO QAM 01/28/19 02/28/23 History levothyroxine 75 mcg tablet 75 mcg PO DAILYBB thyriod 01/28/19 02/28/23 History cyanocobalamin (vitamin B-12) 1,000 mcg PO DAILY@1200 11/24/19 02/28/23 History 1,000 mcg tablet (Vitamin B-12) lisinopril 10 mg tablet 5 mg PO QA 11/24/19 02/28/23 History pregabalin 100 mg capsule 100 mg PO DAILY 11/24/19 02/28/23 History pyridoxine (vitamin B6) 100 mg 100 mg PO DAILY@1200 11/24/19 02/28/23 History tablet (Vitamin B-6) calcitriol 0.25 mcg capsule 0.25 mcg PO QA 11/01/20 02/28/23 History carbamazepine 100 mg 100 mg PO HS 11/01/20 02/28/23 History tablet,extended release,12 hr duloxetine 60 mg capsule,delayed 60 mg PO HS 11/01/20 02/28/23 History release ezetimibe 10 mg tablet 10 mg PO QAM 11/01/20 02/28/23 History furosemide 20 mg tablet 20 mg PO BID 03/27/21 02/28/23 History folic acid 400 mcg tablet 0.4 mg PO DAILY 02/28/23 02/28/23 History iron,carbonyl 65 mg-vitamin C 125 1 tab PO DAILY 02/28/23 02/28/23 History mg tablet,delayed release (Vitron-C) melatonin 1 mg tablet 6 - 8 mg PO HS PRN Sleep 02/28/23 02/28/23 History pantoprazole 40 mg tablet,delayed 40 mg PO DAILY 02/28/23 02/28/23 History release warfarin 6 mg tablet 6 mg PO 3XWK 02/28/23 02/28/23 History warfarin 6 mg tablet 9 mg PO 4XWK 02/28/23 02/28/23 History Past Med/Surg History Medical History (Updated 02/28/23 @ 21:44 by DUKE Carter) Abnormal gait Alcohol use Aneurysm of right iliac artery Anticoagulated on warfarin Atrial fibrillation Bleeding from wound CAD (coronary artery disease) CKD (chronic kidney disease) stage 3, GFR 30-59 ml/min Diabetic neuropathy Dyslipidemia ETOH abuse GERD (gastroesophageal reflux disease) GIB (gastrointestinal bleeding) History of bradycardia "carvedilol discontinued" History of cardioversion History of pulmonary embolism "2 episodes, chronic warfarin therapy" History of ventricular tachycardia HTN (hypertension) Hypertensive urgency Hypothyroidism Neuropathy Obesity Sleep apnea Surgical History History of inguinal hernia repair S/P aneurysm repair "AAA" S/P femoral-popliteal bypass surgery Family History Other Family history non-contributory Social History Smoking Status: Never smoker Second Hand Exposure: No; Do You Dip or Chew Tobacco: No; Hx Alcohol Use: Yes Alcohol type: beer and hard liquor Hx Substance Use: No Preferred Language: Lao Communication Ability: Effective Communication Ability Comment: intoxicated Visual Impairment: Limited Hearing Ability: Normal Web Mobile Designer Required: No Beliefs That Will Affect Care: None marital status: Current Living Situation: Spouse current occupational status: retired How many Children do You have: 4 How many Children do You have Comment: children live in [place], able to assist with care as needed Other Information That Helps Us Care for You: No Feels Safe at Home: No Is there a partner from a previous relationship who is making you feel unsafe now?: No Any Concerns about Your Family Situation: No Would You Like to Speak to Someone About Your Situation: No Safety Concerns: Feels Safe At This Time Diet Comment: follows a "semi-keto diet" during the past year weight has: decreased > 10 lbs Assistive Devices: Glasses Review of Systems Review of Systems: Neuro: (-) Falls, trauma, slurred speech HEENT: (-) CARRILLO, dizziness, dysphagia, visual or auditory changes CV: (-) CP, palpitations, swelling Resp: (-) SOB GI: (-) appetite changes, N/V/D, bowel changes : (-) urinary changes Skin: (-) rashes Psych: (-) anxiety, depression Physical Exam Physical Exam: Neuro: AAOx4, PERRLA, no aphagia, memory changes, CNII-XII grossly intact HEENT: head normocephalic, moist mucus membranes CV: S1/S2, (-) M/G/R, (-) edema, cap refill > 6 seconds. cyanotic nail beds Resp: Lungs CTA in all peralta. On RA GI: Abdomen S/NT/ND, Ax4 bowel sounds, (-) CVA tenderness Musculoskeletal: 5/5 B/L UE strength, 5/5 B/L LE strength. No gait disturbance Skin: (-) rashes , (-) erythema. Psych: euthymic mood Results & Data Results & Data Vital Signs (Past 12 Hours) Vital Signs Temp Pulse Resp BP Pulse Ox O2 Del Method 02/28/23 11:00 75 20 93 Room Air 02/28/23 10:45 90 21 100 Room Air 02/28/23 10:45 105/53 L 02/28/23 10:36 97/49 L 02/28/23 10:36 96 H 18 02/28/23 10:30 84 23 02/28/23 10:20 86 16 02/28/23 10:19 84/50 L 02/28/23 10:08 Room Air 02/28/23 12:39 36.6 C 65 20 96/50 L 98 02/28/23 10:24 94 H 02/28/23 09:53 36.8 C 71 16 99/40 L 94 Room Air Laboratory Results Short CBC 02/28/23 Range/Units 10:22 WBC 6.54 (4.8-10.8) K/ul Hgb 4.4 L* (14.0-18.0) g/dl Hct 14.5 L* (42.0-52.0) % Plt Count 190 (130-400) K/uL BMP 02/28/23 10:22 Sodium 135 L Potassium 4.2 Chloride 104 Carbon Dioxide 23 BUN 81 H Creatinine 3.11 H Glucose 135 H Calcium 8.6 Liver Function 02/28/23 Range/Units 10:22 Total Bilirubin 0.3 (0.2-1.0) mg/dl AST 20 (13-39) U/L ALT 22 (7-52) U/L Alkaline Phosphatase 64 (34-104) U/L Albumin 3.6 (3.4-5.0) gm/dl Diagnostic Findings Chest X-Ray 02/28/23 10:06 XR chest 1V portable HISTORY: 72 years-old Male Chest pain, nonspecific acute shortness of breath with chest pain COMPARISON: 03/18/2021 TECHNIQUE: AP view of the chest FINDINGS: Cardiac silhouette is enlarged. No pneumothorax, pleural effusion or overt pulmonary edema. Mild subsegmental bibasilar densities. Degenerative changes of the shoulders and spine. IMPRESSION: 1. Cardiomegaly without pulmonary edema. 2. Mild bibasilar densities suggest atelectasis. 3. The lateral right lung base is partially excluded from the [id number]. ACT 112: Negative or not required by law. The above report was generated using voice recognition software. It may contain grammatical, syntax or spelling errors. Electronically signed by: Augustine Bautista M.D. 02/28/2023 12:13 PM Code Status & VTE Plan Code Status Full Code in the event of cardiac or respiratory arrest VTE Prophylaxis Plan VTE Prophylaxis will be ordered: Yes Supervising Physician Co-Signing Physician Notes Pt seen and examined by myself, Mena Gan MD on the day of service. Care was coordinated with DUKE Robles. Please refer to her note for additional information. 72yo with Hx significant for alcohol abuse presenting with compensated anemia, hgb 4.4 on admission. Hemodynamically stable. Transfuse, PPI, NPO, GI consult. Otherwise as above. (2) Atrial fibrillation Atrial fibrillation type: unspecified chronic Qualified Code(s): I48.20 - Chronic atrial fibrillation, unspecified
[2023-02-28] MEDS: PANTOprazole 40 MG in DEXTROSE 5% 100 ML IV SCH ×3 (13:11→21:50)
[2023-02-28 14:44] LABS: Reticulocytes # 0.09 10^6/uL (0.02-0.10)
[2023-02-28 14:47] LABS: Iron 31 mcg/dl (35-175); Transferrin 316 mg/dl (200-360)
[2023-02-28 15:11] LABS: Thyroid Stimulating Hormone 1.577 uIu/ml (0.300-4.500)
[2023-02-28 15:13] LABS: T4 Free Thyroxine 0.89 ng/dl (0.61-1.60)
[2023-02-28 15:23] LABS: Vitamin B12 1453 pg/ml (180-914)
[2023-02-28 15:27] LABS: Appearance Urine Clear (Clear); Bilirubin Urine Negative (Negative); Blood Urine Negative (Negative); Color Urine Yellow; Glucose Urine UA Negative (Negative); Ketones Urine Negative (Negative); Leukocyte Esterase Urine Negative (Negative); Nitrite Urine Negative (Negative); Protein Urine Negative (Negative); Specific Gravity Urine 1.013 (1.000-1.030); Urobilinogen Urine Negative (Negative)
[2023-02-28] MEDS: DULoxetine HCL 60 MG CAP PO SCH (19:57)
[2023-02-28] MEDS: allopurinoL 100 MG TAB PO SCH (19:57)
[2023-02-28 21:14] LABS: INR 1.2 (0.9-1.1); Prothrombin Time 12.5 Seconds (9.0-12.0)
[2023-02-28 21:24] LABS: Hematocrit (blood only) 19.5 % (42.0-52.0); Hemoglobin 6.3 g/dl (14.0-18.0); Mean Corpuscular Hemoglobin 30.4 pg (25.0-34.0); Mean Corpuscular Hgb Conc 32.3 g/dL (32.0-36.0); Mean Corpuscular Volume 94.2 fL (80.0-100.0); Nucleated RBC # (auto) 0.09 K/uL (0-0.12); Nucleated RBC % (auto) 1.7 %; Platelet Count 169 K/uL (130-400); RDW Coefficient of Variation 18.5 % (11.5-14.5); RDW Standard Deviation 61.1 fL (36.4-46.3); Red Blood Count 2.07 M/uL (4.70-6.10); White Blood Count 5.43 K/ul (4.8-10.8)
[2023-03-01] MEDS: PANTOprazole 40 MG in DEXTROSE 5% 100 ML IV SCH ×6 (03:22→23:40)
[2023-03-01 06:38] LABS: Hematocrit (blood only) 22.7 % (42.0-52.0); Hemoglobin 7.4 g/dl (14.0-18.0); Mean Corpuscular Hemoglobin 29.2 pg (25.0-34.0); Mean Corpuscular Hgb Conc 32.6 g/dL (32.0-36.0); Mean Corpuscular Volume 89.7 fL (80.0-100.0); Mean Platelet Volume 11.6 fL (9.4-12.4); Nucleated RBC # (auto) 0.08 K/uL (0-0.12); Nucleated RBC % (auto) 1.5 %; Platelet Count 154 K/uL (130-400); RDW Coefficient of Variation 19.8 % (11.5-14.5); RDW Standard Deviation 62.7 fL (36.4-46.3); Red Blood Count 2.53 M/uL (4.70-6.10); White Blood Count 5.35 K/ul (4.8-10.8)
[2023-03-01 07:08] LABS: Albumin Globulin Ratio 1.3 (0.9-2); Albumin Level 3.3 gm/dl (3.4-5.0); BUN Creatinine Ratio 25.7 (10-20); Bilirubin,Total 0.6 mg/dl (0.2-1.0); Calcium 8.5 mg/dl (8.6-10.3); Est GFR (African American) 31.5 ml/min; Est GFR (Non-African American) 27.2 ml/min; Globulin 2.6 gm/dl (2.5-4.0); Magnesium 2.3 mg/dl (1.7-2.4); Potassium 4.3 mmol/L (3.5-5.1); Total Protein 5.9 gm/dl (6.0-8.3)
[2023-03-01] MEDS ORDERED: PREGABALIN 75 MG CAP PO ONE (07:51)
[2023-03-01] MEDS ORDERED: PREGABALIN 100 MG CAP PO ONE (07:58)
[2023-03-01] MEDS: CALCITRIOL 0.25 MCG CAPSULE PO SCH (08:00)
[2023-03-01] MEDS: ASCORBIC ACID 500 MG TAB PO SCH (08:01)
[2023-03-01] MEDS: PREGABALIN 100 MG CAP PO SCH (08:03)
[2023-03-01] MEDS ORDERED: LORazepam 2 MG/1 ML VIAL IV PRN (08:39)
[2023-03-01] MEDS ORDERED: lisinopril 5 MG TAB PO SCH (09:00)
[2023-03-01] MEDS ORDERED: CLOPIDOGREL BISULFATE 75 MG TAB PO SCH (09:00)
[2023-03-01] MEDS ORDERED: FERROUS SULFATE 325 MG TAB PO SCH (09:00)
--- NOTE | 2023-03-01 11:52 | Gastrointestinal Consultation ---
Date of Consultation March 01, 2023 Assessment & Plan (1) GIB (gastrointestinal bleeding): (2) Anemia: Pt is a 72 yo male admitted with symptomatic anemia status post 4 units PRBC transfusion with good response and blood count. He did report having dark tarry stools and rectal bleeding last week. History of alcohol abuse, last drink about couple pints of vodka over 2 weeks ago. He also uses NSAIDs occasionally. Concerned that he may have peptic ulcer disease. Other differentials include severe esophagitis, gastritis, AVM bleed or GI malignancy causing anemia. - PPI gtt - CL diet today - Plan for EGD and colonoscopy evaluations tomorrow by Dr. Alfaro. Will order Golytely prep given CKD - INR reversed. Hold Warfarin and Plavix for now - Monitor blood ct and transfuse prn - May continue Ferrous Sulfate once daily for now Supervising Physician Co-Signing Physician Notes 72 yo male with complicated pmhx including afib on coumadin, prior fem-pop bypass on plavix, alcohol use (last abd imaging showed a fatty liver in 2020), admitted essentially with sob - found to be anemic (9 gram drop in hgb s/p transfusion with improvement in his hgb). He is felt to have had symtpomatic anemia to some extent as source for his sob however he has not been up much to know if his sob has fully improved. Initially reported dark stools on admission and also recent etoh use, not known to be cirrhotic. PE as documented. Labs with improvement in hgb post transfusion, no bun rise. Prior abdominal imaging reviewed Agree with egd/colon for evaluation of symptomatic anemia, if negative consider imaging of thigh to rule out a posterior thigh hematoma. History of Present Illness Reason for Consultation: GI bleed Requesting Physician: Dr. Liu Lal Attending Physician: Dr. Viki Alfaro History of Present Illness Patient is a 72 years old male with multiple medical histories as noted below who was admitted with symptoms of abdominal pain, shortness of breath, dizziness, hypotension and diarrhea. States that he has been gradually getting weaker unable to tolerate p.o. intake the last few days and also having dyspnea on exertion. Symptoms started when he had flulike symptoms a couple weeks ago. Respiratory panel including COVID-19, RSV, enterovirus, rhinovirus adenovirus are all negative. Upon evaluation it was noted that he is severely anemic with hemoglobin of 4, previous baseline of 12. He was treated with 3 units PRBC transfusion since admission with good response of his blood count, with hemoglobin now of 7. It is noted that he has history of alcoholism, admits that his last alcoholic intake was couple pints of vodka 2 weeks ago. He is also on warfarin for history of A-fib, Plavix for history of femoral artery bypass. This morning he reports that he feels 1000% better. Denies any headaches, dizziness, chest pain, shortness of breath, abdominal pain, nausea or vomiting. He has not had a bowel movement for the last 4 days. Was able to tell me that when he had the diarrhea symptoms his stools were black like tar and also noticed rectal bleeding. He has been on oral iron supplements once daily. His last EGD was in 2011 which showed Schatzki's ring status post dilation. His last colonoscopy was in 2010 which was normal. Denies any family history of GI malignancies. He uses NSAIDs occasionally, denies any tobacco products or recreational drug use otherwise Allergies Allergy/AdvReac Type Severity Reaction Status Date / Time No Known Allergies Allergy Verified 02/28/23 11:16 Home Medications Medication Instructions Recorded Confirmed Type allopurinol 100 mg tablet 200 mg PO HS reduce uric acid 01/28/19 02/28/23 Histo ry atorvastatin 80 mg tablet 80 mg PO DAILY@1200 cholesterol 01/28/19 02/28/23 History clopidogrel 75 mg tablet 75 mg PO QAM 01/28/19 02/28/23 History levothyroxine 75 mcg tablet 75 mcg PO DAILYBB thyriod 01/28/19 02/28/23 History cyanocobalamin (vitamin B-12) 1,000 mcg PO DAILY@1200 11/24/19 02/28/23 History 1,000 mcg tablet (Vitamin B-12) lisinopril 10 mg tablet 5 mg PO QAM 11/24/19 02/28/23 History pregabalin 100 mg capsule 100 mg PO DAILY 11/24/19 02/28/23 History pyridoxine (vitamin B6) 100 mg 100 mg PO DAILY@1200 11/24/19 02/28/23 History tablet (Vitamin B-6) calcitriol 0.25 mcg capsule 0.25 mcg PO QAM 11/01/20 02/28/23 History carbamazepine 100 mg 100 mg PO HS 11/01/20 02/28/23 History tablet,extended release,12 hr duloxetine 60 mg capsule,delayed 60 mg PO HS 11/01/20 02/28/23 History release ezetimibe 10 mg tablet 10 mg PO QAM 11/01/20 02/28/23 History furosemide 20 mg tablet 20 mg PO BID 03/27/21 02/28/23 History folic acid 400 mcg tablet 0.4 mg PO DAILY 02/28/23 02/28/23 History iron,carbonyl 65 mg-vitamin C 125 1 tab PO DAILY 02/28/23 02/28/23 History mg tablet,delayed release (Vitron-C) melatonin 1 mg tablet 6 - 8 mg PO HS PRN Sleep 02/28/23 02/28/23 History pantoprazole 40 mg tablet,delayed 40 mg PO DAILY 02/28/23 02/28/23 History release warfarin 6 mg tablet 6 mg PO 3XWK 02/28/23 02/28/23 History warfarin 6 mg tablet 9 mg PO 4XWK 02/28/23 02/28/23 History Patient History Medical History Abnormal gait Alcohol use Aneurysm of right iliac artery Anticoagulated on warfarin Atrial fibrillation Bleeding from wound CAD (coronary artery disease) CKD (chronic kidney disease) stage 3, GFR 30-59 ml/min Diabetic neuropathy Dyslipidemia ETOH abuse GERD (gastroesophageal reflux disease) GIB (gastrointestinal bleeding) History of bradycardia "carvedilol discontinued" History of cardioversion History of pulmonary embolism "2 episodes, chronic warfarin therapy" History of ventricular tachycardia HTN (hypertension) Hypertensive urgency Hypothyroidism Neuropathy Obesity Sleep apnea Surgical History History of inguinal hernia repair S/P aneurysm repair "AAA" S/P femoral-popliteal bypass surgery Family History Other Family history non-contributory Social History Smoking Status: Never smoker Second Hand Exposure: No; Do You Dip or Chew Tobacco: No; Hx Alcohol Use: Yes Alcohol type: beer and hard liquor Hx Substance Use: No Preferred Language: Georgian Communication Ability: Effective Communication Ability Comment: intoxicated Visual Impairment: Limited Hearing Ability: Normal Assistant Clinical Nurse Manager Required: No Beliefs That Will Affect Care: None marital status: Current Living Situation: Spouse current occupational status: retired How many Children do You have: 4 How many Children do You have Comment: children live in [place], able to assist with care as needed Other Information That Helps Us Care for You: No Feels Safe at Home: No Is there a partner from a previous relationship who is making you feel unsafe now?: No Any Concerns about Your Family Situation: No Would You Like to Speak to Someone About Your Situation: No Safety Concerns: Feels Safe At This Time Diet Comment: follows a "semi-keto diet" during the past year weight has: decreased > 10 lbs Assistive Devices: Glasses Review of Systems Review of Systems: All systems reviewed & are unremarkable except as noted in HPI & below Physical Exam Constitutional: WD/WN, vitals as above well groomed, cooperative and comfortable Eyes: PERRL, conjunctivae normal, anicteric sclerae ENMT: external ear and nose normal, oropharynx normal Respiratory: normal respiratory effort, lungs clear to auscultation Cardiovascular: RRR, no murmur, no edema Gastrointestinal (Abdomen): normal bowel sounds, soft, nontender, no hepatosplenomegaly Skin: no rashes, warm and dry no jaundice Psychiatric: A+Ox3, euthymic affect Lymphatic: no lymphedema Results & Data Vital Signs (Past 12 Hours) Vital Signs Temp Pulse Pulse Resp BP BP Pulse Ox 03/01/23 11:25 36.8 C 62 18 116/59 L 98 03/01/23 07:53 36.6 C 67 18 127/67 100 03/01/23 03:04 36.5 C 14 127/65 100 03/01/23 02:22 36.6 C 56 L 15 123/74 99 03/01/23 02:12 36.6 C 52 L 12 124/66 100 03/01/23 01:12 36.6 C 62 20 126/74 99 03/01/23 00:42 36.6 C 82 20 127/69 100 03/01/23 00:27 36.8 C 55 L 19 96/63 L 100 03/01/23 00:11 36.8 C 99 H 14 113/61 100 02/28/23 23:52 36.8 C 84 12 109/66 100 O2 Del Method 03/01/23 11:25 Room Air 03/01/23 07:53 Room Air 03/01/23 03:04 Room Air 03/01/23 02:22 03/01/23 02:12 03/01/23 01:12 03/01/23 00:42 03/01/23 00:27 03/01/23 00:11 02/28/23 23:52
--- NOTE | 2023-03-01 12:35 | Anesthesiology Consultation ---
Date of Service March 01, 2023 Assessment & Plan (1) Encounter for pre-operative examination: Chart Review Chart Review: Acceptable Risk for Surgery, Patient NOT seen in Pre Admission Testing and direct entry midwife initiated Consults Requested none History Surgery Operation Date: 03/02/23 16:45 Proposed Procedures p Colonoscopy EGD Dr. Dominic Alfaro MD Height/Weight Height: 5 ft 9 in Weight: 91.4 kg Allergies Allergy/AdvReac Type Severity Reaction Status Date / Time No Known Allergies Allergy Verified 02/28/23 11:16 Medications Home Medications Medication Instructions Recorded Confirmed Last Taken allopurinol 100 mg tablet 200 mg PO reduce uric acid 01/28/19 02/28/23 03/17/21 atorvastatin 80 mg tablet 80 mg PO DAILY@1200 cholesterol 01/28/19 02/28/23 03/17/21 clopidogrel 75 mg tablet 75 mg PO QA 01/28/19 02/28/23 03/18/21 levothyroxine 75 mcg tablet 75 mcg PO DAILYBB thyriod 01/28/19 02/28/23 03/18/21 cyanocobalamin (vitamin B-12) 1,000 mcg PO DAILY@1200 11/24/19 02/28/23 03/17/21 1,000 mcg tablet (Vitamin B-12) lisinopril 10 mg tablet 5 mg PO QA 11/24/19 02/28/23 03/18/21 pregabalin 100 mg capsule 100 mg PO DAILY 11/24/19 02/28/23 03/18/21 pyridoxine (vitamin B6) 100 mg 100 mg PO DAILY@1200 11/24/19 02/28/23 03/17/21 tablet (Vitamin B-6) calcitriol 0.25 mcg capsule 0.25 mcg PO QAM 11/01/20 02/28/23 03/18/21 carbamazepine 100 mg 100 mg PO HS 11/01/20 02/28/23 03/17/21 tablet,extended release,12 hr duloxetine 60 mg capsule,delayed 60 mg PO HS 11/01/20 02/28/23 03/17/21 release ezetimibe 10 mg tablet 10 mg PO QA 11/01/20 02/28/23 03/18/21 furosemide 20 mg tablet 20 mg PO BID 03/27/21 02/28/23 Unknown folic acid 400 mcg tablet 0.4 mg PO DAILY 02/28/23 02/28/23 Unknown iron,carbonyl 65 mg-vitamin C 125 1 tab PO DAILY 02/28/23 02/28/23 Unknown mg tablet,delayed release (Vitron-C) melatonin 1 mg tablet 6 - 8 mg PO HS PRN Sleep 02/28/23 02/28/23 Unknown pantoprazole 40 mg tablet,delayed 40 mg PO DAILY 02/28/23 02/28/23 Unknown release warfarin 6 mg tablet 6 mg PO 3XWK 02/28/23 02/28/23 Unknown warfarin 6 mg tablet 9 mg PO 4XWK 02/28/23 02/28/23 Unknown Active Medications Generic Name Dose Route Start Last Admin Trade Name Freq PRN Reason Stop Dose Admin Allopurinol 200 mg 02/28/23 21:00 02/28/23 19:57 Allopurinol 100 Mg Tab PO 03/30/23 20:59 200 mg HS JOSÉ MIGUEL Administration Ascorbic Acid 250 mg 03/01/23 09:00 03/01/23 08:01 Ascorbic Acid 500 Mg Tab PO 03/31/23 08:59 250 mg DAILY JOSÉ MIGUEL Administration Calcitriol 0.25 mcg 03/01/23 09:00 03/01/23 08:00 Calcitriol 0.25 Mcg Capsule PO 03/31/23 08:59 0.25 mcg QAM JOSÉ MIGUEL Administration Carbamazepine 100 mg 02/28/23 21:00 02/28/23 19:57 Carbamazepine 100 Mg Tabcr PO 03/30/23 20:59 100 mg HS JOSÉ MIGUEL Administration Duloxetine HCl 60 mg 02/28/23 21:00 02/28/23 19:57 Duloxetine Hcl 60 Mg Cap PO 03/30/23 20:59 60 mg HS JOSÉ MIGUEL Administration Ferrous Sulfate 325 mg 03/01/23 09:00 03/01/23 08:00 Ferrous Sulfate 325 Mg Tab PO 03/31/23 08:59 325 mg DAILY JOSÉ MIGUEL Administration Pantoprazole Sodium 40 mg/ 100 mls @ 20 mls/hr 02/28/23 12:30 03/01/23 12:37 Dextrose IV 03/30/23 12:29 8 mg/hr Q5H JOSÉ MIGUEL 20 mls/hr Administration 8 MG/HR Lisinopril 5 mg 03/01/23 09:00 03/01/23 08:02 Lisinopril 5 Mg Tab PO 03/31/23 08:59 5 mg QAM JOSÉ MIGUEL Administration Pregabalin 100 mg 03/01/23 09:00 03/01/23 08:03 Pregabalin 100 Mg Cap PO 03/31/23 08:59 Not Given DAILY JOSÉ MIGUEL Past Medical History Medical History (Updated 03/01/23 @ 12:38 by Tate Dubon MD) Abnormal gait Alcohol use Aneurysm of right iliac artery Anticoagulated on warfarin Atrial fibrillation Bleeding from wound CAD (coronary artery disease) CKD (chronic kidney disease) stage 3, GFR 30-59 ml/min Diabetic neuropathy Dyslipidemia Encounter for pre-operative examination ETOH abuse GERD (gastroesophageal reflux disease) GIB (gastrointestinal bleeding) History of bradycardia "carvedilol discontinued" History of cardioversion History of pulmonary embolism "2 episodes, chronic warfarin therapy" History of ventricular tachycardia HTN (hypertension) Hypertensive urgency Hypothyroidism Neuropathy Obesity Sleep apnea Past Family History Family History Other Family history non-contributory Past Surgical History Surgical History History of inguinal hernia repair S/P aneurysm repair "AAA" S/P femoral-popliteal bypass surgery Social History Smoking Status: Never smoker Do You Dip or Chew Tobacco: No Hx Alcohol Use: Yes Alcohol type: beer and hard liquor alcohol intake frequency: 3 or more drinks per day Alcohol Intake Frequency Comment: Previous ETOH abuse Hx Substance Use: No substance use type: does not use Substance Use Type Other:: >20-30 years ago Physical Exam Vital Signs Last Vital Signs Temp 36.8 C 03/01/23 11:25 Pulse 62 03/01/23 11:25 Resp 18 03/01/23 11:25 BP 116/59 L 03/01/23 11:25 Pulse Ox 98 03/01/23 11:25 O2 Del Method Room Air 03/01/23 11:25 Testing Laboratory Results 03/01/23 05:34 03/01/23 05:34 PT 12.5 Seconds (9.0-12.0) H 02/28/23 20:27 INR 1.2 (0.9-1.1) H 02/28/23 20:27 Hemoglobin A1c Cancelled 06/04/23 10:22 Urine Color Yellow 02/28/23 15:09 Urine Appearance Clear (Clear) 02/28/23 15:09 Urine pH 5.0 (4.5-7.5) 02/28/23 15:09 Ur Specific [place] 1.013 (1.000-1.030) 02/28/23 15:09 Urine Protein Negative (Negative) 02/28/23 15:09 Urine Glucose (UA) Negative (Negative) 02/28/23 15:09 Urine Ketones Negative (Negative) 02/28/23 15:09 Urine Nitrite Negative (Negative) 02/28/23 15:09 Ur Leukocyte Esterase Negative (Negative) 02/28/23 15:09 Blood Type A Positive 02/28/23 10:58 Antibody Screen NEGATIVE 02/28/23 10:58 Electrocardiogram Date: 02/28/23 Atrial fibrillation with slow ventricular response with a competing junctional pacemaker Left axis deviation Left bundle branch block Abnormal ECG When compared with ECG of 18-MAR-2021 09:34, No significant change was found. Ventricular rate 58. Chest X-Ray Date: 02/28/23 XR chest 1V portable HISTORY: 72 years-old Male Chest pain, nonspecific acute shortness of breath with chest pain COMPARISON: 03/18/2021 TECHNIQUE: AP view of the chest FINDINGS: Cardiac silhouette is enlarged. No pneumothorax, pleural effusion or overt pulmonary edema. Mild subsegmental bibasilar densities. Degenerative changes of the shoulders and spine. IMPRESSION: 1. Cardiomegaly without pulmonary edema. 2. Mild bibasilar densities suggest atelectasis. 3. The lateral right lung base is partially excluded from the [id number]. Echocardiogram Date: 02/07/19 EF: 50-55% LV Function: normal A-fib
[2023-03-01] MEDS: ATORVASTATIN 40 MG TAB PO SCH (13:01)
[2023-03-01] MEDS: CYANOCOBALAMIN (B-12) 500 MCG TABLET PO SCH (13:01)
[2023-03-01 13:45] LABS: Hemoglobin 7.4 g/dl (14.0-18.0)
--- NOTE | 2023-03-01 15:46 | Hospitalist Progress Note ---
Date of Service March 01, 2023 Assessment & Plan (1) GIB (gastrointestinal bleeding): (2) Atrial fibrillation: (3) Anticoagulated with warfarin: (4) CKD (chronic kidney disease) stage 3, GFR 30-59 ml/min: (5) Hypothyroidism: (6) HTN (hypertension): (7) Dyslipidemia: (8) CAD (coronary artery disease): (9) S/P aneurysm repair: (10) GERD (gastroesophageal reflux disease): (11) Aneurysm of right iliac artery: (12) Alcohol use: Plan Patient is 72 yr presents with SOB and low hgb, 4.4. Takes Coumadin for AF (INR 4.8 at home on Wednesday. 2.8 today). Protonix gtt started. Transfuse 2 UPRBC due to finish at 1900; recheck H/H and INR at 2100. H/O R iliac artery aneurysm; takes Plavix. Acute gastrointestinal bleeding Acute on chronic blood loss anemia Symptomatic anemia secondary to above In setting of coagulopathy secondary to warfarin 01/29/23: Anemia studies done: TIBC: 393, Vitamin B12: 1335, Ferritin 27, Folic Acid 18.0, Retic count: 31.7 FOBT positive S/P 4 units PRBCs S/P Vit K, K centra INR:2.8>1.2 Plavix held Continue IV Protonix Appreciate GI input Monitor H&H and transfuse as needed Gentle IV fluids N.p.o. after midnight Plan for EGD, colonoscopy tomorrow Avoid NSAIDs, anticoagulation ALEXIS ON CKD III-IV Cr:3.1>2.3 Hold lisinopril, Lasix Continue IV fluids Avoid nephrotoxic agents as able Monitor renal function Monitor volume status Chronic atrial fibrillation LBBB Currently not on any rate controlling medications Coumadin on hold due to GI bleed Monitor INR H/O systolic and diastolic heart failure Diuretics on hold Monitor volume status H/O R iliac artery aneurysm: Right iliac artery aneurysm in 2011 Hold Plavix for now Alcohol use Disorder: Known alcohol use. Was sober for 19 months until 9 days ago. Admits to having started drinking one month ago Monitor for any alcohol withdrawal Continue thiamine, folic acid HTN: Hold Lisinopril BP Low Monitor HLD: Continue Atorvastatin Hypothyroidism: Continue levothyroxine Gout: Continue Allopurinol Depression: Continue Duloxetine DVT Px: SCDs Re: GI Bleed Code Status: Full Code Admission and Anticipated Discharge Date Admission Date: February 28, 2023 Subjective Patient is seen and examined at bedside Denies any melena, rectal bleed this morning Also denies any chest pain, dyspnea, dizziness, nausea, abdominal pain No signs of alcohol withdrawal today Plan for EGD, colonoscopy tomorrow Review of Systems Review of Systems: All systems reviewed & are unremarkable except as noted in Subjective Physical Exam Physical Exam: Physical Exam: Vitals signs as noted above General Appearance:Moderately built and nourished, no apparent distress Head: normocephalic, Atraumatic Eyes: normal inspection, EOMI Neck: supple, Trachea midline Respiratory/Chest: Normal breath sounds, CTA, No accessory muscle use Cardiovascular: S1, S2, No murmur Abdomen/GI:Soft, Non tender, Bowel sounds present Extremities/Musculoskeletal:normal inspection, no edema Neurologic/Psych:AAOX3, grossly no focal neurological deficits, +Mild hearing impairment Skin: normal color, warm Results & Data Results & Data Vital Signs (Past 12 Hours) Vital Signs Temp Pulse Resp BP Pulse Ox O2 Del Method 03/01/23 15:03 37.0 C 65 18 109/62 94 Room Air 03/01/23 11:25 36.8 C 62 18 116/59 L 98 Room Air 03/01/23 07:53 36.6 C 67 18 127/67 100 Room Air Laboratory Results Short CBC 02/28/23 03/01/23 03/01/23 Range/Units 20:27 05:34 12:40 WBC 5.43 5.35 (4.8-10.8) K/ul Hgb 6.3 L* 7.4 L 7.4 L (14.0-18.0) g/dl Hct 19.5 L* 22.7 L 23.0 L (42.0-52.0) % Plt Count 169 154 (130-400) K/uL BMP 03/01/23 05:34 Sodium 138 Potassium 4.3 Chloride 109 H Carbon Dioxide 24 BUN 59 H D Creatinine 2.30 H D Glucose 115 H Calcium 8.5 L Liver Function 03/01/23 Range/Units 05:34 Total Bilirubin 0.6 (0.2-1.0) mg/dl AST 16 (13-39) U/L ALT 19 (7-52) U/L Alkaline Phosphatase 61 (34-104) U/L Albumin 3.3 L (3.4-5.0) gm/dl Urine 02/28/23 Range/Units 15:09 Urine Color Yellow Urine Appearance Clear (Clear) Urine pH 5.0 (4.5-7.5) Ur Specific [place] 1.013 (1.000-1.030) Urine Protein Negative (Negative) Urine Glucose (UA) Negative (Negative) (2) Atrial fibrillation Atrial fibrillation type: unspecified chronic Qualified Code(s): I48.20 - Chronic atrial fibrillation, unspecified
[2023-03-01] MEDS: LAVAGE SOLUTION 4000ML PO SCH ×8 (17:29→22:06)
[2023-03-01] MEDS ORDERED: SODIUM CHLORIDE 0.9% 1000ML 1,000 ML IV SCH (18:00)
[2023-03-01 19:32] LABS: Hematocrit (blood only) 26.4 % (42.0-52.0); Hemoglobin 8.5 g/dl (14.0-18.0)
[2023-03-01] MEDS: allopurinoL 100 MG TAB PO SCH (20:26)
[2023-03-01] MEDS: DULoxetine HCL 60 MG CAP PO SCH (20:26)
--- NOTE | 2023-03-01 22:37 | Electrocardiogram Report ---
Test Reason : Blood Pressure : / mmHG Vent. Rate : 058 BPM Atrial Rate : 000 BPM P-R Int : 000 ms QRS Dur : 160 ms QT Int : 462 ms P-R-T Axes : 000 -53 101 degrees QTc Int : 453 ms Atrial fibrillation with slow ventricular response Left axis deviation Left bundle branch block Abnormal ECG When compared with ECG of 18-MAR-2021 09:34, No significant change was found Confirmed by Aj Weems ([id number]) on 03/01/2023 10:37:27 PM Referred By: REFERRED SELF Confirmed By:Aj Weems
[2023-03-02 02:12] LABS: EAG mmol/L 5.8 mmol/L; HA1C 5.3 (<5.7)
[2023-03-02] MEDS: PANTOprazole 40 MG in DEXTROSE 5% 100 ML IV SCH ×4 (04:27→23:43)
[2023-03-02 07:07] LABS: Hematocrit (blood only) 22.5 % (42.0-52.0); Hemoglobin 7.2 g/dl (14.0-18.0); Mean Corpuscular Hemoglobin 29.8 pg (25.0-34.0); Mean Platelet Volume 11.1 fL (9.4-12.4); Nucleated RBC # (auto) 0.02 K/uL (0-0.12); Nucleated RBC % (auto) 0.4 %; Platelet Count 153 K/uL (130-400); RDW Coefficient of Variation 19.8 % (11.5-14.5); RDW Standard Deviation 66.2 fL (36.4-46.3); Red Blood Count 2.42 M/uL (4.70-6.10); White Blood Count 4.48 K/ul (4.8-10.8)
[2023-03-02 07:19] LABS: BUN Creatinine Ratio 21.8 (10-20); Calcium 8.7 mg/dl (8.6-10.3); Creatinine Clr Calc Pharmacy 41.5 ml/min; Est GFR (African American) 42.6 ml/min; Est GFR (Non-African American) 36.8 ml/min; Potassium 4.4 mmol/L (3.5-5.1)
[2023-03-02 07:28] LABS: Prothrombin Time 11.3 Seconds (9.0-12.0)
[2023-03-02] MEDS ORDERED: MIDAZOLAM HCL 1 MG/ML 2ML VIAL ONE (08:17)
[2023-03-02] MEDS ORDERED: KETAMINE 50 MG/5 ML SYRINGE ONE (08:17)
[2023-03-02] MEDS ORDERED: PROPOFOL IV EMULSION 10 MG/ML 20 ML VIAL IV ONE (08:17)
[2023-03-02] MEDS ORDERED: LIDOCAINE 2% 2 ML VIAL/AMP(20MG/ML) INFIL ONE (08:17)
[2023-03-02] MEDS ORDERED: fentaNYL citrate PF 100 MCG/2 ML VIAL ONE (08:18)
[2023-03-02] MEDS ORDERED: GLYCOPYRROLATE 0.2 MG/ML VIAL ONE (08:19)
[2023-03-02] MEDS ORDERED: ONDANSETRON INJ 2 MG/ML 2 ML VIAL ONE (08:19)
--- NOTE | 2023-03-02 08:33 | History & Physical Bridge Note ---
Date of Service March 02, 2023 History & Physical Bridge Note I have examined the patient, reviewed the History & Physical and in the interval since the performance of the History & Physical I have noted the following changes of clinical significance: no changes noted Supervising Physician Co-Signing Physician Notes Abd exam benign Slight drop in hgb, bun has improved No reports of ongoing bleeding this am.
--- NOTE | 2023-03-02 09:12 | Communication Note ---
Date of Service: March 02, 2023 EGD with findings of abnormal mucosa at 35 cm from the incisors (thought to be at the very top of the gastric fundus)- biopsied gingerly given he has been on plavix, minimal bleeding post biopsies Stomach biopsies done to rule out h pylori Otherwise egd was normal. Colon with fair prep -no visible masses Would give octreotide for 24 hours, one unit of ffp, hold all blood thinners for 24 hours.
[2023-03-02] MEDS ORDERED: STAT IV STA (09:21)
--- NOTE | 2023-03-02 09:24 | GI REPORT ---
Patient Name: Sae Anderson Procedure Date: 03/02/2023 8:37 AM Date of : 1950 Admit Type: Inpatient Age: 72 Gender: Male Attending MD: Viki Alfaro M.d., Procedure: Upper GI endoscopy Providers: Viki Alfaro M.d. Referring MD: Liu Lal Md Indications: Anemia Medicines: See the Anesthesia note for documentation of the administered medications Complications: No immediate complications. Estimated Blood Loss: Estimated blood loss: none. Procedure: Pre-Anesthesia Assessment: - Patient identification and proposed procedure were verified prior to the procedure by the physician, the nurse and the anesthesiologist. The procedure was verified in the pre-procedure area. - Prior to the procedure, a History and Physical was performed, and patient medications, allergies and sensitivities were reviewed. The patient's tolerance of previous anesthesia was reviewed. - The risks and benefits of the procedure and the sedation options and risks were discussed with the patient. All questions were answered and informed consent was obtained. After obtaining informed consent, the endoscope was passed under direct vision. Throughout the procedure, the patient's blood pressure, pulse, and oxygen saturations were monitored continuously. The Endoscope was introduced through the mouth, and advanced to the second part of duodenum. The upper GI endoscopy was accomplished without difficulty. The patient tolerated the procedure well. Findings: The examined esophagus appeared normal. Localized moderate mucosal changes characterized by friability (with spontaneous bleeding), hemorrhagic appearance, inflammation, nodularity and ulceration were found in the gastric fundus/cardia approaching the GE junction- shola 35 cm from the incisors. Biopsies were taken with a cold forceps for histology. The pathology specimen was placed into Bottle B. The examined stomach appeared normal. Biopsies were taken with a cold forceps for Helicobacter pylori testing. The pathology specimen was placed into Bottle A. Verification of patient identification for the specimen was done by the physician and nurse using the patient's name and medical record number. The duodenal bulb and second portion of the duodenum appeared normal. Impression: - Normal esophagus. - Friable (with spontaneous bleeding), hemorrhagic appearing, inflamed, nodular and ulcerated mucosa in the gastric fundus/cardia approaching the GE junction shola 35 cm from the incisors. Biopsied. - Normal stomach. Biopsied. - Normal duodenal bulb and second portion of the duodenum. Recommendation: - Await pathology results. - Continue PPI. - Proceed to colonoscopy. Toro Willis M.d. 03/02/2023 9:23:56 AM This report has been signed electronically. Note Initiated On: 03/02/2023 8:37 AM Number of Addenda: 0 I attest to the content of the Intraoperative Record and orders documented therein, exceptions below {[id number]}
[2023-03-02] MEDS ORDERED: SODIUM CHLORIDE 0.9% 250 ML IV PRN (09:25)
--- NOTE | 2023-03-02 09:26 | GI REPORT ---
Patient Name: Sae Anderson Procedure Date: 03/02/2023 8:35 AM Date of : 1950 Admit Type: Inpatient Age: 72 Gender: Male Attending MD: Viki Alfaro M.d., Procedure: Colonoscopy Providers: Viki Alfaro M.d. Referring MD: Liu Lal Md Indications: Anemia Medicines: See the Anesthesia note for documentation of the administered medications Complications: No immediate complications. Estimated Blood Loss: Estimated blood loss: none. Procedure: Pre-Anesthesia Assessment: - Patient identification and proposed procedure were verified prior to the procedure by the physician, the nurse and the anesthesiologist. The procedure was verified in the pre-procedure area. - Prior to the procedure, a History and Physical was performed, and patient medications, allergies and sensitivities were reviewed. The patient's tolerance of previous anesthesia was reviewed. - The risks and benefits of the procedure and the sedation options and risks were discussed with the patient. All questions were answered and informed consent was obtained. After I obtained informed consent, the scope was passed under direct vision. Throughout the procedure, the patient's blood pressure, pulse, and oxygen saturations were monitored continuously. The scope was introduced through the anus and advanced to the terminal ileum. The colonoscopy was performed without difficulty. The patient tolerated the procedure well. The quality of the bowel preparation was fair. Findings: The examined terminal ileum appeared normal. The examined colon appeared normal. Internal hemorrhoids were found during retroflexion. Impression: - Preparation of the colon was fair. - The examined portion of the terminal ileum appeared normal. - The examined colon appeared normal. - Internal hemorrhoids. Recommendation: - Return to the the floor. - Repeat colonoscopy in 1 year given prep quality today. - Results were discussed with the patient in the recovery area. Toro Willis M.d. 03/02/2023 9:26:05 AM This report has been signed electronically. Note Initiated On: 03/02/2023 8:35 AM Number of Addenda: 0 I attest to the content of the Intraoperative Record and orders documented therein, exceptions below {[id number]}
--- NOTE | 2023-03-02 10:32 | Anesthesiology Progress Note ---
Date of Service March 02, 2023 Anesthesia Post Procedure Vital Signs Vital Signs: Temp Pulse Resp BP Pulse Ox Pulse Ox O2 Del Method 03/02/23 09:55 36.5 C 66 18 130/72 94 Room Air 03/02/23 09:40 69 16 129/70 94 Room Air 03/02/23 09:25 69 16 102/75 94 Room Air 03/02/23 09:10 66 14 106/53 L 97 Room Air 03/02/23 08:22 36.7 C 52 L 18 131/65 99 Room Air 03/02/23 07:22 36.9 C 59 L 18 114/65 99 Room Air 03/02/23 02:35 36.9 C 60 19 124/56 L 98 Room Air 03/01/23 23:47 62 03/01/23 22:36 36.9 C 89 18 125/67 Room Air 03/01/23 20:21 100 Room Air 03/01/23 19:31 36.7 C 91 H 20 149/78 H Room Air 03/01/23 19:11 Room Air 03/01/23 12:42 99 03/01/23 15:03 37.0 C 65 18 109/62 94 Room Air 03/01/23 11:25 36.8 C 62 18 116/59 L 98 Room Air O2 Del Method 03/02/23 09:55 03/02/23 09:40 03/02/23 09:25 03/02/23 09:10 03/02/23 08:22 03/02/23 07:22 03/02/23 02:35 03/01/23 23:47 03/01/23 22:36 03/01/23 20:21 03/01/23 19:31 03/01/23 19:11 03/01/23 12:42 Room Air 03/01/23 15:03 03/01/23 11:25 Pain Intensity Bilateral Lower Leg: Pain Intensity: 3 Transfer of Care Handoff Completed per policy Notes Mental Status: alert / awake / arousable and participated in evaluation Patient Amnestic to Procedure: Yes Nausea / Vomiting: adequately controlled Pain: adequately controlled Airway Patency, RR, SpO2: stable & adequate BP & HR: stable & adequate Hydration State: stable & adequate Anesthetic Complications: no major complications apparent
[2023-03-02] MEDS: ASCORBIC ACID 500 MG TAB PO SCH (11:30)
[2023-03-02] MEDS: THIAMINE HCL 100 MG TAB PO SCH (11:31)
[2023-03-02] MEDS: FOLIC ACID 1 MG TAB PO SCH (11:31)
[2023-03-02] MEDS: CYANOCOBALAMIN (B-12) 500 MCG TABLET PO SCH (11:31)
[2023-03-02] MEDS: ATORVASTATIN 40 MG TAB PO SCH (11:31)
[2023-03-02] MEDS: CALCITRIOL 0.25 MCG CAPSULE PO SCH (11:32)
[2023-03-02] MEDS: PREGABALIN 100 MG CAP PO SCH (11:35)
[2023-03-02 14:48] LABS: Hematocrit (blood only) 23.3 % (42.0-52.0); Hemoglobin 7.3 g/dl (14.0-18.0)
[2023-03-02] MEDS: OCTREOTIDE ACETATE 500 MCG in DEXTROSE 5% 100 ML IV SCH ×3 (15:04→22:41)
--- NOTE | 2023-03-02 16:15 | Hospitalist Progress Note ---
Date of Service March 02, 2023 Assessment & Plan (1) GIB (gastrointestinal bleeding): (2) Atrial fibrillation: (3) Anticoagulated with warfarin: (4) CKD (chronic kidney disease) stage 3, GFR 30-59 ml/min: (5) Hypothyroidism: (6) HTN (hypertension): (7) Dyslipidemia: (8) CAD (coronary artery disease): (9) S/P aneurysm repair: (10) GERD (gastroesophageal reflux disease): (11) Aneurysm of right iliac artery: (12) Alcohol use: Plan Patient is 72 yr presents with SOB and low hgb, 4.4. Takes Coumadin for AF (INR 4.8 at home on Wednesday. 2.8 today). Protonix gtt started. Transfuse 2 UPRBC due to finish at 1900; recheck H/H and INR at 2100. H/O R iliac artery aneurysm; takes Plavix. Acute gastrointestinal bleeding Acute on chronic blood loss anemia Symptomatic anemia secondary to above In setting of coagulopathy secondary to warfarin 01/29/23: Anemia studies done: TIBC: 393, Vitamin B12: 1335, Ferritin 27, Folic Acid 18.0, Retic count: 31.7 FOBT positive S/P EGD:Normal esophagus. Friable (with spontaneous bleeding), hemorrhagic appearing, inflamed, nodular and ulcerated mucosa in the gastric fundus/cardia approaching the GE junction shola 35 cm from the incisors. Biopsied. Normal stomach. Biopsied. Normal duodenal bulb and second portion of the duodenum. S/P Colonoscopy: Preparation of the colon was fair. The examined portion of the terminal ileum appeared normal. The examined colon appeared normal. Internal hemorrhoids. S/P 4 units PRBCs S/P Vit K, K centra INR:2.8>1.2>1.0 Plavix held Continue IV Protonix Appreciate GI input Monitor H&H and transfuse as needed Gentle IV fluids Avoid NSAIDs, anticoagulation Given FFP, started on octreotide drip as recommended by GI Follow-up pathology results Clear liquid diet today ALEXIS ON CKD III-IV Cr:3.1>2.3>1.7 Hold lisinopril, Lasix Continue IV fluids Avoid nephrotoxic agents as able Monitor renal function Monitor volume status Chronic atrial fibrillation LBBB Currently not on any rate controlling medications Coumadin on hold due to GI bleed Monitor INR H/O systolic and diastolic heart failure Diuretics on hold Monitor volume status H/O R iliac artery aneurysm: Right iliac artery aneurysm in 2011 Hold Plavix for now Alcohol use Disorder: Known alcohol use. Was sober for 19 months until 9 days ago. Admits to having started drinking one month ago Monitor for any alcohol withdrawal Continue thiamine, folic acid Counseled to quit alcohol use--patient agrees to quit HTN: Hold Lisinopril BP Low Monitor HLD: Continue Atorvastatin Hypothyroidism: Continue levothyroxine Gout: Continue Allopurinol Depression: Continue Duloxetine DVT Px: SCDs Re: GI Bleed Code Status: Full Code Admission and Anticipated Discharge Date Admission Date: February 28, 2023 Subjective Patient is seen and examined at bedside Had EGD and colonoscopy this morning Denies any recurrence of bleeding issues Offers no new complaints Discussed with GI today Denies any chest pain, dyspnea, dizziness, nausea, abdominal pain No signs of alcohol withdrawal today Review of Systems Review of Systems: All systems reviewed & are unremarkable except as noted in Subjective Physical Exam Physical Exam: Physical Exam: Vitals signs as noted above General Appearance:Moderately built and nourished, no apparent distress Head: normocephalic, Atraumatic Eyes: normal inspection, EOMI Neck: supple, Trachea midline Respiratory/Chest: Normal breath sounds, CTA, No accessory muscle use Cardiovascular: S1, S2, No murmur Abdomen/GI:Soft, Non tender, Bowel sounds present Extremities/Musculoskeletal:normal inspection, no edema Neurologic/Psych:AAOX3, grossly no focal neurological deficits, +Mild hearing impairment Skin: normal color, warm Results & Data Results & Data Vital Signs (Past 12 Hours) Vital Signs Temp Pulse Pulse Resp BP BP Pulse Ox 03/02/23 12:00 03/02/23 15:34 36.8 C 61 18 116/74 92 03/02/23 15:08 37.2 C 83 19 100/50 L 95 03/02/23 14:59 36.6 C 79 18 144/66 H 98 03/02/23 13:00 36.6 C 53 L 18 132/62 96 03/02/23 12:45 36.6 C 65 119/63 99 03/02/23 12:32 36.6 C 59 L 18 114/62 99 03/02/23 12:25 36.6 C 87 20 119/63 99 03/02/23 11:00 36.7 C 60 18 125/65 98 03/02/23 09:55 36.5 C 66 18 130/72 94 03/02/23 09:40 69 16 129/70 94 03/02/23 09:25 69 16 102/75 94 03/02/23 09:10 66 14 106/53 L 97 03/02/23 08:22 36.7 C 52 L 18 131/65 99 03/02/23 07:22 36.9 C 59 L 18 114/65 99 Pulse Ox O2 Del Method O2 Del Method O2 Flow Rate 03/02/23 12:00 99 Room Air 03/02/23 15:34 Room Air 03/02/23 15:08 Nasal Cannula 5.0 03/02/23 14:59 03/02/23 13:00 03/02/23 12:45 03/02/23 12:32 03/02/23 12:25 03/02/23 11:00 Room Air 03/02/23 09:55 Room Air 03/02/23 09:40 Room Air 03/02/23 09:25 Room Air 03/02/23 09:10 Room Air 03/02/23 08:22 Room Air 03/02/23 07:22 Room Air Laboratory Results Short CBC 03/01/23 03/02/23 03/02/23 Range/Units 19:23 06:21 14:01 WBC 4.48 L (4.8-10.8) K/ul Hgb 8.5 L 7.2 L 7.3 L (14.0-18.0) g/dl Hct 26.4 L 22.5 L 23.3 L (42.0-52.0) % Plt Count 153 (130-400) K/uL BMP 03/02/23 06:21 Sodium 140 Potassium 4.4 Chloride 111 H Carbon Dioxide 23 BUN 39 H D Creatinine 1.79 H D Glucose 114 H Calcium 8.7 (2) Atrial fibrillation Atrial fibrillation type: unspecified chronic Qualified Code(s): I48.20 - Chronic atrial fibrillation, unspecified
[2023-03-02] MEDS: DULoxetine HCL 60 MG CAP PO SCH (20:08)
[2023-03-02] MEDS: allopurinoL 100 MG TAB PO SCH (20:08)
[2023-03-03] MEDS: PANTOprazole 40 MG in DEXTROSE 5% 100 ML IV SCH ×4 (04:39→20:26)
[2023-03-03 06:58] LABS: BUN Creatinine Ratio 15.5 (10-20); Calcium 8.7 mg/dl (8.6-10.3); Creatinine Clr Calc Pharmacy 36.3 ml/min; Potassium 5.1 mmol/L (3.5-5.1)
[2023-03-03 07:06] LABS: INR 1.1 (0.9-1.1); Prothrombin Time 11.6 Seconds (9.0-12.0)
[2023-03-03] MEDS: ASCORBIC ACID 500 MG TAB PO SCH (08:04)
[2023-03-03] MEDS: THIAMINE HCL 100 MG TAB PO SCH (08:05)
[2023-03-03] MEDS: CALCITRIOL 0.25 MCG CAPSULE PO SCH (08:05)
[2023-03-03] MEDS: FOLIC ACID 1 MG TAB PO SCH (08:05)
[2023-03-03] MEDS: PREGABALIN 100 MG CAP PO SCH (08:10)
[2023-03-03 08:20] LABS: Hemoglobin 7.4 g/dl (14.0-18.0); Mean Corpuscular Hemoglobin 29.4 pg (25.0-34.0); Mean Corpuscular Hgb Conc 30.8 g/dL (32.0-36.0); Mean Corpuscular Volume 95.2 fL (80.0-100.0); Mean Platelet Volume 10.8 fL (9.4-12.4); Nucleated RBC # (auto) 0.07 K/uL (0-0.12); Nucleated RBC % (auto) 1.3 %; Platelet Count 163 K/uL (130-400); RDW Coefficient of Variation 19.2 % (11.5-14.5); RDW Standard Deviation 66.3 fL (36.4-46.3); Red Blood Count 2.52 M/uL (4.70-6.10); White Blood Count 5.48 K/ul (4.8-10.8)
--- NOTE | 2023-03-03 10:19 | Gastroenterology Progress Note ---
Date of Service March 03, 2023 Assessment & Plan (1) GIB (gastrointestinal bleeding): (2) Anemia: Plan: Pt is a 72 yo male admitted with symptomatic anemia status post 4 units PRBC transfusion with good response and blood count. He did report having dark tarry stools and rectal bleeding last week. History of alcohol abuse, last drink about couple pints of vodka over 2 weeks ago. He also uses NSAIDs occasionally. Concerned that he may have peptic ulcer disease. Other differentials include severe esophagitis, gastritis, AVM bleed or GI malignancy causing anemia. EGD and colonoscopy performed by Dr. Alfaro on 03/02/2023: friable and hemorrhagic, ulcerated mucosa on gastric cardia approaching GE junction. Colonoscopy unremarkable. He is hemodynamically stable overnight wo stool output. - DC Octreotide - PPI gtt - CL diet - Hold Warfarin and Plavix for now - Monitor blood ct and transfuse prn - May continue Ferrous Sulfate once daily for now - Obtain KUB to r/o ileus Admission and Anticipated Discharge Date Admission Date: February 28, 2023 Supervising Physician Co-Signing Physician Notes No further bleeding Hgb fluctuating slightly but stable Path results pending from biopsies done yesterday Agree with PE as documented and further plan of care as documented. Subjective Patient denies abdominal pain, nausea or vomiting. He is tolerating clear liquid diet. Has not been passing much flatus, last bowel movement 2 days ago. Review of Systems Review of Systems: All systems reviewed & are unremarkable except as noted in HPI & below Physical Exam Constitutional: WD/WN, vitals as above well groomed, cooperative and comfortable Eyes: PERRL, conjunctivae normal, anicteric sclerae ENMT: external ear and nose normal, oropharynx normal Respiratory: normal respiratory effort, lungs clear to auscultation Cardiovascular: RRR, no murmur, no edema Gastrointestinal (Abdomen): Some distention noted, nontender to palpation, bowel sounds tympanic Skin: no rashes, warm and dry no jaundice Psychiatric: A+Ox3, euthymic affect Lymphatic: no lymphedema Results & Data Vital Signs (Past 12 Hours) Vital Signs Temp Pulse Pulse Resp BP Pulse Ox O2 Del Method 03/03/23 09:21 80 03/03/23 07:57 36.5 C 123 H 22 122/70 93 Room Air 03/03/23 02:29 36.9 C 91 H 15 116/73 96 Room Air 03/02/23 22:24 37.5 C 89 25 H 128/70 94 Room Air
--- NOTE | 2023-03-03 11:04 | XRay Report ---
KUB CLINICAL HISTORY: Abdominal distention. FINDINGS: 2 AP supine abdominal radiographs are compared to study dated 06/21/2017 and correlated with abdominal CT dated 11/01/2020. There is a nonobstructed abdominal bowel gas pattern. No evidence of in traperitoneal free air is seen on these supine images. There are no abnormal abdominal calcifications . An aortobiiliac stent graft is in place. The skeletal structures are osteopenic and appear intact. The lung bases are clear as imaged. IMPRESSION: No acute abnormality is identified. See above. Electronically signed by: Zelalem Griffin M.D. 03/03/2023 11:03 AM
[2023-03-03] MEDS: ATORVASTATIN 40 MG TAB PO SCH (12:52)
[2023-03-03] MEDS: CYANOCOBALAMIN (B-12) 500 MCG TABLET PO SCH (12:52)
--- NOTE | 2023-03-03 13:32 | Hospitalist Progress Note ---
Date of Service March 03, 2023 Assessment & Plan (1) GIB (gastrointestinal bleeding): (2) Atrial fibrillation: (3) Anticoagulated with warfarin: (4) CKD (chronic kidney disease) stage 3, GFR 30-59 ml/min: (5) Hypothyroidism: (6) HTN (hypertension): (7) Dyslipidemia: (8) CAD (coronary artery disease): (9) S/P aneurysm repair: (10) GERD (gastroesophageal reflux disease): (11) Aneurysm of right iliac artery: (12) Alcohol use: Plan Patient is 72 yr presents with SOB and low hgb, 4.4. Takes Coumadin for AF (INR 4.8 at home on Wednesday. 2.8 today). Protonix gtt started. Transfuse 2 UPRBC due to finish at 1900; recheck H/H and INR at 2100. H/O R iliac artery aneurysm; takes Plavix. Acute gastrointestinal bleeding Acute on chronic blood loss anemia Symptomatic anemia secondary to above In setting of coagulopathy secondary to warfarin 01/29/23: Anemia studies done: TIBC: 393, Vitamin B12: 1335, Ferritin 27, Folic Acid 18.0, Retic count: 31.7 FOBT positive S/P EGD:Normal esophagus. Friable (with spontaneous bleeding), hemorrhagic appearing, inflamed, nodular and ulcerated mucosa in the gastric fundus/cardia approaching the GE junction shola 35 cm from the incisors. Biopsied. Normal stomach. Biopsied. Normal duodenal bulb and second portion of the duodenum. S/P Colonoscopy: Preparation of the colon was fair. The examined portion of the terminal ileum appeared normal. The examined colon appeared normal. Internal hemorrhoids. S/P 4 units PRBCs S/P Vit K, K centra INR:2.8>1.2>1.0 Plavix held Continue IV Protonix Appreciate GI input and recommendation Received gentle IV fluid and has been on clears as of yesterday Avoid NSAIDs, anticoagulation Given FFP, started on octreotide drip as recommended by GI following EGD Follow-up pathology results KUB did not show any evidence of intestinal obstruction Diet was advanced as tolerated Hemoglobin remains low at 7.4 without any changes compared with yesterday Advised more ambulation and repeat CBC tomorrow for possible discharge tomorrow ALEXIS ON CKD III-IV Cr:3.1>2.3>1.7 Hold lisinopril, Lasix Continue IV fluids Avoid nephrotoxic agents as able Creatinine remains high but stable at 2.06 Advised more oral intake of fluid Chronic atrial fibrillation LBBB Currently not on any rate controlling medications Coumadin on hold due to GI bleed Will ask GI when anticoagulation can be restarted H/O systolic and diastolic heart failure Diuretics on hold Monitor volume status No signs and or symptoms of fluid overload H/O R iliac artery aneurysm: Right iliac artery aneurysm in 2011 Hold Plavix for now -further recommendation as per GI Alcohol use Disorder: Known alcohol use. Was sober for 19 months until 9 days ago. Admits to having started drinking one month ago Monitor for any alcohol withdrawal Continue thiamine, folic acid Counseled to quit alcohol use--patient agrees to quit HTN: Hold Lisinopril BP Low Monitor HLD: Continue Atorvastatin Hypothyroidism: Continue levothyroxine Gout: Continue Allopurinol Depression: Continue Duloxetine DVT Px: SCDs Re: GI Bleed Code Status: Full Code Likely discharge tomorrow if remains stable Admission and Anticipated Discharge Date Admission Date: February 28, 2023 Subjective 03/03/2023 The patient was seen and examined in telemetry unit He has had very small bowel movement not melanotic He has some abdominal distention but no discomfort He still has been on clears Review of Systems Review of Systems: All systems reviewed and are unremarkable except as noted below Physical Exam Physical Exam: Sitting on a chair without any acute distress Constitutional: well developed, well nourished, + ill appearing and + obese Eyes: PERRL, conjunctivae normal, anicteric sclerae ENMT: external ear and nose normal, oropharynx normal Neck: trachea midline, no thyromegaly Respiratory: no respiratory distress Auscultation: lungs clear to auscultation bilaterally Cardiovascular: Rate/Rhythm: regular rate and regular rhythm; not tachycardic Heart Sounds: normal S1 and normal S2; no murmur Extremities: no edema Gastrointestinal (Abdomen): Inspection/Auscultation: + abdomen distended (Soft) and normal bowel sounds Percussion/Palpation: abdomen soft; abdomen nontender Musculoskeletal: No acute arthritis involving any joint Neurologic: normal touch/pain/proprioception and moves all extremities; no focal motor deficits Psychiatric: A+Ox3, euthymic affect Lymphatic: no cervical or axillary lymphadenopathy Results & Data Results & Data Vital Signs (Past 12 Hours) Vital Signs Temp Pulse Pulse Resp BP Pulse Ox Pulse Ox 06/07/23 12:00 95 03/03/23 11:43 36.5 C 96 H 15 123/69 93 03/03/23 09:21 80 03/03/23 07:57 36.5 C 123 H 22 122/70 93 03/03/23 02:29 36.9 C 91 H 15 116/73 96 O2 Del Method O2 Del Method 03/03/23 12:00 Room Air 03/03/23 11:43 Room Air 03/03/23 09:21 03/03/23 07:57 Room Air 03/03/23 02:29 Room Air Laboratory Results Short CBC 03/02/23 03/03/23 03/03/23 Range/Units 14:01 05:36 08:01 WBC Cancelled 5.48 Hgb 7.3 L Cancelled 7.4 L (14.0-18.0) g/dl Hct 23.3 L Cancelled 24.0 L (42.0-52.0) % Plt Count Cancelled 163 BMP 03/03/23 05:36 Sodium 136 Potassium 5.1 Chloride 107 Carbon Dioxide 24 BUN 32 H Creatinine 2.06 H Glucose 123 H Calcium 8.7 Medications Administered Current Inpatient Medications Acetaminophen (Acetaminophen 325 Mg Tab) 650 mg PO Q4H PRN PRN Reason: Pain or Fever Stop: 03/30/23 12:40 Al Hydrox/Mg Hydrox/Simethicone (Aluminum/Magnesium Susp 30 Ml Udc) 15 ml PO Q4H PRN PRN Reason: Dyspepsia Stop: 03/30/23 12:40 Allopurinol (Allopurinol 100 Mg Tab) 200 mg PO JOSÉ MIGUEL Stop: 03/30/23 20:59 Last Admin: 03/02/23 20:08 Dose: 200 mg Ascorbic Acid (Ascorbic Acid 500 Mg Tab) 250 mg PO DAILY JOSÉ MIGUEL Stop: 03/31/23 08:59 Last Admin: 03/03/23 08:04 Dose: 250 mg Atorvastatin Calcium (Atorvastatin 40 Mg Tab) 80 mg PO DAILY@1200 [facility] Stop: 03/31/23 11:59 Last Admin: 03/03/23 12:52 Dose: 80 mg Calcitriol (Calcitriol 0.25 Mcg Capsule) 0.25 mcg PO QAM JOSÉ MIGUEL Stop: 03/31/23 08:59 Last Admin: 03/03/23 08:05 Dose: 0.25 mcg Carbamazepine (Carbamazepine 100 Mg Tabcr) 100 mg PO [facility] Stop: 03/30/23 20:59 Last Admin: 03/02/23 20:08 Dose: 100 mg Clopidogrel Bisulfate (Clopidogrel Bisulfate 75 Mg Tab) [facility]: 03/31/23 08:59 Cyanocobalamin (Cyanocobalamin (B-12) 500 Mcg Tablet) 1,000 mcg PO DAILY@1200 [facility] Stop: 03/31/23 11:59 Last Admin: 03/03/23 12:52 Dose: 1,000 mcg Duloxetine HCl (Duloxetine Hcl 60 Mg Cap) 60 mg PO [facility] Stop: 03/30/23 20:59 Last Admin: 03/02/23 20:08 Dose: 60 mg Ferrous Sulfate (Ferrous Sulfate 325 Mg Tab) 325 mg PO DAILY [facility] Stop: 03/31/23 08:59 Last Admin: 03/01/23 08:00 Dose: 325 mg Folic Acid (Folic Acid 1 Mg Tab) 1 mg PO [facility] Stop: 04/01/23 08:59 Last Admin: 03/03/23 08:05 Dose: 1 mg Pantoprazole Sodium 40 mg/ (Dextrose) 100 mls @ 20 mls/hr IV Q5H [facility] Stop: 03/30/23 12:29 Last Admin: 03/03/23 10:19 Dose: 8 mg/hr, 20 mls/hr Lisinopril (Lisinopril 5 Mg Tab) 5 mg PO [facility] Stop: 03/31/23 08:59 Last Admin: 03/01/23 08:02 Dose: 5 mg Lorazepam (Lorazepam 2 Mg/1 Ml Vial) 1 mg IV ONE PRN; Protocol PRN Reason: EtoH Withdrawal AWSS 6,7,8,9,10 Magnesium Hydroxide (Magnesium Hydroxide Susp 30 Ml Udc) 30 ml PO Q12H PRN PRN Reason: Constipation Stop: 03/30/23 12:40 Ondansetron HCl (Ondansetron Inj 2 Mg/Ml 2 Ml Vial) 4 mg IV Q6H PRN PRN Reason: Nausea Stop: 03/30/23 12:40 Polyethylene Glycol (Polyethylene (Miralax) 17 Gm Pack) 17 gm PO DAILY PRN PRN Reason: Constipation Stop: 03/30/23 12:40 Pregabalin (Pregabalin 100 Mg Cap) 100 mg PO DAILY [facility] Stop: 03/31/23 08:59 Last Admin: 03/03/23 08:10 Dose: 100 mg Thiamine HCl (Thiamine Hcl 100 Mg Tab) 100 mg PO QAM [facility] Stop: 04/01/23 08:59 Last Admin: 03/03/23 08:05 Dose: 100 mg (2) Atrial fibrillation Atrial fibrillation type: unspecified chronic Qualified Code(s): I48.20 - Ch ronic atrial fibrillation, unspecified
[2023-03-03] MEDS: allopurinoL 100 MG TAB PO SCH (20:26)
[2023-03-03] MEDS: DULoxetine HCL 60 MG CAP PO SCH (20:26)
[2023-03-04] MEDS: PANTOprazole 40 MG in DEXTROSE 5% 100 ML IV SCH ×2 (01:24→06:12)
[2023-03-04 06:51] LABS: Basophils # (auto) 0.04 K/uL (0-0.2); Basophils % (auto) 0.8 %; Eosinophils # (auto) 0.11 K/uL (0-0.50); Eosinophils % (auto) 2.2 %; Hemoglobin 7.4 g/dl (14.0-18.0); Immature Granulocytes # (auto) 0.01 K/uL (0.01-0.20); Immature Granulocytes % (auto) 0.2 %; Lymphocytes # (auto) 0.98 K/uL (1.2-3.4); Lymphocytes % (auto) 19.3 %; Mean Corpuscular Hemoglobin 29.5 pg (25.0-34.0); Mean Corpuscular Hgb Conc 30.8 g/dL (32.0-36.0); Mean Corpuscular Volume 95.6 fL (80.0-100.0); Mean Platelet Volume 11.4 fL (9.4-12.4); Monocytes # (auto) 0.76 K/uL (0.11-0.59); Neutrophils # (auto) 3.18 K/uL (1.40-6.50); Neutrophils % (auto) 62.5 %; Nucleated RBC # (auto) 0.05 K/uL (0-0.12); Platelet Count 166 K/uL (130-400); RDW Coefficient of Variation 18.5 % (11.5-14.5); RDW Standard Deviation 64.1 fL (36.4-46.3); Red Blood Count 2.51 M/uL (4.70-6.10); White Blood Count 5.08 K/ul (4.8-10.8)
[2023-03-04 07:16] LABS: Anisocytosis Present; Hypochromasia Present; Polychromasia 1+
[2023-03-04] MEDS: CALCITRIOL 0.25 MCG CAPSULE PO SCH (08:23)
[2023-03-04] MEDS: THIAMINE HCL 100 MG TAB PO SCH (08:23)
[2023-03-04] MEDS: ASCORBIC ACID 500 MG TAB PO SCH (08:23)
[2023-03-04] MEDS: FOLIC ACID 1 MG TAB PO SCH (08:24)
[2023-03-04] MEDS: PREGABALIN 100 MG CAP PO SCH (08:29)
[2023-03-04 08:31] LABS: Calcium 8.7 mg/dl (8.6-10.3); Potassium 4.8 mmol/L (3.5-5.1)
[2023-03-04 08:37] LABS: BUN Creatinine Ratio 15.2 (10-20); Creatinine Clr Calc Pharmacy 34.6 ml/min; Est GFR (African American) 33.8 ml/min; Est GFR (Non-African American) 29.1 ml/min
[2023-03-04] MEDS ORDERED: PANTOprazole 40 MG TAB PO SCH (09:00)
--- NOTE | 2023-03-04 09:23 | Communication Note ---
Date of Service: March 04, 2023 EGD results from recent biopsy showing an ulcer with fibropurulent material. PPI twice daily is recommended. Avoid nsaid's. Would consider not being on dual anti-coagulants if not needed. Repeat EGD in 8-12 weeks would be recommended as an outpatient to document healing of the ulcer.
--- NOTE | 2023-03-04 12:21 | Hospitalist Progress Note ---
Date of Service March 04, 2023 Assessment & Plan (1) GIB (gastrointestinal bleeding): (2) Atrial fibrillation: (3) Anticoagulated with warfarin: (4) CKD (chronic kidney disease) stage 3, GFR 30-59 ml/min: (5) Hypothyroidism: (6) HTN (hypertension): (7) Dyslipidemia: (8) CAD (coronary artery disease): (9) S/P aneurysm repair: (10) GERD (gastroesophageal reflux disease): (11) Aneurysm of right iliac artery: (12) Alcohol use: Plan Patient is 72 yr presents with SOB and low hgb, 4.4. Takes Coumadin for AF (INR 4.8 at home on Wednesday. 2.8 today). Protonix gtt started. Transfuse 2 UPRBC due to finish at 1900; recheck H/H and INR at 2100. H/O R iliac artery aneurysm; takes Plavix. Acute gastrointestinal bleeding Acute on chronic blood loss anemia Symptomatic anemia secondary to above In setting of coagulopathy secondary to warfarin 01/29/23: Anemia studies done: TIBC: 393, Vitamin B12: 1335, Ferritin 27, Folic Acid 18.0, Retic count: 31.7 FOBT positive S/P EGD:Normal esophagus. Friable (with spontaneous bleeding), hemorrhagic appearing, inflamed, nodular and ulcerated mucosa in the gastric fundus/cardia approaching the GE junction shola 35 cm from the incisors. Biopsied. Normal stomach. Biopsied. Normal duodenal bulb and second portion of the duodenum. S/P Colonoscopy: Preparation of the colon was fair. The examined portion of the terminal ileum appeared normal. The examined colon appeared normal. Internal hemorrhoids. S/P 4 units PRBCs S/P Vit K, K centra INR:2.8>1.2>1.0 Plavix held Continue IV Protonix Appreciate GI input and recommendation Received gentle IV fluid and has been on clears as of yesterday Avoid NSAIDs, anticoagulation Given FFP, started on octreotide drip as recommended by GI following EGD Follow-up pathology results KUB did not show any evidence of intestinal obstruction Diet was advanced as tolerated Hemoglobin remains low at 7.4 without any changes compared with yesterday Advised more ambulation and repeat CBC tomorrow for possible discharge tomorrow Hemoglobin remains stable at 7.4 and no evidence of bleeding We will continue PPI twice daily and also ferrous sulfate once a day We will have EGD as an outpatient as per GI in 6 to 8 weeks GI advised to have one of the 2 anticoagulation medicine and the case was discussed with the patient and he will be given Coumadin to go and do not take Plavix for now ALEXIS ON CKD III-IV Cr:3.1>2.3>1.7 Hold lisinopril, Lasix Continue IV fluids Avoid nephrotoxic agents as able Creatinine remains high but stable at 2.06 Advised more oral intake of fluid Creatinine seems to be little elevated and was advised to drink more fluid Chronic atrial fibrillation LBBB Currently not on any rate controlling medications Coumadin on hold due to GI bleed Will ask GI when anticoagulation can be restarted Coumadin will be continued but not the Plavix H/O systolic and diastolic heart failure Diuretics on hold Monitor volume status No signs and or symptoms of fluid overload H/O R iliac artery aneurysm: Right iliac artery aneurysm in 2011 Hold Plavix for now -further recommendation as per GI Plavix has been on hold as per GI Alcohol use Disorder: Known alcohol use. Was sober for 19 months until 9 days ago. Admits to having started drinking one month ago Monitor for any alcohol withdrawal Continue thiamine, folic acid Counseled to quit alcohol use--patient agrees to quit HTN: Hold Lisinopril BP Low Monitor HLD: Continue Atorvastatin Hypothyroidism: Continue levothyroxine Gout: Continue Allopurinol Depression: Continue Duloxetine DVT Px: SCDs Re: GI Bleed Code Status: Full Code Will be discharged home this afternoon Admission and Anticipated Discharge Date Admission Date: February 28, 2023 Subjective 03/03/2023 The patient was seen and examined in telemetry unit He has had very small bowel movement not melanotic He has some abdominal distention but no discomfort He still has been on clears 03/04/2023 The patient was seen and examined in telemetry unit He has been stable and tolerating regular diet He has had bowel movement and does not have any abdominal symptoms His hemoglobin remains stable at 7.4 without any more evidence of bleeding Review of Systems Review of Systems: All systems reviewed and are unremarkable except as noted below Physical Exam Physical Exam: Sitting on a chair without any acute distress Constitutional: well developed, well nourished, + ill appearing and + obese Eyes: PERRL, conjunctivae normal, anicteric sclerae ENMT: external ear and nose normal, oropharynx normal Neck: trachea midline, no thyromegaly Respiratory: no respiratory distress Auscultation: lungs clear to auscultation bilaterally Cardiovascular: Rate/Rhythm: regular rate and regular rhythm; not tachycardic Heart Sounds: normal S1 and normal S2; no murmur Extremities: no edema Gastrointestinal (Abdomen): Inspection/Auscultation: + abdomen distended (Soft) and normal bowel sounds Percussion/Palpation: abdomen soft; abdomen nontender Neurologic: normal touch/pain/proprioception and moves all extremities; no focal motor deficits Psychiatric: A+Ox3, euthymic affect Lymphatic: no cervical or axillary lymphadenopathy Results & Data Results & Data Vital Signs (Past 12 Hours) Vital Signs Temp Pulse Pulse Resp BP Pulse Ox O2 Del Method 03/04/23 11:17 36.6 C 53 L 20 158/80 H 96 Room Air 03/04/23 07:00 54 L 03/04/23 07:52 36.7 C 66 18 141/88 H 95 Room Air 03/04/23 02:37 36.9 C 52 L 17 133/76 94 Room Air Laboratory Results Short CBC 03/04/23 Range/Units 05:47 WBC 5.08 (4.8-10.8) K/ul Hgb 7.4 L (14.0-18.0) g/dl Hct 24.0 L (42.0-52.0) % Plt Count 166 (130-400) K/uL BMP 03/04/23 05:47 Sodium 137 Potassium 4.8 Chloride 108 H Carbon Dioxide 23 BUN 33 H Creatinine 2.17 H Glucose 109 H Calcium 8.7 Medications Administered Current Inpatient Medications Acetaminophen (Acetaminophen 325 Mg Tab) 650 mg PO Q4H PRN PRN Reason: Pain or Fever Stop: 03/30/23 12:40 Al Hydrox/Mg Hydrox/Simethicone (Aluminum/Magnesium Susp 30 Ml Udc) 15 ml PO Q4H PRN PRN Reason: Dyspepsia Stop: 03/30/23 12:40 Allopurinol (Allopurinol 100 Mg Tab) 200 mg PO HS JOSÉ MIGUEL Stop: 03/30/23 20:59 Last Admin: 03/03/23 20:26 Dose: 200 mg Ascorbic Acid (Ascorbic Acid 500 Mg Tab) 250 mg PO DAILY JOSÉ MIGUEL Stop: 03/31/23 08:59 Last Admin: 03/04/23 08:23 Dose: 250 mg Atorvastatin Calcium (Atorvastatin 40 Mg Tab) 80 mg PO DAILY@1200 [facility] Stop: 03/31/23 11:59 Last Admin: 03/03/23 12:52 Dose: 80 mg Calcitriol (Calcitriol 0.25 Mcg Capsule) [facility] [place]: 03/31/23 08:59 Last Admin: 03/04/23 08:23 Dose: 0.25 mcg Carbamazepine (Carbamazepine 100 Mg Tabcr) 100 mg PO [facility] Stop: 03/30/23 20:59 Last Admin: 03/03/23 20:26 Dose: 100 mg Clopidogrel Bisulfate (Clopidogrel Bisulfate 75 Mg Tab) 75 mg PO [facility] Stop: 03/31/23 08:59 Cyanocobalamin (Cyanocobalamin (B-12) 500 Mcg Tablet) 1,000 mcg PO DAILY@1200 [facility] Stop: 03/31/23 11:59 Last Admin: 03/03/23 12:52 Dose: 1,000 mcg Duloxetine HCl (Duloxetine Hcl 60 Mg Cap) 60 mg PO [facility] Stop: 03/30/23 20:59 Last Admin: 03/03/23 20:26 Dose: 60 mg Ferrous Sulfate (Ferrous Sulfate 325 Mg Tab) 325 mg PO DAILY [facility] Stop: 03/31/23 08:59 Last Admin: 03/01/23 08:00 Dose: 325 mg Folic Acid (Folic Acid 1 Mg Tab) 1 mg PO [facility] Stop: 04/01/23 08:59 Last Admin: 03/04/23 08:24 Dose: 1 mg Lisinopril (Lisinopril 5 Mg Tab) 5 mg PO [facility] Stop: 03/31/23 08:59 Last Admin: 03/01/23 08:02 Dose: 5 mg Lorazepam (Lorazepam 2 Mg/1 Ml Vial) 1 mg IV ONE PRN; Protocol PRN Reason: EtoH Withdrawal AWSS 6,7,8,9,10 Magnesium Hydroxide (Magnesium Hydroxide Susp 30 Ml Udc) 30 ml PO Q12H PRN PRN Reason: Constipation Stop: 03/30/23 12:40 Ondansetron HCl (Ondansetron Inj 2 Mg/Ml 2 Ml Vial) 4 mg IV Q6H PRN PRN Reason: Nausea Stop: 03/30/23 12:40 Pantoprazole Sodium (Pantoprazole 40 Mg Tab) 40 mg PO BID [facility] Stop: 04/03/23 08:59 Last Admin: 03/04/23 09:42 Dose: 40 mg Polyethylene Glycol (Polyethylene (Miralax) 17 Gm Pack) 17 gm PO DAILY PRN PRN Reason: Constipation Stop: 03/30/23 12:40 Pregabalin (Pregabalin 100 Mg Cap) 100 mg PO DAILY [facility] Stop: 03/31/23 08:59 Last Admin: 03/04/23 08:29 Dose: 100 mg Thiamine HCl (Thiamine Hcl 100 Mg Tab) 100 mg PO QAM [facility] Stop: 04/01/23 08:59 Last Admin: 03/04/23 08:23 Dose: 100 mg (2) Atrial fibrillation Atrial fibrillation type: unspecified chronic Qualified Code(s): I48.20 - Chronic atrial fibrillation, unspecified
--- NOTE | 2023-03-04 16:35 | Discharge Summary ---
Date of Service March 04, 2023 Admission HPI Per Admitting Provider Patient presented with abdominal pain, SOB, dizziness, hypotension and diarrhea. Pt reports that he has not felt well since Wednesday. He noted that he was becoming generally weaker and has not been able to eat or drink over the past three days. he reports SOB with exertion. This morning, he felt that he was really declining and becoming more dizzy and weak. He reports having darker stools over the past few days. As outlined below, he had blood work done as an outpatient and based on results Fe+ dosing was increased. Pt is a recovering alcoholic. I did speak with his out in the hallway prior to talking with the patient and she had suspicion that he has been drinking over the past month. She reports he has been abstaining from alcohol for 19 months prior to that but she notes some historic behaviors that include hanging out in the driveway, eating mints, and mannerism changes; but she states he denies using alcohol to her. I did ask the patient directly and he was honest that he has been drinking vodka. His last drink was last Wednesday and he drank a pint of vodka daily x4 days at that time. In the ED, Hgb 4.4; baseline is 12.8. Hgb on 01/29 8.3, 02/05 7.9 As an outpatient at the beginning of January on 01/29 he did have anemia studies done: TIBC: 393, Vitamin B12: 1335, Ferritin 27, Folic Acid 18.0, Retic count: 31.7 02/09/23: FOBT negative at that time. FOBT positive today. T/C and blood consent obtained in ED. 2 UPRBC ordered in ED. INR 2.8; Dr. Lara ordered 2G KCentra in ED.Will recheck INR. Patient checks INR at home. On Wednesday it was 4.8; held since. PMH includes: H/O PE (spontaneous 2006 and 2011 on Coumadin since 2011), AF (prior cardioversion), CAD s/p aneurysm repair, HTN, CKD, EFRAÍN, GERD, hypothyroidism. Most recent ECHO 12/24/21:EF: 45-49%,LV wall thickness increased from previous ECHO. Mild MR, moderate TR.Mild to moderate valve issues. FMH includes Mom having a CABG x5 and Dad having CVA/TIA. Pt had a heart catheterization in 2013 with increased right atrial pressures which apparently were related to his anemia at that time. Moderate coronary artery irregularitites were identified. No stents pr further invasive intervention at that time. [place] noting from outpatient records: patient was noted to have a right iliac artery aneurysm in 2011 and underwentrepair of ectatic abdominal aorta and right common iliac artery aneurysm with Cook Zenith aortic stent graft and transcatheter embolization of the right internal iliac artery by Dr. Ritter on 11/22/2012. Due to progressive RLE claudication he eventually underwent a [id number] femoral artery to femoral artery bypass graft with 8 mm externally supported ePTFE by Dr. Ritter on and afem-fem bypass graft and therefore he underwent angiography of bilateral iliacs/femorals/fem-fem 11/07/14. [facility] [place] [facility] with acute hypoxic respiratory failure, initially requiring BiPAP therapy and ICU level care. Event attributed to acute decompensated systolic heart failure, acute pulmonary edema. Pt denies CARRILLO, dizziness, SOB, chest pain or palpitations, swelling, crackles in his chest, N/V/D, tremors, recent falls or trauma, abdominal pain or distention, hematochezia, hematemesis, cough, fever or chills. Pt is sitting in his hospital bed, barboza dusky appearance, cyanotic nail beds, Patient will be admitted for further evaluation and management. Please see A/P for further details. Admission Exam Per Admitting Provider Physical Exam: Neuro: AAOx4, PERRLA, no aphagia, memory changes, CNII-XII grossly intact HEENT: head normocephalic, moist mucus membranes CV: S1/S2, (-) M/G/R, (-) edema, cap refill > 6 seconds. cyanotic nail beds Resp: Lungs CTA in all peralta. On RA GI: Abdomen S/NT/ND, Ax4 bowel sounds, (-) CVA tenderness Musculoskeletal: 5/5 B/L UE strength, 5/5 B/L LE strength. No gait disturbance Skin: (-) rashes , (-) erythema. Psych: euthymic mood Principal Diagnosis Acute GI bleed secondary to gastric ulcer, atrial fibrillation on anticoagulation, CKD, hypertension, aneurysm of right iliac artery. Hypothyroidism Discharge Exam Sitting on a chair without any acute distress Constitutional well developed, well nourished, + ill appearing and + obese Eyes PERRL, conjunctivae normal, anicteric sclerae ENMT external ear and nose normal, oropharynx normal Neck trachea midline, no thyromegaly Respiratory no respiratory distress Auscultation: lungs clear to auscultation bilaterally Cardiovascular Rate/Rhythm: regular rate and regular rhythm; not tachycardic Heart Sounds: normal S1 and normal S2; no murmur Extremities: no edema Gastrointestinal (Abdomen) Inspection/Auscultation: + abdomen distended (Soft) and normal bowel sounds Percussion/Palpation: abdomen soft; abdomen nontender Neurologic normal touch/pain/proprioception and moves all extremities; no focal motor deficits Psychiatric A+Ox3, euthymic affect Lymphatic no cervical or axillary lymphadenopathy Discharge Data Allergies Allergy/AdvReac Type Severity Reaction Status Date / Time No Known Allergies Allergy Verified 03/02/23 08:22 Consultations 02/28/23 12:31 Consult Gastroenterology Routine 02/28/23 12:37 ED Decision to Admit Stat Procedures Performed Operation Date: 03/02/23 16:45 Actual Procedures p EGD Biopsy Cytology - Viki Alfaro MD s Colonoscopy - Viki Alfaro MD Hospital Course (1) GIB (gastrointestinal bleeding): (2) Atrial fibrillation: (3) Anticoagulated with warfarin: (4) CKD (chronic kidney disease) stage 3, GFR 30-59 ml/min: (5) Hypothyroidism: (6) HTN (hypertension): (7) Dyslipidemia: (8) CAD (coronary artery disease): (9) S/P aneurysm repair: (10) GERD (gastroesophageal reflux disease): (11) Aneurysm of right iliac artery: (12) Alcohol use: Plan Patient is 72 yr presents with SOB and low hgb, 4.4. Takes Coumadin for AF (INR 4.8 at home on Wednesday. 2.8 today). Protonix gtt started. Transfuse 2 UPRBC due to finish at 1900; recheck H/H and INR at 2100. H/O R iliac artery aneurysm; takes Plavix. Acute gastrointestinal bleeding Acute on chronic blood loss anemia Symptomatic anemia secondary to above In setting of coagulopathy secondary to warfarin 01/29/23: Anemia studies done: TIBC: 393, Vitamin B12: 1335, Ferritin 27, Folic Acid 18.0, Retic count: 31.7 FOBT positive S/P EGD:Normal esophagus. Friable (with spontaneous bleeding), hemorrhagic appearing, inflamed, nodular and ulcerated mucosa in the gastric fundus/cardia approaching the GE junction shola 35 cm from the incisors. Biopsied. Normal stomach. Biopsied. Normal duodenal bulb and second portion of the duodenum. S/P Colonoscopy: Preparation of the colon was fair. The examined portion of the terminal ileum appeared normal. The examined colon appeared normal. Internal hemorrhoids. S/P 4 units PRBCs S/P Vit K, K centra INR:2.8>1.2>1.0 Plavix held Continue IV Protonix Appreciate GI input and recommendation Received gentle IV fluid and has been on clears as of yesterday Avoid NSAIDs, anticoagulation Given FFP, started on octreotide drip as recommended by GI following EGD Follow-up pathology results KUB did not show any evidence of intestinal obstruction Diet was advanced as tolerated Hemoglobin remains low at 7.4 without any changes compared with yesterday Advised more ambulation and repeat CBC tomorrow for possible discharge tomorrow Hemoglobin remains stable at 7.4 and no evidence of bleeding We will continue PPI twice daily and also ferrous sulfate once a day We will have EGD as an outpatient as per GI in 6 to 8 weeks GI advised to have one of the 2 anticoagulation medicine and the case was discussed with the patient and he will be given Coumadin to go and do not take Plavix for now ALEXIS ON CKD III-IV Cr:3.1>2.3>1.7 Hold lisinopril, Lasix Continue IV fluids Avoid nephrotoxic agents as able Creatinine remains high but stable at 2.06 Advised more oral intake of fluid Creatinine seems to be little elevated and was advised to drink more fluid Chronic atrial fibrillation LBBB Currently not on any rate controlling medications Coumadin on hold due to GI bleed Will ask GI when anticoagulation can be restarted Coumadin will be continued but not the Plavix H/O systolic and diastolic heart failure Diuretics on hold Monitor volume status No signs and or symptoms of fluid overload H/O R iliac artery aneurysm: Right iliac artery aneurysm in 2011 Hold Plavix for now -further recommendation as per GI Plavix has been on hold as per GI Alcohol use Disorder: Known alcohol use. Was sober for 19 months until 9 days ago. Admits to having started drinking one month ago Monitor for any alcohol withdrawal Continue thiamine, folic acid Counseled to quit alcohol use--patient agrees to quit HTN: Hold Lisinopril BP Low Monitor HLD: Continue Atorvastatin Hypothyroidism: Continue levothyroxine Gout: Continue Allopurinol Depression: Continue Duloxetine DVT Px: SCDs Re: GI Bleed Code Status: Full Code Will be discharged home this afternoon Total Time Total Time Spent Total Time Spent (In Minutes): 35 minutes Discharge Plan Discharge Items Patient Disposition: Home - Self-Care Reason For Visit: ABDOMINAL PAIN, SOB, GIB Discharge Diagnosis: Acute GI bleed secondary to gastric ulcer, atrial fibrillation on anticoagulation, CKD, hypertension, aneurysm of right iliac artery. Hypothyroidism Condition on Discharge: Fair Activity: Resume your previous activity Non-emergency contact: Primary Care Provider Call non-emergency contact if: you have any medication questions and your symptoms worsen Follow-up/Referrals: Emeka Piper DO [Primary Care Provider] - (Date & Time 03/09/2023 3:00 PM Provider Crystal Matamoros PA-C Department Family Practice [facility] ) Francy Hughes CRNP [Nurse Practitioner] - (The GI office will call you with an appointment for follow up.) Diet: Heart Healthy Diet Texture: Dental soft (bite-sized) Addtl Attending Provider Instructions: Please take precautions to avoid fall Take your medications as advised You will be taking only Coumadin and stop taking Plavix until you are being seen by the GI Do not take any NSAIDs like aspirin, ibuprofen, Motrin, naproxen ,etc Please give appointment with your healthcare providers Please stop drinking alcohol Pending Studies at Discharge: No Stand-Alone Forms: My [facility] Faveous, Smoking Cessation Medications and DC Order Prescriptions: New pantoprazole 40 mg Tablet,Delayed Release (Dr/Ec) 40 mg PO BID 30 Days Qty: 60 0RF Continued furosemide 20 mg tablet 20 mg PO BID atorvastatin 80 mg tablet 80 mg PO DAILY@1200 allopurinol 100 mg tablet 200 mg PO HS Rx Instructions: takes in the pm levothyroxine 75 mcg Tablet 75 mcg PO DAILYBB cyanocobalamin (vitamin B-12) [Vitamin B-12] 1,000 mcg Tablet 1,000 mcg PO DAILY@1200 lisinopril 10 mg tablet 5 mg PO QAM pyridoxine (vitamin B6) [Vitamin B-6] 100 mg Tablet 100 mg PO DAILY@1200 pregabalin 100 mg capsule 100 mg PO DAILY carbamazepine 100 mg tablet extended release 12 hr 100 mg PO HS calcitriol 0.25 mcg Capsule 0.25 mcg PO QAM ezetimibe 10 mg tablet 10 mg PO QAM duloxetine 60 mg capsule,delayed release(DR/EC) 60 mg PO HS Rx Instructions: Take with 30mg to make 90mg folic acid 400 mcg Tablet 0.4 mg PO DAILY warfarin 6 mg Tablet 9 mg PO [id number] Rx Instructions: Mon/Wed/Fri/Sun warfarin 6 mg Tablet 6 mg PO [id number] Rx Instructions: //Sat melatonin 1 mg Tablet 6 - 8 mg PO HS PRN (Reason: Sleep) Vitron-C 65 mg iron- 125 mg Tablet,Delayed Release (Dr/Ec) 1 tab PO DAILY Discontinued clopidogrel 75 mg Tablet 75 mg PO QAM pantoprazole 40 mg Tablet,Delayed Release (Dr/Ec) 40 mg PO DAILY Discharge Orders: Discharge Order (Routine); Ordered 03/04/23 Ordered By: Aurelia Morris Admission Data Admit Date/Time: 02/28/23 12:41 Attending Provider: Aurelia Morris Admit Provider: Mena Gan Primary Care Provider: Emeka Piper Other Providers: Fariba Carbone Jr ; Mena Gan ; Liu Lal Other Interventions: Discharge Summary Assessment (RN) Last Done: 03/02/23 09:40
== END 2023-03-04 14:23 | disposition home or self-care (01) | DRG 378 ==
LOC: ED 09:48 → 2E 12:41 → SUATTDRO 12:41 → 2E 14:02